=== PATIENT | female | born 1990 | race Caucasian/White ===

== ENCOUNTER 2023-11-03 08:41 | Inpatient (IN) | payer OTHER, SELFPAY ==
[2023-11-03] VITALS (17 sets, daily range): BP systolic 108–130; BP diastolic 65–90; PULSE 63–69; RESP 18; TEMP 36.5–36.8; O2SAT 90–100; BMI 23.9; BMI 25.0
--- NOTE | 2023-11-03 08:45 | ED.LOWEXI1 ---
HPI - Extremity Injury (Lower) General Chief Complaint: Extremity Injury, Lower Stated Complaint: LOWER EXTREMITY INJURY Time Seen by Provider: 11/03/23 08:45 History of Present Illness HPI Narrative: 33-year-old female presents to the emergency Department for left ankle pain. She was at work and she tripped and fell and twisted her ankle. No other injury was sustained, she didn't hit her head. The pain is severe and she was transported here by paramedics. This happened just before coming into the emergency department. Related Data Allergies Allergy/AdvReac Type Severity Reaction Status Date / Time No Known Drug Allergies Allergy Verified 11/03/23 08:44 Review of Systems ROS A ten point review of systems is negative except as noted above. Exam Narrative Exam Narrative: Nurses note and vital signs reviewed and patient is not hypoxic. General: The patient appears uncomfortable Skin: Warm, dry, no pallor noted. There is no rash noted. Head: Normocephalic, atraumatic Eye: Normal conjunctiva, no drainage Ears, Nose, Mouth, and Throat: oral mucosa is moist. Nares patent. Cardiovascular: Regular Rate and Rhythm Respiratory: Patient is in no distress, no accessory muscle use, lungs are clear to auscultation, no wheezing, rales or rhonchi Back: non-tender GI: soft and nontender Musculoskeletal: swelling and tenderness present at the left ankle. Dorsalis pedis pulse 2+. Neurological: A&O, normal speech Psychiatric: Cooperative ED Procedure Instructions Procedures Procedures: The following procedure was performed by me. The patient was given IV etomidate for conscious sedation. She was placed on oxygen and CO2 monitor. Monitor also applied. She was given 10 mg of etomidate which resulted in an excellent level of sedation. She did not have decrease in her pulse ox remained hemodynamically throughout. There were no complications. Total conscious sedation time fifteen minutes. The following procedure was performed by me. Reduction was carried out under conscious sedation of the left ankle fracture dislocation. Manual traction was utilized. Subsequently a short leg posterior splint was applied by me. She is neurovascularly intact subsequently. There were no complications. MDM - Extremity Injury (Lower) MDM Narrative Medical decision making narrative: left ankle fracture dislocation is identified, closed. It has been reduced by me. I've spoken to podiatry who has reviewed her x-rays. She'll be admitted today for pain control with plan for surgery tomorrow. Findings are discussed thoroughly with the patient's. Differential Diagnosis Differential diagnosis: Likely ankle sprain and strain and other (ankle fracture, dislocation) Imaging Data ankle: Radiologist's impression: ITS Impressions Ankle X-Ray 11/03/23 09:54 IMPRESSION: Left ankle study demonstrates fractures of the distal fibular shaft and distal tibia including medial malleolus, relationship of the fracture fragments improved compared to the prior exam as described above. Mild medial displacement of the articular surface of the distal tibia which is the proximal fracture fragment of the tibia, significantly improved compared to the prior exam with what appears be reduction of previously noted dislocation. Significantly improved tibiofibular relationship. Follow-up as needed. Electronically authenticated by: ARTHUR WEST Date: 11/03/2023 10:52 Discharge Plan Discharge Chief Complaint: Extremity Injury, Lower Clinical Impression: Closed fracture dislocation of left ankle Patient Disposition: Admitted As Inpatient Time of Disposition Decision: 10:59 Condition: Good ED Ortho Fracture Reduction Orthopedic Fracture Reduction Fracture #1: Time out performed: Yes Side: left Manipulation performed: Yes Fracture reduction location: tibia and fibula Analgesia: procedural sedation Technique: direct manipulation Anesthesia needed: No Post-reduction x-rays demonstrate: anatomical reduction Post-reduction neuro exam: intact Post-reduction vascular exam: intact Splint applied: Yes Patient tolerated procedure: well and no complications
[2023-11-03] MEDS: MORPHINE SULFATE 4 MG/ML VIAL IV ×2 (09:00→10:12)
--- NOTE | 2023-11-03 09:10 | XR_ITS ---
[address] [address] Patient Name: DIEUDONNE ISBELL MRN: [id number] date: 1990 Sex: F Assigned Patient Location: ER Current Patient Location: ER Accession/Order Number: [id number] Exam Date: 11/03/2023 09:05 Report Date: 11/03/2023 09:22 At the request of: MAZIN SCHAEFFER Procedure: XR ankle LT min 3V EXAM: XR ankle LT min 3V HISTORY: fell, twisted COMPARISON: None. TECHNIQUE: 3 views Findings/impression: Moderately displaced oblique fracture of the distal fibula and medial malleolus. Moderate dislocation of the ankle mortise and the distal tibiofibular joint. Soft tissue swelling. Electronically authenticated by: KARLO PRESSLEY Date: 11/03/2023 09:22
[2023-11-03] MEDS: ETOMIDATE 20 MG/10 ML VIAL IVP (09:48)
--- NOTE | 2023-11-03 09:54 | XR_ITS ---
The [address] [address] Patient Name: DIEUDONNE ISBELL MRN: [facility]:[id number] date: 1990 Sex: F Assigned Patient Location: ER Current Patient Location: ED.MAIN Accession/Order Number: [id number] Exam Date: 11/03/2023 10:25 Report Date: 11/03/2023 10:52 At the request of: MAZIN SCHAEFFER Procedure: XR ankle LT 2V EXAM: XR ankle LT 2V HISTORY: post reduction COMPARISON: Left ankle study performed earlier today on 11/03/2023 TECHNIQUE: AP and lateral views of the left ankle were obtained. FINDINGS: Overlying fiberglass stabilizing device noted. Comminuted fracture of the distal fibular shaft with mild separation of the fracture fragments including mild lateral displacement of the distal major fracture fragment, improved compared to the prior exam. There is slight lateral angulation at the major fracture site. Fracture of the distal tibia to include base of the medial malleolus again identified, the fracture appears comminuted though significantly improved in appearance with mild separation of fracture fragments. Mild medial displacement of the proximal major fracture fragment which includes the majority of the articular surface with the talus, significantly improved since prior exam, previously noted dislocation or longer identified. Significantly improved appearance of tibiotalar relationship. Moderate to marked soft tissue swelling medially with mild swelling otherwise noted. Small plantar calcaneal spur. XR/XR ankle LT 2V IMPRESSION: Left ankle study demonstrates fractures of the distal fibular shaft and distal tibia including medial malleolus, relationship of the fracture fragments improved compared to the prior exam as described above. Mild medial displacement of the articular surface of the distal tibia which is the proximal fracture fragment of the tibia, significantly improved compared to the prior exam with what appears be reduction of previously noted dislocation. Significantly improved tibiofibular relationship. Follow-up as needed. Electronically authenticated by: ARTHUR WEST Date: 11/03/2023 10:52
--- NOTE | 2023-11-03 10:17 | PC.NURSE ---
0950 10mg of etomidate given IV push. 0951 Dr. Carcamo at bedside for closed reduction of left ankle. Left ankle supported and splint applied. Post reduction xray ordered and radiology notified. 0957 pt awake and alert. pt reports pain to left ankle. IV pain medication ordered.
--- NOTE | 2023-11-03 11:21 | P.HP_ITS ---
H&P: HPI History of Present Illness Chief complaint: LOWER EXTREMITY INJURY Narrative: patient is a healthy 33-year-old female with no past medical history who presented to the emergency department today after she tripped and fell and twisted her ankle at work. X-ray was positive for acute fracture of the left d istal fibular shaft and distal tibia including the medial malleolus. Patient was approximated/reduced under sedation in the Emergency Room and podiatry was consult note for further evaluation. She will be admitted to the medicine service and planned for surgery in the morning. continue pain control. Review of Systems ROS Narrative ROS: a complete review of systems were reviewed with patient and are positive as below or listed in History of Chief Complaint. General: no fever, chills, night sweats Head: no headache, trauma, visual changes, nausea or vomiting Skin: no reported rashes, itching or sores Eyes: no blurriness of vision Ears: no reported hearing loss, vertigo, earache, or tinnitus Throat: no sore throat, hoarseness, swelling of neck, or tongue pain Heart: no chest pain Lungs: no shortness of breath or cough GI: no diarrhea or vomiting/nausea Urinary: no urinary urgency, frequency or pain Neuro: no numbness or tingling HEM: no bleeding issues or bruising ENDO: no thyroid problems Psych: no anxiety or depression PFSH PFSH Medical History Depression ?F32.A - Depression, unspecified (ICD-10) Anxiety ?F41.9 - Anxiety disorder, unspecified (ICD-10) Seasonal allergies ?J30.2 - Other seasonal allergic rhinitis (ICD-10) Surgical History History of appendectomy ?Z90.49 - Acquired absence of other specified parts of digestive tract (ICD- 10) History of partial hysterectomy ?Z90.711 - Acquired absence of uterus with remaining cervical stump (ICD-10) Family History Mother Family history of COPD (chronic obstructive pulmonary disease) Family history of cancer Grandmother Family history of cancer Father Family history of hypertension Social History Within the past year, how often did you have a drink containing alcohol: never Score interpretation: A score less than 3 is consistent with normal alcohol consumption. Smoking status: Never smoker Non-prescribed substance use: denies use Previous occupational history: [employer] Highest level of school completed/degree received: high school graduate Are you now , , , , never or living with a partner: living with partner Little interest or pleasure in doing things: not at all Feel stressed/tense/nervous/anxious/difficulty sleeping: only a little Do you think of yourself as: straight/heterosexual Meds Home Medications and Allergies Home Medications Medication Instructions Recorded Confirmed Type No Known Home Medications 11/03/23 11/03/23 History Allergies Allergy/AdvReac Type Severity Reaction Status Date / Time No Known Drug Allergies Allergy Verified 11/03/23 08:44 Exam Narrative Exam Narrative: General: Patient is alert, and oriented to person, place and time with normal affect, proper hygiene Skin: no visible rashes, or ulcers Head: atraumatic, acephalic Eyes: PERRLA, no nystagmus present, conjunctiva clear, no scleral icterus Ears: normal gross auditory acuity Nose: symmetric, no discharge, no maxillary or frontal sinus tenderness Mouth/Throat: no erythema, exudate, or tonsillar enlargement, normal dentition Neck: no masses palpated Heart: Normal rate and rhythm, no murmurs/rubs/gallops Lungs: no audible wheezes, crackles and normal breath sounds all lung syed Abdomen: Normal audible bowel sounds, no distension, No palpable masses, no organomegaly, no rebound/guarding/ or rigidity Musculoskeletal: no swelling bilateral lower extremities, splint on left leg c/d/i Neuro: CN II-X grossly intact Constitutional Vital Signs, click to edit/add: Last Vital Signs Temp 97.7 F 11/03/23 08:44 Pulse 63 11/03/23 08:44 Resp 18 11/03/23 08:44 BP 110/78 11/03/23 11:00 Pulse Ox 96 11/03/23 11:10 O2 Del Method Room Air 11/03/23 08:44 Assessment and Plan Assessment and Plan (1) Closed left trimalleolar fracture: Qualifiers: Encounter type: initial encounter Qualified Code(s): S82.852A - Displaced trimalleolar fracture of left lower leg, initial encounter for closed fracture (2) Closed fracture dislocation of left ankle: Qualifiers: Encounter type: initial encounter Qualified Code(s): S82.892A - Other fracture of left lower leg, initial encounter for closed fracture Plan Plan for pain control overnight, CBC, cmp, coags and tests all normal and negative. NPO after midnight. Podiatry to take to surgery tomorrow for fixation. Non weight bearing on the left. PT evaluation tomorrow as well for post-op needs.
[2023-11-03 11:35] LABS: Basophils Percent Auto 0.2 % (0.2-2.0); Eosinophils Absolute Auto 0.1 10^3/uL (0.0-0.7); Eosinophils Percent Auto 0.4 % (0.9-7.0); Hematocrit 42.5 % (36.0-48.0); Immature Granulocytes Abs Auto 0.05 10^3/uL (0.00-0.03); Immature Granulocytes Pct Auto 0.4 % (0.0-0.5); Lymphocytes Absolute Auto 0.9 10^3/uL (1.2-3.8); Lymphocytes Percent Auto 6.7 % (20.5-60.0); Mean Corpuscular HGB Conc 32.9 g/dL (29.9-35.2); Mean Corpuscular Hemoglobin 30.2 pg (26.7-34.0); Mean Corpuscular Volume 91.6 fL (81.0-99.0); Mean Platelet Volume 10.2 fL (9.5-13.5); Monocytes Absolute Auto 0.5 10^3/uL (0.3-0.8); Monocytes Percent Auto 3.5 % (1.7-12.0); Neutrophils Absolute Auto 11.5 10^3/uL (1.4-6.5); Neutrophils Percent Auto 88.8 % (43.0-75.0); Platelet Count 192 10^3/uL (150-450); Red Blood Count 4.64 10^6/uL (4.20-5.40); Red Cell Distribution Width 13.3 % (11.0-15.0); White Blood Count 12.9 10^3/uL (4.0-11.0)
[2023-11-03 11:51] LABS: Alanine Aminotransferase 9 U/L (14-59); Albumin Globulin Ratio 1.1; Albumin Level 3.9 g/dL (3.4-5.0); Alkaline Phosphatase 44 U/L (46-116); Anion Gap 12.6; Aspartate Amino Transferase 12 U/L (15-37); BUN Creatinine Ratio 18.4; Calcium 8.9 mg/dL (8.5-10.1); Carbon Dioxide 26.5 mmol/L (21.0-32.0); Chloride 102 mmol/L (98-107); Estimated GFR (African America >60 (>=60); Estimated GFR (Non-African Ame >60 (>=60); Globulin 3.6 g/dL; Glucose 120 mg/dL (74-106); Potassium 4.1 mmol/L (3.5-5.1); Sodium 137 mmol/L (136-145); Total Protein 7.5 g/dL (6.4-8.2)
--- NOTE | 2023-11-03 11:55 | PM.PODCN1 ---
[facility] - Podiatry Data of Consult Patient: new to practice Consult date: 11/03/23 Requesting physician: Nona Ruiz DO Primary care provider: Non-Staff Physician, MD Consult Narrative Reason for consult: Left ankle fracture Narrative: Patient is a pleasant 33-year-old female otherwise healthy presents to our emergency department after sustaining fall at work this morning with subsequent left ankle pain and deformity. She presented to the emergency department where x-rays revealed closed, dislocated trimalleolar fracture. Closed reduction was performed in the ED and she is neurovascularly intact. She was seen at bedside this morning resting comfortably, states pain improved following reduction and reports minimal pain at this time. Posterior splint intact. She denies any other injuries, denies any other acute pedal complaints and denies any constitutional symptoms at time of visit. cc:: CC: Nona Ruiz DO Review of Systems ROS Status of ROS 10 or more systems reviewed and unremarkable except as noted in history and below Exam Narrative Exam Narrative: LLE splint left CDI secondary to known fracture with prior dislocation s/p closed reduction performed in ED. Vascular: CFT intact to digits. Skin temperature warm to warm proximal distal to dressing. No erythema or ecchymosis proximally. Neuro: Light touch gross sensation intact to digits. No hypersensitivity. Derm: LLE splint left CDI. No open lesions proximal or distal to dressing. MSK: Muscle strength and range of motion deferred secondary to known fracture. Compartments are soft compressible, no pain with calf or thigh compression. Active and passive range of motion digits present. Constitutional Vital Signs, click to edit/add: Last Vital Signs Temp 97.7 F 11/03/23 08:44 Pulse 63 11/03/23 08:44 Resp 18 11/03/23 08:44 BP 110/78 11/03/23 11:00 Pulse Ox 96 11/03/23 11:10 O2 Del Method Room Air 11/03/23 08:44 Assessment and Plan Assessment and Plan (1) Closed left trimalleolar fracture: (2) Closed fracture dislocation of left ankle: Plan Patient examined and evaluated. All findings discussed with patient all questions answered to patient's satisfaction. Labs and imaging reviewed. Prereduction x-ray demonstrates displaced PER4 ankle fracture, postreduction the tibiotalar joint is well reduced however there is still displacement of the medial malleolus or fragment as well as shortening and comminution of the Kirkpatrick C fibular fracture. Posterior malleolus fracture fragment is noted. Postreduction CT was ordered to guide surgical planning. Leave LLE splint CDI. Plan for ORIF left ankle fracture tomorrow, 11/04 at 0730 Postoperative recovery as well as potential risk complications were discussed with the patient and she is agreeable to move forward with surgical intervention. NPO after midnight tonight. Pain control with oxycodone 02/12/2015, acetaminophen 1000, Toradol 15 IM for breakthrough. Rest per primary Please call with questions or concerns.
[2023-11-03 11:56] LABS: HCG Quantitative <1 mIU/mL
[2023-11-03 11:58] LABS: INR 1.03; Partial Thromboplastin Time 28.2 sec (22.3-36.2); Prothrombin Time 10.9 sec (9.0-11.6)
--- NOTE | 2023-11-03 12:00 | CT_ITS ---
The [address] [address] Patient Name: DIEUDONNE ISBELL MRN: [id number] date: 1990 Sex: F Assigned Patient Location: MS Current Patient Location: MS Accession/Order Number: [id number] Exam Date: 11/03/2023 11:55 Report Date: 11/03/2023 12:28 At the request of: CHERISE FLORES Procedure: CT ankle LT wo con Exam Type: CT LEFT ANKLE Exam Date and Time: 11/03/2023 11:55 AM EST Indication: 33 years old Female with fracture Comparison: Plain radiograph same day TECHNIQUE: Axial CT images of the left ankle were obtained without intravenous contrast. Coronal and sagittal reformatted images were obtained. Dose reduction techniques were achieved by using automated exposure control and/or adjustment of mA and/or kV according to patient size and/or use of iterative reconstruction technique. FINDINGS: Fiberglas splint material overlies the ankle. Redemonstration of a comminuted, moderately displaced medial malleolus fracture with extension into the anterior medial tibial plafond. There is a moderately displaced fracture fragment along the posterior medial aspect of the ankle. Small minimally displaced posterior malleolus fracture without significant cortical step off. Comminuted distal fibular diaphysis fracture above the syndesmosis, moderately displaced. There may be slight anterior subluxation of the distal fibula on the distal tibia likely reflecting syndesmotic disruption. The subtalar joints congruent. The midfoot is congruent. No other displaced fracture identified. Posttraumatic subcutaneous edema is present about the ankle. CT/CT ankle LT wo con IMPRESSION: Comminuted, moderately displaced trimalleolar fracture with syndesmotic disruption. Electronically authenticated by: ALEX PIERRE Date: 11/03/2023 12:28
[2023-11-03] MEDS: LACTATED RINGER'S SOLUTION 1,000 ML 125 ML IV (12:11)
[2023-11-03] MEDS: OXYCODONE HCL/ACETAMINOPHEN 5MG/325MG 1 TAB PO ×2 (15:15→21:34)
[2023-11-04] VITALS (13 sets, daily range): BP systolic 97–121; BP diastolic 66–83; PULSE 61–82; RESP 12–20; TEMP 36–36.7; O2SAT 96–100
--- NOTE | 2023-11-04 | FL_ITS ---
[address] [address] Patient Name: DIEUDONNE ISBELL MRN: [id number] date: 1990 Sex: F Assigned Patient Location: MS Current Patient Location: MS Accession/Order Number: [id number] Exam Date: 11/04/2023 08:10 Report Date: 11/04/2023 13:46 At the request of: VALENTIN BONOE Procedure: FL fluoroscopy <1hr NON-READ EXAM: FL fluoroscopy <1hr NON-READ HISTORY: TECHNIQUE: FINDINGS: Please see Operative Report. Electronically authenticated by: RADIOLOGIST NO Date: 11/04/2023 13:46
[2023-11-04] MEDS: MORPHINE SULFATE 4 MG/ML VIAL IV (03:07)
[2023-11-04 05:53] LABS: Basophils Percent Auto 0.2 % (0.2-2.0); Eosinophils Absolute Auto 0.2 10^3/uL (0.0-0.7); Eosinophils Percent Auto 2.6 % (0.9-7.0); Hematocrit 39.1 % (36.0-48.0); Hemoglobin 12.9 g/dL (12.0-16.0); Immature Granulocytes Abs Auto 0.01 10^3/uL (0.00-0.03); Immature Granulocytes Pct Auto 0.1 % (0.0-0.5); Lymphocytes Absolute Auto 1.9 10^3/uL (1.2-3.8); Lymphocytes Percent Auto 22.4 % (20.5-60.0); Mean Corpuscular Hemoglobin 29.9 pg (26.7-34.0); Mean Corpuscular Volume 90.5 fL (81.0-99.0); Mean Platelet Volume 10.9 fL (9.5-13.5); Monocytes Absolute Auto 0.8 10^3/uL (0.3-0.8); Monocytes Percent Auto 8.9 % (1.7-12.0); Neutrophils Absolute Auto 5.5 10^3/uL (1.4-6.5); Neutrophils Percent Auto 65.8 % (43.0-75.0); Platelet Count 183 10^3/uL (150-450); Red Blood Count 4.32 10^6/uL (4.20-5.40); Red Cell Distribution Width 13.3 % (11.0-15.0); White Blood Count 8.4 10^3/uL (4.0-11.0)
[2023-11-04 06:23] LABS: Alanine Aminotransferase 7 U/L (14-59); Albumin Globulin Ratio 0.9; Albumin Level 3.3 g/dL (3.4-5.0); Alkaline Phosphatase 42 U/L (46-116); Anion Gap 10.1; Aspartate Amino Transferase 10 U/L (15-37); BUN Creatinine Ratio 11.1; Bilirubin Total 1.1 mg/dL (0.2-1.0); Calcium 8.5 mg/dL (8.5-10.1); Carbon Dioxide 24.9 mmol/L (21.0-32.0); Chloride 105 mmol/L (98-107); Estimated GFR (African America >60 (>=60); Estimated GFR (Non-African Ame >60 (>=60); Globulin 3.5 g/dL; Glucose 99 mg/dL (74-106); Sodium 136 mmol/L (136-145); Total Protein 6.8 g/dL (6.4-8.2)
[2023-11-04] MEDS: CEFAZOLIN SODIUM/DEXTROSE,ISO 2 GM/50 ML PIGGYBACK IV ×3 (07:47→23:05)
--- NOTE | 2023-11-04 08:06 | PC.NURSE ---
Block started at 07 and completed at 07; tolerated well by pt; left toes pink and warm with brisk capillary refill
--- NOTE | 2023-11-04 08:11 | P.ORON_ITS ---
Brief Operative Note Date of procedure: 11/04/23 Pre-op diagnosis: Left displaced trimalleolar ankle fracture with syndesmotic disruption Post-op diagnosis: other (Left displaced, comminuted trimalleolar ankle fracture, syndesmotic disruption, localized swelling/edema) Procedure: PROCEDURES PERFORMED: open reduction and internal fixation of trimalleolar ankle fracture without fixation of posterior fragment, open reduction and stabilization of syndesmosis, application of multilayer compression with posterior splint and intraoperative stress examination under fluoroscopy, left ankle INDICATION FOR PROCEDURE: See consultation note INTRAOPERATIVE FINDINGS: considerable swelling and bruising over the medial malleolus with hematoma formation. Skin over the medial and lateral malleolus did have intact skin wrinkles. Comminuted fibular shaft fracture with posterior butterfly fragment. Prior to reduction fibula short and subluxed from the incisura. Once reduced, there was a cortical defect noted on the posterior aspect of the fibula less than 1 cm. Medial malleolus fracture also with comminution. Cortical cancellus fragment avulsed from the posterior fracture line and with in the flexor retinaculum causing tendon impingement was required to be excised. Once reduced and fixated this fragment left cortical defect of approximately 1 cm. Small nondisplaced posterior malleolus fragment was noted on lateral x-ray. Once the medial and lateral malleoli were reduced and fixated stress testing under fluoroscopy revealed amalia syndesmotic instability. Bone quality is within normal limits given patient's age and gender. PROCEDURES IN DETAIL: Patient was identified in pre op and consent was reviewed. Correct side and site were identified and marked. Pre-op antibiotics were started. Patient was brought to OR suite and place on table in a supine position. General anesthesia was administered. Tourniquet applied. Operative extremity was prepped and draped in usual sterile fashion. Formal time-out was performed and the foot/ankle were exsanguinated and tourniquet inflated. Fibula: A longitudinal incision placed over the fibular malleolus was undertaken. Combination of sharp and blunt dissection gained access to the fibular fracture in all bleeders were coagulated. Hematoma was evacuated. Any periosteum or fibrous tissue was removed from the fracture line and the fracture surfaces were lightly curetted. Then utilizing manual reduction techniques and reduction clamps the fibula and mortise were then reduced and pinned in place with K wires temporarily. Comminution and fracture morphology lax screw fixation was unable to be achieved therefore a bridge plating technique was utilized and a 3.5 mm straight plate was placed over the fibula which was held in place with our wires. Then locking and nonlocking screws were placed according to the dania rosales's standard directions. Stability across the fracture was noted and all temporary fixation was removed. The site was irrigated. Medial malleolus: Incision was placed over the medial malleolus and all bleeders were coagulated. Sharp and blunt dissection gained access to the fracture and fibrous and hematoma tissue was removed. A 1 cm fracture fragment was noted to be with in the posterior tibial tendon sheath and flexor retinaculum. This fragment was excised and passed the back table. The fracture was curetted lightly and then reduced with reduction clamps. Temporary K wire fixation was placed under fluoroscopic guidance. Two 4.0 mm cannulated screws were placed according to the loss prevention and safety manager's standard directions with compression noted across the fracture line. Temporary fixation was removed and surgical site was irrigated. Syndesmosis: Under live fluoroscopy the syndesmosis was stressed and noted to be unstable. Due to the instability syndesmosis was reduced with a large tenaculum and fixated with two endobutton anchors by drilling through the fibular plate, and across 4 cortices. The drill and suture passer were placed under fluoroscopic guidance parallel to the tibial talar joint but divergent within the frontal plane. The drill and suture passer were passed through the medial malleolus or incision. Each Endobutton construct was passed through the drill hole created and suture button was flat on the medial tibia. Then the lateral button was tightened accordingly. Fluoroscopy confirmed placement and the tenaculum was removed. The ankle joint was stressed again and the syndesmosis was noted to be stable. All surgical sites were irrigated with copious sterile saline and Sparc bone allograft was placed into the defects at the fibular and medial malleolus fractu re sites. Deep fascia was then closed with absorbable suture and the tourniquet was deflated with a prompt hyperemic response. Hemostasis was controlled with temporary pressure and elevation then the incisions were closed in layers. A dry sterile dressing consisting of Xeroform on the incisions followed by 4 x 4 gauze, ABDs, and Kerlix were applied. A multi layered compression wrap was applied using multiple layers of cast padding were then applied to ensure all bony prominences were well-padded followed by a layer of Vlad wraps both of which were applied from the forefoot to the popliteal fossa. Additional layers of cast padding were applied followed by a plaster posterior splint was then applied which was held in place by an additional layer of Vlad wraps. Capillary refill time to all digits was evaluated and had appropriate response. Patient tolerated the procedure and anesthesia well was transferred to the recovery room with vital signs stable and brisk capillary refill time to the t oes. POSTOPERATIVE PLAN: Transfer to med/surg under hospitalist's care NWB operative foot/ankle Ice and elevation Laurence-op antibiotics, multimodal pain medication and DVT prophylaxis ordered Consults: physical therapy & social work instructor - plan for patient to be discharged home Estimated LOS 1-2 nights - patient should remain in house until regional nerve block has completely worn off and patient can control pain with oral pain medicine Will follow *NWB x3-6 weeks Implants: Medline 3.5 mm fibular plate, 4.0 mm cannulated medial malleolar screws & syndesmotic endobutton fixation Anesthesia: regional and General-LMA Surgeon: Michael Valenzuela Veterinary Practitioner: Tolu Espinoza Estimated blood loss (mL): 50 Pathology: none sent Condition: stable Disposition: floor
[2023-11-04] MEDS: LACTATED RINGER'S SOLUTION 1,000 ML 125 ML IV (09:20)
[2023-11-04 11:55] LABS: Glucometer 114 mg/dL (74-106)
--- NOTE | 2023-11-04 12:08 | PC.NURSE ---
Left toes pink and warm. Has urge to void; placed on bedpan
--- NOTE | 2023-11-04 12:12 | PC.NURSE ---
Removed from bedpan; did not void. Left toes pink and warm; extremity elevated above heart level
--- NOTE | 2023-11-04 12:30 | CM.NOTE ---
Rounds made with Dr. Ruiz pt in OR at this time.
--- NOTE | 2023-11-04 12:43 | XR_ITS ---
The [address] [address] Patient Name: DIEUDONNE ISBELL MRN: [id number] date: 1990 Sex: F Assigned Patient Location: [place] Current Patient Location: [place] Accession/Order Number: [id number] Exam Date: 11/04/2023 13:45 Report Date: 11/04/2023 14:45 At the request of: CHERISE FLORES Procedure: XR ankle LT min 3V IMAGES REVIEWED: XR ankle LT min 3V COMPARISON: X-ray and CT from yesterday. CLINICAL INDICATION: postop xr FINDINGS/IMPRESSION: Status post interval ORIF of previously seen acute displaced trimalleolar left ankle fracture-dislocation. Distal fibular fixation plate/multiple screws and 2 partially threaded screws transfixing the medial malleolus appear intact and appropriately aligned. Status post interval syndesmotic fixation. No evidence of complication. Improved bony alignment. Electronically authenticated by: MARYAM LUU Date: 11/04/2023 14:45
--- NOTE | 2023-11-04 13:21 | P.PN_ITS ---
Progress Note: Subjective Subjective Interval history: Seeing patient post-op today, pain is controlled now from block. Will be non weight bearing on the left. No current issues or concerns at this time. Exam Narrative Exam Narrative: General: Patient is alert, and oriented to person, place and time with normal affect, proper hygiene Heart: Normal rate and rhythm, no murmurs/rubs/gallops Lungs: no audible wheezes, crackles and normal breath sounds all lung syed Neuro: CN II-X grossly intact EXT: dressing to left C/D/I Constitutional Vital Signs, click to edit/add: Last Vital Signs Temp 98.0 F 11/04/23 12:56 Pulse 61 11/04/23 11:54 Resp 16 11/04/23 12:56 BP 116/72 11/04/23 12:56 Pulse Ox 99 11/04/23 12:56 O2 Del Method Room Air 11/04/23 12:56 O2 Flow Rate 3 11/04/23 07:43 Progress Note: Objective Labs Labs: Short CBC 11/04/23 Range/Units 05:26 WBC 8.4 (4.0-11.0) 10^3/uL Hgb 12.9 (12.0-16.0) g/dL Hct 39.1 (36.0-48.0) % Plt Count 183 (150-450) 10^3/uL BMP 11/04/23 05:26 Sodium 136 Potassium 4.0 Chloride 105 Carbon Dioxide 24.9 BUN 8.0 Creatinine 0.72 Glucose 99 Calcium 8.5 Liver Function 11/04/23 Range/Units 05:26 Total Bilirubin 1.1 H (0.2-1.0) mg/dL AST 10 L (15-37) U/L ALT 7 L (14-59) U/L Alkaline Phosphatase 42 L (46-116) U/L Albumin 3.3 L (3.4-5.0) g/dL Progress Note: A&P Assessment and Plan (1) Closed left trimalleolar fracture: Qualifiers: Encounter type: initial encounter Qualified Code(s): S82.852A - Displac ed trimalleolar fracture of left lower leg, initial encounter for closed fracture (2) Closed fracture dislocation of left ankle: Qualifiers: Encounter type: initial encounter Qualified Code(s): S82.892A - Other fracture of left lower leg, initial encounter for closed fracture Plan Had Surgery today; awaiting pain block to wear off, try to control with PO pain. PT evaluation, podiatry following. Advance diet. Probable discharge home tomorrow.
--- NOTE | 2023-11-04 13:42 | SWNOTE1 ---
NICHO met with pt to discuss dc needs. Pt has a broken ankle and had surgery. SW asked if therapy had worked with pt yet, she stated podiatry said not to work with therapy. SW asked pt how she was going to get around at home? Pt stated she was told to get a knee scooter at the [employer] store. SW let her know she can rent a knee scooter at [employer] for 25-25 dollars. Pt voiced she will be NWB for 3 weeks. NICHO asked about crutches and she stated she has 4 kids at home and can't use crutches to get around. She stated her mom does have them just in case. At this time pt will be getting a knee scooter and voices no other needs.
[2023-11-04] MEDS: ENOXAPARIN SODIUM 40 MG/0.4 ML SYRINGE SUBQ (16:00)
[2023-11-04] MEDS: ONDANSETRON PF 4 MG/2 ML VIAL IV (23:48)
[2023-11-05] MEDS: DIPHENHYDRAMINE HCL 25 MG/10 ML ELIXIR PO (00:49)
[2023-11-05 05:22] LABS: Basophils Percent Auto 0.2 % (0.2-2.0); Eosinophils Percent Auto 0.3 % (0.9-7.0); Hematocrit 34.7 % (36.0-48.0); Hemoglobin 11.1 g/dL (12.0-16.0); Immature Granulocytes Abs Auto 0.03 10^3/uL (0.00-0.03); Immature Granulocytes Pct Auto 0.3 % (0.0-0.5); Lymphocytes Absolute Auto 2.3 10^3/uL (1.2-3.8); Lymphocytes Percent Auto 22.4 % (20.5-60.0); Mean Corpuscular Hemoglobin 29.7 pg (26.7-34.0); Mean Corpuscular Volume 92.8 fL (81.0-99.0); Mean Platelet Volume 11.8 fL (9.5-13.5); Monocytes Absolute Auto 0.9 10^3/uL (0.3-0.8); Monocytes Percent Auto 8.7 % (1.7-12.0); Neutrophils Absolute Auto 7.1 10^3/uL (1.4-6.5); Neutrophils Percent Auto 68.1 % (43.0-75.0); Platelet Count 154 10^3/uL (150-450); Red Blood Count 3.74 10^6/uL (4.20-5.40); Red Cell Distribution Width 13.2 % (11.0-15.0); White Blood Count 10.4 10^3/uL (4.0-11.0)
[2023-11-05 05:36] VITALS: BP 96/60; PULSE 82; RESP 18; TEMP 36.9; O2SAT 98
[2023-11-05 05:50] LABS: Alanine Aminotransferase <6 U/L (14-59); Albumin Globulin Ratio 0.9; Albumin Level 3.1 g/dL (3.4-5.0); Alkaline Phosphatase 33 U/L (46-116); Anion Gap 11.8; Aspartate Amino Transferase 14 U/L (15-37); BUN Creatinine Ratio 10.6; Bilirubin Total 1.1 mg/dL (0.2-1.0); Calcium 8.5 mg/dL (8.5-10.1); Carbon Dioxide 22.6 mmol/L (21.0-32.0); Chloride 104 mmol/L (98-107); Estimated GFR (African America >60 (>=60); Estimated GFR (Non-African Ame >60 (>=60); Globulin 3.4 g/dL; Glucose 91 mg/dL (74-106); Potassium 3.4 mmol/L (3.5-5.1); Sodium 135 mmol/L (136-145); Total Protein 6.5 g/dL (6.4-8.2)
[2023-11-05] MEDS: OXYCODONE HCL 5 MG TABLET 10 MG PO (06:31)
[2023-11-05 07:47] VITALS: BP 100/68; PULSE 82
[2023-11-05] MEDS: CEFAZOLIN SODIUM/DEXTROSE,ISO 2 GM/50 ML PIGGYBACK IV (08:52)
--- NOTE | 2023-11-05 09:25 | PM.DS1 ---
DS: Providers Provider Date of admission: 11/03/23 11:15 Primary care physician: Non-Staff PhysicianMD Admitting clinician: Nona Ruiz Consults: 11/03/23 11:16 Physical Therapy Eval and Treat Routine Reason for consultation: non-weight bearing left Has provider been notified: No 11/03/23 11:28 Consult to Podiatry Routine Consulting Provider: Michael Valenzuela Reason for consultation: left ankle fracture Has provider been notified: Yes 11/05/23 09:15 Physical Therapy Eval and Treat Routine Reason for consultation: non weight bearing left Has provider been notified: No Discharging clinician: Nona Ruiz DS: Diagnosis Discharge Diagnosis (1) Closed left trimalleolar fracture: Qualifiers: Encounter type: initial encounter Qualified Code(s): S82.852A - Displaced trimalleolar fracture of left lower leg, initial encounter for closed fracture (2) Closed fracture dislocation of left ankle: Qualifiers: Encounter type: initial encounter Qualified Code(s): S82.892A - Other fracture of left lower leg, initial encounter for closed fracture DS: Summary Hospital Course Hospital Course: patient is a healthy 33-year-old female with no past medical history who presented to the emergency department today after she tripped and fell and twisted her ankle at work. X-ray was positive for acute fracture of the left distal fibular shaft and distal tibia including the medial malleolus. Patient was approximated/reduced under sedation in the Emergency Room and podiatry was consult note for further evaluation. Patient was take to OR 11/04/22 for open reduction and internal fixation of trimalleolar ankle fracture without fixation of posterior fragment, open reduction and stabilization of syndesmosis, application of multilayer compression with posterior splint and intraoperative stress examination under fluoroscopy, left ankle ; she is post op Day #1. She has performed well with PT. She is to be non-weight baring on the left leg, Podiatry to provide pain medication for pain control at home. She will have close clinic follow up with them next week. She is to return to he hospital with any worsening signs or symptoms. She is to be off work until clinic evaluation next week. Time Spent with Patient Time attestation: Total time spent providing and/or coordinating discharge services: Time spent: greater than 30 minutes Exam Narrative Exam Narrative: General: Patient is alert, and oriented to person, place and time with normal affect, proper hygiene Heart: Normal rate and rhythm, no murmurs/rubs/gallops Lungs: no audible wheezes, crackles and normal breath sounds all lung syed Neuro: CN II-X grossly intact EXT: dressing to left C/D/I, patient can feel all 5 left toes Constitutional Vital Signs, click to edit/add: Last Vital Signs Temp 98.4 F 11/05/23 05:36 Pulse 82 11/05/23 07:47 Resp 18 11/05/23 05:36 BP 100/68 11/05/23 07:47 Pulse Ox 98 11/05/23 05:36 O2 Del Method Room Air 11/05/23 05:36 O2 Flow Rate 3 11/04/23 07:43 DS: Data Data Completed and Pending Labs on day of discharge: Labs from last 24 hours 11/05/23 11/04/23 04:35 11:54 WBC 10.4 RBC 3.74 L Hgb 11.1 L Hct 34.7 L MCV 92.8 MCH 29.7 MCHC 32.0 RDW 13.2 Plt Count 154 MPV 11.8 Neut % (Auto) 68.1 Lymph % (Auto) 22.4 Daniels % (Auto) 8.7 Eos % (Auto) 0.3 L Baso % (Auto) 0.2 Neut # (Auto) 7.1 H Lymph # (Auto) 2.3 Daniels # (Auto) 0.9 H Eos # (Auto) 0.0 Baso # (Auto) 0.0 Abs Immat Gran (auto) 0.03 Imm/Tot Granulo (auto) 0.3 Sodium 135 L Potassium 3.4 L Chloride 104 Carbon Dioxide 22.6 Anion Gap 11.8 BUN 7.0 Creatinine 0.66 Est GFR ( Amer) >60 Est GFR (Non-Af Amer) >60 BUN/Creatinine Ratio 10.6 Glucose 91 Calcium 8.5 Total Bilirubin 1.1 H AST 14 L ALT <6 L Alkaline Phosphatase 33 L Total Protein 6.5 Albumin 3.1 L Globulin 3.4 Albumin/Globulin Ratio 0.9 POC Glucose 114 H Discharge Plan Discharge Disposition: Home, Self-Care Condition: Good Discharge Medications: Continued No Known Home Medications Activity: other Activity Detail: non weight bearing on the left leg Diet: advance to your usual diet Patient Instructions: Ankle Fracture (DC) Forms: Portal Instructions Follow Up Appointments: Nov.11 @ 2:15pm with Dr. Valenzuela [facility], [address] [place] [address] , [place] [phone] Discharge location: pain medications to be provided by surgical team
[2023-11-05] MEDS: IBUPROFEN 400 MG TABLET PO (10:48)
--- NOTE | 2023-11-05 10:48 | REH.PTDLY ---
Physical Therapy Daily Note PT Daily Note/Assess Start: 11/05/23 10:38 Freq: Status: Active Protocol: Document 11/05/23 10:39 KAREN (Rec: 11/05/23 10:47 KAREN [id number]) Physical Therapy Daily Note/Assessment Time In 09:45 Time Out 10:02 Pain Level 6 Pain Level 6 Subjective Pt hopes to go home later this afternoon, but they want nerve block to be totally worn off and pt states she still can't feel L side of her foot. Gait Training/Stairs Minutes (minutes) 16 Gait Training/Stairs Units 1 Ambulation Assistive Device Rolling Walker Ambulation Distance (feet) 300 Stair Climbing Technique Right LE Bears Weight Number of Steps Climbed (steps) 4 Stair Climbing Ability Contact Guard Assist Gait Comments Pt Ind with all transfers. Educated pt on scooter prior to having pt trial this. Pt is able to maintain NWB on L LE while getting on scooter. Gait training with scooter for 150 feet x2 with no complaints or imbalance noted. Stair training up and down 4 steps with Xavi UE for support while maintaining NWB. Gait training with RW for 15 feet in room NWB on L with no complaints. Total Therapy Minutes 16 Total Physical Therapy Units 1 Daily Note Summary Pt comfortable with all AD and is able to perform stairs and gait without incident while maintaining NWB on L LE. Pt is comfortable with going home and has no questions at this time. has called [employer] to rent knee scooter. Pt is DC from therapy at this time as all goals are met.
[2023-11-05] MEDS: OXYCODONE HCL 5 MG TABLET PO (12:53)
--- NOTE | 2023-11-05 13:18 | PM.PN ---
Progress Note: Subjective Subjective Interval history: POD 1 ORIF ankle She is doing well and has been out of bed. She relates that she can wiggle her toes but does not have normal sensation indicating the block was not completely worn off as of this morning. Denies calf pain, shortness breath, chest pain, nausea and vomiting Exam Narrative Exam Narrative: Splint is clean dry and intact. She is able to wiggle her toes. No Pain on squeeze. Brisk capillary refill to all toes Constitutional Vital Signs, click to edit/add: Last Vital Signs Temp 98.4 F 11/05/23 05:36 Pulse 82 11/05/23 07:47 Resp 18 11/05/23 05:36 BP 100/68 11/05/23 07:47 Pulse Ox 98 11/05/23 05:36 O2 Del Method Room Air 11/05/23 05:36 O2 Flow Rate 3 11/04/23 07:43 Progress Note: Objective Labs Labs: Short CBC 11/05/23 Range/Units 04:35 WBC 10.4 (4.0-11.0) 10^3/uL Hgb 11.1 L (12.0-16.0) g/dL Hct 34.7 L (36.0-48.0) % Plt Count 154 (150-450) 10^3/uL BMP 11/05/23 04:35 Sodium 135 L Potassium 3.4 L Chloride 104 Carbon Dioxide 22.6 BUN 7.0 Creatinine 0.66 Glucose 91 Calcium 8.5 Liver Function 11/05/23 Range/Units 04:35 Total Bilirubin 1.1 H (0.2-1.0) mg/dL AST 14 L (15-37) U/L ALT <6 L (14-59) U/L Alkaline Phosphatase 33 L (46-116) U/L Albumin 3.1 L (3.4-5.0) g/dL Progress Note: A&P Assessment and Plan (1) Closed left trimalleolar fracture: Qualifiers: Encounter type: initial encounter Qualified Code(s): S82.852A - Displaced trimalleolar fracture of left lower leg, initial encounter for closed fracture (2) Closed fracture dislocation of left ankle: Assessment and Plan: POD1 Qualifiers: Encounter type: initial encounter Qualified Code(s): S82.892A - Other fracture of left lower leg, initial encounter for closed fracture Plan Patient seen and evaluated this morning and reviewed plan with Dr. Ruiz Nonweightbearing to operative extremity Physical therapy to evaluate today I recommended that she remain in house until her nerve block has worn off. Once she has normal sensation and is able to tolerate pain she may be discharged home She will follow up within one week from discharge
--- NOTE | 2023-11-05 13:31 | CM.NOTE ---
Rounds made with Dr. Ruiz, possible discharge to home this evening.
--- NOTE | 2023-11-07 15:29 | CM.NOTE ---
First attempt at Discharge phone call. No answer.
--- NOTE | 2023-11-17 15:08 | CM.DCFOLLOWU ---
Person spoke with: patient How are you feeling? fine How is your pain? none Did you understand your discharge instructions? yes Do you have any questions about your discharge instructions? no Were you given any prescriptions at discharge? no Were you able to get your prescriptions filled? N/A Do you understand how to take your medications as ordered? no medications on med list Do you have any questions about your follow up appointment and do you plan to keep your follow up appointment? no questions, had follow up with Dr. Valenzuela Is there anything else that you would like to discuss? no Questions/Comments/Concerns/Other: N/A
== END 2023-11-05 14:07 | disposition home or self-care (01) | DRG 494 ==
LOC: ER 10:59 → MS 11:15
PROVIDERS: Podiatrist Foot & Ankle Surgery; Admitting Provider Family Medicine; Emergency Provider Emergency Medicine; Visit Provider Family Medicine
PROC: 0QSH04Z Reposition Left Tibia with Internal Fixation Device, Open Approach (ICD-10-PCS; principal; 2023-11-04 07:30)
DX: S82.852A Displaced trimalleolar fracture of left lower leg, initial encounter for closed fracture (principal); S93.432A Sprain of tibiofibular ligament of left ankle, initial encounter; F32.A Depression, unspecified; F41.9 Anxiety disorder, unspecified; W01.0XXA Fall on same level from slipping, tripping and stumbling without subsequent striking against object, initial encounter; Y99.0 Civilian activity done for income or pay; Z90.49 Acquired absence of other specified parts of digestive tract; Z90.711 Acquired absence of uterus with remaining cervical stump; Z80.9 Family history of malignant neoplasm, unspecified; Z82.49 Family history of ischemic heart disease and other diseases of the circulatory system; Z82.5 Family history of asthma and other chronic lower respiratory diseases
CPT/HCPCS: 36415; 64445; 64447; 73600; 73610; 73700; 76000; 80053; 82948; 84702; 85025; 85610; 85730; 96365; 96366; 96375; 96376; 97116; 97161; 99285; C1713; J0690; J1100; J1650; J2250; J2270; J2405; J2704; J2795; J3010

== ENCOUNTER 2023-11-26 10:49 | Outpatient (OUT) | payer OTHER, SELFPAY ==
--- NOTE | 2023-11-26 | XR_ITS ---
[address] [address] Patient Name: DIEUDONNE ISBELL MRN: [id number] date: 1990 Sex: F Assigned Patient Location: Current Patient Location: Accession/Order Number: [id number] Exam Date: 11/26/2023 11:00 Report Date: 11/28/2023 07:02 At the request of: DUC WHITLOCK Procedure: XR ankle LT min 3V 3 views of the left ankle INDICATION: Pain COMPARISON: 11/04/2023 XR/XR ankle LT min 3V IMPRESSION: ORIF changes of the distal fibula and medial malleolus redemonstrated without overt complications. Oblique fracture lucency persists within the distal fibula, with mild posterior displacement. No dislocation. The ankle mortise is congruent. Mild soft tissue swelling about the ankle. Mild plantar calcaneal enthesopathy. Electronically authenticated by: EMMA HOWARD Date: 11/28/2023 07:02
--- OUTSIDE RECORDS SUMMARY | 2023-11-26 10:53 | XMS_ITS | CCD ---
Author Name Unknown Address [address] [place] [address] [id number] [place] [address] Organization [facility] Care Team Providers Care Rag Collector Name Role Phone PHAN RUBI Attending Unavailable NONE PER PATIENT, . Primary Care Unavailable PHAN RUBI Attending Unavailable NONE PER PATIENT, . Primary Care Unavailable Romeo Kandi Primary Care Provider Unavailable Primary Care Provider Unavailmolly Sylvester Chencho M [facility] [phone] [facility] Provider Higinio BUSINESS LAW PROFESSOR [facility] Primary Care Provider Higinio BUSINESS LAW PROFESSOR [facility] Primary Care Provider Higinio BUSINESS LAW PROFESSOR [facility] Primary Care Provider Betty Lamar Unavailable HIGINIO MS PAIZ Primary Care Unavailable MARK, DR ALEGRE Admitting Unavailable MARK, DR ALEGRE Consulting Unavailable MARK, DR ALEGRE Attending Unavailable ANGELLA AU Consulting Unavailable DE, DR KARLO Bennett Admitting Unavailable DE, DR KARLO Bennett Consulting Unavailable DE, DR KARLO Bennett Attending Unavailable HIGINIO, MS PAIZ Primary Care Unavailable MARYAM LUU Consulting Unavailable GILDARDO, DR BRITNEY Aguirre Admitting Unavailmolly EWING, DR BRITNEY Aguirre Consulting Unavailmolly EWING, DR BRITNEY Aguirre Attending Unavailmolly SYLVESTER, MS PAIZ Primary Care Unavailable CORWIN ABREU Admitting Unavailable CORWIN ABREU Consulting Unavailable CORWIN ABREU Attending Unavailable HIGINIO, MS PAIZ Primary Care Unavailable TANIKA HARRY Consulting Unavailable Higinio BUSINESS LAW PROFESSOR [facility], [facility] Primary Care Provider Higinio MILLAN - [employer] PROJECT LEAD, Chencho Red Primary Care Provider KAILA BUCKLEY Admitting Unavail able KAILA BUCKLEY Attending Unavail able HIGINIO, CHENCHO M Primary Care Unavailable JERRELL WESTBROOK Admitting Unavailabl e DE, JERRELL CASILLAS Attending Unavailabl e HIGNIIO, CHENCHO M Primary Care Unavailable JERRELL WESTBROOK Referring Unavailabl e HIGINIO, CHENCHO M Primary Care Unavailable KAILA BUCKLEY Referring Unavail able HIGINIO, CHENCHO M Primary Care Unavailable JERRELL WESTBROOK Referring Unavailabl e HIGINIO, CHENCHO M Primary Care Unavailable HIGINIO, CHENCHO M Primary Care Unavailable JERRELL WESTBROOK Referring Unavailabl e HIGINIO, CHENCHO M Primary Care Unavailable JERRELL WESTBROOK Referring Unavailabl e HIGINIO, CHENCHO M Primary Care Unavailable JERRELL WESTBROOK Referring Unavailabl e HIGINIO, CHENCHO M Primary Care Unavailable JERRELL WESTBROOK Referring Unavailabl JERRELL Macias Referring Unavailabl e HIGINIO, CHENCHO M Primary Care Unavailable Higinio BUSINESS LAW PROFESSOR - TECHNICAL PROJECT LEAD, Chencho Red Primary Care Provider Allergies Allergy Classification Reported Allergen(s) Allergy Type Date of Onset Reaction(s) Facility (3 sources) -No Environmental Allergies; Translations: [-No Environmental Allergies] Allergy to substance [facility] Work Phone: Medications Current Medications Medication Drug Class(es) Dates Sig (Normalized) Sig (Original) acetaminophen 325 mg / HYDROcodone bitartrate 5 mg oral tablet (2 sources) Opioid Agonist Start: 10-01-2022 HYDROcodone-acetam inophen (NORCO) 5-325 MG per tablet 1 tablet Start: 10-01-2022 End: 10-06-2022 HYDROcodone-acetaminophen (N ORCO) 5-325 MG per tablet Indications: Post-op pain Take 1 tablet by mouth every 6 hours as needed for Pain for up to 5 days. Intended supply: 5 days. Take lowest dose possible to manage pain Max Daily Amount: 4 tablets 10 tablet 0 10/01/2022 10/06/2022 Active benzocaine 200 mg/ml / menthol 5 mg/ml topical spray (2 sources) Standardized Chemical Allergen Start: 2022 apply 1 dose topically twice daily Topical, 2 TIMES DAILY, First dose on Pilar 03/07/22 at 2100 Apply to perineal area. Patient is capable and may self administer at bedside. Start: 07-20-2019 Topical, PRN, Pain, Starting Fri07/20/19 at 1647 Apply to perineal area. Patient is capable and may self administer at bedside. Post Delivery calcium chloride 0.001 meq/m l / glucose 50 mg/ml / potassium chloride 0.004 meq/ml / sodium chloride 0.103 meq/ml / sodium lactate 0.028 meq/ml injectable solution (1 source) Start: 12-05-2021 dextrose 5 % i n lactated ringers infusion calcium chloride 0.0014 meq/ ml / potassium chloride 0.004 meq/ml / sodium chloride 0.103 meq/ml / sodium lactate 0.028 meq/ml injectable solution (6 sources) Start: 10-01-2022 lactated ringe rs infusion Start: 2022 End: 2022 lactated ringers infusion Start: 12-19-2021 End: 12-19-2021 lactated ringers infusion Start: 07-20-2019 Intravenous, a t 125 mL/hr, CONTINUOUS, Starting Fri07/20/19 at 1715, Labor and Delivery Start: 07-20-2019 End: 07-20-2019 lactated ringers infusion cephalexin 500 mg oral capsule (3 sources) Cephalosporin Antibacterial Start: 12-05-2021 take 1 capsule by mouth twice daily cephALEXin (KEFLEX) 500 MG capsule take 1 capsule by mouth twice a day 0 12/05/2021 Active cetirizine hydrochloride 10 mg oral tablet (3 sources) Histamine-1 Receptor Antagonist take 1 tablet by mouth once daily cetirizine (ZYRTEC) 10 MG tablet Take 1 tablet by mouth daily 0 Active diphenhydrAMINE hydrochloride 25 mg oral tablet (6 sources) Histamine-1 Receptor Antagonist take 1 tablet by mouth every six hours as needed diphenhydrAMINE (BENADRYL) 25 MG tablet Take 25 mg by mouth every 6 hours as needed 0 Active 2 ml fentaNYL 0.05 mg/ml injection (1 source) Opioid Agonist Start: 10-01-2022 fentaNYL (SUBLIMAZE) injection 50 mcg 1 ml ketorolac tromethamine 15 mg/ml cartridge (3 sources) Nonsteroidal Anti-inflammatory Drug, Cyclooxygenase Inhibitor Start: 10-01-2022 ketorolac (TORADOL) injection 15 mg Start: 10-01-2022 End: 10-01-2023 take 1 tablet by mouth every six hours as needed for pain ketorolac (TORADOL) 10 MG tablet Take 1 tablet by mouth every 6 hours as needed for Pain 20 tablet 0 10/01/2022 10/01/2023 Active lanolin 1000 mg/ml topical cream (1 source) Start: 2022 Topical, PRN, Dry Skin, nipple discomfort, Starting on Pilar 03/07/22 at 1718, levonorgestrel 0.682392 mg/hr intrauterine system (9 sources) Progestin, Progestin-containing Intrauterine Device Start: 04-12-2021 levonorgestrel (MIRENA) IUD 52 mg 1 each Start: 10-31-2018 End: 10-31-2018 MIRENA 20 mcg/24 hr (5 YEARS ) [facility] [place] Provider: methylPREDNISolone 4 mg oral tablet (3 sources) Corticosteroid End: 12-15-2021 take 2 mg by mouth once daily methylPREDNISolone (MEDROL) 4 MG tablet Take 2 mg by mouth daily Medrol dose pack 0 12/15/2021 Discontinued (LIST CLEANUP) metoclopramide 5 mg oral tablet (14 sources) Dopamine-2 Receptor Antagonist Start: 12-11-2021 take 1 tablet by mouth four times daily metoclopramide (REGLAN) 5 MG tablet Indications: Nausea and vomiting in Take 1 tablet by mouth 4 times daily 120 tablet 1 12/11/2021 Active Start: 08-06-2021 metoclopramide (REGLAN) injection 10 mg Start: 08-06-2021 End: 12-15-2021 take 1 tablet by mouth four times daily metoclopramide (REGLAN) 10 MG tablet Take 1 tablet by mouth 4 times daily 120 tablet 2 09/09/2021 Active naratriptan 2.5 mg oral tablet (8 sources) Serotonin-1b and Serotonin-1d Receptor Agonist Start: 12-24-2017 naratriptan (AMERGE) 2.5 MG tablet take 1 tablet ONCE, MAY REPEAT AFTER 4 HOURS 0 12/24/2017 Active Start: 12-23-2017 End: 12-23-2017 NARATRIPTAN 2.5 MG [facility] [place] - 12/23/2017 Provider: Start: 12-23-2017 End: 12-23-2017 NARATRIPTAN 2.5MG MISC 12/23 - 12/23/2017 Provider: omeprazole 40 mg delayed release oral capsule (5 sources) Proton Pump Inhibitor Start: 02-11-2022 take 1 capsule by mouth once daily before breakfast omeprazole (PRILOSEC) 40 MG delayed release capsule Indications: Reflux gastritis Take 1 capsule by mouth every morning (before breakfast) 90 capsule 0 02/11/2022 Active oseltamivir 75 mg oral capsule (2 sources) Neuraminidase Inhibitor Start: 12-15-2021 End: 12-20-2021 take 1 capsule by mouth twice daily oseltamivir (TAMIFLU) 75 MG capsule Take 1 capsule by mouth 2 times daily for 5 days 10 capsule 0 12/15/2021 12/20/2021 Active oxyCODONE hydrochloride 5 mg oral tablet (1 source) Opioid Agonist Start: 10-01-2022 oxyCODONE (ROXICODONE) immediate release tablet 5 mg Pre- (1 source) Pre- Active MV-Min-Fe Fum-FA-DHA ( 1) 30-0.975-200 MG CAPS (14 sources) take 1 tablet by mouth once MV-Min-Fe Fum-FA-DHA ( 1) 30-0.975-200 MG CAPS Take 1 tablet by mouth 0 Active take 1 tablet by mouth once chun y MV-Min-Fe Fum-FA-DHA ( 1) 30-0.975-200 MG CAPS Take 1 tablet by mouth daily 0 Active Vitamin Plus Low Iron 27-1MG Oral Tablet (1 source) Start: 05-17-2019 Vitam in Plus Low Iron 27-1MG Oral Tablet 05/17/2019 Provider: 2 ml prochlorperazine 5 mg/ml injection (1 source) Phenothiazine Start: 10-01-2022 End: 10-02-2022 prochlorperazine (COMPAZINE) injection 5 mg promethazine hydrochloride 25 mg oral tablet (2 sources) Phenothiazine Start: 12-05-2021 promethazine ( PHENERGAN) tablet 25 mg Start: 08-06-2021 End: 08-13-2021 promethazine (PHENERGAN) [address] 1 suppository rectally every 6 hours as needed for Nausea WARNING: May cause drowsiness. May impair ability to operate vehicles or machinery. Do not use in combination with alcohol. 20 suppository 0 08/06/2021 08/13/2021 Active 5 ml sodium chloride 9 mg/ml injection (14 sources) Start: 10-01-2022 sodium chlorid e flush 0.9 % injection 5-40 mL Start: 10-01-2022 sodium chlorid e flush 0.9 % injection 5-40 mL Start: 10-01-2022 sodium chlorid e flush 0.9 % injection 5-40 mL Start: 10-01-2022 0.9 % sodium c hloride infusion Start: 10-01-2022 sodium chlorid e flush 0.9 % injection 5-40 mL Start: 2022 take 1 dose intraven ously twice daily 5-40 mL, IntraVENous, EVERY 12 HOURS SCHEDULED (2 times per day), First dose on Pilar 03/07/22 at 2100, Until Discontinued For Line Patency: Peripheral IV = 5 mL; Midline or Central Line = 10 mL/lumen. If following IV push medication, administer flush at same rate as the IV push. Flush volume is determined by type of infusion therapy being given. For non-viscous solutions use: Peripheral IV = 5 mL Midline or Central Line = 10 mL/lumen For viscous solutions (i.e. blood components, parenteral nutrition, contrast media, or after obtaining blood sample) use: Peripheral IV = 10 mL Midline or Central Line = 20 mL/lumen Start: 2022 IntraVENous, a t 5-250 mL/hr, PRN, if patient receiving piggyback infusions and maintenance fluids are not ordered OR KVO fluids to protect IV site / prevent frequent line interruptions/ long duration, Starting on Pilar 03/07/22 at 1718 For piggyback infusion, administer at same rate as piggyback for a total of 25 mL. Enter 25 mL into dose field and piggyback rate into rate field of order. If piggyback is infusing at a rate less than 100 mL/hr, enter 25 mL into dose field and 100 mL/hr into rate field of order. For KVO fluids, enter rate of 20 mL/hr or less into rate field of order. Start: 2022 take 5-40 mL intrave nously once as needed 5-40 mL, IntraVENous, PRN, Starting on Pilar 03/07/22 at 1718, Until Discontinued, Line Care, After every IV line use For Line Patency: Peripheral IV = 5 mL; Midline or Central Line = 10 mL/lumen. If following IV push medication, administer flush at same rate as the IV push. Flush volume is determined by type of infusion therapy being given. For non-viscous solutions use: Peripheral IV = 5 mL Midline or Central Line = 10 mL/lumen For viscous solutions (i.e. blood components, parenteral nutrition, contrast media, or after obtaining blood sample) use: Peripheral IV = 10 mL Midline or Central Line = 20 mL/lumen Start: 08-06-2021 End: 08-06-2021 0.9 % sodium chloride bolus Start: 07-20-2019 End: 07-20-2019 sodium chloride flush 0.9 % injection 10 mL traZODone hydrochloride 100 mg oral tablet (14 sources) Serotonin Reuptake Inhibitor Start: 12-05-2017 take 1 tablet by mouth once daily traZODone (DESYREL) 100 MG tablet Take 100 mg by mouth nightly 0 12/05/2017 Active Start: 12-05-2017 End: 12-05-2017 TRAZODONE 100 mg [facility] [place] - 12/05/2017 Provider: Start: 10-10-2016 End: 10-10-2016 TRAZODONE 100 mg [facility] [place] - 10/10/2016 Provider: Start: 06-24-2016 End: 06-24-2016 TRAZODONE 100 mg [facility] [place] - 06/24/2016 Provider: vitamin b6 50 mg oral tablet (9 sources) Start: 05-17-2019 End: 07-22-2019 take 1 tablet by mouth once daily Pyridoxine HCl (VITAMIN B6) 50 MG TABS Take 50 mg by mouth daily 0 05/17/2019 Active witch ramses 500 mg/ml medicated pad (2 sources) Start: 2022 apply 1 dose topically twice daily Topical, 2 TIMES DAILY, First dose on Pilar 03/07/22 at 2100 Apply to perineal area. Patient is capable and may self administer at bedside. Start: 07-20-2019 Topical, PRN, Hemorrhoids, For perineal pain or discomfort, Starting Fri07/20/19 at 1647 Apply to perineal area. Patient is capable and may self administer at bedside. Post Delivery Completed/Discontinued Medications Medication Drug Class(es) Dates Sig (Normalized) Sig (Original) acetaminophen 325 mg oral tablet (3 sources) Start: 10-01-2022 End: 10-01-2022 acetaminophen (TYLENOL) tablet 650 mg Start: 2022 1,000 mg, Oral , EVERY 8 HOURS PRN, Starting on Pilar 03/07/22 at 1718, Until Discontinued, Other, Pain (1-10) Give in addition to any other pain medication ordered at same time for any pain indication. Maximum dose of acetaminophen is 4000mg from all sources in 24 hours. Alternate ibuprofen and acetaminophen every 4 hours. Start: 07-20-2019 take 650 mg by mouth every four hours as needed for pain, then take 4000 mg by mouth every twenty-four hours as needed for pain 650 mg, Oral, EVERY 4 HOURS PRN, Pain Mild (1-3), Fever, Fever >100.5 F (38 C), Starting e 07/20/19 at 1647 Maximum dose of acetaminophen is 4000 mg from all sources in 24 hours. Labor and Delivery amoxicillin 500 mg / clavulanate 125 mg oral tablet (9 sources) Penicillin-class Antibacterial Start: 07-02-2017 End: 07-02-2017 Amoxicillin-Pot Clavulanate 500-125 MG OR TABS 07/02/2017 - 07/02/2017 Provider: Start: 10-10-2016 End: 10-10-2016 Amoxicillin-Pot Clavulanate 500-125 MG OR TABS 10/10/2016 - 10/10/2016 Provider: Start: 06-12-2016 End: 06-12-2016 Amoxicillin-Pot Clavulanate 875-125 MG OR TABS 06/12/2016 - 06/12/2016 Provider: azithromycin 250 mg oral tablet (3 sources) Macrolide Antimicrobial Start: 12-23-2017 End: 12-23-2017 Azithromycin 250 MG OR TABS 12/23/2017 - 12/23/2017 Provider: 1 ml carboprost 0.25 mg/ml injection (2 sources) Prostaglandin Analog Start: 2022 250 mcg, IntraMUSCular, PRN, Starting on Pilar 03/07/22 at 1718, Until Discontinued, heavy bleeding May repeat every 15 minutes up to a cumulative maximum dose of 1000 mcg, at physician's request. ceFAZolin (ANCEF) 2000 mg in dextrose 5 % 100 mL IVPB (2 sources) Start: 10-01-2022 End: 10-01-2022 ceFAZolin (ANCEF) 2000 mg in dextrose 5 % 100 mL IVPB Start: 12-05-2021 ceFAZolin (ANC EF) 2000 mg in dextrose 5 % 100 mL IVPB clonazePAM 1 mg oral tablet (3 sources) Benzodiazepine Start: 06-24-2016 End: 06-24-2016 clonazePAM 1 MG OR TABS 06/24/2016 - 06/24/2016 Provider: dexamethasone 4 mg oral tablet (15 sources) Corticosteroid Start: 12-23-2017 End: 12-23-2017 Dexamethasone 4 MG OR TABS 12/23/2017 - 12/23/2017 Provider: Start: 07-02-2017 End: 07-02-2017 Dexamethasone 4 MG OR TABS 0 07/02/2017 - 07/02/2017 Provider: Start: 10-10-2016 End: 10-10-2016 Dexamethasone 4 MG OR TABS 0 10/10/2016 - 10/10/2016 Provider: Start: 09-11-2016 End: 09-11-2016 Dexamethasone 4 MG OR TABS 1 11/12/2015 - 09/11/2016 Provider: Start: 06-12-2016 End: 06-12-2016 Dexamethasone 4 MG OR TABS 0 06/12/2016 - 06/12/2016 Provider: docusate sodium 100 mg oral capsule (8 sources) Start: 2022 take 100 mg by mouth twice daily as needed 100 mg, Oral, 2 TIMES DAILY PRN, Starting on Pilar 03/07/22 at 1718, Until Discontinued, Constipation Do not crush or break. Start: 07-20-2019 End: 03-08-2022 take 100 mg by mouth twice daily 100 mg, Oral, 2 TIMES DAILY, First dose on Fri07/20/19 at 2100 Do not crush or break. Post Delivery doxylamine succinate 25 mg oral tablet (8 sources) Start: 05-17-2019 End: 05-10-2020 Unisom SleepTabs 25MG Oral Tablet 05/17/2019 - 05/10/2020 Provider: 0.4 ml enoxaparin sodium 100 mg/ml prefilled syringe (1 source) Low Molecular Weight Heparin Start: 10-01-2022 End: 10-01-2022 enoxaparin (LOVENOX) injection 40 mg Ethinyl Estradiol / Etonogestrel (3 sources) Progestin, Estrogen Start: 10-31-2018 End: 10-31-2018 NUVARING 0.12-0.015 MG/24 HR [facility] [place] - 10/31/2018 Provider: Start: 10-31-2018 End: 10-31-2018 NUVARING 0.12-0.015MG/24 HR [facility] [place] - 10/31/2018 Provider: ethinyl estradiol 0.02 mg / norethindrone acetate 1 mg oral tablet (3 sources) Estrogen Start: 10-31-2018 End: 10-31-2018 Loestrin 1/20 (21) 1-20 MG-MCG OR TABS 10/31/2018 - 10/31/2018 Provider: Conversion Provider 2 ml famotidine 10 mg/ml injection (10 sources) Histamine-2 Receptor Antagonist Start: 10-01-2022 End: 10-01-2022 famotidine (PEPCID) injection 20 mg Start: 05-17-2019 take 2 tablets by mo uth once daily famotidine (PEPCID) 10 MG tablet Take 20 mg by mouth daily 0 05/17/2019 Active Start: 05-17-2019 take 1 tablet by bret th before mealtime Pepcid AC 10MG Oral Tablet 05/17/2019 Provider: End: 07-22-2019 take 1 tablet by mouth twice daily famotidine (PEPCID) 20 MG tablet Take 20 mg by mouth 2 times daily 0 07/22/2019 Discontinued (Stop Taking at Discharge) gabapentin 400 mg oral capsule (4 sources) Anti-epileptic Agent Start: 10-01-2022 End: 10-01-2022 gabapentin (NEURONTIN) capsule 400 mg Start: 05-08-2016 End: 05-08-2016 GABAPENTIN 300 mg [facility] [place]/08 - 05/08/2016 Provider: 1 ml glycopyrrolate 0.2 mg/m l injection (2 sources) Start: 10-01-2022 End: 10-01-2022 glycopyrrolate (ROBINUL) injection 0.1 mg Start: 10-01-2022 End: 10-01-2022 glycopyrrolate (ROBINUL) inj ection 0.1 mg hydrOXYzine (9 sources) Antihistamine Start: 01-30-2018 End: 01-30-2018 HYDROXYZINE PAMOATE 25 MG [facility] SC 01/30/2018 - 01/30/2018 Provider: Start: 01-30-2018 End: 01-30-2018 HYDROXYZINE PAMOATE 25MG MIS 01/30/2018 - 01/30/2018 Provider: Start: 12-05-2017 End: 12-05-2017 HYDROXYZINE PAMOATE 25 MG MS SC 12/05/2017 - 12/05/2017 Provider: Start: 12-05-2017 End: 12-05-2017 HYDROXYZINE PAMOATE 25MG [facility] [place] 12/05/2017 - 12/05/2017 Provider: Start: 05-08-2016 End: 05-08-2016 HYDROXYZINE PAMOATE 25 MG MS SC 05/08/2016 - 05/08/2016 Provider: Start: 05-08-2016 End: 05-08-2016 HYDROXYZINE PAMOATE 25MG MIS 05/08/2016 - 05/08/2016 Provider: ibuprofen 800 mg oral tablet (8 sources) Nonsteroidal Anti-inflammatory Drug Start: 2022 take 800 mg by mouth every eight hours as needed 800 mg, Oral, EVERY 8 HOURS PRN, Starting on Pilar 03/07/22 at 1718, Until Discontinued, Pain Moderate (4-6) Do not crush or chew. Start: 07-20-2019 take 1 dose by mouth three times daily 800 mg, Oral, EVERY 8 HOURS SCHEDULED (3 times per day), First dose on Fri07/20/19 at 2200 Do not crush or break. Labor and Delivery Start: 12-23-2017 End: 12-23-2017 Ibuprofen 800 MG OR TABS - 12/23/2017 Provider: Start: 06-24-2016 End: 06-24-2016 Ibuprofen 800 MG OR TABS - 06/24/2016 Provider: 1 ml methylergonovine maleate 0.2 mg/ml injection (2 sources) Ergot Derivative Start: 2022 200 mcg, Intr aMUSCular, PRN, Starting on Pilar 03/07/22 at 1718, Until Discontinued, Bleeding PRN for post- hemorrhage, if not hypertensive. Start: 07-20-2019 200 mcg, Intra muscular, PRN, Bleeding, Starting e 07/20/19 at 1824 PRN for post- hemorrhage, if not hypertensive. MIRENA 20 mcg/24 hr(5 YEARS) MISC (1 source) Start: 10-31-2018 End: 10-31-2018 MIRENA 20 mcg/24 hr(5 YEARS) MISC 10/31/2018 - 10/31/2018 Provider: miSOPROStol 0.1 mg oral tablet (2 sources) Prostaglandin E1 Analog Start: 2022 800 mc g, Rectal, PRN, 1 dose, Starting on Pilar 03/07/22 at 1718, Until Discontinued, Post- Hemorrhage Notify Physician prior to administration. Start: 2022 miSOPROStol (C YTOTEC) tablet 900 mcg 2 ml ondansetron 2 mg/ml injection (12 sources) Serotonin-3 Receptor Antagonist Start: 10-01-2022 End: 10-01-2022 ondansetron (ZOFRAN) injection 4 mg Start: 12-19-2021 ondansetron (Z OFRAN) injection 4 mg Start: 08-06-2021 End: 08-06-2021 ondansetron (ZOFRAN) injecti on 4 mg Start: 07-20-2019 4 mg, Intraven ous, EVERY 6 HOURS PRN, Nausea, Starting Fri07/20/19 at 1647, Labor and Delivery ondansetron (ZOF RAN-ODT) 8 MG TBDP disintegrating tablet Place 8 mg under the tongue every 8 hours as needed for Nausea or Vomiting 0 Active oxytocin (PITOCIN) 30 units in 500 mL infusion (4 sources) Start: 2022 End: 2022 oxytocin (PITOCIN) 30 units in 500 mL infusion Start: 2022 oxytocin (YANELY JOSE) 30 units in 500 mL infusion Start: 07-20-2019 1 barbara-units/ min (1 mL/hr), Intravenous, at 1 mL/hr, CONTINUOUS PRN, bleeding, Starting Fri07/20/19 at 1824 For Post Use Only Give 166ml (10 units) bolus, followed by 50ml/hr (3 units/hr). May stop if bleeding returns to normal. Give after delivery of placenta. Start: 07-20-2019 End: 07-20-2019 oxytocin (PITOCIN) 30 units in 500 mL infusion phenazopyridine hydrochloride 100 mg oral tablet (1 source) Start: 10-01-2022 End: 10-01-2022 phenazopyridine (PYRIDIUM) tablet 200 mg Propranolol (6 sources) beta-Adrenergic Rogelio Start: 12-05-2017 End: 12-05-2017 PROPRANOLOL 80 MG [facility] [place]/05/2017 - 12/05/2017 Provider: Start: 12-05-2017 End: 12-05-2017 PROPRANOLOL 80MG [facility] [place] 2017 - 12/05/2017 Provider: Start: 05-08-2016 End: 05-08-2016 PROPRANOLOL 80 MG [facility] [place]/08 - 05/08/2016 Provider: Start: 05-08-2016 End: 05-08-2016 PROPRANOLOL 80MG [facility] [place] - 05/08/2016 Provider: SUMAtriptan 50 mg oral tablet (15 sources) Serotonin-1b and Serotonin-1d Receptor Agonist Start: 12-05-2017 End: 12-05-2017 SUMAtriptan Succinate 50 MG OR TABS 12/05/2017 - 12/05/2017 Provider: Start: 07-02-2017 End: 07-02-2017 SUMAtriptan Succinate 50 MG OR TABS 07/02/2017 - 07/02/2017 Provider: Start: 09-09-2016 End: 09-09-2016 SUMAtriptan Succinate 50 MG OR TABS 09/09/2016 - 09/09/2016 Provider: Start: 06-12-2016 End: 06-12-2016 SUMAtriptan Succinate 50 MG OR TABS 06/12/2016 - 06/12/2016 Provider: Start: 05-08-2016 End: 05-08-2016 SUMAtriptan Succinate 50 MG OR TABS 05/08/2016 - 05/08/2016 Provider: topiramate 100 mg oral table t (6 sources) Start: 12-23-2017 End: 12-23-2017 Topiramate 50 MG OR TABS 12/23/2017 - 12/23/2017 Provider: Start: 12-23-2017 End: 12-23-2017 Topamax 100 MG OR TABS 12/23 - 12/23/2017 Provider: Vitamin B6 50MG Oral Tablet (3 sources) Start: 05-17-2019 End: 05-10-2020 Vitamin B6 50MG Oral Tablet 05/17/2019 - 05/10/2020 Provider: Start: 05-17-2019 Vitamin B6 50M G Oral Tablet 05/17/2019 Provider: Problems Active Problems Problem Classification Problem Date Documented Date Episodic/Chronic Anxiety disorders (15 sources) Anxiety disorder, unspecified; Translations: [Anxiety disorder] Onset: 11-03-2018 09-09-2021 Chronic Complication of device; implant or graft (1 source) Displacement of intrauterine contraceptive device, initial encounter; Translations: [Displacement of intrauterine contraceptive device, initial encounter] Onset: 10-13-2018 Episodic Endometriosis (1 source) Uterine adenomyosis; Translations: [Adenomyosis] Chronic Genitourinary symptoms and ill-defined conditions (1 source) Unspecified urinary incontinence; Translations: [Unspecified urinary incontinence] Onset: 09-10-2022 Chronic Genitourinary symptoms and ill-defined conditions (3 sources) Dysuria; Translations: [Dysuria] Onset: 02-03-2023 Episodic Headache; including migraine (20 sources) Migraine without aura, not refractory ; Translations: [Chronic migraine without aura, not intractable, without status migrainosus] Onset: 01-27-2018 Resolved: 07-22-2019 01-27-2018 Chronic Hemorrhage during ; abruptio placenta; placenta previa (1 source) Placenta previa marginalis; Translations: [Partial placenta previa NOS or without hemorrhage, unspecified trimester] Episodic Immunizations and screening for infectious disease (2 sources) Contact with and (suspected) exposure to other viral communicable diseases; Translations: [Patient encounter status] Onset: 07-20-2021 Resolved: 07-20-2021 Episodic Influenza (1 source) Influenza; Translations: [Influenza due to unidentified influenza virus with other respiratory manifestations] Episodic Mood disorders (20 sources) Unspecified mood [affective] disorder; Translations: [Mood disorder] Onset: 02-13-2015 Resolved: 07-22-2019 02-13-2015 Chronic Mood disorders (1 source) Major depressive disorder, single episode, unspecified; Translations: [Major depressive disorder, single episode, unspecified] Onset: 11-03-2018 Nonmalignant breast conditions (1 source) Cyst of right breast; Translations: [Cyst of right breast] Other complications of (1 source) Mild hyperemesis-not delivered; Translations: [Mild hyperemesis gravidarum] Episodic Other female genital disorders (4 sources) Abnormal uterine and vaginal bleeding, unspecified; Translations: [ABNORMAL UTERINE VAGINAL BLEED UNS] Onset: 05-24-2021 Chronic Other female genital disorders (1 source) Dysplasia of cervix uteri, unspecified; Translations: [Dysplasia of cervix uteri, unspecified] Onset: 08-07-2018 Episodic Other female genital disorders (1 source) Mild cervical dysplasia; Translations: [Mild cervical dysplasia] Onset: 08-07-2018 Episodic Other nervous system disorders (1 source) Postoperative pain ; Translations: [Other acute postprocedural pain] Episodic Other nutritional; endocrine; and metabolic disorders (2 sources) Overweight; Translations: [Overweight] Onset: 05-10-2020 Chronic Other and delivery including normal (20 sources) Vaginal delivery; Translations: [Encounter for full-term uncomplicated delivery] Onset: 07-20-2019 Resolved: 05-21-2022 07-22-2019 Episodic Prolapse of female genital organs (2 sources) Incomplete uterovaginal prolapse; Translations: [Cystocele, unspecified] Onset: 08-07-2018 Chronic Residual codes; unclassified (1 source) Gestation period, 36 weeks; Translations: [36 weeks gestation of ] Episodic Substance-related disorders (1 source) Nicotine dependence, cigarettes, uncomplicated; Translations: [NICOTINE DEPEND CIGARETTES UNCOMP] Onset: 05-23-2021 Chronic Unclassified (1 source) Adenomyosis of the uterus; Translations: [Adenomyosis of the uterus] Onset: 10-01-2022 Past or Other Problems Problem Classification Problem Date Documented Da te Episodic/Chronic Abdominal pain (1 source) Unspecified abdominal pain; Translations: [Unspecified abdominal pain] Onset: 02-13-2022 Episodic Contraceptive and procreative management (3 sources) Encounter for removal of intrauterine contraceptive device; Translations: [Presence of (intrauterine) contraceptive device] Onset: 10-13-2018 Episodic Headache; including migraine (20 sources) Headache; Translations: [Post-traumatic headache, unspecified, not intractable] Onset: 02-13-2015 Resolved: 07-22-2019 02-13-2015 Episodic Nausea and vomiting (20 sources) Nausea and vomiting; Translations: [Nausea with vomiting, unspecified] Onset: 11-28-2018 Resolved: 07-22-2019 11-28-2018 Episodic Other complications of (20 sources) Complication of , childbirth and/or the puerperium; Translations: [ related conditions, unspecified, first trimester] Onset: 11-28-2018 Resolved: 07-22-2019 11-28-2018 Episodic Other complications of (12 sources) Hyperemesis gravidarum; Translations: [Mild hyperemesis gravidarum] Onset: 09-07-2021 Resolved: 05-21-2022 09-07-2021 Episodic Other complications of (1 source) Other specified related conditions, second trimester; Translations: [OTH SPEC PREG RELATED COND 2ND TRI] Onset: 10-08-2021 Episodic Other complications of (1 source) Other specified related conditions, unspecified trimester; Translations: [Other specified related conditions, unspecified trimester] Onset: 02-13-2022 Episodic Other disorders of stomach and duodenum (12 sources) Persistent vomiting; Translations: [Cyclical vomiting syndrome unrelated to migraine] Onset: 12-05-2021 Episodic Other female genital disorders (3 sources) Other specified noninflammatory disorders of vulva and perineum; Translations: [Other specified noninflammatory disorders of vulva and perineum] Onset: 09-10-2022 Episodic Other gastrointestinal disorders (4 sources) Constipation, unspecified; Translations: [CONSTIPATION UNSPECIFIED] Onset: 10-07-2021 Episodic Other lower respiratory disease (3 sources) Cough; Translations: [COUGH] Onset: 04-23-2021 Episodic Other nervous system disorders (1 source) Other acute postprocedural pain; Translations: [Other acute postprocedural pain] Onset: 10-01-2022 Episodic Other screening for suspected conditions (not mental disorders or infectious disease) (3 sources) Cancer cervix screening status; Translations: [Encounter for screening for malignant neoplasm of cervix] Onset: 04-22-2022 Episodic Other upper respiratory disease (20 sources) Allergic rhinitis; Translations: [Allergic rhinitis, unspecified] Onset: 02-13-2015 Resolved: 07-22-2019 02-13-2015 Chronic Other upper respiratory infections (2 sources) Acute upper respiratory infection, unspecified; Translations: [Viral upper respiratory illness J06.9] Onset: 04-25-2021 Resolved: 07-20-2021 Episodic Polyhydramnios and other problems of amniotic cavity (20 sources) Premature rupture of membranes; Translations: [Premature rupture of membranes, unspecified as to length of time between rupture and onset of labor, unspecified weeks of gestation] Onset: 05-12-2019 Resolved: 07-22-2019 05-12-2019 Episodic Residual codes; unclassified (20 sources) Chronic back pain ; Translations: [Dorsalgia, unspecified] Onset: 02-13-2015 Resolved: 07-22-2019 02-13-2015 Episodic Residual codes; unclassified (10 sources) Gestation period, 27 weeks; Translations: [27 weeks gestation of ] Onset: 12-19-2021 Resolved: 05-21-2022 Episodic Residual codes; unclassified (1 source) 18 weeks gestation of ; Translations: [18 WEEKS GESTATION OF ] Onset: 10-08-2021 Episodic Residual codes; unclassified (1 source) 36 weeks gestation of ; Translations: [36 weeks gestation of ] Onset: 02-13-2022 Episodic Sexually transmitted infections (not HIV or hepatitis) (1 source) Cervical high risk human papillomavirus (HPV) DNA test positive; Translations: [Cervical high risk human papillomavirus (HPV) DNA test positive] Onset: 05-21-2022 Episodic Unclassified (5 sources) Finding of body mass index; Translations: [Body Mass Index] Onset: 05-17-2019 Unclassified (3 sources) Questionnaires Phq-9 Total Score; Translations: [Questionnaires Phq-9 Total Score] Onset: 05-17-2019 Urinary tract infections (20 sources) Acute cystitis; Translations: [Acute cystitis without hematuria] Onset: 11-28-2018 Resolved: 07-22-2019 11-28-2018 Episodic Results Test Name Value Interpretation Reference Range Facility Vaginitis DNA Probeon 2022 Munira Species, DNA Probe Positive Abnormal NEGATIVE [facility] Comment on above: for Munira sp. Method of testing is a DNA probe intended for detection and identification of Munira species, Gardnerella vaginalis, and Trichomonas vaginalis nucleic acid in vaginal fluid specimens from patients with symptoms of vaginitis/vaginosis. Gardnerella Vaginalis, DNA Probe Negative NEGATIVE [facility] Comment on above: for Gardnerella vagi nalis Interpretation and review of laboratory results Abnormal [facility] Source .VAGINAL SWAB [facility] Trichomonas Vaginalis DNA Negative NEGATIVE [facility] Comment on above: for Trichomonas Vagi nalis [facility] Cult,Urineon 02-04-2023 Cult,Urine Specimen Description .CLEAN CATCH URINE Culture NO SIGNIFICANT GROWTH Report Status FINAL 02/04/2023 Normal [facility] Comment on above: Performed By: #### U #### [facility] [employer] [address] [place] [address] [employer]ate Spl[employer] Supervisor: Jesse Joseph MD [facility] [address] [facility] [place] [address] [employer] Spl[employer] Supervisor: Jefe Guerra MD Microscopic Urinalysison Bacteria, UA 2+ Abnormal None [facility] Epithelial Cells UA 2 TO 5 [facility] Interpretation and review of laboratory results Abnormal [facility] Mucus, UA 4+ Abnormal None [facility] RBC clumps Auto (Urine sed) [#/Area] 2 TO 5 [facility] WBC, UA 2 TO 5 [facility] Urinalysison 02-03-2023 Bilirubin Urine Negative NEGATIVE [facility] Color, UA Yellow Yellow [facility] Glucose Auto test strip (U) [Mass/Vol] Negative NEGATIVE [facility] Interpretation and review of laboratory results Abnormal [facility] Ketones (U) [Mass/Vol] TRACE Abnormal NEGATIVE [facility] Leukocyte esterase Auto test strip Ql (U) TRACE Abnormal NEGATIVE [facility] Nitrite Auto test strip Ql (U) Negative NEGATIVE [facility] Protein (U) [Mass/Vol] 6.0 mg/dL 5.0 - 9.0 [facility] Protein (U) [Mass/Vol] 1+ Abnormal NEGATIVE [facility] Specific [place], UA High 1.010 - 1.020 [facility] Turbidity UA SLIGHTLY CLOUDY Abnormal Clear [facility] Urine Hgb Negative NEGATIVE [facility] Urobilinogen, Urine Normal Normal [facility] Urinalysis, Routineon 2022 Bilirubin, SemiQt,Ur Negative Normal NEG [facility] Comment on above: Performed By: #### U MICAO, UA #### [facility] [address] [place] [address] [employer] Supervisor: Jefe Guerra MD Blood, Urine Negative Normal NEG [facility] Comment on above: Performed By: #### U MICAO, UA #### [facility] [address] [place] [address] [employer] Supervisor: Jefe Guerra MD Clarity (U) SLIGHTLY CLOUDY Abnormal CLEAR [facility] Comment on above: Performed By: #### U MICAO, UA #### [facility] [address] [place] [address] [employer] Supervisor: Jefe Guerra MD Color (U) Yellow Normal [facility] Comment on above: Performed By: #### U MICAO, UA #### [facility] [address] [place] [address] [employer] Supervisor: Jefe Guerra MD Glucose Ql (U) Negative Normal NEG [facility] Comment on above: Performed By: #### U MICAO, UA #### [facility] [address] [place] [address] [place], [place] [id number] [employer] Supervisor: Jefe Guerra MD Ketones Ql (U) TRACE Abnormal [facility]G [facility] Comment on above: Performed By: #### U MICAO, UA #### [facility] [address] [place] [address] [place], [place] [id number] [employer] Supervisor: Jefe Guerra MD Leukocyte esterase Test strip Ql (U) TRACE Abnormal NEG [facility] Comment on above: Performed By: #### U MICAO, UA #### [address] [place], [place] [id number] [employer] Supervisor: Jefe Guerra MD Nitrite,Ur Negative Normal NEG [facility] Comment on above: Performed By: #### U MICAO, UA #### [facility] [address] [place] [address] [place], [place] [id number] [employer] Supervisor: Jefe Guerra MD PH,Ur 6.0 Normal 5.0-9.0 [facility] Comment on above: Performed By: #### U MICAO, UA #### [address] [place], [place] [id number] [employer] Supervisor: Jefe Guerra MD Protein Ql (U) 1+ Abnormal NEG [facility] in [facility] Comment on above: Performed By: #### U MICAO, UA #### [facility] [address] [place] [address] [place], [place] [phone] [employer] Supervisor: Jefe Guerra MD Spec. Hudson,Ur >1.030 High 1.010-1.020 [facility] Comment on above: Performed By: #### U MICAO, UA #### [facility] [address] [place] [address] [place] [place], [place] [phone] [employer] Supervisor: Jefe Guerra MD Urobilinogen,Ur Normal Normal NORM [facility] Comment on above: Performed By: #### U MICAO, UA #### [facility] [address] [place], [place] [id number] [employer] Supervisor: Jefe Guerra MD Urinalysis,Microon 3 Bacteria 2+ Abnormal NONE [facility] Comment on above: Performed By: #### U MICAO, UA #### [facility] [address] [place], [place] [phone] [employer] Supervisor: Jefe Guerra MD Epithelial cells LM Ql (Urine sed) 2 TO 5 Normal 0-25 [facility] Comment on above: Performed By: #### U MICAO, UA #### [facility] [address] [place], [place] [phone] [employer] Supervisor: Jefe Guerra MD Mucus Strands 4+ Abnormal NONE [facility] Comment on above: Performed By: #### U MICAO, UA #### [facility] [address] [place], [place] [phone] [employer] Supervisor: Jefe Guerra MD Urine RBC's 2 TO 5 Normal 0-2 [facility] Comment on above: Performed By: #### U MICAO, UA #### [facility] [address] [place], [place] [phone] [employer] Supervisor: Jefe Guerra MD Urine WBC's 2 TO 5 Normal 0-5 [facility] Comment on above: Performed By: #### U MICAO, UA #### [facility] [address] [place] [address] [employer] Supervisor: Jefe Guerra MD HCG, ,Urineon 10-01 Beta HCG ( test) Ql (U) Negative Normal NEG [facility] Comment on above: Result Comment: Spec imens with hCG levels near the threshold of the test (25 mIU/mL) may give a negative or indeterminate result. In such cases, another test should be performed with a new specimen in 48-72 hours. If early is suspected clinically in this setting, correlation with quantitative serum b-hCG level is suggested. [employer] has confirmed the use of plasma for this test. This has not been cleared or approved by the U.S. Food and Drug Administration. The FDA has determined that such clearance is not necessary. Performed By: #### U HCG #### [facility] [address] [place] [address] [employer] Supervisor: Jefe Guerra MD , Urineon 2 Beta HCG ( test) Ql (U) Negative NEGATIVE [facility] Comment on above: Specimens with hCG l evels near the threshold of the test (25 mIU/mL) may give a negative or indeterminate result. In such cases, another test should be performed with a new specimen in 48-72 hours. If early is suspected clinically in this setting, correlation with quantitative serum b-hCG level is suggested. [employer] has confirmed the use of plasma for this test. This has not been cleared or approved by the U.S. Food and Drug Administration. The FDA has determined that such clearance is not necessary. [facility] Surgical Pathologyon 022 Surgical Pathology (NOTE) -- Diagnosis -- UTERUS, CERVIX, BILATERAL FALLOPIAN TUBES, HYSTERECTOMY WITH BILATERAL SALPINGECTOMY: - CERVIX: - CHRONIC CERVICITIS, NEGATIVE FOR DYSPLASIA. - ENDOMYOMETRIUM: - PROLIFERATIVE PHASE ENDOMETRIUM, NEGATIVE FOR HYPERPLASIA OR ATYPIA. - ADENOMYOSIS. - BILATERAL FALLOPIAN TUBES: - SEGMENTS OF FALLOPIAN TUBES WITH NO SIGNIFICANT HISTOPATHOLOGIC CHANGE. Sacha Reyes M.D. Electronically Signed Out 10/03/2022 Clinical Information Pre-op Diagnosis: HX OF CERVICAL DYSPLASIA (JEAN CARLOS ON PAP SMEAR [id number]), ADENOMYOSIS Operative Findings: UTERUS AND CERVIX AND BILATERAL FALLOPIAN TUBES Operation Performed: HYSTERECTOMY VAGINAL LAPAROSCOPIC ROBOTIC ASSISTED POSSIBLE BSO, POSSIBLE LAPAROSCOPIC COLPOPEXY Source of Specimen A: UTERUS AND CERVIX AND BILATERAL FALLOPIAN TUBES Gross Description MARIAH HARIS, UTERUS AND CERVIX AND BILATERAL FALLOPIAN TUBES Uterus with attached cervix and bilateral fimbriated fallopian tube segments. Dimensions: Uterus and cervix 9.8 x 5.9 x 5.2 cm. Weight: Uterus and cervix 112 grams. Serosa: Purple-kennedy. Cervix: 4.6 x 3.8 x 3.4 cm. The os is patent. The anterior aspect is inked blue and posterior black. Endometrium: The cavity is 6.5 x 2.8 cm with a pink-red surface and ranges in thickness from 0.1 to 0.3 cm. The endomyometrial junction is focally ill-defined. Myometrium: The myometrium has a maximum thickness of 2.2 cm and is finely trabecular with no masses. Tubes/ovaries: The left fimbriated fallopian tube segment is 6.5 cm long x 0.5 cm in diameter with a purple-kennedy serosa and an unremarkable lumen. The right fimbriated fallopian tube segment is 8.8 cm long x 0.4 cm in diameter with a purple-kennedy serosa and an unremarkable lumen. Cassette summary: 1-2 anterior cervix contiguous lower uterine segment with ectocervical side inked red in 2, 3-6 remainder anterior cervix transformation zone, 7-8 posterior cervix contiguous lower uterine segment with ectocervical side inked red in 8, 9-13 remainder posterior cervix transformation zone, 14-15 anterior endomyometrium full thickness sections, 16-17 posterior endomyometrium full thickness sections, 18-19 left tube in entirety, 20-21 right tube in entirety. tm Microscopic Description Microscopic examination performed. Sections of cervix and lower uterine segment show some areas of glandular mucosa with slightly crowded nuclei and hyperchromasia with mitotic figures, difficult to distinguish as irregular endometrial/cervical transition zone versus atypical cervical glandular cells. A p16 immunostain appears negative in these areas, favoring irregular endometrial-cervical transition. Controls stain appropriately. Selected slides (A2, A5, A7-8, A10) were reviewed with additional pathologists (SLS, RDSenthil, KAMLESH), who agree with the diagnosis. SURGICAL PATHOLOGY CONSULTATION Patient Name: MARIAH CARBALLO [facility] Rec: [id number] Path Number: [id number] [facility] ANATOMIC PATHOLOGY [address] [place] [address]. [place], [place] [address] Normal [facility] Comment on above: Performed By: #### U LATOYA UA #### [facility] [address] [place] [address] [place] [address] [employer] Supervisor: Jefe Guerra MD Cult,Urineon 09-11-2022 Cult,Urine Specimen Description .CLEAN CATCH URINE Culture NO GROWTH Report Status FINAL 09/11/2022 Normal [facility] Comment on above: Performed By: #### U LATOYA, UA #### [facility] [address] [place] [address] [employer] Supervisor: Jefe Guerra MD Surgical Pathologyon Surgical Pathology (NOTE) -- Diagnosis -- A. VULVA, LEFT MONS, BIOPSY: - CONDYLOMA ACUMINATUM. B. VULVA, RIGHT LABIA 11:00, BIOPSY: - INFLAMED ACROCHORDON. C. VULVA, RIGHT LABIA 10:00, BIOPSY: - CONDYLOMA ACUMINATUM. Sacha Reyes M.D., B.C. AP/CP, Dermatopathology Electronically Signed Out 09/12/2022 Clinical Information Pre-op Diagnosis: VULVAR SKIN TAG Operative Findings: LEFT MONS; RIGHT LABIA 11:00; RIGHT LABIA 10:00 Source of Specimen A: VULVAR SKIN TAG- LEFT B: RIGHT LABIA 11 OCLOCK C: RIGHT LABIA 10 OCLOCK Gross Description A. MARIAH CARBALLO, LEFT 0.5 x 0.4 x 0.3 cm augustin papule. Inked and bisected 1cs. B. MARIAH CARBALLO, RIGHT 11:00 0.4 x 0.3 x 0.2 cm augustin fragment. Inked intact 1cs. C. MARIAH CARBALLO, RIGHT 10:00 0.3 x 0.3 x 0.2 cm augustin-white fragment. Inked intact 1cs. tm Microscopic Description A, C. The sections show smooth to gently mamillated epithelial hyperplasia with areas of hypergranulosis and hyperkeratosis. 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 There is no evidence of high grade dysplasia or malignancy in these sections. B. The sections show a polypoid portion of skin with a fibrovascular core. The dermis contains a lymphocytic inflammatory infiltrate. SURGICAL PATHOLOGY CONSULTATION Patient Name: MARIAH CARBALLO [facility] Rec: [id number] Path Number: [id number] [facility] [place] ANATOMIC PATHOLOGY [address] [place] [address]. [place], [place] [address] Normal [facility] Comment on above: Performed By: #### U LATOYA UA #### [facility] [address] [place], [place] [phone] [employer] Supervisor: Jefe Guerra MD Urinalysis, Routineon 2021 Bilirubin, SemiQt,Ur Negative Normal NEG [facility] Comment on above: Performed By: #### U A #### [facility] [address] [place], [place] [phone] [employer] Supervisor: Jefe Guerra MD Blood, Urine Negative Normal NEG [facility] Comment on above: Performed By: #### U A #### [facility] [address] [place], [place] [phone] [employer] Supervisor: Jefe Guerra MD Clarity (U) Clear Normal CLEAR [facility] Comment on above: Performed By: #### U A #### [facility] [address] [place], [place] [phone] [employer] Supervisor: Jefe Guerra MD Color (U) Yellow Normal YEL [facility] Comment on above: Performed By: #### U A #### [facility] [address] [place], [place] [phone] [employer] Supervisor: Jefe Guerra MD Glucose Ql (U) Negative Normal NEG [facility] in Hospital Comment on above: Performed By: #### U A #### [facility] [address] [place], [place] [phone] [employer] Supervisor: Jefe Guerra MD Ketones Ql (U) Negative Normal NEG [facility] Comment on above: Performed By: #### U A #### [facility] [address] [place], [place] [phone] [employer] Supervisor: Jefe Guerra MD Leukocyte esterase Test strip Ql (U) Negative Normal NEG [facility] Comment on above: Performed By: #### U A #### [facility] [address] [place] [address] Dr. [place], [place] [address] [employer] Supervisor: Jefe Guerra MD Nitrite,Ur Negative Normal NEG [facility] Comment on above: Performed By: #### U A #### [facility] [address] [place] [address] Dr. [place], [place] [address] [employer] Supervisor: Jefe Guerra MD PH,Ur 6.0 Normal 5.0-9.0 [facility] Comment on above: Performed By: #### U A #### [address] [place] [address] [employer] Supervisor: Jefe Guerra MD Protein Ql (U) Negative Normal NEG [facility] Comment on above: Performed By: #### U A #### [address] [place], [facility] [employer] Supervisor: Jefe Guerra MD Spec. [place],Ur >1.030 High 1.010-1.020 [facility] [place] Comment on above: Performed By: #### U A #### [address] [place], [facility] [employer] Splitting Supervisor: Jefe Guerra MD Urobilinogen,Ur Normal Normal NORM [facility] Comment on above: Performed By: #### U A #### [facility] [address] [place] [address] Dr. [place], [facility]83 [employer] Supervisor: Jefe Guerra MD Surgical Pathologyon 022 Surgical Pathology (NOTE) -- Diagnosis -- A. Endocervix, curettage: Rare benign endocervical and squamous epithelial cells, negative for dysplasia. B. Uterine cervix, 1:00, colposcopic biopsy: Acute and chronic endocervicitis with reactive epithelial changes, negative for dysplasia. C. Uterine cervix, 4:00, colposcopic biopsy: Acute and chronic endocervicitis with reactive epithelial changes, negative for dysplasia. D. Endometrium, biopsy: Polypoid disordered proliferative endometrium with hemorrhage. Sloughed degenerating glandular epithelium admixed with blood. Alejo Niño. Electronically Signed Out 05/23/2022 Clinical Information Pre-Op Diagnosis: ATYPICAL GLANDULAR CELLS OF UNDETERMINED SIGNIFICANCE ON CERVICAL PAP SMEAR; CERVICAL HIGH RISK HPV TEST POSITIVE Operative Findings: ECC; 1 O'CLOCK; 4 O'CLOCK; ENDO BX Source of Specimen A: CERVIX BIOPSY - ECC B: CERVIX BIOPSY - 1 O'CLOCK C: CERVIX BIOPSY - 4 O'CLOCK D: EMB Gross Description A. MARIAH HARIS, ECC Augustin-white tissue and mucoid material, 1.0 x 1.0 x 0.1 cm in aggregate. Entirely 1cs. B. MARIAH CARBALLO, 1:00 0.3 x 0.2 x 0.2 cm augustin-white fragment. Entirely 1cs. C. MARIAH CARBALLO, 4:00 0.4 x 0.2 x 0.2 cm augustin-white fragment. Entirely 1cs. D. MARIAH CARBALLO, ENDO BX Multiple red-brown tissue fragments, 1.0 x 0.6 x 0.1 cm in aggregate. Entirely 1cs. yr tm Microscopic Description A-D. 2 OSEI reviewed for each. Microscopic examination performed. SURGICAL PATHOLOGY CONSULTATION Patient Name: MARIAH CARBALLO [facility] Rec: [id number] Path Number: [id number] [facility] [place] ANATOMIC PATHOLOGY [address] [place] [phone] [facility] Comment on above: Performed By: #### P PPVS #### [address] [id number] Sl[employer] Spl[employer] Supervisor: Jesse Joseph MD HPV DNA High Riskon 04-24-20 22 HPV Interp [facility] Comment on above: Result Comment: This test amplifies and detects DNA of 14 high-risk HPV types associated with cervical cancer and its precursor lesions (HPV types 16,18, 31, 33, 35, 39, 45, 51, 52, 56, 58, 59, 66, and 68). Sensitivity may be affected by specimen collection methods, stage of infection, and the presence of interfering substances. Results should be interpreted in conjunction with other available laboratory and clinical data. A negative high-risk HPV result does not exclude the possibility of future cytologic HSIL or underlying CIN2-3 or cancer. This test is intended for medical purposes only and is not valid for the evaluation of suspected sexual abuse or for other forensic purposes. Performed By: #### H PVH #### [address] [address] [employer] [employer] Supervisor: Jesse Joseph MD HPV Type 16 Not detected Normal [facility] Comment on above: Performed By: #### H PVH #### [address] [address] [employer] [employer] Supervisor: Jesse Joseph MD HPV Type 18 Not detected [facility] Comment on above: Performed By: #### H PVH #### [address] [address] [employer] [employer] Supervisor: Jesse Joseph MD Other High Risk HPV Detected Abnormal [facility] Comment on above: Performed By: #### H PVH #### [address] [address] [employer] Supervisor: Jesse Joseph MD HPV DNA High Riskon 04-23-20 22 Source .GENITAL - NOT SPECIFIED [facility] Comment on above: Performed By: #### H PVH #### [address] [address] [employer] Spl[employer] Supervisor: Jesse Joseph MD HPV Sample .THIN PREP [facility] Comment on above: Performed By: #### H PVH #### [address] [address] Sl[employer] Spl[employer] Supervisor: Jesse Joseph MD Cytologyon 04-22-2022 Cytology (NOTE) INTERPRETATION Cervical material, (ThinPrep vial, Imaging-assisted review): Specimen Adequacy: Satisfactory for evaluation. - Endocervical/transfo rmation zone component present. Descriptive Diagnosis: Atypical glandular cells present (not otherwise specified). Pediatric Cardiologist: NELDA Guerra M.D. Electronically Signed Out 04/26/2022 Procedure/Addendum HPV Procedure Report Date Ordered: 04/23/2022 Status: Signed Out Date Complete: 04/24/2022 By: System Interface Date Reported: 04/24/2022 Sample: HPV Type 16 Result: Not Detected Ref Range: (Not Detected) Sample: HPV Type 18 Result: Not Detected Ref Range: (Not Detected) Sample: Other High Risk HPV Result: DETECTED Ref Range: (Not Detected) Sample: HPV Interp Result: Ref Range: (Not Detected) This test amplifies and detects DNA of 14 high-risk HPV types associated with cervical cancer and its precursor lesions (HPV types 16,18, 31, 33, 35, 39, 45, 51, 52, 56, 58, 59, 66, and 68). Sensitivity may be affected by specimen collection methods, stage of infection, and the presence of interfering substances. Results should be interpreted in conjunction with other available laboratory and clinical data. A negative high-risk HPV result does not exclude the possibility of future cytologic HSIL or underlying CIN2-3 or cancer. This test is intended for medical purposes only and is not valid for the evaluation of suspected sexual abuse or for other forensic purposes. Source: A: Cervical material, (ThinPrep vial, Imaging-assisted review) Clinical History LEEP: 2018 Z12.4 Encounter for screening for malignant neoplasm of cervix Co-Test: ThinPrep Pap with high risk HPV testing LMP: 04/23/2021 GYNECOLOGIC CYTOLOGY REPORT Patient Name: [id number] Path Number: [id number] [facility] [place] ANATOMIC PATHOLOGY [facility]. [place], [place] [address] Normal [facility] Comment on above: Performed By: #### U SAIRA KLEIN #### [facility] [address] [place] [address] [employer] Splitting Supervisor: Jefe Guerra MD Cult,Urineon 03-20-2022 Cult,Urine Specimen Description .CLEAN CATCH URINE Culture NO SIGNIFICANT GROWTH Report Status FINAL 03/20/2022 Normal [facility] Comment on above: Performed By: #### U RC #### [facility] [address] [place] [address] [employer] Splitting Supervisor: Jesse Joseph MD [facility] [address] [place] [address] [employer] Splitting Supervisor: Jefe Guerra MD CBC auto differentialon 06-0 Absolute Eos # 0.10 [place] [facility] Absolute Immature Granulocyte 0.05 [facility] Absolute Lymph # 1.78 [facility] Absolute [place] # 0.59 [facility] RS [facility] Basophils (Bld) [#/Vol] 10*3/uL [facility] Basophils/100 WBC (Bld) 0 % 0 - 2 % [facility] Eosinophils/100 WBC (Bld) 1 % 1 - 4 % [facility] Hematocrit (Bld) [Volume fraction] 31.9 % Low 36.3 - 47.1 % [facility] Hemoglobin (Bld) [Mass/Vol] 10.4 g/dL Low 11.9 - 15.1 g/dL [facility] Immature granulocytes/100 WBC (Bld) 1 % High 0 [facility] Interpretation and review of laboratory results Abnormal [facility] Lymphocytes/100 WBC (Bld) 22 % Low 24 - 43 % [facility] MCH (RBC) [Entitic mass] 28.6 pg 25.2 - 33.5 pg [facility] MCHC (RBC) [Mass/Vol] 32.6 g/dL 28.4 - 34.8 g/dL [facility] MCV (RBC) [Entitic vol] 87.6 fL 82.6 - 102.9 fL [facility] Monocytes/100 WBC (Bld) 7 % 3 - 12 % [facility] NRBC Automated 0.0 0.0 per 100 WBC [facility] Platelet distribution width (Bld) [Ratio] 13.2 % 11.8 - 14.4 % [facility] Platelet mean volume (Bld) [Entitic vol] 10.5 fL 8.1 - 13.5 fL [facility] Platelets (Bld) [#/Vol] 195 10*3/uL [facility] RBC (Bld) [#/Vol] 3.64 10*6/uL Low 3.95 - 5.1 1 m/uL [facility] Segmented neutrophils/100 WBC (Bld) 69 % High 36 - 65 % [facility] Segs Absolute 5.42 [facility] WBC (Bld) [#/Vol] 8.0 10*3/uL [facility] CBC with Diffon 2022 Abs. Basophil <0.03 Normal 0.00-0.20 [facility] Comment on above: Performed By: #### C DP #### [facility] [address] [place] [address] [place] [phone] Sl[place] Splitting Supervisor: Jefe Guerra MD Abs.Imm.Granulocyte 0.05 k/uL Normal 0.00-0.30 [facility] Comment on above: Performed By: #### C DP #### [facility] [address] [place] [address] [place] [address] [employer] Splitting Supervisor: Jefe Guerra MD Abs.Neutrophil (Seg) 5.42 k/uL Normal 1.50-8.10 [facility] Comment on above: Performed By: #### C DP #### [facility] [address] [place] [address] Dr. [place], [place] [address] Sl[employer] Splitting Supervisor: Jefe Guerra MD Basophils/100 WBC (Bld) 0 % Normal 0-2 [facility] Comment on above: Performed By: #### C DP #### [facility] [address] [place] [address] [employer] Splitting Supervisor: Jefe Guerra MD Eosinophils (Bld) [#/Vol] 0.10 10*3/uL Normal 0.00-0.44 [facility] Comment on above: Performed By: #### C DP #### [facility] [address] [place], [place] [phone] Sl[employer] Splitting Supervisor: Jefe Guerra MD Eosinophils/100 WBC (Bld) 1 % Normal 1-4 [facility] Comment on above: Performed By: #### C DP #### [facility] [address] [place] [address] Dr. [place], [place] [phone] Sl[employer] Splitting Supervisor: Jefe Guerra MD Erythrocyte distribution width (RBC) [Ratio] 13.2 % Normal 11.8-14.4 [facility] Comment on above: Performed By: #### C DP #### [address] [place], [facility]83 Slate Splitting Supervisor: Jefe Guerra MD Hematocrit (Bld) [Volume fraction] 31.9 % Low 36.3-47.1 [facility] Comment on above: Performed By: #### C DP #### [address] [place], [facility]83 Sl[employer] Splitting Supervisor: Jefe Guerra MD Hemoglobin (Bld) [Mass/Vol] 10.4 g/dL Low 11.9-15.1 [facility] Comment on above: Performed By: #### C DP #### [address] [place], [place] [phone] [employer] Splitting Supervisor: Jefe Guerra MD Immature granulocytes/100 WBC (Bld) 1 % High 0 [facility] Comment on above: Performed By: #### C DP #### [facility] [address] [place] [address] Dr. [place], [facility]83 Sl[employer] Splitting Supervisor: Jefe Guerra MD Lymphocytes (Bld) [#/Vol] 1.78 10*3/uL Normal 1.10-3.70 [facility] Comment on above: Performed By: #### C DP #### [facility] [address] [place] [address] [place] [address] [employer] Splitting Supervisor: Jefe Guerra MD Lymphocytes/100 WBC (Bld) 22 % Low 24-43 [facility] Comment on above: Performed By: #### C DP #### [facility] [address] [place], [place] [address] [employer] Splitting Supervisor: Jefe Guerra MD MCH (RBC) [Entitic mass] 28.6 pg Normal 25.2-33.5 [facility] Comment on above: Performed By: #### C DP #### [address] [place], [place] [address] Sl[employer] Splitting Supervisor: Jefe Guerra MD MCHC (RBC) [Mass/Vol] 32.6 g/dL Normal 28.4-34.8 [facility] Comment on above: Performed By: #### C DP #### [address] [place] [address] Sl[employer] Splitting Supervisor: Jefe Guerra MD MCV (RBC) [Entitic vol] 87.6 fL Normal 82.6-102.9 [facility] Comment on above: Performed By: #### C DP #### [address] [place], [place] [address] Sl[employer] Splitting Supervisor: Jefe Guerra MD Monocytes (Bld) [#/Vol] 0.59 10*3/uL Normal 0.10-1.20 [facility] Comment on above: Performed By: #### C DP #### [facility] [address] [place] [address] Dr[place], [place] [address] Sl[employer] Splitting Supervisor: Jefe Guerra MD Monocytes/100 WBC (Bld) 7 % Normal 3-12 M [facility] Comment on above: Performed By: #### C DP #### [address] [place], [facility]83 Slate Splitting Supervisor: Jefe Guerra MD Neutrophil (Seg) 69 % High 36-65 [facility] Comment on above: Performed By: #### C DP #### [facility] [address] [place], [place] [phone] Slate Splitting Supervisor: Jefe Guerra MD NRBC Automated 0.0 per 100 WBC Normal 0.0 [facility] Comment on above: Performed By: #### C DP #### [facility] [address] [place], [place] [phone] Sl[employer] Splitting Supervisor: Jefe Guerra MD Platelet mean volume (Bld) [Entitic vol] 10.5 fL Normal 8.1-13.5 [facility] Comment on above: Performed By: #### C DP #### [facility] [address] [place], [place] [phone] Slate Splitting Supervisor: Jefe Guerra MD Platelets (Bld) [#/Vol] 195 10*3/uL Normal 138-453 [facility] Comment on above: Performed By: #### C DP #### [address] [place], [facility]83 Sl[employer] Splitting Supervisor: Jefe Guerra MD RBC (Bld) [#/Vol] 3.64 10*6/uL Low 3.95-5.11 [facility] Comment on above: Performed By: #### C DP #### [address] [place], [place] [phone] Sl[employer] Splitting Supervisor: Jefe Guerra MD WBC (Bld) [#/Vol] 8.0 10*3/uL Normal 3.5-11.3 [facility] Comment on above: Performed By: #### C DP #### [facility] [address] [place], [place] [phone] Slate Splitting Supervisor: Jefe Guerra MD DRUG SCREEN MULTI URINEon Amphetamine Screen, Ur Negative NEGATIVE [facility] Barbiturate Screen, Ur Negative NEGATIVE [facility] Benzodiazepine Screen, Urine Negative NEGATIVE [facility] Buprenorphine Urine Negative NEGATIVE [facility] Cannabinoid Scrn, Ur Negative NEGATIVE [facility] Cocaine Metabolite, Urine Negative NEGATIVE [facility] Methadone Screen, Urine Negative NEGATIVE [facility] Methamphetamine, Urine Negative NEGATIVE [facility] Opiates, Urine Negative NEGATIVE [facility] Oxycodone Screen, Ur Negative NEGATIVE [facility] Phencyclidine, Urine Negative NEGATIVE [facility] Propoxyphene, Urine Negative NEGATIVE [facility] Tricyclic Antidepressants, Urine Negative NEGATIVE [facility] Comment on above: Drug screen results are to be used for medical purposes only. All positive results are unconfirmed. Testing for employment or legal uses should be sent to a reference laboratory for confirmation. [facility] Drug Scr, Abuse, Uron 2021 Amphetamine(s),Ur Negative Normal NEG [facility] Comment on above: Performed By: #### U MICAO, UA #### [facility] [address] [place] [address] [place] [address] Slate Splitting Supervisor: Jefe Guerra MD Barbiturate(s),Ur Negative Normal NEG [facility] Comment on above: Performed By: #### U MICAO, UA #### [facility] [address] [place] [address] Dr[place] [phone] Slate Splitting Supervisor: Jefe Guerra MD Benzodiazepine(s) Negative Normal NEG [facility] Comment on above: Performed By: #### U MICAO, UA #### [facility] [address] [place] [address] Dr. [place] [phone] Slate Splitting Supervisor: Jeef Guerra MD Buprenorphrine, Ur Negative Normal NEG [facility] Comment on above: Performed By: #### U MICAO, UA #### [facility] [address] [place] [address] [place] [address] Slate Splitting Supervisor: Jefe Guerra MD Cannabinoid(s),Ur Negative Normal NEG [facility] Comment on above: Performed By: #### U MICAO, UA #### [facility] [address] [place] [address] [place] [address] Slate Splitting Supervisor: Jefe Guerra MD Cocaine Metabolite Negative Normal [facility] Comment on above: Performed By: #### U MICAO, UA #### [facility] [address] [place], [place] [phone] Slate Splitting Supervisor: Jefe Guerra MD Methadone Ql (U) Negative Normal [facility] Comment on above: Performed By: #### U MICAO, UA #### [facility] [address] [place], [place] [phone] Slate Splitting Supervisor: Jefe Guerra MD Methamphetamine, Ur Negative Normal [facility] Comment on above: Performed By: #### U MICAO, UA #### [facility] [address] [place], [place] [phone] Slate Splitting Supervisor: Jefe Guerra MD Opiate(s), Ur Negative Normal [facility] Comment on above: Performed By: #### U MICAO, UA #### [facility] [address] [place], [place] [phone] Slate Splitting Supervisor: Jefe Guerra MD Oxycodone, Urine Negative Normal [facility] Comment on above: Performed By: #### U MICAO, UA #### [facility] [address] [place], [place] [phone] Slate Splitting Supervisor: Jefe Guerra MD Phencyclidine, Ur Negative Normal NEG [facility] Comment on above: Performed By: #### U MICAO, UA #### [facility] [address] [place], [place] [phone] Slate Splitting Supervisor: Jefe Guerra MD Propoxyphene,Urine Negative Normal [facility] Comment on above: Performed By: #### U MICAO, UA #### [facility] [address] [place], [place] [phone] Slate Splitting Supervisor: Jefe Guerra MD Tricyclic antidepressants Screen Ql (U) Negative Normal NEG [facility] Comment on above: Result Comment: Drug screen results are to be used for medical purposes only. All positive results are unconfirmed. Testing for employment or legal uses should be sent to a reference laboratory for confirmation. Performed By: #### U EBONYO, UA #### [facility] [address] [place] [address] Slate Splitting Supervisor: Jefe Guerra MD Rule Out Grp.B Strepon 02-16 Rule Out Grp.B Strep Specimen Descriptio n .VAGINA Culture NEGATIVE FOR GROUP B STREPTOCOCCI Report Status FINAL 02/16/2022 [facility] Comment on above: Performed By: #### U EBONYO, UA #### [facility] [address] [place] [address] [place] [address] Slate Splitting Supervisor: Jefe Guerra MD Cult,Urineon 02-14-2022 Cult,Urine Specimen Description .CLEAN CATCH URINE Culture NO SIGNIFICANT GROWTH Report Status FINAL 02/14/2022 [facility] Comment on above: Performed By: #### U RC #### [id number] [address] [place], [place] [phone] Slate Splitting Supervisor: Jesse Joseph MD [facility] [address] [place] [address] [place] [address] Sl[employer] Splitting Supervisor: Jefe Guerra MD Microscopic Urinalysison - [facility] Bacteria, UA 3+ Abnormal None [facility] Epithelial Cells UA 2 TO 5 [facility] Interpretation and review of laboratory results Abnormal [facility] Mucus, UA 4+ Abnormal None [facility] RBC, UA 0 TO 2 [facility] WBC, UA 2 TO 5 [facility] Urinalysison 12-19-2021 Bilirubin Urine MODERATE Abnormal NEGATIVE [facility] Color, UA [place] Abnormal Yellow [facility] Glucose, Ur Negative NEGATIVE [facility] Interpretation and review of laboratory results Abnormal [facility] Ketones Ql (U) TRACE Abnormal NEGATIVE [facility] Leukocyte esterase Test strip Ql (U) TRACE Abnormal NEGATIVE [facility] Nitrite, Urine Positive Abnormal NEGATIVE [facility] pH, UA 6.5 [facility] Protein, UA 1+ Abnormal NEGATIVE [facility] Specific [place], UA >1.030 High [facility] Turbidity UA Clear Clear [facility] Urine Hgb Negative NEGATIVE [facility] Urobilinogen, Urine Normal Normal [facility] COVID-19, Rapidon 12-15-2021 SARS-CoV-2 (COVID-19) RNA LYDIA+probe Ql (Unsp spec) Not detected Not Detected [facility] Comment on above: Rapid NAAT: The specimen is NEGATIVE for SARS-CoV-2, the novel coronavirus associated with COVID-19. The ID NOW COVID-19 assay is designed to detect the virus that causes COVID-19 in patients with signs and symptoms of infection who are suspected of COVID-19. An individual without symptoms of COVID-19 and who is not shedding SARS-CoV-2 virus would expect to have a negative (not detected) result in this assay. Negative results should be treated as presumptive and, if inconsistent with clinical signs and symptoms or necessary for patient management, should be tested with an alternative molecular assay. Negative results do not preclude SARS-CoV-2 infection and should not be used as the sole basis for patient management decisions. Fact sheet for Healthcare Providers: https://www.fda.gov/media/263184/download Fact sheet for Patients: https://www.fda.gov/media/289874/download Methodology: Isothermal Nucleic Acid Amplification Specimen Description .NASOPHARYNGEAL SWAB [facility] Rapid influenza A/B antigens on 12-15-2021 Direct Exam POSITIVE for Influenza A Antigen NEGATIVE for Influenza B Antigen Abnormal [facility] Interpretation and review of laboratory results Abnormal [facility] Specimen Description .NASOPHARYNGEAL SWAB [facility] Microscopic Urinalysison - [facility] Bacteria, UA 3+ Abnormal None [facility] Epithelial Cells UA 20 TO 50 [facility] Interpretation and review of laboratory results Abnormal [facility] Mucus, UA 2+ Abnormal None [facility] RBC, UA 0 TO 2 [facility] WBC, UA 20 TO 50 [facility] Urinalysison 12-05-2021 Bilirubin Urine SMALL [facility]IVE [facility] Yellow Yellow [facility] Glucose, Ur Negative NEGATIVE [facility] Interpretation and review of laboratory results Abnormal [facility] Ketones Ql (U) 2+ Abnormal NEGATIVE [facility] th Leukocyte esterase Test strip Ql (U) MODERATE Abnormal NEGATIVE [facility] Nitrite, Urine Negative NEGATIVE [facility] pH, UA 7.0 [facility] Protein, UA TRACE Abnormal NEGATIVE [facility] Specific [place], UA 1.025 [facility] Turbidity UA Clear Clear [facility] Urine Hgb TRACE Abnormal NEGATIVE [facility] Urobilinogen, Urine Normal Normal [facility] No Panel Informationon 11-06 Single live intrauterine in breech presentation at 21 weeks 1 day gestation by today's study. The biparietal diameter measurement and head circumference measurement are less than the 10th percentile for age. The remaining biometric parameters are within normal limits. The nose and lips were not well seen. The structural survey otherwise appears normal. [facility] EXAMINATION: SECOND/THIRD TRIMESTER OBSTETRIC ULTRASOUND 11/06/2021 TECHNIQUE: Transabdominal second/third trimester obstetric pelvic ultrasound was performed with color Doppler flow evaluation. HISTORY: ORDERING SYSTEM PROVIDED HISTORY: IUP (intrauterine ), incidental FINDINGS: A single live intrauterine is present. heart rate measures 154 beats per minute. There is normal body and limb movement. The fetus is in breech position. The placenta is anterior in location with the placental tip ending 2.5 cm from the internal os. The amniotic fluid volume is subjectively within normal limits. The cerebral ventricles, choroid plexus, cerebellum and posterior fossa are normal. A 4-chamber heart is seen and is normal. The stomach, kidneys and bladder are normal. A 3-vessel cord is seen and the cord insertion is normal. The spine and extremities are normal in appearance. The nose and lips were not well seen. BPD measures 4.90 cm (9.8%ile) Head circumference measures 16.62 cm (6.6%ile). Abdominal circumference measures 16.33 cm (23.6%ile). Femur length measures 3.54 cm (15.8%ile). Estimated weight is 408.64 grams (13.2%ile by AUA). Estimated gestational age by current ultrasound is 21 weeks 1 day. [facility] Kalen Mejias MD - 11/07/2021 EXAMINATION: SECOND/THIRD TRIMESTER OBSTETRIC ULTRASOUND 11/06/2021 TECHNIQUE: Transabdominal second/third trimester obstetric pelvic ultrasound was performed with color Doppler flow evaluation. HISTORY: ORDERING SYSTEM PROVIDED HISTORY: IUP (intrauterine ), incidental FINDINGS: A single live intrauterine is present. heart rate measures 154 beats per minute. There is normal body and limb movement. The fetus is in breech position. The placenta is anterior in location with the placental tip ending 2.5 cm from the internal os. The amniotic fluid volume is subjectively within normal limits. The cerebral ventricles, choroid plexus, cerebellum and posterior fossa are normal. A 4-chamber heart is seen and is normal. The stomach, kidneys and bladder are normal. A 3-vessel cord is seen and the cord insertion is normal. The spine and extremities are normal in appearance. The nose and lips were not well seen. BPD measures 4.90 cm (9.8%ile) Head circumference measures 16.62 cm (6.6%ile). Abdominal circumference measures 16.33 cm (23.6%ile). Femur length measures 3.54 cm (15.8%ile). Estimated weight is 408.64 grams (13.2%ile by AUA). Estimated gestational age by current ultrasound is 21 weeks 1 day. IMPRESSION: Single live intrauterine in breech presentation at 21 weeks 1 day gestation by today's study. The biparietal diameter measurement and head circumference measurement are less than the 10th percentile for age. The remaining biometric parameters are within normal limits. The nose and lips were not well seen. The structural survey otherwise appears normal. [employer] Phone: Radiology Study observation (narrative) [email or web address] Phone: No Panel InformationOrdered By: Kalen Mejias on 11-06-2021 [employer] Phone: Basic Metabolic Panel w/ Ref ct to MGOrdered By: Danny Mendiola on 08-06-2021 Anion gap [Moles/Vol] 12 mmol/L 9 - 17 mmol/L [employer] Phone: Calcium [Mass/Vol] 9.0 mg/dL 8.6 - 10. 4 mg/dL [employer] Phone: Chloride [Moles/Vol] 100 mmol/L 98 - 10 7 mmol/L [employer] Phone: CO2 [Moles/Vol] 24 mmol/L 20 - 31 mmol/L [employer] Phone: Creatinine [Mass/Vol] 0.57 mg/dL 0.50 - 0.90 mg/dL [employer] Phone: GFR >60 >60 mL/min [employer] Phone: GFR Non- >60 >60 mL/min [employer] Phone: Glucose [Mass/Vol] 100 mg/dL High 70 - 99 mg/dL [employer] Phone: Interpretation and review of laboratory results Abnormal [employer] Phone: Potassium [Moles/Vol] 3.7 mmol/L 3.7 - 5.3 mmol/L [employer] Phone: Sodium [Moles/Vol] 136 mmol/L 135 - 144 mmol/L [facility] Phone: Urea nitrogen (BldV) [Mass/Vol] 10 mg/dL 6 - 20 mg/dL [employer] Phone: Urea nitrogen/Creatinine (Bld) [Mass ratio] 18 [employer] Phone: [employer] Phone: CBC Auto DifferentialOrdered By: Danny Mendiola on 08-06-2021 [employer] # 0.07 [id number] [facility] Work Phone: Absolute Immature Granulocyte 0.05 [employer] Work Phone: Absolute Lymph # 1.56 [employer] [facility] Work Phone: Absolute [place] # 0.41 [facility] Work Phone: Basophils (Bld) [#/Vol] 10*3/uL [employer] Work Phone: Basophils/100 WBC (Bld) 0 % 0 - 2 % [employer] Work Phone: Differential Type NOT REPORTED [employer] Phone: Eosinophils/100 WBC (Bld) 1 % 1 - 4 % [employer] Phone: Hematocrit (Bld) [Volume fraction] 45.4 % 36.3 - 47.1 % [employer] Phone: Hemoglobin.gastrointest inal spec 1 Ql (Stl) 15.2 g/dL High 11.9 - 15.1 g/dL [employer] Phone: Immature granulocytes/100 WBC (Bld) 1 % High 0 [employer] Phone: Interpretation and review of laboratory results Abnormal [employer] Phone: Lymphocytes/100 WBC (Bld) 20 % Low 24 - 43 % [employer] Phone: MCH (RBC) [Entitic mass] 30.2 pg 25.2 - 33.5 pg [employer] Phone: MCHC (RBC) [Mass/Vol] 33.5 g/dL 28.4 - 34.8 g/dL [employer] Phone: MCV (RBC) [Entitic vol] 90.1 fL 82.6 - 102.9 fL [employer] Phone: Monocytes/100 WBC (Bld) 5 % 3 - 12 % M [employer] Phone: NRBC Automated 0.0 0.0 per 100 WBC [employer] Phone: Platelet distribution width (Bld) [Ratio] 12.8 % 11.8 - 14.4 % [employer] Phone: Platelet Estimate NOT REPORTED [employer] Phone: Platelet mean volume (Bld) [Entitic vol] 10.5 fL 8.1 - 13.5 fL [employer] Phone: Platelets (Bld) [#/Vol] 203 10*3/uL [employer] Phone: RBC (Bld) [#/Vol] 5.04 10*6/uL 3.95 - 5.1 1 m/uL [employer] Phone: RBC (Bld) [#/Vol] NOT REPORTED [employer] Work Phone: Segmented neutrophils/100 WBC (Bld) 73 % High 36 - 65 % [employer] Work Phone: Segs Absolute 5.56 [employer] Work Phone: WBC (Bld) [#/Vol] 7.7 10*3/uL [employer] Work Phone: WBC (Bld) [#/Vol] NOT REPORTED [employer] Phone: [employer] Phone: Laboratory - Chemistry and C hemistry - challengeOrdered By: Danny Mendiola on 08-06-2021 GFR/1.73 sq M.predicted MDRD (S/P/Bld) [Vol rate/Area] [employer] Phone: Comment on above: Average GFR for 20-2 9 years old: 116 mL/min/1.73sq m Chronic Kidney Disease: <60 mL/min/1.73sq m Kidney failure: <15 mL/min/1.73sq m eGFR calculated using average adult body mass. Additional eGFR calculator available at: http://www.[employer]bank.Seculert/multiple_crcl_2012.htm Stage 1: Some kidney damage normal GFR Stage 2: Mild kidney damage GFR 60-89 Stage 3: Moderate kidney damage GFR 30-59 Stage 4: Severe kidney damage GFR 15-29 Stage 5: Severe kidney damage GFR <15 ESRD - chronic treatment by dialysis or transplant Microscopic UrinalysisOrdere d By: Danny Mendiola on 08-06-2021 - [employer] Work Phone: Amorphous, UA NOT REPORTED None [facility] Work Phone: Bacteria, UA TRACE Abnormal None [facility] Work Phone: Casts UA NOT REPORTED /LPF [facility] Work Phone: Crystals, UA NOT REPORTED None /HPF [facility] Work Phone: Epithelial Cells UA 2 TO 5 [facility] Work Phone: Interpretation and review of laboratory results Abnormal [facility] Work Phone: Mucus, UA 1+ Abnormal None [facility] Work Phone: Other Observations UA NOT REPORTED NOT REQ. M [facility] [employer] Work Phone: RBC, UA None [facility] Work Phone: Renal Epithelial, UA NOT REPORTED 0 /HPF [facility] Work Phone: Trichomonas, UA NOT REPORTED None [facility] Work Phone: WBC, UA 0 TO 2 [facility] [employer] Work Phone: Yeast, UA NOT REPORTED None [facility] Work Phone: [facility] Work Phone: Urinalysis, reflex to micros copicOrdered By: Danny Mendiola on 08-06-2021 Bilirubin Urine SMALL Abnormal NEGATIVE [facility] Work Phone: Color, UA Yellow Yellow [facility] Work Phone: Glucose, Ur Negative NEGATIVE [facility] Work Phone: Interpretation and review of laboratory results Abnormal [facility] Work Phone: Ketones Ql (U) 1+ Abnormal NEGATIVE [facility] Work Phone: Leukocyte esterase Test strip Ql (U) TRACE Abnormal NEGATIVE [facility] Work Phone: Nitrite, Urine Negative NEGATIVE [facility] Work Phone: pH, UA 7.5 [employer] Phone: Protein, UA TRACE Abnormal NEGATIVE [employer] Phone: Specific [place], UA 1.020 [employer] Work Phone: Turbidity UA Clear Clear [employer] Phone: Urinalysis Comments NOT REPORTED [facility] [employer] Work Phone: Urine Hgb Negative NEGATIVE [employer] Phone: Urobilinogen, Urine Normal Normal [facility] Phone: [employer] Phone: COVID Quick Testingon 2020 Result Negative [employer] [facility] Other HCG, Quantitative, Ordered By: WibiData on 07-18-2021 hCG Quant [id number] High <5 IU/L [employer] Phone: Comment on above: Non-preg premeno <=5 Postmeno <=8 Male <=3 If HCG results do not concur with clinical observations, additional testing to confirm results is recommended. Elevated results not associated with may be found in patients with other diseases such as tumors of the germ cells (testis, ovaries, etc.), bladder, pancreas, stomach, lungs, and liver. Interpretation and review of laboratory results Abnormal [employer] Phone: [employer] Phone: HCG, Quantitative, Ordered By: [employer]Data on 07-16-2021 hCG Quant [id number] High <5 IU/L [employer] Phone: Comment on above: Non-preg premeno <=5 Postmeno <=8 Male <=3 If HCG results do not concur with clinical observations, additional testing to confirm results is recommended. Elevated results not associated with may be found in patients with other diseases such as tumors of the germ cells (testis, ovaries, etc.), bladder, pancreas, stomach, lungs, and liver. Interpretation and review of laboratory results Abnormal [employer] Phone: [employer] Work Phone: CBC AUTO DIFFon 05-24-2021 BASO # 0.0 103/ul Normal 0.0-0.1 [facility] [place] [facility] Comment on above: Performed By: #### C BC #### [facility] [address] [id number] Niko Karina Basophils/100 WBC (Bld) 0.1 % Critically low 0.2-2.0 [facility] Comment on above: Performed By: #### C BC #### [facility] [address] [address] Niko Karina EO # 0.3 103/ul Normal 0.0-0.7 [facility] [place] [facility] Comment on above: Performed By: #### C BC #### [facility] Laboratory [address] [place] [address] Niko Karina Eosinophils/100 WBC (Bld) 4.6 % Normal 0.9-7.0 [facility] Comment on above: Performed By: #### C BC #### [facility] Laboratory [address] [place] [address] Niko Karina Erythrocyte distribution width (RBC) [Ratio] 12.4 % Normal 11.0-15.0 [facility] [place] [facility] Comment on above: Performed By: #### C BC #### [facility] [address] [place] [address] Niko Karina Hematocrit (Bld) [Volume fraction] 42.5 % Normal 36.0-48.0 [facility] Comment on above: Performed By: #### C BC #### [facility] [address] [phone] Niko Karina Hemoglobin (Bld) [Mass/Vol] 14.2 g/dL Normal 12.0-16.0 [facility] Comment on above: Performed By: #### C BC #### [facility] [address] [address] Niko Karina IG # 0.01 10e3/ul Normal 0.00-0.03 [facility] [place] [facility] Comment on above: Performed By: #### C BC #### [facility] Laboratory [address] [place], [place] [phone] Niko Karina IG % 0.1 % Normal 0.0-0.5 [facility] [place] [facility] Comment on above: Performed By: #### C BC #### [facility] [address] [place], [place] [phone] Niko Karina LYMPH # 1.9 103/ul Normal 1.2-3.8 [facility] [place] [facility] Comment on above: Performed By: #### C BC #### [facility] [address] [place], [place] [phone] Niko Karina Lymphocytes/100 WBC (Bld) 28.0 % Normal 20.5-60.0 [facility] [place] [facility] Comment on above: Performed By: #### C BC #### [facility] [address] [place], [place] [phone] Niko Karina MANUAL DIFF REQ NO Normal [facility] Comment on above: Performed By: #### C BC #### [facility] [address] [place], [place] [phone] Niko Karina MCH (RBC) [Entitic mass] 29.8 pg Normal 26.7-34.0 [facility] [place] [facility] Comment on above: Performed By: #### C BC #### [facility] [address] [place], [place] [phone] Niko Karina MCHC (RBC) [Mass/Vol] 33.4 g/dL Normal 29.9-35.2 [facility] [place] [facility] Comment on above: Performed By: #### C BC #### [facility] [address] [place] [address] Niko Karina MCV (RBC) [Entitic vol] 89.1 fL Normal 81.0-99.0 [facility] Comment on above: Performed By: #### C BC #### [facility] [address] [place], [place] [phone] Niko Karina MONO # 0.5 103/ul Normal 0.3-0.8 [facility] [place] [facility] Comment on above: Performed By: #### C BC #### [facility] [address] [place], [place] [phone] Niko Karina Monocytes/100 WBC (Bld) 6.9 % Normal 1.7-12.0 T [facility] Comment on above: Performed By: #### C BC #### [facility] [address] [place], [place] [phone] Niko Collins NEUT # 4.0 103/ul Normal 1.4-6.5 [facility] [place] [facility] Comment on above: Performed By: #### C BC #### [facility] [address] [place], [place] [phone] Niko Collins Neutrophils/100 WBC (Bld) 60.3 % Normal 43.0-75.0 [facility] [place] [facility] Comment on above: Performed By: #### C BC #### [facility] [address] [place], [place] [phone] Niko Collins Platelet mean volume (Bld) [Entitic vol] 10.5 fL Normal 9.5-13.5 [facility] [place] [facility] Comment on above: Performed By: #### C BC #### [facility] [address] [place], [place] [phone] Niko Wooden PLT 192 103/ul Normal 150-450 [facility] Comment on above: Performed By: #### C BC #### [facility] [address] [place], [place] [phone] Niko Collins RBC 4.77 106/ul Normal 4.20-5.40 [facility] [place] [facility] Comment on above: Performed By: #### C BC #### [facility] [address] [place], [place] [phone] Niko Collins WBC 6.7 103/ul Normal 4.0-11.0 [facility] [place] [facility] Comment on above: Performed By: #### C BC #### [facility] [address] [place], [place] [phone] Niko Collins PREG HCG QUALon 05-24-2021 , QUAL Negative Normal NEGATIVE [facility] Comment on above: Performed By: #### P REG #### [facility] Laboratory [address] [place] [address] Niko Karina PROF 14(COMP METB)on 021 Albumin [Mass/Vol] 3.8 g/dL Normal 3.5-5.0 [facility] Comment on above: Performed By: #### C MP ####[facility] [address] [place], [place] [address]Lgxexw Karina Albumin/Globulin [Mass ratio] 1.2 {ratio} Normal [facility] [place] [facility] Comment on above: Performed By: #### C MP ####[facility] [address] [place], [place] [address]Ahfkmb Karina ALP [Catalytic activity/Vol] 47 U/L Normal 38-126 [facility] Comment on above: Performed By: #### C MP ####[facility] [address] [place] [address]Juljjo Karina ALT [Catalytic activity/Vol] 13 U/L Normal 9-52 [facility] [place] [facility] Comment on above: Performed By: #### C MP ####[facility] [address] [place] [address]Drdmwd Karina Anion gap [Moles/Vol] 15.4 mmol/L Normal [facility] Comment on above: Performed By: #### C MP ####[facility] [address] [place] [address]Ojihsn Karina AST [Catalytic activity/Vol] 15 U/L Normal 14-36 [facility] [place] [facility] Comment on above: Performed By: #### C MP ####[facility] [address] [place] [address]Vmpskk Karina Bilirubin [Mass/Vol] 0.6 mg/dL Normal 0.2-1.3 [facility] Comment on above: Performed By: #### C MP ####[facility] [address] [place], [place] [address]Vmtbpo Karina Calcium [Mass/Vol] 8.7 mg/dL Normal 8.4-10.2 [facility] Comment on above: Performed By: #### C MP ####[facility] [address] [place] [address]Sepzgd Karina Chloride [Moles/Vol] 105 mmol/L Normal 98-107 [facility] Comment on above: Performed By: #### C MP ####[facility] [address] [place], [place] [address]Gchbeo Karina CO2 [Moles/Vol] 25.3 mmol/L Normal 22.0-30.0 [facility] Comment on above: Performed By: #### C MP ####[facility] [address] [place], [place] [address]Kjwlgh Karina Creatinine [Mass/Vol] 0.76 mg/dL Normal 0.52-1.04 [facility] Comment on above: Performed By: #### C MP ####[facility] [address] [place], [place] [address]Vvtyxo Karina EGFR-AF KITTITIAN >60 Normal >=60 [facility] Comment on above: Performed By: #### C MP ####[facility] [address] [place] [address]Xzoyvu Karina EGFR-NON AF KITTITIAN >60 Normal >=60 [facility] Comment on above: Performed By: #### C MP ####[facility] [address] [place] [address]Mzhgng Karina Globulin (S) [Mass/Vol] 3.3 g/dL Normal T [facility] Comment on above: Performed By: #### C MP ####[facility] [address] [place] [address]Mmpovb Karina Glucose [Mass/Vol] 92 mg/dL Normal 74-106 [facility] Comment on above: Performed By: #### C MP ####[facility] [address] [place], [place] [phone] Karina Potassium [Moles/Vol] 3.7 mmol/L Normal 3.4-5.0 [facility] Comment on above: Performed By: #### C MP ####[facility] [address] [place], [place] [phone] Karina Protein [Mass/Vol] 7.1 g/dL Normal 6.1-8.2 [facility] Comment on above: Performed By: #### C MP ####[facility] [address] [place], [place] [phone] Karina Sodium [Moles/Vol] 142 mmol/L Normal 137-145 [facility] Comment on above: Performed By: #### C MP ####[facility] [address] [place], [place] [address]PijcqwNiko Collins Urea nitrogen [Mass/Vol] 7.0 mg/dL Normal 7.0-17.0 [facility] [place] [facility] Comment on above: Performed By: #### C MP ####[facility] [address] [phone] Collins Urea nitrogen/Creatinine [Mass ratio] 9.2 mg/mg Normal [facility] [place] [facility] Comment on above: Performed By: #### C MP ####[facility] [address] [place], [place] [address]AwdemvNiko Collins PROTIMEon 05-24-2021 INR Coag (PPP) [Relative time] 1.03 {INR} Normal [facility] [place] [facility] Comment on above: Performed By: #### P TT, PT #### [facility] Laboratory [address] [phone] Niko Wooden INR GUIDELINES SEE BELOW Normal [facility] Comment on above: Result Comment: JENNIFER RED INR: 2.0 - 3.0 CONDITIONS NOT LISTED BELOW 2.5 - 3.5 FOR PROSTHETIC HEART VALVE REPLACEMENT 2.5 - 3.5 RECURRENT THROMBOSIS Performed By: #### P TT, PT #### [facility] Laboratory [address] [place], [place] [address] Niko Karina PT Coag (PPP) [Time] 11.1 s Normal 9.0-11.6 [facility] [place] [facility] Comment on above: Performed By: #### P TT, PT #### [facility] Laboratory [address] [place], [place] [address] Niko Collins PTTon 05-24-2021 aPTT Coag (Bld) [Time] 27.7 s Normal 22.3-36.2 [facility] Comment on above: Performed By: #### P TT, PT #### [facility] Laboratory [address] [phone] Niko Collins US PELVIS TRANSVAGon 08-19-2 021 US PELVIS TRANSVAG EXAM: US PELVIS TRANSVAG HISTORY: Pain, abnormal uterine bleeding, IUD removed 2 days ago COMPARISON: 03/17/2017 ultrasound pelvis, 05/21/2021 CT abdomen pelvis. TECHNIQUE: Real time pelvic ultrasound examination was performed using Duplex Doppler by transabdominal and transvaginal approaches. Transvaginal approach was medically necessary for optimal imaging. FINDINGS: UTERUS: Uterus measures 9.7 x 5.3 x 6.4. No focal myometrial lesions are seen. Nabothian cyst in the cervix. ENDOMETRIUM: Endometrial stripe measures up to 7.2 mm in thickness, which is within normal limits. Trace fluid within the endometrium. No IUD seen. RIGHT OVARY: The right ovary is normal in size. Right ovary measures 2.4 x 1.6 x 2.2 cm. Arterial and venous blood flow is seen. Resistive index measures 0.57. No suspicious solid or cystic lesions. LEFT OVARY: The left ovary is normal in size. Left ovary measures 3.6 x 2.5 x 2.6 cm. Arterial and venous blood flow is seen. Resistive index measures 0.41. No suspicious solid or cystic lesions. Questionable 2.4 x 1.2 x 2.3 cm left ovarian complex cyst with peripheral vascularity, may represent a corpus luteum cyst. There is no significant pelvic free fluid. IMPRESSION: No acute findings or pelvic free fluid. No pathologic endometrial thickening. No IUD seen. Trace fluid within the endometrium. Questionable 2.4 cm left ovarian corpus luteum cyst. Right ovary unremarkable. Electronically authenticated by: MARYAM LUU Date: 2021-05-24 21:20 Normal [facility] [place] [facility] CT ABD/PELV W CONon 05-22-[address] ABD/PELV W CON EXAM: CT ABD/PELV W CON REASON FOR EXAM: Female, 31 years, UNSPECIFIED ABDOMINAL PAIN. TECHNIQUE: Computed tomography of the abdomen and pelvis is performed in the axial projection from the lung bases to the pubic symphysis. Sagittal and coronal reconstructed images are performed. Dose reduction techniques were achieved by using automated exposure control and/or adjustment of mA and/or KVP according to patient size and/or use of iterative reconstruction technique. Intravenous contrast was administered. COMPARISON: None. FINDINGS: Lung bases: The lung bases are clear. There is no pleural effusion. The visualized portions of the heart are unremarkable. Liver: There several small low-attenuation lesions within the liver, likely representing cysts. Gallbladder: The gallbladder is normal. Spleen: The spleen is normal. Pancreas: The pancreas is normal. Adrenal glands: The adrenal glands are normal bilaterally. Right kidney: The kidney is normal in size. There is no renal calculus or hydronephrosis. Left kidney: The kidney is normal in size. There is no renal calculus or hydronephrosis. Stomach: The stomach is normal. Small bowel: The small bowel is normal. Large bowel: Question mild colon wall thickening at the splenic flexure and descending colon versus underdistention. Appendix: There has been an appendectomy. Aorta: The aorta is normal IVC: The IVC is normal. Retroperitoneum: Normal retroperitoneum. Bladder: The bladder is normal. Pelvic organs: An IUD is in place. There is an involuting follicle within the left ovary. There is a small amount of free pelvic fluid present. Abdominal wall: There is a small fat-containing umbilical hernia. Osseous structures: Normal bony structures. IMPRESSION: Question bowel wall thickening within the splenic flexure and left colon versus underdistention. No bowel obstruction or acute renal pathology. There is a small amount of free pelvic fluid present. Electronically authenticated by: TANIKA HARRY Date: 2021-05-21 22:11 Normal [facility] CBC AUTO DIFFon 05-21-2021 BASO # 0.0 103/ul Normal 0.0-0.1 [facility] [place] [facility] Comment on above: Performed By: #### C BC #### [facility] Laboratory [address], [place] [address] Niko Karina Basophils/100 WBC (Bld) 0.4 % Normal 0.2-2.0 [facility] Comment on above: Performed By: #### C BC #### [facility] Laboratory [address], [place] [address] Niko Karina EO # 0.3 103/ul Normal 0.0-0.7 [facility] [place] [facility] Comment on above: Performed By: #### C BC #### [facility] Laboratory [address], [place] [address] Niko Karina Eosinophils/100 WBC (Bld) 3.1 % Normal 0.9-7.0 [facility] [place] [facility] Comment on above: Performed By: #### C BC #### [facility] Laboratory [address] [place] [address] Niko Karina Erythrocyte distribution width (RBC) [Ratio] 12.8 % Normal 11.0-15.0 [facility] [place] [facility] Comment on above: Performed By: #### C BC #### [facility] Laboratory [address] [place] [address] Niko Karina Hematocrit (Bld) [Volume fraction] 45.8 % Normal 36.0-48.0 [facility] [place] [facility] Comment on above: Performed By: #### C BC #### [facility] Laboratory [address] [place] [address] Niko Karina Hemoglobin (Bld) [Mass/Vol] 15.0 g/dL Normal 12.0-16.0 [facility] [place] [facility] Comment on above: Performed By: #### C BC #### [facility] Laboratory [address] [place] [address] Niko Karina IG # 0.02 10e3/ul Normal 0.00-0.03 [facility] [place] [facility] Comment on above: Performed By: #### C BC #### [facility] Laboratory [address] [place] [address] Niko Karina IG % 0.2 % Normal 0.0-0.5 [facility] [place] [facility] Comment on above: Performed By: #### C BC #### [facility] Laboratory [address] [place] [address] Niko Karina LYMPH # 1.5 103/ul Normal 1.2-3.8 [facility] Comment on above: Performed By: #### C BC #### [facility] Laboratory [address] [place] [address] Niko Karina Lymphocytes/100 WBC (Bld) 18.1 % Critically low 20.5-60.0 [facility] [place] [facility] Comment on above: Performed By: #### C BC #### [facility] Laboratory [address] [place] [address] Niko Karina MANUAL DIFF REQ NO Normal [facility] Comment on above: Performed By: #### C BC #### [facility] Laboratory [address] [place] [address] Niko Collins MCH (RBC) [Entitic mass] 29.8 pg Normal 26.7-34.0 [facility] [place] [facility] Comment on above: Performed By: #### C BC #### [facility] Laboratory [address] [place] [id number] Niko Collins MCHC (RBC) [Mass/Vol] 32.8 g/dL Normal 29.9-35.2 [facility] [place] [facility] Comment on above: Performed By: #### C BC #### [facility] Laboratory [address] [phone] Niko Collins MCV (RBC) [Entitic vol] 90.9 fL Normal 81.0-99.0 [facility] Comment on above: Performed By: #### C BC #### [facility] Laboratory [address] [place] [address] Niko Collins MONO # 0.6 103/ul Normal 0.3-0.8 [facility] [place] [facility] Comment on above: Performed By: #### C BC #### [facility] Laboratory [address] [place], [place] [phone] Niko Collins Monocytes/100 WBC (Bld) 7.1 % Normal 1.7-12.0 [facility] Comment on above: Performed By: #### C BC #### [facility] Laboratory [address] [place] [address] Niko Collins NEUT # 5.8 103/ul Normal 1.4-6.5 [facility] [place] [facility] Comment on above: Performed By: #### C BC #### [facility] Laboratory [address] [place], [place] [phone] Niko Collins Neutrophils/100 WBC (Bld) 71.1 % Normal 43.0-75.0 [facility] [place] [facility] Comment on above: Performed By: #### C BC #### [facility] Laboratory [address] [place], [place] [phone] Nikogenesis Collins Platelet mean volume (Bld) [Entitic vol] 10.7 fL Normal 9.5-13.5 [facility] [place] [facility] Comment on above: Performed By: #### C BC #### [facility] Laboratory [address] [place], [place] [address] Niko Karina PLT 193 103/ul Normal 150-450 [facility] Comment on above: Performed By: #### C BC #### [facility] Laboratory [address] [place], [place] [phone] Niko Karina RBC 5.04 106/ul Normal 4.20-5.40 [facility] [place] [facility] Comment on above: Performed By: #### C BC #### [facility] Laboratory [address] [place], [place] [phone] Niko Karina WBC 8.2 103/ul Normal 4.0-11.0 [facility] [place] [facility] Comment on above: Performed By: #### C BC #### [facility] Laboratory [address] [place], [place] [phone] Niko Karina URon 05-21-2021 , QUAL Negative Normal NEGATIVE [facility] Comment on above: Performed By: #### P REGU #### [facility] Laboratory [address] [place], [place] [phone] Niko Karina PROF CHEM 8 (BAS METB)on Anion gap [Moles/Vol] 12.3 mmol/L Normal [facility] Comment on above: Performed By: #### B MP #### [facility] Laboratory [address] [place], [place] [phone] Niko Karina Calcium [Mass/Vol] 8.5 mg/dL Normal 8.4-10.2 [facility] Comment on above: Performed By: #### B MP #### [facility] Laboratory [address] [place], [place] [phone] Niko Karina Chloride [Moles/Vol] 107 mmol/L Normal 98-107 [facility] [place] [facility] Comment on above: Performed By: #### B MP #### [facility] Laboratory [address] [place], [place] [phone] Niko Karina CO2 [Moles/Vol] 26.3 mmol/L Normal 22.0-30.0 [facility] Comment on above: Performed By: #### B MP #### [facility] Laboratory [address] [place], [place] [phone] Niko Karina Creatinine [Mass/Vol] 0.74 mg/dL Normal 0.52-1.04 [facility] [place] [facility] Comment on above: Performed By: #### B MP #### [facility] Laboratory [address] [place], [place] [address] Niko Karina EGFR-AF KITTITIAN >60 Normal >=60 [facility] Comment on above: Performed By: #### B MP #### [facility] Laboratory [address] [place], [place] [address] Niko Karina EGFR-NON AF KITTITIAN >60 Normal >=60 [facility] Comment on above: Performed By: #### B MP #### [facility] Laboratory [address] [place], [place] [address] Niko Karina Glucose [Mass/Vol] 88 mg/dL Normal 74-106 [facility] Comment on above: Performed By: #### B MP #### [facility] Laboratory [address] [place] [phone] Niko Karina Potassium [Moles/Vol] 3.6 mmol/L Normal 3.4-5.0 [facility] [place] [facility] Comment on above: Performed By: #### B MP #### [facility] Laboratory [address] [place] [phone] Niko Karina Sodium [Moles/Vol] 142 mmol/L Normal 137-145 [facility] Comment on above: Performed By: #### B MP #### [facility] Laboratory [address] [place] [address] Niko Karina Urea nitrogen [Mass/Vol] 7.0 mg/dL Normal 7.0-17.0 [facility] Comment on above: Performed By: #### B MP #### [facility] Laboratory [address] [place], [place] [phone] Niko Karina Urea nitrogen/Creatinine [Mass ratio] 9.5 mg/mg Normal [facility] Comment on above: Performed By: #### B MP #### [facility] Laboratory [address] [place] [address] Niko Karina XR CHEST 2 Von 04-23-2021 XR CHEST 2 V EXAM: CHEST 2 VIEWS HISTORY: COUGH TECHNIQUE: PA and lateral views chest. COMPARISON: None. FINDINGS: There is minimal biapical scarring, with otherwise well-expanded and clear lungs. There is no focal lung consolidation, pleural effusion or pneumothorax. There is no peribronchial cuffing. Pulmonary vasculature is within normal limits. The cardiomediastinal silhouette is normal. IMPRESSION: 1. Clear lungs without acute cardiopulmonary disease. Electronically authenticated by: ANGELLA AU Date: 2021-04-23 10:10 Normal [facility] US BREAST COMPLETE RIGHTon 1 Negative targeted ultrasound in the region of palpable concern. Clinical follow-up is recommended. BI-RADS 1 BIRADS: BIRADS - CATEGORY 1 Negative Mammogram. Normal interval follow-up is recommended in 12 months. OVERALL ASSESSMENT - NEGATIVE A letter of notification will be sent to the patient regarding the results. [employer] recommends annual mammograms for women 40 years and older. [facility] [place] EXAMINATION: TARGETED ULTRASOUND OF THE RIGHT BREAST 07/27/2020 COMPARISON: None. HISTORY: ORDERING SYSTEM PROVIDED HISTORY: Cyst of right breast TECHNOLOGIST PROVIDED HISTORY: FINDINGS: Targeted ultrasound was performed in the area of palpable concern. Imaging in the 10-12 o'clock of the right breast reveals no sonographic abnormality. [facility] [place] Dany, Mhpn Incoming Radiant Results From [facility] - 07/27/2020 2:57 PM EDT EXAMINATION: TARGETED ULTRASOUND OF THE RIGHT BREAST 07/27/2020 COMPARISON: None. HISTORY: ORDERING SYSTEM PROVIDED HISTORY: Cyst of right breast TECHNOLOGIST PROVIDED HISTORY: FINDINGS: Targeted ultrasound was performed in the area of palpable concern. Imaging in the 10-12 o'clock of the right breast reveals no sonographic abnormality. IMPRESSION: Negative targeted ultrasound in the region of palpable concern. Clinical follow-up is recommended. BI-RADS 1 BIRADS: BIRADS - CATEGORY 1 Negative Mammogram. Normal interval follow-up is recommended in 12 months. OVERALL ASSESSMENT - NEGATIVE A letter of notification will be sent to the patient regarding the results. [employer] recommends annual mammograms for women 40 years and older. [facility] [place] [facility] 12-21-2019 Erythrocyte distribution width (RBC) [Ratio] 12.9 % 11.8 - 14.4 % [place] Hematocrit (Bld) [Volume fraction] 43.9 % 36.3 - 47.1 % [place] Hemoglobin (Bld) [Mass/Vol] 14.3 g/dL 11.9 - 15.1 g/dL [place] MCH (RBC) [Entitic mass] 29.5 pg 25.2 - 33.5 pg [place] MCHC (RBC) [Mass/Vol] 32.6 g/dL 28.4 - 34.8 g/dL [place] MCV (RBC) [Entitic vol] 90.7 fL 82.6 - 102.9 fL [place] Platelet mean volume (Bld) [Entitic vol] 10.4 fL 8.1 - 13.5 fL [place] Platelets (Bld) [#/Vol] 222 10*3/uL [place] RBC (Bld) [#/Vol] 4.84 10*6/uL 3.95 - 5.1 1 m/uL [place] WBC (Bld) [#/Vol] 7.9 10*3/uL [place] WBC (Bld) [#/Vol] 0.0 10*3/uL 0.0 per 10 0 WBC [place] HCG Qualitative, Serumon hCG Qual Negative NEGATIVE [place] Comment on above: Specimens with hCG l evels near the threshold of the test (25 mIU/mL) may give a negative or indeterminate result. In such cases, another test should be performed with a new specimen in 48-72 hours. If early is suspected clinically in this setting, correlation with quantitative serum b-hCG level is suggested. [employer] has confirmed the use of plasma for this test. This has not been cleared or approved by the U.S. Food and Drug Administration. The FDA has determined that such clearance is not necessary. HCG, Quantitative, Ordered By: Phan Rubi on 11-02-2019 hCG Quant <1 <5 IU/L [facility] Work Phone: Comment on above: Non-preg premeno <=5 Postmeno <=8 Male <=3 If HCG results do not concur with clinical observations, additional testing to confirm results is recommended. Elevated results not associated with may be found in patients with other diseases such as tumors of the germ cells (testis, ovaries, etc.), bladder, pancreas, stomach, lungs, and liver. CBC auto differentialon 07-06 Basophils (Bld) [#/Vol] 0.00 10*3/uL [place] Basophils/100 WBC (Bld) 0 % 0 - 2 % M [place] Differential Type NOT REPORTED [place] Eosinophils (Bld) [#/Vol] 0.35 10*3/uL [place] Eosinophils/100 WBC (Bld) 5 % High 1 - 4 % [place] Erythrocyte distribution width (RBC) [Ratio] 13.8 % 11.8 - 14.4 % [place] Hematocrit (Bld) [Volume fraction] 39.1 % 36.3 - 47.1 % [place] Hemoglobin (Bld) [Mass/Vol] 13.1 g/dL 11.9 - 15.1 g/dL [place] Immature granulocytes (Bld) [#/Vol] 0.00 10*3/uL [place] Immature granulocytes (Bld) [#/Vol] 0 % 0 [place] Interpretation and review of laboratory results Abnormal [place] Lymphocytes (Bld) [#/Vol] 2.14 10*3/uL [place] Lymphocytes/100 WBC (Bld) 31 % 24 - 43 % [place] MCH (RBC) [Entitic mass] 31.8 pg 25.2 - 33.5 pg [place] MCHC (RBC) [Mass/Vol] 33.5 g/dL 28.4 - 34.8 g/dL [place] MCV (RBC) [Entitic vol] 94.9 fL 82.6 - 102.9 fL [place] Monocytes (Bld) [#/Vol] 0.48 10*3/uL [place] Monocytes/100 WBC (Bld) 7 % 3 - 12 % M [place] Morphology Mahamed (Bld) [Interp] Normal [place] Platelet mean volume (Bld) [Entitic vol] NOT REPORTED 8.1 - 13.5 fL [facility], [place] Platelets (Bld) [#/Vol] See Reflexed IPF Result [place] Platelets (Bld) [#/Vol] NOT REPORTED [place] RBC (Bld) [#/Vol] 4.12 10*6/uL 3.95 - 5.1 1 m/uL [place] RBC morphology finding Nom (Bld) NOT REPORTED [place] Segmented neutrophils/100 WBC (Bld) 57 % 36 - 65 % [facility] Segs Absolute 3.93 [place] WBC (Bld) [#/Vol] 6.9 10*3/uL [place] WBC (Bld) [#/Vol] 0.0 10*3/uL 0.0 per 10 0 WBC [place] WBC Morphology NOT REPORTED [place] DRUG SCREEN MULTI URINEon Amphetamine Screen, Ur Negative NEGATIVE Me [facility], [place] Barbiturate Screen, Ur Negative NEGATIVE [facility] Benzodiazepine Screen, Urine Negative NEGATIVE [facility] Buprenorphine Urine Negative NEGATIVE [facility] Cannabinoid Scrn, Ur Negative NEGATIVE [facility], [place] Cocaine Metabolite, Urine Negative NEGATIVE [facility] MDMA, Urine NOT REPORTED NEGATIVE [facility], [place] Methadone Screen, Urine Negative NEGATIVE M [place] Methamphetamine, Urine Negative NEGATIVE [facility], [place] Opiates, Urine Negative NEGATIVE [place], [place] Oxycodone Screen, Ur Negative NEGATIVE [place] Phencyclidine, Urine Negative NEGATIVE [facility], [place] Propoxyphene, Urine Negative NEGATIVE [facility], [place] Test Information NOT REPORTED [place] Tricyclic Antidepressants, Urine Negative NEGATIVE [place], [place] Comment on above: Drug screen results are to be used for medical purposes only. All positive results are unconfirmed. Testing for employment or legal uses should be sent to a reference laboratory for confirmation. Immature Platelet Fractionon 07-20-2019 Interpretation and review of laboratory results Abnormal [place] Platelet, Fluorescence 125 Low Me [place], [place] Platelet, Immature Fraction 3.9 % 1.1 - 10.3 % [place] GROUP B STREP DNA PROBE, REF CT TO CULTUREon 07-04-2019 Streptococcus Grp. B, CSF Negative [place] US OB 14 PLUS WEEKS SINGLE O R FIRST GESTATIONon 06-21-2019 A single live intrauterine with estimated gestational age of 36 weeks 3 days by ultrasound. The estimated weight is 2659 g. Cervical length is shortened measuring 2.4 cm [place] EXAMINATION: TRANSABDOMINAL SECOND/THIRD TRIMESTER OBSTETRIC PELVIC ULTRASOUND WITH COLOR DOPPLER FLOW 06/21/2019 4:57 pm TECHNIQUE: TRANSABDOMINAL PELVIC ULTRASOUND WITH COLOR DOPPLER FLOW COMPARISON: 05/12/2019 HISTORY: ORDERING SYSTEM PROVIDED HISTORY: abdominal and back pain, please do complete ultrasound with MICHAELA FINDINGS: GENERAL OBSERVATIONS: : Single CARDIAC ACTIVITY: Yes HEART RATE: 166 BODY & LIMB MOVEMENTS: Cyst POSITION: Cephalic PLACENTA LOCATION: Fundus on the right MICHAELA: 6.3 ANATOMY: A detailed anatomic evaluation was not performed. ESTIMATED AGE: BY INITIAL ULTRASOUND: 35 weeks 1 day CURRENT US: 36 weeks 3 days ESTIMATED WEIGHT: 2659 grams, 54%tile by AUA MEASUREMENTS: BPD: 9.3 cm, greater than 97%tile HEAD CIRCUMFERENCE: 33.4 cm, 86%tile ABD. CIRCUMFERENCE: 30.6 cm, 39%tile FEMUR LENGTH: 6.8 cm, 41%tile CERVICAL LENGTH: 2.4 cm [place] Dany, [facility] Incoming Radiant Results From [facility] - 06/21/2019 5:58 PM EDT EXAMINATION: TRANSABDOMINAL SECOND/THIRD TRIMESTER OBSTETRIC PELVIC ULTRASOUND WITH COLOR DOPPLER FLOW 06/21/2019 4:57 pm TECHNIQUE: TRANSABDOMINAL PELVIC ULTRASOUND WITH COLOR DOPPLER FLOW COMPARISON: 05/12/2019 HISTORY: ORDERING SYSTEM PROVIDED HISTORY: abdominal and back pain, please do complete ultrasound with MICHAELA FINDINGS: GENERAL OBSERVATIONS: : Single CARDIAC ACTIVITY: Yes HEART RATE: 166 BODY & LIMB MOVEMENTS: Cyst POSITION: Cephalic PLACENTA LOCATION: Fundus on the right MICHAELA: 6.3 ANATOMY: A detailed anatomic evaluation was not performed. ESTIMATED AGE: BY INITIAL ULTRASOUND: 35 weeks 1 day CURRENT US: 36 weeks 3 days ESTIMATED WEIGHT: 2659 grams, 54%tile by AUA MEASUREMENTS: BPD: 9.3 cm, greater than 97%tile HEAD CIRCUMFERENCE: 33.4 cm, 86%tile ABD. CIRCUMFERENCE: 30.6 cm, 39%tile FEMUR LENGTH: 6.8 cm, 41%tile CERVICAL LENGTH: 2.4 cm IMPRESSION: A single live intrauterine with estimated gestational age of 36 weeks 3 days by ultrasound. The estimated weight is 2659 g. Cervical length is shortened measuring 2.4 cm [place] Urinalysis with microscopico n 06-21-2019 Amorphous, UA TRACE Abnormal None [place] Bacteria, UA 1+ Abnormal None [place] Bilirubin Urine Negative NEGATIVE [place], [place] Casts UA NOT REPORTED /LPF [place] Color, UA YELLOW YELLOW [place] Crystals UA NOT REPORTED None /HPF [place] Epithelial Cells UA 5 TO 10 [place] Glucose, Ur Negative NEGATIVE [place] Interpretation and review of laboratory results Abnormal [place] Ketones Ql (U) Negative NEGATIVE [place], [place] Leukocyte esterase Test strip Ql (U) SMALL Abnormal NEGATIVE [place] Mucus, UA TRACE Abnormal None [place] Nitrite, Urine Negative NEGATIVE [place], [place] Other Observations UA NOT REPORTED NOT REQ. M [place] pH, UA 6.5 [place] Protein (U) [Mass/Vol] Negative NEGATIVE [place] RBC (U) [#/Vol] None [place], [place] Renal Epithelial, Urine NOT REPORTED 0 /HPF [place] Specific [place], UA 1.025 High [place], [place] Trichomonas, UA NOT REPORTED None [facility] [place] Turbidity UA CLEAR CLEAR [place] Urinalysis Comments NOT REPORTED [place] Urine Hgb Negative NEGATIVE [place] Urobilinogen, Urine Normal Normal [place] WBC, UA 2 TO 5 [place] Yeast, UA NOT REPORTED None [facility], [place] [facility] SURGICAL PATH REPORTon 10-15 SURGICAL PATH REPORT Normal [facility] Comment on above: Result Comment: WILLIE BAUTISTA IUD, REMOVAL: GROSS EXAMINATION ONLY CPT 16414 anthony/10/14/2018 Electronically Signed Out by Tian Gonzales M.D. NATURE OF SPECIMEN IUD ICD-CM CODE(S) Z30.432 Encounter For Removal Of Intrauterine Contraceptive Device GROSS DESCRIPTION The container is labeled Mariah Carballo . The case is received in formalin and designated IUD . The specimen consists of an intact intrauterine device that is white in color without discernible alpha-numeric characters. There are attached strings in the appropriate position. There is a scant amount of blood, mucus and embedded soft tissue. The specimen is for gross only. [facility] [address] [place] [address] CLIA No. [id number] CAP Accreditation No. [id number] Staff Nuclear Weapons Officer: Tony Solomon M.D. [facility] Accession Number: [id number] Performed By: #### P L BIOPSY #### [address] [place] [address] CBC W Auto Differentialon Age at specimen collection = Normal [facility] Comment on above: Performed By: #### C BC Auto Diff #### [address] [address] Performed By: #### H CG,QUAL SERUM #### [address] [place] [address] Performed By: #### P L BIOPSY #### [address] [address] Abs Neut # 3.1 10 X 3/mm Normal 1.8 - 7.7 [facility] Comment on above: Performed By: #### C BC Auto Diff #### [address] [address] Basophils/100 WBC (Bld) 1 % Normal 0 - 1 [facility] Comment on above: Performed By: #### C BC Auto Diff #### [facility] [address] [place] [address] Eosinophils #/vol (Bld) 0.2 10 X 3/mm Normal 0.0 - 0.5 [facility] Comment on above: Performed By: #### C BC Auto Diff #### [id number] [place] [address] Eosinophils/100 WBC (Bld) 3 % Normal 0 - 5 [facility] Comment on above: Performed By: #### C BC Auto Diff #### [address] [place] [address] Erythrocyte distribution width Ratio (RBC) 13.0 % Normal 11.5 - 14.5 [facility] Comment on above: Performed By: #### C BC Auto Diff #### [address] [place] [address] Hematocrit Volume Fraction (Bld) 42.3 % Normal 36.0 - 47.0 [facility] Comment on above: Performed By: #### C BC Auto Diff #### [id number] [place] [address] Hemoglobin mass conc (Bld) 14.6 g/dL Normal 12.0 - 16.0 [facility] Comment on above: Performed By: #### C BC Auto Diff #### [address] [place] [address] Lymphocytes #/vol (Bld) 1.7 10 X 3/mm Normal 1.0 - 4.0 [facility] Comment on above: Performed By: #### C BC Auto Diff #### [address] [place] [address] Lymphocytes/100 WBC (Bld) 32 % Normal 20 - 40 [facility] Comment on above: Performed By: #### C BC Auto Diff #### [facility] [address] [place], [place] [address] MCH Entitic mass (RBC) 31.1 pg Normal 27.0 - 35.0 [facility] Comment on above: Performed By: #### C BC Auto Diff #### [id number] [place] [address] MCHC mass conc (RBC) 34.4 g/dL Normal 32.0 - 36.0 [facility] Comment on above: Performed By: #### C BC Auto Diff #### [address] [address] MCV Entitic volume (RBC) 90.5 fL Normal 80.0 - 100.0 [facility] Comment on above: Performed By: #### C BC Auto Diff #### [address] [address] Monocytes/100 WBC (Bld) 7 % Normal 1 - 15 [facility] Comment on above: Performed By: #### C BC Auto Diff #### [address] [address] Neutrophils/100 WBC (Bld) 57 % Normal 50 - 70 [facility] Comment on above: Performed By: #### C BC Auto Diff #### [id number] [place] [address] Platelet mean volume Entitic volume (Bld) 8.9 fL Normal 7.5 - 11.5 [facility] Comment on above: Performed By: #### C BC Auto Diff #### [address] [address] Platelets #/vol (Bld) 164 uLx10 Normal 150 - 450 [facility] Comment on above: Performed By: #### C BC Auto Diff #### [facility] [address] [place] [address] RBC #/vol (Bld) 4.68 10 X 6/mm Normal 4.20 - 5.40 [facility] Comment on above: Performed By: #### C BC Auto Diff #### [facility] [address] [place] [address] WBC #/vol (Bld) 5.5 10 X 3/mm Normal 3.7 - 11.0 [facility] Comment on above: Performed By: #### C BC Auto Diff #### [facility] [address] [place] [address] hCG, Qualitative-Serumon Internal Control ACCEPTABLE Normal [facility] Comment on above: Performed By: #### H CG,QUAL SERUM #### [id number] [place] [address] hCG, Qualitative-Serum Negative Normal NEGATIVE [facility] Comment on above: Performed By: #### H CG,QUAL SERUM #### [id number] [place] [address] SURGICAL PATH REPORTon 08-11 SURGICAL PATH REPORT Normal [facility] Comment on above: Result Comment: DIAG NOSIS A CERVIX, 5:00, LEEP BIOPSY: LOW GRADE SQUAMOUS INTRAEPITHELIAL LESION (MILD DYSPLASIA, COMPLETELY EXCISED) B ENDOCERVIX, CURETTAGE: BENIGN SEGMENTS OF ENDOCERVICAL SURFACE MUCOSA CPT 82458 [id number] e/08/11/2018 Electronically Signed Out by Jarred Garner M.D. NATURE OF SPECIMEN A: Cervix 5:00 B: Endocervical curettings CLINICAL FINDINGS No clinical history provided. ICD-CM CODE(S) N87.9 Dysplasia Of Cervix Uteri, Unspecified GROSS DESCRIPTION A The container is labeled Mariah Haris :1, cervix, 5 o'clock position . Received in formalin is a single augustin-pink unoriented segment of rubbery soft tissue measuring 1.0 x 0.7 by up to 0.3 cm. The fragment appears to be cervical tissue. A portion of the mucosa is present. The cervical os cannot be identified. The surgical margin is cauterized. The surgical margin is inked blue and the fragment is serially sectioned and submitted in one cassette. ns mg B The container is labeled Mariah Carballo :2, endocervical curettings . Received in formalin is a single Telfa pad containing multiple augustin feathery bits of soft tissue embedded in augustin, cloudy mucoid debris aggregating to 1.6 x 1.0 x 0.4 cm. The Telfa pad is scraped and the rest of the specimen is filtered and submitted in one cassette. ns mg e/08/11/2018 MICROSCOPIC DESCRIPTION A Multiple sections of a LEEP biopsy of cervix are examined microscopically. These sections contain focal areas of residual mild squamous dysplasia. The areas of dysplasia do not appear to be any of the cauterized margins of resection. No higher grades of dysplasia are appreciated. B The specimen consists of cervical mucous and entrapped fragments of benign endocervical surface mucosa and accompanying mucous. There is no evidence of dysplasia or other abnormality. [facility] [address] [place] [address] Staff Nuclear Weapons Officer: Tony oSlomon M.D. CLIA No. [id number] CAP Accreditation No. [id number] [facility] Accession Number: [id number] Performed By: #### P L BIOPSY #### [address] [id number] CBC W Auto Differentialon Age at specimen collection = Normal [facility] Comment on above: Performed By: #### C BC Auto Diff #### [address] [id number] Performed By: #### H CG,QUAL SERUM #### [address] [address] Performed By: #### P L BIOPSY #### [facility] [address] [place] [address] Abs Neut # 3.9 10 X 3/mm Normal 1.8 - 7.7 [facility] Comment on above: Performed By: #### C BC Auto Diff #### [facility] [address] [place] [address] Basophils/100 WBC (Bld) 1 % High 0 - 1 [facility] Comment on above: Performed By: #### C BC Auto Diff #### [facility] [address] [place] [address] Eosinophils #/vol (Bld) 0.2 10 X 3/mm Normal 0.0 - 0.5 [facility] Comment on above: Performed By: #### C BC Auto Diff #### [address] [place] [address] Eosinophils/100 WBC (Bld) 4 % Normal 0 - 5 [facility] Comment on above: Performed By: #### C BC Auto Diff #### [facility] [address] [place] [address] Erythrocyte distribution width Ratio (RBC) 12.9 % Normal 11.5 - 14.5 [facility] Comment on above: Performed By: #### C BC Auto Diff #### [facility] [address] [place] [address] Hematocrit Volume Fraction (Bld) 47.4 % High 36.0 - 47.0 [facility] Comment on above: Performed By: #### C BC Auto Diff #### [facility] [address] [place] [address] Hemoglobin mass conc (Bld) 16.2 g/dL High 12.0 - 16.0 [facility] Comment on above: Performed By: #### C BC Auto Diff #### [facility] [address] [place] [address] Lymphocytes #/vol (Bld) 2.1 10 X 3/mm Normal 1.0 - 4.0 [facility] Comment on above: Performed By: #### C BC Auto Diff #### [address] [place] [address] Lymphocytes/100 WBC (Bld) 31 % Normal 20 - 40 [facility] Comment on above: Performed By: #### C BC Auto Diff #### [address] [place] [address] MCH Entitic mass (RBC) 30.9 pg Normal 27.0 - 35.0 [facility] Comment on above: Performed By: #### C BC Auto Diff #### [address] [place] [address] MCHC mass conc (RBC) 34.1 g/dL Normal 32.0 - 36.0 [facility] Comment on above: Performed By: #### C BC Auto Diff #### [address] [place] [address] MCV Entitic volume (RBC) 90.5 fL Normal 80.0 - 100.0 [facility] Comment on above: Performed By: #### C BC Auto Diff #### [address] [place] [address] Monocytes/100 WBC (Bld) 8 % Normal 1 - 15 [facility] Comment on above: Performed By: #### C BC Auto Diff #### [address] [place] [address] Neutrophils/100 WBC (Bld) 56 % Normal 50 - 70 [facility] Comment on above: Performed By: #### C BC Auto Diff #### [facility] [address] [place] [address] Platelet mean volume Entitic volume (Bld) 8.6 fL Normal 7.5 - 11.5 [facility] Comment on above: Performed By: #### C BC Auto Diff #### [address] [place] [address] Platelets #/vol (Bld) 213 uLx10 Normal 150 - 450 [facility] Comment on above: Performed By: #### C BC Auto Diff #### [address] [place] [address] RBC #/vol (Bld) 5.24 10 X 6/mm Normal 4.20 - 5.40 [facility] Comment on above: Performed By: #### C BC Auto Diff #### [address] [address] WBC #/vol (Bld) 6.9 10 X 3/mm Normal 3.7 - 11.0 [facility] Comment on above: Performed By: #### C BC Auto Diff #### [address] [place] [address] hCG, Qualitative-Serumon Internal Control ACCEPTABLE Normal [facility] Comment on above: Performed By: #### H CG,QUAL SERUM #### [address] [place] [address] hCG, Qualitative-Serum Negative Normal NEGATIVE [facility] Comment on above: Performed By: #### H CG,QUAL SERUM #### [address] [place] [address] Vital Signs Date Time Vital Sign Value Performing Clinician Facility 10-01-2022 18:15-0500 Diastolic blood pressure 84 mm[Hg] Kaila Chi DO Work Phone: [facility] 10-01-2022 18:15-0500 Heart rate 66 /min Kaila Chi DO Work Phone: [facility] [employer] 10-01-2022 18:15-0500 Respiratory rate 16 /min Kaila Chi DO Work Phone: [facility] 10-01-2022 18:15-0500 SaO2% (BldA) [Mass fraction] 99 % Kaila Chi DO Work Phone: [facility] [employer] [facility] 10-01-2022 18:15-0500 Systolic blood pressure 124 mm[Hg] Kaila Chi DO Work Phone: [facility] [employer] 10-01-2022 16:30-0500 Body temperature 97.3 [degF] Kaila Chi DO Work Phone: [facility] [employer] 10-01-2022 12:38-0500 Body mass index (BMI) [Ratio] 25.3 kg/m2 Kaila Chi DO Work Phone: [facility] [employer] 10-01-2022 12:38-0500 Body weight 64.77 kg Kaila Chi DO Work Phone: [employer] 09-23-2022 15:08-0500 Body height 160 cm Kaila Chi DO Work Phone: [facility] [employer] 03-08-2022 16:08-0400 Body temperature 98.2 [degF] Jerrell Westbrook APRN - JOSÉ MIGUEL Work Phone: [employer] 03-08-2022 16:08-0400 Diastolic blood pressure 67 mm[Hg] Jerrell Westbrook APRN - JOSÉ MIGUEL Work Phone: [employer] 03-08-2022 16:08-0400 Heart rate 79 /min Jerrell Westbrook APRN - JOSÉ MIGUEL Work Phone: [employer] 03-08-2022 16:08-0400 Respiratory rate 16 /min Jerrell Velez CNTeofilo Work Phone: [facility] [employer] 03-08-2022 16:08-0400 Systolic blood pressure 109 mm[Hg] Jerrell Westbrook APRN - CNM Work Phone: [facility] [employer] 12-19-2021 12:16-0400 Body height 160 cm Jerrell Velez CNM Work Phone: [employer] 12-19-2021 12:16-0400 Body mass index (BMI) [Ratio] 28.34 kg/m2 Jerrell Westbrook APRN - CNT[employer]ofilo [facility] 12-19-2021 12:16-0400 Body temperature 98.01 [degF] Jerrell Westbrook APRN - CNM Work Phone: [employer] 12-19-2021 12:16-0400 Body weight 72.58 kg Jerrell Velez CNT[employer]ofilo Work Phone: [employer] 12-19-2021 12:16-0400 Diastolic blood pressure 69 mm[Hg] Jerrell Velez CNTeofilo Work Phone: [employer] 12-19-2021 12:16-0400 Heart rate 85 /min Jerrell Westbrook APRN - CNM Work Phone: [employer] 12-19-2021 12:16-0400 Respiratory rate 18 /min Jerrell Westbrook APRN - CNM Work Phone: [employer] 12-19-2021 12:16-0400 Systolic blood pressure 112 mm[Hg] Jerrell Westbrook APRN - CNM Work Phone: [employer] 12-15-2021 10:01-0500 Body height 160 cm Fito Hutchinson MD Work Phone: [employer] 12-15-2021 10:01-0500 Body mass index (BMI) [Ratio] 28.34 kg/m2 Fito Hutchinson MD Work Phone: [employer] 12-15-2021 10:01-0500 Body temperature 99.1 [degF] Fito Hutchinson MD Work Phone: [employer] 12-15-2021 10:01-0500 Body weight 72.58 kg Fito Hutchinson MD Work Phone: [employer] 12-15-2021 10:01-0500 Diastolic blood pressure 65 mm[Hg] Fito Hutchinson MD Work Phone: [employer] 12-15-2021 10:01-0500 Heart rate 134 /min Fito Hutchinson MD Work Phone: [employer] 12-15-2021 10:01-0500 Respiratory rate 20 /min Fito Hutchinson MD Work Phone: [employer] 12-15-2021 10:01-0500 SaO2% (BldA) [Mass fraction] 97 % Fito Hutchinson MD Work Phone: [employer] 12-15-2021 10:01-0500 Systolic blood pressure 108 mm[Hg] Fito Hutchinson MD Work Phone: [employer] 12-05-2021 17:33-0500 Body height 160 cm Jerrell Velez CNM Work Phone: [employer] 12-05-2021 17:33-0500 Body mass index (BMI) [Ratio] 28.17 kg/m2 Jerrell Velez CNM Work Phone: [employer] 12-05-2021 17:33-0500 Body temperature 98.1 [degF] Jerrell Velez CNM Work Phone: [employer] 12-05-2021 17:33-0500 Body weight 72.12 kg Jerrell Velez CNM Work Phone: [employer] 12-05-2021 17:33-0500 Diastolic blood pressure 67 mm[Hg] Jerrell Velez CNM Work Phone: [employer] 12-05-2021 17:33-0500 Heart rate 82 /min Jerrell Westbrook BUSINESS LAW PROFESSOR - CNM Work Phone: [employer] 12-05-2021 17:33-0500 Respiratory rate 16 /min Jerrell Westbrook BUSINESS LAW PROFESSOR - CNM Work Phone: [employer] 12-05-2021 17:33-0500 Systolic blood pressure 102 mm[Hg] Jerrell Westbrook APRN - CNM Work Phone: [employer] 08-06-2021 11:28-0400 Body mass index (BMI) [Ratio] 26.85 kg/m2 Danny Mendiola Jr., MD Work Phone: [employer] Work Phone: 08-06-2021 11:28-0400 Body temperature 97 [degF] Danny Mendiola Jr., MD Work Phone: [employer] Work Phone: 08-06-2021 11:28-0400 Body weight 69.85 kg Danny Mendiola Jr., MD Work Phone: [employer] Work Phone: 08-06-2021 11:28-0400 Diastolic blood pressure 81 mm[Hg] Danny Mendiola Jr., MD Work Phone: [employer] Work Phone: 08-06-2021 11:28-0400 Heart rate 89 /min Danny Mendiola Jr., MD Work Phone: [employer] Work Phone: 08-06-2021 11:28-0400 Respiratory rate 20 /min Danny Mendiola Jr., MD Work Phone: [employer] Work Phone: 08-06-2021 11:28-0400 SaO2% (BldA) [Mass fraction] 97 % Danny Mendiola Jr., MD Work Phone: [employer] Work Phone: 08-06-2021 11:28-0400 Systolic blood pressure 108 mm[Hg] Danny Mendiola Jr., MD Work Phone: [facility] Work Phone: 07-20-2021 15:45-0400 Body height 161.29 cm Betty Lamar Other [employer] [facility] Other 07-20-2021 15:45-0400 Body temperature 99.4 [degF] Betty Lamar Other [employer] [facility] Other 07-20-2021 15:45-0400 SaO2% (BldA) [Mass fraction] 99 % Betty Lamar Other [employer] [facility] Other 05-10-2020 14:59-0400 BMI (Body Mass Index) 28 kg/m2 [facility] Work Phone: 05-10-2020 14:59-0400 Body Temperature 95.4 [degF] [facility] Work Phone: 05-10-2020 14:59-0400 Body weight 71.76 kg [facility] Work Phone: 05-10-2020 14:59-0400 BP Diastolic 76 mm[Hg] [facility] Work Phone: 05-10-2020 14:59-0400 BP Systolic 100 mm[Hg] [facility] Work Phone: 05-10-2020 14:59-0400 BSA (Body Surface Area) 1.75 m2 [facility] Work Phone: 05-10-2020 14:59-0400 Height 160.02 cm [facility] Work Phone: 05-10-2020 14:59-0400 Pulse (Heart Rate) 72 /min [facility] Work Phone: 05-10-2020 14:59-0400 Pulse Oximetry 97 % [facility] Work Phone: 05-10-2020 14:59-0400 Respiratory Rate 18 /min [facility] Work Phone: 07-22-2019 08:12-0400 Body Temperature 97.5 [degF] [facility] [place] 07-22-2019 08:12-0400 BP Diastolic 55 mm[Hg] [facility] [place] 07-22-2019 08:12-0400 BP Systolic 109 mm[Hg] [facility] [place] 07-22-2019 08:12-0400 Pulse (Heart Rate) 81 /min [facility] 07-22-2019 08:12-0400 Respiratory Rate 16 /min [facility] 07-20-2019 16:14-0400 Pulse Oximetry 97 % [facility] [place] 07-20-2019 06:20-0400 BMI (Body Mass Index) 32.95 kg/m2 [facility] 07-20-2019 06:20-0400 Body weight 84.37 kg [place], [place] 07-20-2019 06:20-0400 Height 160 cm [facility] [place] 06-21-2019 16:35-0400 BP Diastolic 71 mm[Hg] [facility] [place] 06-21-2019 16:35-0400 BP Systolic 109 mm[Hg] [facility] [place] 06-21-2019 16:35-0400 Pulse (Heart Rate) 92 /min [facility] [place] 06-21-2019 15:41-0400 Body Temperature 97.59 [degF] [facility] [place] 06-21-2019 15:41-0400 Respiratory Rate 18 /min [facility] [place] 06-01-2019 10:20-0400 BP Diastolic 60 mm[Hg] [facility] Work Phone: 06-01-2019 10:20-0400 BP Systolic 100 mm[Hg] [facility] Work Phone: 06-01-2019 10:20-0400 Height 160.02 cm [facility] Work Phone: 05-17-2019 15:17-0400 BMI (Body Mass Index) 31.2 kg/m2 [facility] Work Phone: 05-17-2019 15:17-0400 Body Temperature 98.1 [degF] [facility] Work Phone: 05-17-2019 15:17-0400 Body weight 79.[address] [facility] Work Phone: 05-17-2019 15:17-0400 BP Diastolic 82 mm[Hg] [facility] Work Phone: 05-17-2019 15:17-0400 BP Systolic 110 mm[Hg] [facility] Work Phone: 05-17-2019 15:17-0400 BSA (Body Surface Area) 1.[address] [facility] Work Phone: 05-17-2019 15:17-[address] [facility] Work Phone: 05-17-2019 15:17-0400 Pulse (Heart Rate) 86 /min [facility] Work Phone: 05-17-2019 15:17-0400 Pulse Oximetry 98 % [facility] Work Phone: 05-17-2019 15:17-0400 Respiratory Rate 14 /min Kandi Walters [facility] Work Phone: Encounters Encounter Date Encounter Type Care Provider Facility Start: 03-20-2023 End: 03-20-2023 Subsequent hospital visit by physician Chencho Velez CNP Work Phone: [facility] Comment on above: Screen for STD (sexu ally transmitted disease) Start: 02-03-2023 End: 02-04-2023 ambulatory [facility] Start: 02-03-2023 End: 02-03-2023 Subsequent hospital visit by physician Chencho Sylvester APRN - LANEY Work Phone: [facility] Comment on above: Dysuria Start: 10-01-2022 End: 10-01-2022 ambulatory [facility] Start: 10-01-2022 End: 10-01-2022 Subsequent hospital visit by physician Kaila Torresg Work Phone: [facility] Comment on above: Post-op pain (Primar y Dx); Adenomyosis Start: 09-10-2022 End: 09-11-2022 [facility] Start: 09-10-2022 End: 09-10-2022 ambulatory [facility]ERRELL [facility]BROOK [facility] Start: 05-21-2022 End: 05-22-2022 ambulatory [facility] Start: 04-22-2022 End: 04-23-2022 ambulatory JERRELL WESTBROOK [facility] Start: 04-22-2022 End: 04-22-2022 Subsequent hospital visit by physician Chencho Sylvester APRN - LANEY Work Phone: [facility] Comment on above: Screening for malign ant neoplasm of cervix Start: 03-19-2022 End: 03-20-2022 ambulatory [facility] Start: 03-19-2022 End: 03-19-2022 Subsequent hospital visit by physician Chencho Velez CNP Work Phone: [facility] Laboratory Comment on above: Dysuria Start: 2022 End: 03-08-2022 Evaluation and management of inpatient JERRELL WESTBROOK [facility] Start: 2022 End: 03-08-2022 Evaluation and management of inpatient Jerrell Westbrook BUSINESS LAW PROFESSOR - CNM Work Phone: [facility] Labor and Delivery Start: 02-13-2022 End: 02-14-2022 ambulatory [facility] Start: 02-13-2022 End: 02-13-2022 Subsequent hospital visit by physician Chencho Sylvester BUSINESS LAW PROFESSOR - TECHNICAL PROJECT LEAD Work Phone: [facility] Laboratory Comment on above: Abdominal cramping a ffecting Start: 02-13-2022 End: 02-13-2022 ambulatory [facility] Start: 02-13-2022 End: 02-13-2022 Subsequent hospital visit by physician Chencho Sylvester APRN - TECHNICAL PROJECT LEAD Work Phone: [facility] Laboratory Comment on above: 36 weeks gestation o f Start: 12-19-2021 End: 12-19-2021 Subsequent hospital visit by physician Jerrell Westbrook APRN - CNM Work Phone: [facility] Labor and Delivery Start: 12-15-2021 End: 12-15-2021 Emergency department patient visit Fito Hutchinson MD Work Phone: [facility] ED Comment on above: Influenza with respi ratory manifestation other than pneumonia (Primary Dx) Start: 12-05-2021 End: 12-05-2021 Subsequent hospital visit by physician Jerrell Westbrook BUSINESS LAW PROFESSOR - CNM Work Phone: [facility] Labor and Delivery Start: 11-06-2021 End: 11-08-2021 Subsequent hospital visit by physician [facility] Ultrasound Room [facility] Ultrasound Comment on above: IUP (intrauterine pr egnancy), incidental; Marginal placenta previa Start: 10-07-2021 End: 10-07-[address] BRITNEY EWING Facility:[facility] Start: 08-06-2021 End: 08-06-2021 Emergency department patient visit Danny Mendiola MD Work Phone: [facility] ED Comment on above: Mild hyperemesis gra vidarum, antepartum (Primary Dx) Start: 07-20-2021 Office outpatient vi sit 15 minutes Betty Lamar [facility] Start: 07-18-2021 End: 07-18-2021 Subsequent hospital visit by physician Chencho Sylvester BUSINESS LAW PROFESSOR - TECHNICAL PROJECT LEAD Work Phone: [facility] Laboratory Start: 07-16-2021 End: 07-16-2021 Subsequent hospital visit by physician Chencho Sylvester BUSINESS LAW PROFESSOR - TECHNICAL PROJECT LEAD Work Phone: [facility] Laboratory Start: 05-24-2021 End: 05-24-[address] KARLO WESTBROOK Facility:[facility] Start: 05-21-2021 End: 05-22-2021 ambulatory CORWIN ABREU Facility:[facility] Start: 04-23-2021 End: 04-23-2021 ambulatory MS CHENCHO SYLVESTER Facility:[facility] Start: 07-27-2020 End: 07-29-2020 Subsequent hospital visit by physician [facility] Ultrasound Room 2 [facility] Ultrasound Comment on above: Cyst of right breast Start: 05-10-2020 End: 05-10-2020 Established patient Nina Quintana Work Phone: [facility] Work Phone: Start: 12-21-2019 End: 12-21-2019 Subsequent hospital visit by physician Chencho Sylvester [facility] Laboratory Start: 11-04-2019 End: 11-04-2019 Patient encounter procedure Yoel Wright Work Phone: [facility] Work Phone: Start: 11-02-2019 End: 11-02-2019 Subsequent hospital visit by physician Chencho Sylvester BUSINESS LAW PROFESSOR - TECHNICAL PROJECT LEAD Work Phone: [facility] Laboratory Start: 07-20-2019 End: 07-22-2019 Evaluation and management of inpatient Phan Rubi Work Phone: [facility] Labor and Delivery Start: 07-13-2019 End: 07-13-2019 Patient encounter procedure Yoel Wright Work Phone: [facility] Work Phone: Start: 07-06-2019 End: 07-06-2019 Patient encounter procedure Yoel Wright Work Phone: [facility] Work Phone: Start: 06-21-2019 End: 06-21-2019 Subsequent hospital visit by physician Phan Rubi Work Phone: [facility] Labor [facility] Delivery Start: 06-03-2019 End: 06-03-2019 Patient encounter procedure Miya Mcmillan Work Phone: [facility] Work Phone: Start: 06-01-2019 Comprehensve oral evaluation Yoel Wright Work Phone: [facility] Work Phone: Start: 06-01-2019 End: 06-01-2019 Patient encounter procedure Yoel Wright Work Phone: [facility] Work Phone: Start: 05-17-2019 End: 05-17-2019 Established patient Kandi Walters Work Phone: [facility] Work Phone: Start: 10-13-2018 End: 10-13-2018 Patient encounter procedure [facility] Facility:[facility] Start: 08-07-2018 End: 08-07-2018 Patient encounter procedure [facility] Procedures Date Procedure Procedure Detail Performing Clinician Start: 03-20-2023 Iadna munira species direct probe tq Jerrell Westbrook BUSINESS LAW PROFESSOR - CNM Work Phone: Start: 02-03-2023 Urinalysis microscopic only Jerrell Westbrook BUSINESS LAW PROFESSOR - CNM Work Phone: Start: 02-03-2023 Urnls dip stick/tablet rgnt auto w/o microscopy Jerrell Westbrook BUSINESS LAW PROFESSOR - CNM Work Phone: Start: 10-01-2022 Urine test visual color cmprsn meths Love Westbrook BUSINESS LAW PROFESSOR - [employer] SUPERVISOR Work Phone: Start: 04-22-2022 Microscopic observation [Identifier] in Cervix by Cyto stain Kaila Chi DO Work Phone: Start: 2022 Blood count complete auto&auto difrntl wbc Jerrell Casillas Westbrook BUSINESS LAW PROFESSOR - CNM Work Phone: Start: 2022 Drug tst prsmv instrmnt chem analyzers pr date Jerrell Casillas De BUSINESS LAW PROFESSOR - CNM Work Phone: Start: 12-19-2021 Urinalysis microscopic only Jerrell Soliselling BUSINESS LAW PROFESSOR - CNM Work Phone: Start: 12-19-2021 Urnls dip stick/tablet rgnt auto w/o microscopy Jerrell Solisjayda BUSINESS LAW PROFESSOR - CNM Work Phone: Start: 12-15-2021 COVID-19, RAPID Fito Hutchinson MD Work Phone: Start: 12-15-2021 Iaadiadoo influenza Fito Hutchinson MD Work Phone: Start: 12-05-2021 Urinalysis microscopic only Jerrell Ramirezkarly Westbrook BUSINESS LAW PROFESSOR - CNM Work Phone: Start: 12-05-2021 Urnls dip stick/tablet rgnt auto w/o microscopy Jerrell Ramirezkarly Westbrook BUSINESS LAW PROFESSOR - CNM Work Phone: Start: 11-06-2021 Us preg uterus w/detail anabel 1st gestation Phan Rubi MD Work Phone: Start: 08-06-2021 Urinalysis microscopic only Danny Mendiola MD Work Phone: Start: 08-06-2021 Urnls dip stick/tablet rgnt auto w/o microscopy Danny Mendiola MD Work Phone: Start: 08-06-2021 BASIC METABOLIC PANEL W/ REFLEX TO MG FOR LOW K Danny Medniola MD Work Phone: Start: 08-06-2021 Blood count complete auto&auto difrntl wbc Danny Mendiola MD Work Phone: Start: 07-18-2021 Gonadotropin chorionic quantitative Phan Rubi MD Work Phone: Start: 07-16-2021 Gonadotropin chorionic quantitative Phan Rubi MD Work Phone: Start: 07-27-2020 Us breast uni real time with image complete Phan Rubi Work Phone: Start: 05-10-2020 Psychotherapy w/patient 30 minutes Nina Short Work Phone: Start: 12-21-2019 Blood count complete automated Phan Rubi Work Phone: Start: 12-21-2019 Gonadotropin chorionic qualitative Phan Rubi Work Phone: Start: 11-02-2019 Gonadotropin chorionic quantitative Phan Rubi MD Work Phone: Start: 07-20-2019 Blood count complete auto&auto difrntl wbc Phan Rubi Work Phone: Start: 07-20-2019 IMMATURE PLATELET FRACTION Phan Rubi Work Phone: Start: 07-20-2019 Drug screen class list a Phan Rubi Work Phone: Start: 07-13-2019 Post 2 srfc resinbased cmpst Yoel Wright Work Phone: Start: 07-06-2019 No Charge Visit Yoel Wright Work Phone: Start: 06-30-2019 GROUP B STREP DNA PROBE, REFLEX TO CULTURE Historical Provider Start: 06-21-2019 Us preg uterus after 1st trimest 10/06 gestation Phan Rubi Work Phone: Start: 06-21-2019 Urnls dip stick/tablet reagent auto microscopy Phan Rubi Work Phone: Start: 06-03-2019 Caries risk assess high risk Miya Mcmillan Work Phone: Start: 06-03-2019 Dental prophylaxis adult Miya Mcmillan Work Phone: Start: 06-01-2019 Bitewings four images Yoel Wright Work Phone: Start: 06-01-2019 Caries risk assess high risk Yoel Wright Work Phone: Start: 06-01-2019 Intraoral periapical first Yoel Wright Work Phone: Start: 05-17-2019 ANXIETY DISORDER NOS Kandi Walters Start: 05-17-2019 Appendectomy Kandi Walters Start: 05-17-2019 currently Kandi Walters Start: 05-17-2019 DEPRESSION Kandi Walters Start: 05-17-2019 Diast bp <80 mm hg Kandi Walters Work Phone: Start: 05-17-2019 History and physical examination, pre-employment Routine Pre-employment Screening Examination Kandi Walters Start: 05-17-2019 MIGRAINE HEADACHE Kandi Walters Start: 05-17-2019 weeks of gestation - 30 Kandi Walters Start: 05-17-2019 Syst bp lt 130 mm hg Kandi Walters Work Phone: Plan of Treatment Date Care Activity Detail Author Start: 2042 Shingles Vaccine (1 of 2) Shingles Vaccine (1 of 2) [place] Start: 01-08-2032 DTaP/Tdap/Td vaccine (3 - Td or Tdap) DTaP/Tdap/Td vaccine (3 - Td or Tdap) [facility] Start: 04-23-2029 DTaP/Tdap/Td vaccine (2 - Td or Tdap) DTaP/Tdap/Td vaccine (2 - Td or Tdap) [facility] Start: 04-22-2027 Screening for malign ant neoplasm of cervix [facility] Start: 04-22-2025 Screening for malign ant neoplasm of cervix Pap smear [facility] Start: 03-23-2024 End: 03-23-2024 Patient encounter procedure 03/23/2024 Office Visit Obstetrics and Gynecology Jerrell Westbrook, BUSINESS LAW PROFESSOR - CNM [address] [place] [address] [facility] Start: 05-06-2023 Influenza vaccination Flu vacc ine (Season Ended) [facility] Start: 03-20-2023 End: 03-20-2023 Patient encounter procedure 03/20/2023 Office Visit Obstetrics and Gynecology Jerrell Westbrook APRN - JOSÉ MIGUEL [address] [place] [address] [facility] Start: 11-05-2022 End: 11-05-2022 Patient encounter procedure 11/05/2022 Office Visit Obstetrics and Gynecology Kaila Buckley, DO [address] [place], [place] [id number] [facility] Start: 10-09-2022 End: 10-09-2022 Patient encounter procedure 10/09/2022 Office Visit Obstetrics and Gynecology Dennise Macias, MANJU [address] [place] [address] [facility] Start: 10-01-2022 End: 10-01-2022 Laps total hysterect 250 gm/< w/rmvl tube/ovary HYSTERECTOMY VAGINAL LAPAROSCOPIC ROBOTIC ASSISTED Adenomyosis 10/01/2022 1:56 PM EST [facility] Start: 06-06-2022 Influenza vaccination [facility] Start: 05-21-2022 End: 05-21-2022 Patient encounter procedure 05/21/2022 Office Visit Obstetrics and Gynecology Kaila Buckley, DO [address] [place], [place] [id number] 264- [facility] Start: 05-06-2022 Influenza vaccination Flu vaccine (# 1) [facility] Start: 04-22-2022 End: 04-22-2022 ambulatory 04/22/2022 Visit Obstetrics and Gynecology Jerrell Westbrook APRN - CNM [address] [place], [place] [id number] [facility] Start: 2022 Screening for malign ant neoplasm of cervix [facility] Start: 02-20-2022 End: 02-20-2022 Patient encounter procedure 02/20/2022 Routine Obstetrics and Gynecology Jerrell Westbrook APRN - CNM [address] [place] [address] [facility] Start: 02-20-2022 End: 02-20-2022 Professional / ancillary services management 02/20/2022 Ancillary Procedure Obstetrics and Gynecology [facility] Start: 01-07-2022 End: 01-07-2022 Patient encounter procedure 01/07/2022 Routine Obstetrics and Gynecology Jerrell Westbrook, MONTY Velez CNM [address] [place] [address] [facility] Start: 01-07-2022 End: 01-07-2022 Professional / ancillary services management 01/07/2022 Ancillary Procedure Obstetrics and Gynecology [facility] Start: 12-11-2021 End: 12-11-2021 Patient encounter procedure 12/11/2021 Routine Obstetrics and Gynecology Jerrell Westbrook APRN - CNM [address] [place] [address] [facility] Start: 06-06-2021 Influenza vaccination Flu vaccine (# 1) [facility] Start: 06-06-2020 Influenza vaccination Flu vaccine (# 1) [place] Start: 05-23-2020 [facility] [place] [facility] Work Phone: Start: 06-06-2019 Influenza vaccination Flu vaccine (# 1) [place] Start: 06-01-2019 Dental Comp Exam [facility] Work Phone: Start: 2013 Cervical cancer screen Cervical canc er screen [place] Start: 2013 Screening for malign ant neoplasm of cervix [facility] Start: 2011 DTaP/Tdap/Td vaccine (1 - Tdap) DTaP/Tdap/Td vaccine (1 - Tdap) [place] Start: 10-11-2009 Varicella vaccine (1 of 2 - 2-dose childhood series) Varicella vaccine (1 of 2 - 2-dose childhood series) [facility] Start: 2007 HIV screen HIV screen [place], [place] Start: 2007 HIV screening HIV screen [facility] Start: 2005 Varicella Vaccine (1 of 2 - 13+ 2-dose series) Varicella Vaccine (1 of 2 - 13+ 2-dose series) [place] Start: 2004 COVID-19 Vaccine (1) COVID-19 Vaccin e (1) [facility] Work Phone: Start: 2004 Depression Monitoring Depression Mon [facility] Start: 2003 DTaP/Tdap/Td vaccine (1 - Tdap) DTaP/Tdap/Td vaccine (1 - Tdap) [facility] Work Phone: Start: 1997 COVID-19 Vaccine (1) COVID-19 Vaccin e (1) [facility] Start: 1993 Varicella vaccine (1 of 2 - 2-dose childhood series) Varicella vaccine (1 of 2 - 2-dose childhood series) [facility] [employer] Phone: Start: 1992 COVID-19 Vaccine (#1) COVID-19 Vacci ne (#1) [facility] Start: 1992 Hepatitis C screening Hepatitis C sc reen [employer] End: 06-21-2019 Bacteria identified Cx Nom (U) Urine Culture Microbiology Routine One Time for 1 Occurrences starting 06/21/2019 until 06/21/2019 [employer] [place], [place] Comment on above: One Time for 1 Occur rences starting 06/21/2019 until 06/21/2019 End: 12-19-2021 Bacteria identified in Urine by Culture Urine culture Microbiology Routine One Time for 1 Occurrences starting 12/19/2021 until 12/19/2021 [employer] Phone: Comment on above: One Time for 1 Occur rences starting 12/19/2021 until 12/19/2021 End: 03-20-2023 C.trachomatis N.gonorrhoeae DNA [employer] Comment on above: 1 Occurrences starti ng 03/20/2023 until 03/20/2023 End: 02-13-2022 Culture, Strep B Screen, Vaginal/Rectal [employer] Phone: Comment on above: 1 Occurrences starti ng 02/13/2022 until 02/13/2022 End: 12-05-2021 Culture, Urine Culture, Urine Microbiology Routine One Time for 1 Occurrences starting 12/05/2021 until 12/05/2021 [employer] Phone: Comment on above: One Time for 1 Occur rences starting 12/05/2021 until 12/05/2021 End: 02-13-2022 Culture, Urine [employer] Phone: Comment on above: 1 Occurrences starti ng 02/13/2022 until 02/13/2022 End: 03-19-2022 Culture, Urine [employer] Work Phone: Comment on above: 1 Occurrences starti ng 03/19/2022 until 03/19/2022 End: 02-03-2023 Culture, Urine [employer] Phone: Comment on above: 1 Occurrences starti ng 02/03/2023 until 02/03/2023 End: 04-22-2022 Cytopathology procedure, preparation of smear, genital source PAP SMEAR Lab Routine Screening for malignant neoplasm of cervix 1 Occurrences starting 04/22/2022 until 04/22/2022 [employer] Phone: Comment on above: 1 Occurrences starti ng 04/22/2022 until 04/22/2022 End: 07-20-2019 DRUG SCREEN MULTI URINE DRUG SCREEN MULTI URINE Lab Routine One Time for 1 Occurrences starting 07/20/2019 until 07/20/2019 [employer] Comment on above: One Time for 1 Occur rences starting 07/20/2019 until 07/20/2019 End: 06-21-2019 nonstress test nonstress test OB Routine One Time for 1 Occurrences starting 06/21/2019 until 06/21/2019 [employer] [facility] Comment on above: One Time for 1 Occur rences starting 06/21/2019 until 06/21/2019 End: 10-01-2022 INITIATE PACU OXYGEN THERAPY PROTOCOL Initiate PACU Oxygen Therapy Protocol Respiratory Care Routine Continuous until discontinued starting 10/01/2022 [employer] Comment on above: Continuous until dis continued starting 10/01/2022 Nonrebreather mask oxygen Nonrebreather mask oxygen Respiratory Care Routine As directed - RT (PRN) until discontinued starting 07/20/2019 TDX [employer] Comment on above: As directed - RT (NY N) until discontinued starting 07/20/2019 Nonrebreather mask oxygen Nonrebreather mask oxygen Respiratory Care Routine As directed - RT (PRN) until discontinued starting 12/05/2021 [employer] Phone: Comment on above: As directed - RT (NY N) until discontinued starting 12/05/2021 Nonrebreather mask oxygen Nonrebreather mask oxygen Respiratory Care Routine As directed - RT (PRN) until discontinued starting 12/19/2021 [employer] Phone: Comment on above: As directed - RT (NY N) until discontinued starting 12/19/2021 Oxygen therapy [[facility] Data Set] Initiate Oxygen Therapy Protocol Respiratory Care Routine As Needed until discontinued starting 10/01/2022 [employer] Phone: Comment on above: As Needed until disc ontinued starting 10/01/2022 End: 10-01-2022 , urine POCT , urine POCT Point of Care Testing Routine One Time for 1 Occurrences starting 10/01/2022 until 10/01/2022 [employer] Phone: Comment on above: One Time for 1 Occur rences starting 10/01/2022 until 10/01/2022 End: 07-21-2019 Surgical Pathology Surgical Pathology Lab Routine Once for 1 Occurrences starting 07/21/2019 until 07/21/2019 [facility] [place] Comment on above: Once for 1 Occurrenc es starting 07/21/2019 until 07/21/2019 Surgical Pathology Surgical Path ology Lab Routine Adenomyosis Release Upon Ordering for 1 Occurrences starting 10/01/2022 [employer] Phone: Comment on above: Release Upon Orderin g for 1 Occurrences starting 10/01/2022 End: 10-01-2022 SURGICAL PATHOLOGY REPORT SURGICAL PATHOLOGY REPORT Lab Routine Once for 1 Occurrences starting 10/01/2022 until 10/01/2022 [employer] Phone: Comment on above: Once for 1 Occurrenc es starting 10/01/2022 until 10/01/2022 End: 12-05-2021 SVE SVE Point of Care Testing Routine One Time for 1 Occurrences starting 12/05/2021 until 12/05/2021 [employer] Phone: Comment on above: One Time for 1 Occur rences starting 12/05/2021 until 12/05/2021 End: 12-19-2021 SVE SVE Point of Care Testing Routine One Time for 1 Occurrences starting 12/19/2021 until 12/19/2021 [employer] Phone: Comment on above: One Time for 1 Occur rences starting 12/19/2021 until 12/19/2021 Immunizations Immunization Date Immunization Notes Care Provider Fa [facility] 2022 diphtheria, tetanus toxoids and acellular pertussis vaccine, unspecified formulation Jerrell Westbrook APRN - YOLA Work Phone: [employer] Phone: 2022 measles, mumps and rubella virus vaccine Jerrell Westbrook BUSINESS LAW PROFESSOR - CN Work Phone: [facility] Work Phone: 01-07-2022 tetanus toxoid, redu suresh diphtheria toxoid, and acellular pertussis vaccine, adsorbed Chencho Sylvester BUSINESS LAW PROFESSOR [facility] Work Phone: [facility] 10-09-2020 influenza virus vacc ine, unspecified formulation [facility] Work Phone: 04-23-2019 tetanus toxoid, redu suresh diphtheria toxoid, and acellular pertussis vaccine, adsorbed [facility] Work Phone: 09-13-2009 novel Influenza-H1N1 -09, live virus for nasal administration [facility] Work Phone: Payers Date Payer Category Payer Unknown [facility] [id number] 2021-Present [phone] [address] [address] [place] [address] [id number] 2016 Medicaid [id number] 2016 Unknown [employer] xxxxxxxxxxx 2016-Present [phone] [address] [place] [address] xxxxxxxxxxx [id number] 2013 Unknown [id number] 9.5.10.6.3 1992 Unknown [id number] [id number] 1992 Unknown [id number] [id number] 1992 Unknown [id number] [id number] 1992 Unknown [id number] [id number] 1992 Unknown [id number] [id number] 1992 Unknown [id number] [id number] 1992 Unknown [id number] [id number] 1992 Unknown [id number] [id number] 1992 Unknown [id number] [id number] 1992 Unknown [id number] [id number] 1992 Unknown [id number] [id number] 1992 Unknown [id number] [id number] 1992 Unknown [id number] [id number] 1992 Unknown [id number] [id number] 1992 Unknown [id number] [id number] 1992 Unknown [id number] [id number] 1959 Medicaid [id number] 1959 Unknown [id number] 1959 Unknown [id number] Social History Date Type Detail Facility Assertion [facility] Work Phone: Assertion Gender identity finding (finding) [facility] Work Phone: Assertion Finding of sexua l orientation (finding) [facility] Work Phone: Assertion Sexually active (finding) [facility] Work Phone: Tobacco smoking status Unknown if ever smoked [facility] Work Phone: Start: 05-12-2019 End: 09-24-2022 Tobacco smoking status NHIS [facility] [place] [place] Start: 05-12-2019 End: 07-20-2019 [facility] intake [facility] [place] Start: 11-04-2015 Alcohol [facility] occ [facility] [place] Start: 11-01-2018 [facility] [place] [place] Start: 1992 Sex Assigned At Not on file [facility] [place] Start: 07-20-2019 Alcohol intake Current drinke r of alcohol (finding) [employer] Phone: Assertion Problem situatio n relating to social and personal history (finding) [facility] Work Phone: Assertion Emotional stress (finding) [facility] Work Phone: Start: 07-20-2019 End: 09-24-2022 Tobacco use and exposure Never used [employer] [place] Start: 02-03-2022 End: 10-01-2022 Exposure to SARS-CoV-2 (event) Not sure [employer] [place] Start: 05-16-2021 End: 03-20-2023 Alcohol intake Ex-drinker (finding) [employer] Phone: Exposure to SARS-CoV-2 (event) Yes [employer] Phone: Start: 1992 Sex Assigned At Female [employer] NEGATED: Highlighted row Assertion [facility] Work Phone: NEGATED: Highlighted row Assertion Illicit drug use (finding) [facility] Work Phone: NEGATED: Highlighted row Assertion Misuse of prescription only drugs (finding) [facility] Work Phone: NEGATED: Highlighted row Assertion Exposure to pollution (event) [facility] Work Phone: NEGATED: Highlighted row Assertion Tobacco user (finding) [facility] Work Phone: NEGATED: Highlighted row Assertion Current drinker of alcohol (finding) [facility] Work Phone: NEGATED: Highlighted row Assertion Finding relating to drug misuse behavior (finding) [facility] Work Phone: Goals Date Patient Goal Desired Activity /State Mental Status Date Assessment Result Facility Cognitive function Oriented to t brandon, place, and person Oriented to person, time and place (finding) [facility] Work Phone: Clinical Notes 07-20-2021 to 10-01-2022 Lexis Thornton RN - 10/01/2022 6:45 PM Uzair Burden RN - 10/01/2022 6:17 PM Uzair Burden RN - 10/01/2022 5:55 PM Errol Ardon RN - 09/23/2022 3:17 PM ESTDischarge Instructions Note Date & Type Note Facility 10-01-2022 History of Presen t illness Narrative Discharge instructions given to patient and mother, answered all questions, and verbalized understanding of discharge instructions. Patient verbalizes readiness for discharge at this time. Discharge Criteria Inpatients must meet Criteria 1 through 7. All other patients are either YES or N/A. If a NO is chosen then Anesthesia or Surgeon must be notified. 1. Minimum 30 minutes after last dose of sedative medication, minimum 120 minutes after last dose of reversal agent. Yes 2. Systolic BP stable within 20 mmHg for 30 minutes & systolic BP between 90 & 180 or within 10 mmHg of baseline. Yes 3. Pulse between 60 and 100 or within 10 bpm of baseline. Yes 4. Spontaneous respiratory rate >/= 10 per minute. Yes 5. SaO2 >/= 95 or >/= baseline. Yes 6. Able to cough and swallow or return to baseline function. Yes 7. Alert and oriented or return to baseline mental status. Yes 8. Demonstrates controlled, coordinated movements, ambulates with steady gait, or return to baseline activity function. Yes 9. Minimal or no pain or nausea, or at a level tolerable and acceptable to patient. Yes 10. Takes and retains oral fluids as allowed. Yes 11. Procedural / perioperative site stable. Minimal or no bleeding. Yes 12. If GI endoscopy procedure, minimal or no abdominal distention or passing flatus. N/A 13. Written discharge instructions and emergency telephone number provided. Yes 14. Accompanied by a responsible adult. Yes Patient up to the bathroom at this time. No drainage noted on pad. Patient denies any issues with urination. Ambulated back to chair with steady gait. Patient instructed on the pre-operative, intra-operative, and post-operative process. Patient instructed on NPO status. Medication instructions and pre operative instruction sheet reviewed with the patient. CHG skin prep instructions reviewed with patient. Attempted PAT phone call; no answer; message left to return PAT phone call. documented in this encounter [facility] [employer] Phone: 10-01-2022 Hospital Discharg e instructions Dennise Macias PA-C - 10/01/2022 1:36 PM EST SAME DAY SURGERY DISCHARGE INSTRUCTIONS 1. Do not drive or operate hazardous machinery for 24 hours. 2. Do not make important personal or business decisions for 24 hours. 3. Do not drink alcoholic beverages for 24 hours. 4. Do not smoke tobacco products for 24 hours. 5. Eat light foods (Jell-O, soups, etc....) and drink plenty of fluids (water, Sprite, etc...) up to 8 glasses per day, as you can tolerate. 6. If your bandages become soaked with bright red blood, place another dressing pad over your bandages. (DO NOT remove original bandage.) Call your surgeon for further instructions. A small amount of bright red blood is to be expected. 7. You may remove your dressing the morning following surgery; leave the steri-strips in place, they will fall off on their own. If they have not fallen off in 7-10 days, please remove them. 8. If no drainage from incisions you may shower. 9. Limit your activities for 24 hours. Do not engage in heavy work until your surgeon gives you permission. DO NOT lift anything heavier than 10 pounds. You may go up & down stairs and do any activity that can be done comfortably. 10. Report the following signs or any questions regarding your physical condition to your surgeon immediately: Excessive swelling of, or around the wound area. Redness or pus-like drainage Temperature of 100 degrees (F) or above. Excessive pain. If unable to urinate 4 hours after surgery. If bleeding at surgery site continues after 5-10 minutes of pressure. 11. Pain Control: Take pain meds as prescribed. You may use over the counter meds like Acetaminophen or Ibuprofen if not part of the meds already prescribed. While on narcotic pain meds DO NOT drive, operate machinery or make business decisions. 12. Try to avoid constipation (no bowel movement) by using over the counter Colace once or twice daily and increasing your fluid intake. Please call if no bowel movement after increasing fluid intake, use of Milk of Magnesia, Pericolace (laxative) or Dulcolax suppositories. 13. No sexual activity, tampons, douches, sitting in hot tubs/saunas or swimming in pools/ponds for 6 weeks or until cleared by your surgeon. 14. Call your surgeon for any questions regarding your surgery. 15. Call for an appointment to see EDINSON Jackson in [address] Peraza -- [place] office [phone] [place] office [phone] documented in this encounter [facility] [employer] Work Phone: 03-08-2022 Hospital Discharg Katie Estrada RN - 03/08/2022 Follow-up with your OB doctor as specified. [facility] Department phone: Dr. Clarissa Shrestha [facility] Dr. Stu Westbrook [facility] [address] [address] [place] or [place] DIET Eat a well balanced diet focusing on foods high in fiber and protein. Drink plenty of fluids especially water. To avoid constipation you may take a mild stool softener as recommended by your doctor or layout mechanic. ACTIVITY Gradually increase your activity. Resume exercise regimen only after advice by your doctor or layout mechanic. Avoid lifting anything heavier than a gallon of milk for SIX weeks. Avoid driving until your doctor or layout mechanic has given their approval. Rise slowly from a lying to sitting and then a standing position. Climb stairs one at a time. Use caution when carrying your baby up and down the stairs. NO SEXUAL Activity for 4-6 weeks or until advised by your doctor; Nothing in vagina: intercourse, tampons, or douching. Be prepared to discuss family planning at your follow-up OB visit. You may feel tired or have a lack of energy. You may continue your vitamin to replenish nutrients post delivery. Nap when baby naps to catch up on sleep. EMOTIONS You may feel ruiz, sad, teary, & overwhelmed. Contact your OB provider if you feel you may be showing signs of depression, or have thoughts of harming yourself or your . If will not stop crying, contact another adult for help or place in their crib on their back and take a break. NEVER shake your . BLEEDING Vaginal bleeding will decrease in amount over the next few weeks. You will notice that as your activity increases, your flow may increase. This is your body's way of telling you, you need to take things easier and rest more often. Call your care provider if you are saturating more than one maxi pad in an hour & resting does not help. BREAST CARE Take medications as recommended by your doctor or layout mechanic for pain If you develop a warm, red, tender area on your breast or develop a fever contact your OB provider. For moms: If you become engorged, feeding may be more difficult or painful for 1-2 days. You may find it helpful to hand express some milk so that the can latch on more easily. While , continue to take your vitamins as directed by your doctor or layout mechanic. Refer to the booklet in the folder/binder for more information. If you feel you need more assistance or have questions, please call Sarah Stevens IBCRALA, csm consultant, at or the OB department to schedule an appointment or phone consultation. For more FREE help, visit the Support Group on Friday evenings at 7 pm in the OB department. For NON- moms: You may apply ice packs to your breasts over your bra for twenty minutes at a time for comfort. Avoid stimulation to your breasts, when showering allow the water to strike your back not your breasts. Wear a good fitting bra until your milk dries, such as a sports bra. JAYDON CARE Use the jaydon-bottle after toileting until bleeding stops. Cleanse your perineum from front to back If used, stitches will dissolve in 4-6 weeks. You may use a sitz bath or soak in a clean tub as needed for comfort. Kegel exercises will help restore bladder control. SWELLING Try to keep your legs elevated when you are sitting. When lying down keep your legs elevated. When wearing stocking or socks, make sure they are not too tight. WHEN TO CALL THE DOCTOR If you have a temp of 100.6 or more. If your bleeding has increased and you are saturating a pad in an hour. Your abdomen is tender to touch. You are passing blood clots bigger than the size of a lemon. If you are experiencing extreme weakness or dizziness. If you are having flu-like symptoms such as achy muscles or joints. There is a foul smell or a green color to your vaginal bleeding. If you have pain that cannot be relieved. You have persistent burning or frequency with urination. Call if you have concerns about your well-being. You are unable to sleep, eat, or are having thoughts of harming yourself or your baby. You have a red, warm, tender area in your calf. documented in this encounter [employer] Phone: 03-08-2022 Hospital course Narrative Obstetrical Discharge Form Gestational Age:39w0d Antepartum complications: none Date of Delivery: 03/07/22 Type of Delivery: Delivered By: Abhishek Westbrook APRN, CNM Assisted By:N/A} Baby: female Anesthesia: epidural Intrapartum complications: None Feeding method: breast & bottle Blood type: O POSITIVE Rubella: Rubella Antibody, IGG Date Value Ref Range Status 12/28/2021 138.5 IU/mL Final Comment: REFERENCE RANGE: <5.0 NON-REACTIVE (non-immune) 5.0 TO 9.9 EQUIVOCAL >=10.0 REACTIVE (immune) T. Pallidium, IGG: T. pallidum, IgG Date Value Ref Range Status 12/28/2021 NONREACTIVE NONREACTIVE Final Comment: T. pallidum antibodies are not detected. There is no serological evidence of infection with T. pallidum (early primary syphilis cannot be excluded). Retest in 2-4 weeks if syphilis is clinically suspect. Hepatitis B Surface Antigen: Hepatitis B Surface Ag Date Value Ref Range Status 12/28/2021 NONREACTIVE NONREACTIVE Final HIV: No results found for: [id number] Results for orders placed or performed during the hospital encounter of 03/07/22 DRUG SCREEN MULTI URINE Result Value Ref Range Amphetamine Screen, Ur NEGATIVE NEGATIVE Barbiturate Screen, Ur NEGATIVE NEGATIVE Benzodiazepine Screen, Urine NEGATIVE NEGATIVE Cocaine Metabolite, Urine NEGATIVE NEGATIVE Methadone Screen, Urine NEGATIVE NEGATIVE Opiates, Urine NEGATIVE NEGATIVE Phencyclidine, Urine NEGATIVE NEGATIVE Propoxyphene, Urine NEGATIVE NEGATIVE Cannabinoid Scrn, Ur NEGATIVE NEGATIVE Oxycodone Screen, Ur NEGATIVE NEGATIVE Methamphetamine, Urine NEGATIVE NEGATIVE Tricyclic Antidepressants, Urine NEGATIVE NEGATIVE Buprenorphine Urine NEGATIVE NEGATIVE CBC auto differential Result Value Ref Range WBC 8.0 3.5 - 11.3 k/uL RBC 3.64 (L) 3.95 - 5.11 m/uL Hemoglobin 10.4 (L) 11.9 - 15.1 g/dL Hematocrit 31.9 (L) 36.3 - 47.1 % MCV 87.6 82.6 - 102.9 fL MCH 28.6 25.2 - 33.5 pg MCHC 32.6 28.4 - 34.8 g/dL RDW 13.2 11.8 - 14.4 % Platelets 195 138 - 453 k/uL MPV 10.5 8.1 - 13.5 fL NRBC Automated 0.0 0.0 per 100 WBC Seg Neutrophils 69 (H) 36 - 65 % Lymphocytes 22 (L) 24 - 43 % Monocytes 7 3 - 12 % Eosinophils % 1 1 - 4 % Basophils 0 0 - 2 % Immature Granulocytes 1 (H) 0 % Segs Absolute 5.42 1.50 - 8.10 k/uL Absolute Lymph # 1.78 1.10 - 3.70 k/uL Absolute [place] # 0.59 0.10 - 1.20 k/uL Absolute Eos # 0.10 0.00 - 0.44 k/uL Basophils Absolute <0.03 0.00 - 0.20 k/uL Absolute Immature Granulocyte 0.05 0.00 - 0.30 k/uL complications: none Discharge Medication: Medication List CONTINUE taking these medications omeprazole 40 MG delayed release capsule Commonly known as: PRILOSEC Take 1 capsule by mouth every morning (before breakfast) 1 30-0.975-200 MG Caps STOP taking these medications docusate sodium 100 mg capsule Commonly known as: COLACE Admit date: 2022 10:52 AM Discharge Date: 03/08/2022 Discharged to: Home in stable condition Plan: Follow up with Abhishek Westbrook CNM in 2 weeks documented in this encounter [employer] Phone: 2022 History of Presen t illness Narrative Jerrell Westbrook CNM at bedside for delivery Call placed to jerrell westbrook CNM letting her know patient is complete. She is on her way to room for delivery SHELLFISH FARMING SUPERVISOR Errol at bedside at [address] epidural, timeout performed at 1521, patient sat up and placed into position to receive epidural, RN remained at bedside with continuous pulse ox monitoring applied. Patient tolerated procedure well, laid back into bed with call light in reach, denies any further needs at this time, will continue to monitor SHELLFISH FARMING SUPERVISOR notified patient requesting epidural Ok per Jerrell Westbrook CNM for patient to have epidural Patient requesting epidural, fluid bolus started Dr. Crespo present at nurses station and is updated that patient is here for elective induction, gbs negative. Routine nursery order set received. documented in this encounter [facility] [employer] Phone: 12-19-2021 Hospital Discharg Brianna Aiken RN - 12/19/2021 Images from the original note were not included. Weeks 26 to 30 of Your : Care Instructions Overview You are now entering your last trimester of . Your baby is growing quickly. You'll probably feel your baby moving around more often. Your doctor may ask you to count your baby's kicks. Your back may ache as your body gets used to your baby's size and length. If you haven't already had the Tdap shot during this , talk to your doctor about getting it. It will help protect your against pertussis infection. During this time, it's important to take care of yourself and pay attention to what your body needs. If you feel sexual, you can explore ways to be close with your partner that match your comfort and desire. Follow-up care is a enrique part of your treatment and safety. Be sure to make and go to all appointments, and call your doctor if you are having problems. It's also a good idea to know your test results and keep a list of the medicines you take. How can you care for yourself at home? Take it easy at work Take frequent breaks. If possible, stop working when you are tired, and rest during your lunch hour. Take bathroom breaks every 2 hours. Change positions often. If you sit for long periods, stand up and walk around. When you stand for a long time, keep one foot on a low stool with your knee bent. After standing a lot, sit with your feet up. Avoid fumes, chemicals, and tobacco smoke. Be sexual in your own way Having sex during is okay, unless your doctor tells you not to. You may be very interested in sex, or you may have no interest at all. Your growing belly can make it hard to find a good position during intercourse. [place] and explore. You may get cramps in your uterus when your partner touches your breasts. A back rub may relieve the backache or cramps that sometimes follow orgasm. Learn about labor Watch for signs of labor. You may be going into labor if: ? You have menstrual-like cramps, with or without nausea. ? You have about 6 or more contractions in 1 hour, even after you have had a glass of water and are resting. ? You have a low, dull backache that does not go away when you change your position. ? You have pain or pressure in your pelvis that comes and goes in a pattern. ? You have intestinal cramping or flu-like symptoms, with or without diarrhea. ? You notice an increase or change in your vaginal discharge. Discharge may be heavy, mucus-like, watery, or streaked with blood. ? Your water breaks. If you think you have labor: ? Drink 2 or 3 glasses of water or juice. Not drinking enough fluids can cause contractions. ? Stop what you are doing, and empty your bladder. Then lie down on your left side for at least 1 hour. ? While lying on your side, find your breast bone. Put your fingers in the soft spot just below it. Move your fingers down toward your belly button to find the top of your uterus. Check to see if it is tight. ? Contractions can be weak or strong. Record your contractions for an hour. Time a contraction from the start of one contraction to the start of the next one. ? Single or several strong contractions without a pattern are called Nik-Daniel contractions. They are practice contractions but not the start of labor. They often stop if you change what you are doing. ? Call your doctor if you have regular contractions. Where can you learn more? Go to [email or web address] and sign in to your Access Point account. Enter S999 in the Search Health Information box to learn more about Weeks 26 to 30 of Your : Care Instructions. If you do not have an account, please click on the Sign Up Now link. Current as of: March 21, 2021 Content Version: 13.1 [email or web address]. Care instructions adapted under license by [employer]. If you have questions about a medical condition or this instruction, always ask your healthcare professional. [email or web address] disclaims any warranty or liability for your use of this information. The following attachments cannot be sent through [employer]Say Everywhere.: Hyperemesis Gravidarum (Tajik)documented in this encounter [employer] Phone: 12-05-2021 History of Presen t illness Narrative Pt amb off unit in stable condition. DC instructions reviewed with pt. No questions noted. Phenergan script called into [facility] [place]. IV dc'd. Pt dressed. Pt updated that CNM would like pt to stay for continued IV fluids and that if vomiting is not controled with phenergan we have other medications we can try if she is here. Pt states she has been trying to find a sitter but doesn't have one. Pt states her boyfriend gets home after 2229 and if she feels bad after that she will return. CNM phoned again on cell. UPdated that pt states that she cannot stay as she does not have a sitter for her kids and she does not want to sit here all night just to do the same things she could do at home. CNM states to encourage pt to stay and update her that if vomitings continues we have different medications here we could try, but if pt insistent on going home it is ok to dc pt home. RN to room to update pt on plan to spend the night and continue with IV fluids, phenergan every 8 hours and ancef every 8 hours. Pt states that she cannot stay the night as she does not have anyone to watch her kids. Pt states she just thinks that she vomited because the phenergan had not had enough time to work. Pt highly encouraged to stay. Rhea Khan CNM phoned on cell and updated that as pt was sitting up for DC instructions pt vomited. Orders rec for patient to spend the night. See other orders. RN goes back into room to updated pt on DC orders and pt sits up in bed and vomits into bucket. Rhea Khan CNM phoned on cell. Updated that pts IV infusion is complete and pt states that she feels much better at this time. DC order rec and phenergan scrip to be called in to [facility] for Phenergan 25mg PO every 8 hours dispense 10 no refills. IV infusion complete. Pt states she is feeling much better than when she first came in. EFM hand held for strip and pt states she needs to get up and use the BR. EFM DC'd and pt up to BR. documented in this encounter [employer] Phone: 12-05-2021 Hospital Discharg e Sheila Low RN - 12/05/2021 Home Undelivered Discharge Instructions After Discharge Orders: Future Appointments Date Time Provider Department Center 12/11/2021 10:30 AM [facility]ONT[facility] Galicia CNM [facility] 01/07/2022 11:00 AM [facility] 01/07/2022 11:30 AM [facility] Galicia CNM [facility] Diet: clear liquids Rest: normal activity as tolerated Other instructions: Do kick counts once a day on your baby. Choose the time of day your baby is most active. Get in a comfortable lying or sitting position and time how long it takes to feel 10 kicks, twists, turns, swishes, or rolls. Call your physician or layout mechanic if there have not been 10 kicks in 2 hours Call physician or layout mechanic, return to Labor and Delivery, call 911, or go to the nearest Emergency Room if: increased leakage or fluid, contractions more than 4 per 1 hour, decreased movement, persistent low back pain or cramping, bleeding from vaginal area, difficulty urinating, pain with urination, difficulty breathing or new calf pain Continued vomiting, unable to keep fluids down. Take keflex and phenergan as directed. Both called in to [facility] here in [place]. documented in this encounter [employer] Phone: 08-06-2021 Hospital DischDanny Gandhi Jr., MD - 08/06/2021 Clear liquid diet until tomorrow morning. Please try the Reglan and/or Phenergan to help with your vomiting. The following attachments cannot be sent through Care Everywhere.: Hyperemesis Gravidarum (Tajik)documented in this encounter [employer] Phone: 07-20-2021 Evaluation note Encounter Date Diagnosis Assessment Notes Jul, Contact with and (suspected) exposure to other viral communicable diseases (ICD-10 - Z20.828) Jul, Viral upper respiratory illness (ICD-10 - J06.9) Drink plenty fluids, get plenty of rest. Take Tylenol for aches pains or fevers. Follow-up with your doctor if no improvement in 2 to 3 days. Jul, Other Additional time spent conducting pre-visit phone call, screening for symptoms, instructions on social distancing, application and removal of PPE, and cleaning of examination room, equipment and supplies was preformed. Patient education given for testing methodology and results. Patient care instructions given in writting by [facility] Care At Home document. [employer] [facility] Other Evaluation note* Diagnosis Mild hyperemesis gravidarum, antepartum- Primary documented in this encounter [employer] Phone: evaluation note* Diagnosis IUP (intrauterine ), incidental state, incidental Marginal placenta previa Hemorrhage from placenta previa, unspecified as to episode of care documented in this encounter [employer] Phone: evaluation note* Diagnosis Emesis, persistent- Primary Persistent vomiting documented in this encounter [employer] Phone: evaluation note* Diagnosis Influenza with respiratory manifestation other than pneumonia- Primary Influenza with other respiratory manifestations documented in this encounter [employer] Phone: evaluation note* Diagnosis 27 weeks gestation of - Primary state, incidental documented in this encounter [employer] Phone: [email or web address] note* Diagnosis 36 weeks gestation of state, incidental documented in this encounter [employer] Phone: evaluation note* Diagnosis Abdominal cramping affecting documented in this encounter [employer] Phone: evaluation note* Diagnosis Encounter for supervision of normal in third trimester- Primary Supervision of other normal Normal delivery documented in this encounter [employer] Phone: [email or web address] note* Diagnosis Dysuria documented in this encounter [employer] Phone: [email or web address] note* Diagnosis Screening for malignant neoplasm of cervix Screening for malignant neoplasm of the cervix documented in this encounter [employer] Phone: [email or web address] note* Diagnosis Post-op pain- Primary Other acute postoperative pain Adenomyosis Endometriosis of uterus documented in this encounter [employer] Phone: [email or web address] note* Diagnosis Dysuria documented in this encounter [employer] Phone: [email or web address] note* Diagnosis Screen for STD (sexually transmitted disease) Screening examination for venereal disease documented in this encounter [employer] general Narrative - Reported* Type Description Date Surgical History appendectomy Surgical History LEAP Hospitalization History see above [employer] [facility] Other Hospital Discharge instructions* Attachments The following attachments cannot be sent through Care Everywhere. * Influenza (Tajik) documented in [employer] Phone: reason for visit Narrative* Auth/Cert Specialty Diagnoses / Procedures Referred By Les crisostomo Referred To Contact Diagnoses Encounter for supervision of normal in third trimester Jerrell Westbrook, MONT[facility] - JOSÉ MIGUEL [address] [place] [address] [employer] [id number] [place] [address] Referral ID Status Reason Start Date Expiration Date Visits Re quested Visits Authorized [id number] 1 1 DULCE MARIA KILPATRICK [employer] Work Phone: Summary Purpose Family History Description Last Updated Maternal history of oncologic disorder 0 05/17/2019 Maternal history of respiratory disorder 05/17/2019 Advance Directives Documents on File Type Date Recorded 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 Receivable Clerk Expl anation Advance Directives and Living Will Power of Postal Mail Carrier Latest Code Status on File Code Status Date Activated Date Inactivated Comments Full Code 04/19/2019 5:15 PM 04/19/2019 8:18 PM Latest Code Status on File Code Status Date Activated Date Inactivated Comments Full Code 07/20/2019 4:48 PM Full Code 07/20/2019 5:55 AM 07/20/2019 4:48 PM Full Code 04/19/2019 5:15 PM 04/19/2019 8:18 PM Latest Code Status on File Code Status Date Activated Date Inactivated Comments Full Code 07/20/2019 4:48 PM 07/22/2019 12:24 PM Documents on File Type Date Recorded Patient Receivable Clerk Expl anation ACP-Advance Directive ACP-Power of Postal Mail Carrier Latest Code Status on File Code Status Date Activated Date Inactivated Comments Full Code 07/20/2019 4:48 PM 07/22/2019 12:24 PM Full Code 07/20/2019 5:55 AM 07/20/2019 4:48 PM Full Code 04/19/2019 5:15 PM 04/19/2019 8:18 PM Documents on File Type Date Recorded Patient Receivable Clerk Expl anation ACP-Advance Directive ACP-Power of Postal Mail Carrier Latest Code Status on File Code Status Date Activated Date Inactivated Comments Full Code 09/07/2021 4:48 PM 09/07/2021 7:24 PM Full Code 07/20/2019 4:48 PM 07/22/2019 12:24 PM Latest Code Status on File Code Status Date Activated Date Inactivated Comments Full Code 12/05/2021 5:31 PM Full Code 09/07/2021 4:48 PM 09/07/2021 7:24 PM Full Code 07/20/2019 4:48 PM 07/22/2019 12:24 PM Latest Code Status on File Code Status Date Activated Date Inactivated Comments Full Code 12/05/2021 5:31 PM 12/05/2021 11:34 PM Latest Code Status on File Code Status Date Activated Date Inactivated Comments Full Code 12/19/2021 12:24 PM Full Code 12/05/2021 5:31 PM 12/05/2021 11:34 PM Latest Code Status on File Code Status Date Activated Date Inactivated Comments Full Code 12/19/2021 12:24 PM 12/19/2021 10:47 PM Latest Code Status on File Code Status Date Activated Date Inactivated Comments Full Code 2022 11:14 AM 2022 5:18 PM Full Code 12/19/2021 12:24 PM 12/19/2021 10:47 PM Full Code 12/05/2021 5:31 PM 12/05/2021 11:34 PM Full Code 09/07/2021 4:48 PM 09/07/2021 7:24 PM Latest Code Status on File Code Status Date Activated Date Inactivated Comments Full Code 2022 11:14 AM 2022 5:18 PM Full Code 12/19/2021 12:24 PM 12/19/2021 10:47 PM Latest Code Status on File Code Status Date Activated Date Inactivated Comments Full Code 10/01/2022 12:13 PM Full Code 2022 11:14 AM 2022 5:18 PM Latest Code Status on File Code Status Date Activated Date Inactivated Comments Full Code 10/01/2022 12:13 PM 10/01/2022 8:51 PM Code Status History Code Status Date Activated Date Inactivated Comments Full Code 2022 11:14 AM 2022 5:18 PM Full Code 12/19/2021 12:24 PM 12/19/2021 10:47 PM Full Code 12/05/2021 5:31 PM 12/05/2021 11:34 PM Full Code 09/07/2021 4:48 PM 09/07/2021 7:24 PM Assessments Findings Encounter Date PHQ-9: total score was 0 Medical Establi shed Patient with Knadi Walters TECHNICAL PROJECT LEAD 05/17/2019 Routine pre-employment scree bryant examination Medical Established Patient with Kandi Walters TECHNICAL PROJECT LEAD 05/17/2019 Z68.31 - Body mass index (BM I) 31.0-31.9, adult Medical Established Patient with Kandi Walters TECHNICAL PROJECT LEAD 05/17/2019 Diagnosis Vaginal delivery Normal delivery Findings Encounter Date Anxiety disorder NOS BH Established [place] ent with Nina Quintana LISWS 05/10/2020 Mild recurrent major depression Estab lished Patient with Nina Short LISWS 05/10/2020 Body mass index Medical Established Patient with Chencho Sylvester TECHNICAL PROJECT LEAD 05/10/2020 Overweight Medical Established Patient with Chencho Sylevster TECHNICAL PROJECT LEAD 05/10/2020 PHQ-9: total score was 0 Medical Establi shed Patient with Kandi Walters TECHNICAL PROJECT LEAD 05/17/2019 Routine pre-employment scree bryant examination Medical Established Patient with Kandi Walters TECHNICAL PROJECT LEAD 05/17/2019 Z68.31 - Body mass index (BM I) 31.0-31.9, adult Medical Established Patient with Kandi Walters TECHNICAL PROJECT LEAD 05/17/2019 Diagnosis Cyst of right breast Instructions Instructions not supported for this document type No Instructions Recorded Instructions not supported for this document type No Instructions Recorded Instructions not supported for this document type No Instructions Recorded History of Present Illness History of Present Illness not supported for this document type No History of Present Illness Recorded* Soco Lou RN - 06/21/2019 4:39 PM EDT photo equipment technician at bedside. * Soco Lou RN - 06/21/2019 4:22 PM EDT RN calls Dr. Rubi and reports urinalysis results, amnioswab negative and NST reactive. Pt had few mild contractions when first arrived and they have spread apart. SVE reported. Pt 's c/o pain reported. RN reports pt had sex as well this morning. Order received for complete ultrasound. * Soco Lou RN - 06/21/2019 3:57 PM EDT Pt came in for c/o sharp pain in upper and lower abdomen and back - pt states pain comes and goes and she did have sex this morning. Pt states she has had pains that have come and gone for a few weeks now. Pt states when she got home from work today, her underwear were soaked . Pt states she hashad a little bit here and there come out since then. Pt did not wear pad in. Pt denies problems with other than coming in a few times for pain. Pt denies headache, blurred vision, epigastric pain. Pt states she had a little bit of bloody discharge before sex this morning. Pt reports she has only felt a little movement from baby today. Pt denies pain or burning when urinating. * Soco Lou RN - 06/21/2019 3:55 PM EDT Amnio swab inserted into vaginal canal and RN has patient cough forcefully a few times, no fluid noted, nitrazine does not turn blue. Mucous discharge noted on swab. * Soco Lou RN - 06/21/2019 3:29 PM EDT RN calls Dr. Rubi and reports ultrasound findings and MICHAELA per tech. Dr. Rubi instructs RN to have pt come to his office tomorrow morning at 09:45 for ultrasound. No sex or nipple stimulation. Tells RN to have pt do kick counts. documented in this encounter* Fady Zulema Hardeep, BUSINESS LAW PROFESSOR - CNM - 07/22/2019 8:23 AM EDT Department of Obstetrics and Gynecology Labor and Delivery Post Progress Note SUBJECTIVE: Pt doing well today states she would like to go home today OBJECTIVE: Vitals: BP 116/76 Pulse 75 Temp 98.2 F (36.8 C) (Oral) Resp 14 Ht 5' 3 (1.6 m) Wt 186 lb (84.4 kg) SpO2 97% ? Unknown BMI 32.95 kg/m Patient Vitals for the past 24 hrs: BP Temp Temp src Pulse Resp 07/21/19 2353 116/76 98.2 F (36.8 C) Oral 75 14 07/21/19 1944 115/73 97.8 F (36.6 C) Oral 78 16 07/21/19 1615 108/71 98.1 F (36.7 C) Oral 84 16 07/21/19 1214 110/68 98 F (36.7 C) Oral 71 16 ABDOMEN: normal shape, position and consistency GENITAL/URINARY: External Genitalia: General appearance; normal, Hair distribution; normal, Lesionsabsent Uterus: Size normal, Contour normal Breast:normal appearance, no masses or tenderness Cor: RRR no Murmurs Pulmonary: clear to auscultation anterior and posterior Extremities: no Clubbing cyanosis or ecchymosis DATA: ASSESSMENT : Active Problems: Vaginal delivery Plan: Continue care * Phan Rubi MD - 07/21/2019 10:[address] Phan Rubi / Post Note Post- Day #1 Subjective: Pain is : Mild Lochia: thin lochia Nausea: None Bowel Movement/Flatus: yes : plans to breastfeed Objective: Patient Vitals for the past 24 hrs: BP Temp Temp src Pulse Resp 07/21/19 1944 115/73 97.8 F (36.6 C) Oral 78 16 07/21/19 1615 108/71 98.1 F (36.7 C) Oral 84 16 07/21/19 1214 110/68 98 F (36.7 C) Oral 71 16 07/21/19 0726 112/61 98.2 F (36.8 C) Oral 81 16 07/21/19 0234 (!) 108/59 97.4 F (36.3 C) Oral 71 16 07/20/19 2300 (!) 100/55 97.9 F (36.6 C) Oral 96 16 Abdominal exam: soft, nontender, nondistended, no masses or organomegaly. Wound: None Perineum: clean, dry, intact and nontender Lab Results Component Value Date WBC 6.9 07/20/2019 HGB 13.1 07/20/2019 HCT 39.1 07/20/2019 MCV 94.9 07/20/2019 PLT See Reflexed IPF Result 07/20/2019 Current Facility-Administered Medications: lactated ringers infusion, , Intravenous, Continuous, Phan Rubi MD acetaminophen (TYLENOL) tablet 650 mg, 650 mg, Oral, Q4H PRN, Phan Rubi MD, 650 mg at ibuprofen (ADVIL;MOTRIN) tablet 800 mg, 800 mg, Oral, 3 times per day, Phan Rubi MD, 800 mg at1 1708 docusate sodium (COLACE) capsule 100 mg, 100 mg, Oral, BID, Phan Rubi MD ondansetron (ZOFRAN) injection 4 mg, 4 mg, Intravenous, Q6H PRN, Phan Rubi MD oxytocin (PITOCIN) 30 units in 500 mL infusion, 1 barbara-units/min, Intravenous, Continuous PRN, Phan Rubi MD methylergonovine (METHERGINE) injection 200 mcg, 200 mcg, Intramuscular, PRN, Phan Rubi MD witch ramses-glycerin (TUCKS) pad, , Topical, PRN, Phan Rubi MD, 40 each at 07/21/19 1545 benzocaine-menthol (DERMOPLAST) 20-0.5 % spray, , Topical, PRN, Phan Rubi MD Assessment: Status post . Stable. Plan: Continue same management. * Becki Briscoe RN - 07/20/2019 12:[address] Rubi updated via phone regarding patient being comfortable with epidural and SVE 2. * Becki Briscoe RN - 07/20/2019 10:53 AM EDT SVE per request of Dr. Rubi. Dr. Rubi updated via phone and transferred to patient phone. Will get epidural placed now, SVE once placed, and update Dr. Rubi per request. * Becki Briscoe RN - 07/20/2019 9:[address] Rubi updated via phone regarding FHR reassuring as well as patient comfortable and sleeping.Will call when patient becomes uncomfortable with contractions per Dr. Rubi request. Plan to AROM at that time. Will update patient. * Becki Briscoe RN - 07/20/2019 7:15 AM EDT Report received, care assumed. To bedside for introduction and initial assessment. Plan of care discussed including SVE, initiation of Pitocin, pain management plans, and feeding plans. Patient is unsure but open about an epidural and plans to breast feed; denies questions at this time. VSS. EFM/toco adjusted after patient up to restroom and SVE. SVE reveals 50/-3. Will continue to monitor closely. documented in this encounter History of Present Illness not supported for this document type No History of Present Illness Recorded History of Present Illness not supported for this document type No History of Present Illness Recorded Review of System Review of Systems not supported for this document type No Review of Systems Recorded Review of Systems not supported for this document type No Review of Systems Recorded Review of Systems not supported for this document type No Review of Systems Recorded Physical Exam Physical Exam not supported for this document type No Physical Exam Recorded Physical Exam not supported for this document type No Physical Exam Recorded Physical Exam not supported for this document type No Physical Exam Recorded Discharge Instructions * Instructions* Soco Lou RN - 06/21/2019 OUTPATIENT DISCHARGE Bettina Dominguez [facility] or Ge Dr. Rubi Jerrell Oseguera [facility] Julisa Nacoh [facility] ACTIVITY LIMITATIONS: ( x )Up and about as desired and tolerated ( )Up to bathroom only ( x )Lay on either side ( x )Avoid heavy lifting or exercise ( x )No sex ( x )No nipple stimulation ( )Complet bedrest ( )Avoid using stairs ( x )Increase fluids DRINK AT LEAST eight-8oz. Glasses of water daily. (x) Kick Counts in the morning and evening Call your Doctor if: ( )Contractions are every 5 minutes apart (from start of one to the start of the next contraction) lasting 60 seconds for at least 1 hour, strong enough you can not walk or talk through the contraction and regular. (x )Bag of water breaks ( x )Vaginal bleeding ( x )Unusual pain occurs (x )Decreased movement ( x ) labor: If you have 4 contractions in an hour Keep your scheduled follow up appointment. Or call for a follow up on . IN CASE OF EMERGENCY CONTACT LABOR AND DELIVERY . documented in this encounter* Instructions* Kaila Denny RN - 07/22/2019 Follow-up with your OB doctor as specified. [facility] OB Department phone: Dr. Rubi [address] [place] [id number] DIET Eat a well balanced diet focusing on foods high in fiber and protein. Drink plenty of fluids especially water. To avoid constipation you may take a mild stool softener as recommended by your doctor or layout mechanic. ACTIVITY Gradually increase your activity. Resume exercise regimen only after advice by your doctor or layout mechanic. Avoid lifting anything heavier than a gallon of milk for SIX weeks. Avoid driving until your doctor or layout mechanic has given their approval. Rise slowly from a lying to sitting and then a standing position. Climb stairs one at a time. Use caution when carrying your baby up and down the stairs. NO SEXUAL Activity for 4-6 weeks or until advised by your doctor; Nothing in vagina: intercourse, tampons, or douching. Be prepared to discuss family planning at your follow-up OB visit. You may feel tired or have a lack of energy. You may continue your vitamin to replenish nutrients post delivery. Nap when baby naps to catch up on sleep. EMOTIONS You may feel ruiz, sad, teary, & overwhelmed. Contact your OB provider if you feel you may be showing signs of depression, or have thoughts of harming yourself or your infant. If infant will not stop crying, contact another adult for help or place infant in their crib on their back and take a break. NEVER shake your . BLEEDING Vaginal bleeding will decrease in amount over the next few weeks. You will notice that as your activity increases, your flow may increase. This is your body's way oftelling you, you need to take things easier and rest more often. Call your care provider if you are saturating more than one maxi pad in an hour & resting does not help. BREAST CARE Take medications as recommended by your doctor or layout mechanic for pain If you develop a warm, red, tender area on your breast or develop a fever contact your OB provider. For moms: If you become engorged, feeding may be more difficult or painful for 1-2 days. You may find it helpful to hand express some milk so that the can latch on more easily. While , continue to take your vitamins as directed by your doctor or layout mechanic. Refer to the booklet in the folder/binder for more information. If you feel you need more assistance or have questions, please call Sarah Stevens IBCLC, csm consultant, at or the OB department to schedule an appointment or phone consultation. For more FREE help, visit the Support Group on Friday evenings at 7 pm in the OB department. For NON- moms: You may apply ice packs to your breasts over your bra for twenty minutes at a time for comfort. Avoid stimulation to your breasts, when showering allow the water to strike your back not your breasts. Wear a good fitting bra until your milk dries, such as a sports bra. JAYDON CARE Use the jaydon-bottle after toileting until bleeding stops. Cleanse your perineum from front to back If used, stitches will dissolve in 4-6 weeks. You may use a sitz bath or soak in a clean tub as needed for comfort. Kegel exercises will help restore bladder control. SWELLING Try to keep your legs elevated when you are sitting. When lying down keep your legs elevated. When wearing stocking or socks, make sure they are not too tight. WHEN TO CALL THE DOCTOR If you have a temp of 100.6 or more. If your bleeding has increased and you are saturating a pad in an hour. Your abdomen is tender to touch. You are passing blood clots bigger than the size of a lemon. If you are experiencing extreme weakness or dizziness. If you are having flu-like symptoms such as achy muscles or joints. There is a foul smell or a green color to your vaginal bleeding. If you have pain that cannot be relieved. You have persistent burning or frequency with urination. Call if you have concerns about your well-being. You are unable to sleep, eat, or are having thoughts of harming yourself or your baby. You have swelling, bleeding, drainage, foul odor, redness, or warmth in/around your incision or stitches. You have a red, warm, tender area in your calf. documented in this encounter Hospital Course * Zulema Shrestha APRN - CNM - 07/22/2019 8:26 AM EDT Obstetrical Discharge Form Gestational Age:39w2d Antepartum complications: headaches Date of Delivery: 07/20/19 Type of Delivery: Delivered By: Dr. Rubi Assisted By:N/A Baby: male Anesthesia: epidural Intrapartum complications: None Feeding method: Blood type: O positive Rubella: Rubella Antibody, IGG Date Value Ref Range Status 03/31/2013 immune Final T. Pallidium, IGG: T. pallidum, IgG Date Value Ref Range Status 03/31/2013 negative Final Hepatitis B Surface Antigen: Hepatitis B Surface Ag Date Value Ref Range Status 03/31/2013 negative Final HIV: No results found for: [id number] @MOM(LABLAST,GBSEXTERN,GONEXTERN,CTRACHEXT,RUBEXTERN,HEPBEXTERN,RPREXTERN,HIVEXT ELIZABETH,RHEXTERN,ABOEXTERN)@ complications: none Discharge Medication: Mariah Carballo Home Medication Instructions VANIA:[id number] Printed on:07/22/19 0826 Medication Information doxyLAMINE succinate (UNISOM) 25 MG tablet Take 25 mg by mouth nightly naratriptan (AMERGE) 2.5 MG tablet take 1 tablet ONCE, MAY REPEAT AFTER 4 HOURS MV-Min-Fe Fum-FA-DHA ( 1) 30-0.975-200 MG CAPS Take 1 tablet by mouth daily traZODone (DESYREL) 100 MG tablet Take 100 mg by mouth nightly Admit date: 07/20/2019 5:42 AM Discharge Date: 07/22/2019 Discharged to: Home Iin stable condition Plan: Follow up in 6 week(s) for post visit documented in this encounter Reason for Referral Status Reason Specialty Diagnoses / Procedures Referre d By Contact Referred To Contact Open Radiology Diagnoses Cyst of right breast Procedures US BREAST COMPLETE RIGHT Phan Rubi MD [address] [place] [address] Specialty Diagnoses / Procedures Referred By Contac t Referred To Contact Radiology Diagnoses Marginal placenta previa Procedures US OB TRANSVAGINAL Phan Rubi MD [address] [place] [address] Referral ID Status Reason Start Date Expiration Date Visits Re quested Visits Authorized [id number] Open 11/06/2021 11/06/2022 1 1 Specialty Diagnoses / Procedures Referred By Contac t Referred To Contact Radiology Diagnoses IUP (intrauterine ), incidental Procedures US OB DETAIL ANATOMY SINGLE OR FIRST GESTATION Phan Rubi MD [address] [place] [address] Referral ID Status Reason Start Date Expiration Date V isits Requested Visits Authorized [id number] Pending Review 11/05/2021 10/31/2022 1 1 Additional Source Comments INFORMATION SOURCE (unrecogn ized section and content) DATE CREATED AUTHOR 10/23/2018 [facility] DATE CREATED AUTHOR AUTHOR'S ORGANIZ ATION 04/11/2022 [facility] DATE CREATED AUTHOR AUTHOR'S ORGANIZ ATION 02/05/2023 [facility] Evaluations & Outcomes (unre cognized section and content) Includes: Evaluations & Outcomes for active GoalsNo Outcomes Recorded Includes: Evaluations & Outcomes for active GoalsNo Outcomes Recorded Includes: Evaluations & Outcomes for active GoalsNo Outcomes Recorded Reason for Visit (unrecogniz ed section and content) Reason Comments Abdominal Pain Reason Comments Scheduled Induction Status Reason Specialty Diagnoses / Procedures Referre d By Contact Referred To Contact Diagnoses Vaginal delivery Labor and Delivery Phan Rubi MD [address] [place] [address] [facility] Status Reason Specialty Diagnoses / Procedures Referred By Contact Referred To Contact Pending Review Radiology Diagnoses Breast cyst Procedures HC US BREAST COMP Phan Rubi MD [address] [place] [address] [facility] Ultrasound [address] [place] [address] Reason Comments Emesis vomiting ongoing for 3 days, ob wanted her to come here to be checked for dehydration Specialty Diagnoses / Procedures Referred By Les crisostomo Referred To Contact Radiology Diagnoses IUP (intrauterine ), incidental Procedures US OB DETAIL ANATOMY SINGLE OR FIRST GESTATION Phan Rubi MD [address] [place] [address] Referral ID Status Reason Start Date Expiration Date V isits Requested Visits Authorized [id number] Pending Review 11/05/2021 10/31/2022 1 1 Reason Comments Nausea & Vomiting Reason Comments Fever started yesterday Nasal Congestion Cough Reason Comments Emesis During pt states she wahl snt been able to keep anything down since 12/18/21 @ 0800, tested positive for flu 12/17, negative for COVID 12/17/21 Specialty Diagnoses / Procedures Referred By Les crisostomo Referred To Contact Diagnoses Adenomyosis HX OF CERVICAL DYSPLASIA, ADENOMYOSIS Procedures [place] LAPAROSCOPY W TOT HYSTERECTUTERUS <=250 GRAM W TUBE/OVARY HYSTERECTOMY VAGINAL LAPAROSCOPIC ROBOTIC ASSISTED - POSSIBLE BSO, POSSIBLE LAPAROSCOPIC COLPOPEXY Kaila Buckley, DO [address] [place] [address] [facility] [address] [place] [address] Referral ID Status Reason Start Date Expiration Date Visits Re quested Visits Authorized [id number] 1 1 Ordered Prescriptions (unrec ognized section and content) Prescription Sig Dispensed Refills Start Date End Da te promethazine (PHENERGAN) [address] 1 suppository rectally every 6 hours as needed for Nausea WARNING: May cause drowsiness. May impair ability to operate vehicles or machinery. Do not use in combination with alcohol. 20 suppository 0 08/06/2021 08/13/2021 metoclopramide (REGLAN) 10 MG tablet Take 1 tablet by mouth 4 times daily WARNING: May cause drowsiness. May impair ability to operate vehicles or machinery. Do not use in combination with alcohol. 20 tablet 0 08/06/2021 Prescription Sig Dispensed Refills Start Date End Da te oseltamivir (TAMIFLU) 75 MG capsule Take 1 capsule by mouth 2 times daily for 5 days 10 capsule 0 12/15/2021 12/20/2021 Prescription Sig Dispensed Refills Start Date End Da te HYDROcodone-acetaminophe n (NORCO) 5-325 MG per tabletIndications:Post-o p pain Take 1 tablet by mouth every 6 hours as needed for Pain for up to 5 days. Intended supply: 5 days. Take lowest dose possible to manage pain Max Daily Amount: 4 tablets 10 tablet 0 10/01/2022 10/06/2022 ketorolac (TORADOL) 10 MG tablet Take 1 tablet by mouth every 6 hours as needed for Pain 20 tablet 0 10/01/2022 10/01/2023 Scheduled Active and Recently Administ ered Medications (unrecognized section and content) Medication Order 08/04/2021 08/05/2021 08/06/2021 0.9 % sodium chloride bolus (COMPLETED) 1,000 mL (14.3 mL/kg), IntraVENous, at 1,000 mL/hr, Administer over 1 Hours, ONCE, On Fri08/06/21 at 1145, For 1 dose 1214 (New Bag - Prov ider: Sosa Hussein RN)1333 (Stopped - Provider: Aarti Harris RN) metoclopramide (REGLAN) injection 10 mg (COMPLETED) 10 mg, IntraVENous, ONCE, On Fri08/06/21 at 1430, For 1 dose 1455 (Given - Provid er: Aarti Harris RN) ondansetron (ZOFRAN) injection 4 mg (COMPLETED) 4 mg, IntraVENous, ONCE, On Fri08/06/21 at 1230, For 1 dose 1226 (Given - Provid er: Sosa Hussein RN) ondansetron (ZOFRAN) injection 4 mg (COMPLETED) 4 mg, IntraVENous, ONCE, On Fri08/06/21 at 1315, For 1 dose 1333 (Given - Provid er: Aarti Harris RN) Scheduled Medication Order 12/03/2021 12/04/2021 12/05/2021 ceFAZolin (ANCEF) 2000 mg in dextrose 5 % 100 mL IVPB 2,000 mg, IntraVENous, EVERY 8 HOURS, First dose on Fri12/05/21 at 1830, Until Discontinued 184 (New Bag - Prov ider: Constance Mckeon RN)2015 (Stopped - Provider: Sheila Beltrán, RN) Continuous Medication Order 12/03/2021 12/04/2021 12/05/2021 dextrose 5 % in lactated ringers infusion IntraVENous, at 999 mL/hr, CONTINUOUS, Starting on Fri12/05/21 at 1830, Bolus 1000ml 1825 (New Bag - Prov ider: Dhara Alvarez, LAURA)2014 (Stopped - Provider: Sheila Beltrán, RN) PRN Medication Order 12/03/2021 12/04/2021 12/05/2021 promethazine (PHENERGAN) tablet 25 mg 25 mg, Oral, EVERY 6 HOURS PRN, Nausea, Starting on Fri12/05/21 at 1809 1844 (Given - Provid er: Constance Mckeon RN) Scheduled Medication Order 12/13/2021 12/14/2021 12/15/2021 oseltamivir (TAMIFLU) capsule 75 mg (COMPLETED) 75 mg, Oral, ONCE, On Fri12/15/21 at 1130, For 1 dose 1125 (Given - Provid er: Soco Westbrook RN) Scheduled Medication Order 12/17/2021 12/18/2021 12/19/2021 lactated ringers infusion 500 mL (COMPLETED) 500 mL, IntraVENous, at 967.7 mL/hr, ONCE, On Fri12/19/21 at 1345, For 1 dose 1337 (New Bag - Prov ider: Brianna Rodarte RN)1752 (Stopped - Provider: Brianna Rodarte RN) lactated ringers infusion (COMPLETED) IntraVENous, at 500 mL/hr, ONCE, On Fri12/19/21 at 1815, For 1 dose 1755 (New Bag - Prov ider: Brianna Rodarte, LAURA)2019 (Stopped - Provider: Shy Massey RN) promethazine (PHENERGAN) injection 25 mg 25 mg, IntraMUSCular, ONCE, On Fri12/19/21 at 1730, For 1 dose, Only to be given as IM injection. 175 (Not Given - Pr ovider: Brianna Rodarte RN - Reason: Patient/family refused) PRN Medication Order 12/17/2021 12/18/2021 12/19/2021 ondansetron (ZOFRAN) injection 4 mg 4 mg, IntraVENous, EVERY 6 HOURS PRN, Nausea, Vomiting, Starting on Fri12/19/21 at 1318 1338 (Given - Provid er: Brianna Rodarte, RN)2017 (Given - Provider: Dhara Ferguson RN) Scheduled Medication Order 03/06/2022 2022 03/08/2022 benzocaine-menthol (DERMOPLAST) 20-0.5 % spray Topical, 2 TIMES DAILY, First dose on Fri03/07/22 at 2100, Apply to perineal area. Patient is capable and may self administer at bedside., 2046 (Given - Provider: Maddie Catalan RN) 1148 (Not Given - Provider: Katie Mccrary RN - Reason: Other - Comment: at bedside)2099 (Due) measles, mumps & rubella vaccine (MMR) injection 0.5 mL 0.5 mL, SubCUTAneous, PRIOR TO DISCHARGE, 1 dose, Starting on Fri03/07/22 at 1718, Until Discontinued, sodium chloride flush 0.9 % injection 5-40 mL 5-40 mL, IntraVENous, EVERY 12 HOURS SCHEDULED (2 times per day), First dose on Fri03/07/22 at 2100, Until Discontinued, For Line Patency: Peripheral IV = 5 mL; Midline or Central Line = 10 mL/lumen. If following IV push medication, administer flush at same rate as the IV push. Flush volume is determined by type of infusion therapy being given. For non-viscous solutions use: Peripheral IV = 5 mL Midline or Central Line = 10 mL/lumen For viscous solutions (i.e. blood components, parenteral nutrition, contrast media, or after obtaining blood sample) use: Peripheral IV = 10 mL Midline or Central Line = 20 mL/lumen, 2100 (Due) 1148 (Not Given - Provider: Katie Mccrary RN - Reason: Loss of IV access)2099 (Due) edohxzx-bpvrqf-ccdxt pertussis (BOOSTRIX) injection 0.5 mL 0.5 mL, IntraMUSCular, PRIOR TO DISCHARGE, 1 dose, Starting on Fri03/07/22 at 1718, Until Discontinued, If not previously administered during at 27-36 weeks as recommended by CDC., witch ramses-glycerin (TUCKS) pad Topical, 2 TIMES DAILY, First dose on Fri03/07/22 at 2100, Apply to perineal area. Patient is capable and may self administer at bedside., 2046 (Given - Provider: Maddie Catalan RN) 1149 (Not Given - Provider: Katie Mccrary RN - Reason: Other - Comment: at bedside)2100 (Due) Continuous Medication Order 03/06/2022 2022 03/08/2022 lactated ringers infusion (CANCELED) IntraVENous, at 125 mL/hr, CONTINUOUS, Starting on Pilar 03/07/22 at 1130, Labor and Delivery 1212 (New Bag - Provider: Donovan Nunes RN) oxytocin (PITOCIN) 30 units in 500 mL infusion (CANCELED) 1 barbara-units/min (1 mL/hr), IntraVENous, CONTINUOUS, Starting on Pilar 03/07/22 at 1130, Until Pilar 03/07/22 at 1718, Begin infusion at 1 barbara-unit/min (1 barbara-unit per min = 1 mL per hour) and increase by 2 barbara-units/min as needed, every 30 minutes, until labor is achieved. Labor is defined as contractions every 2-3 minutes with cervical changes or [place] units (MVU) greater than 200 in a 10-minute window. Maximum infusion rate: 24 barbara-unit/min. Contact provider if maximum rate does not achieve desired response. Provider may order alternative titration goal or other clinically appropriate goal of titration rate (s). If staff does not increase pitocin at ordered rate, or if pitocin is turned down or off notify provider., Labor and Delivery 1211 (New Bag - Provider: Donovan Nunes RN)1301 (Rate/Dose Change - Provider: Yahaira Nunes RN)1332 (Rate/Dose Change - Provider: Yahaira Nunes RN)1429 (Rate/Dose Change - Provider: Yahaira Nunes RN)1547 (Rate/Dose Change - Provider: Yahaira Nunes RN) ropivacaine (NAROPIN) 0.2% injection 0.2% (CANCELED) 11 mL/hr, Epidural, CONTINUOUS, Starting on Pilar 03/07/22 at 1615, Until Pilar 03/07/22 at 1718, Until delivery., Labor and Delivery 1536 (Given - Provider: MONTY Cordoba CRNA)1538 (New Bag - Provider: MONTY Cordoba CRNA) PRN Medication Order 03/06/2022 2022 03/08/2022 0.9 % sodium chloride infusion IntraVENous, at 5-250 mL/hr, PRN, if patient receiving piggyback infusions and maintenance fluids are not ordered OR KVO fluids to protect IV site / prevent frequent line interruptions/ long duration, Starting on Pilar 03/07/22 at 1718, For piggyback infusion, administer at same rate as piggyback for a total of 25 mL. Enter 25 mL into dose field and piggyback rate into rate field of order. If piggyback is infusing at a rate less than 100 mL/hr, enter 25 mL into dose field and 100 mL/hr into rate field of order. For KVO fluids, enter rate of 20 mL/hr or less into rate field of order., acetaminophen (TYLENOL) tablet 1,000 mg 1,000 mg, Oral, EVERY 8 HOURS PRN, Starting on Pilar 03/07/22 at 1718, Until Discontinued, Other, Pain (1-10), Give in addition to any other pain medication ordered at same time for any pain indication. Maximum dose of acetaminophen is 4000mg from all sources in 24 hours. Alternate ibuprofen and acetaminophen every 4 hours., carboprost (HEMABATE) injection 250 mcg 250 mcg, IntraMUSCular, PRN, Starting on Pilar 03/07/22 at 1112, Until Discontinued, PP Bleeding, May repeat every 15 minutes up to a cumulative maximum dose of 1000 mcg, at physician's request. Not for use in patients with asthma or emphysema. carboprost (HEMABATE) injection 250 mcg 250 mcg, IntraMUSCular, PRN, Starting on Pilar 03/07/22 at 1718, Until Discontinued, heavy bleeding, May repeat every 15 minutes up to a cumulative maximum dose of 1000 mcg, at physician's request., docusate sodium (COLACE) capsule 100 mg 100 mg, Oral, 2 TIMES DAILY PRN, Starting on Pilar 03/07/22 at 1718, Until Discontinued, Constipation, Do not crush or break., ibuprofen (ADVIL;MOTRIN) tablet 800 mg 800 mg, Oral, EVERY 8 HOURS PRN, Starting on Pilar 03/07/22 at 1718, Until Discontinued, Pain Moderate (4-6), Do not crush or chew., 1837 (Given - Provider: Yahaira Nunes RN) 1500 (Given - Provider: Katie Mccrary RN) lactated ringers bolus (CANCELED) 1,000 mL, IntraVENous, at 1,935.5 mL/hr, Administer over 31 Minutes, PRN, Give prior to epidural placement. May be repeated if a second epidural/spinal procedure is performed., Starting on Pilar 03/07/22 at 1112, Labor and Delivery 1431 (New Bag - Provider: Yahaira Nunes RN)1502 (Due: Stopped - Provider: Yahaira Nunes RN) lansinoh lanolin ointment Topical, PRN, Dry Skin, nipple discomfort, Starting on Pilar 03/07/22 at 1718, methylergonovine (METHERGINE) injection 200 mcg 200 mcg, IntraMUSCular, PRN, Starting on Pilar 03/07/22 at 1718, Until Discontinued, Bleeding, PRN for post- hemorrhage, if not hypertensive., miSOPROStol (CYTOTEC) tablet 800 mcg 800 mcg, Rectal, PRN, 1 dose, Starting on Pilar 03/07/22 at 1718, Until Discontinued, Post- Hemorrhage, Notify Physician prior to administration., miSOPROStol (CYTOTEC) tablet 900 mcg 900 mcg, Rectal, PRN, Starting on Pilar 03/07/22 at 1112, Until Discontinued, Post Hemmorrhage oxytocin (PITOCIN) 10 unit bolus from the bag(Linked Group 1) 999 mL/hr, IntraVENous, PRN, 1 dose, Starting on Pilar 6 at 1112, Until Discontinued, Bleeding, For Post Use Only. Give after delivery of placenta. Bolus for bag to infuse at 999ml/20 minutes. oxytocin (PITOCIN) 30 units in 500 mL infusion(Linked Group 1) 166 barbara-units/min (166 mL/hr), IntraVENous, PRN, 1 dose, Starting on Pilar 6 at 1112, Until Discontinued, Bleeding, For Post Use Only. Give after delivery of placenta. Following Bolus from bag administration, reduce the rate to 166 mL/hr and administer remaining bag sodium chloride flush 0.9 % injection 5-40 mL 5-40 mL, IntraVENous, PRN, Starting on Pilar 03/07/22 at 1718, Until Discontinued, Line Care, After every IV line use, For Line Patency: Peripheral IV = 5 mL; Midline or Central Line = 10 mL/lumen. If following IV push medication, administer flush at same rate as the IV push. Flush volume is determined by type of infusion therapy being given. For non-viscous solutions use: Peripheral IV = 5 mL Midline or Central Line = 10 mL/lumen For viscous solutions (i.e. blood components, parenteral nutrition, contrast media, or after obtaining blood sample) use: Peripheral IV = 10 mL Midline or Central Line = 20 mL/lumen, Linked Groups Order Group 1: oxytocin (PITOCIN) 30 units in 500 mL infusionJump to med 166 barbara-units/min (166 mL/hr), IntraVENous, PRN, 1 dose, Starting on Pilar 03/07/22 at 1112, Until Discontinued, Bleeding
For Post Use Only. Give after delivery of placenta. Following Bolus from bag administration, reduce the rate to 166 mL/hr and administer remaining bag
And oxytocin (PITOCIN) 10 unit bolus from the bagJump to med 999 mL/hr, IntraVENous, PRN, 1 dose, Starting on Pilar 03/07/22 at 1112, Until Discontinued, Bleeding
For Post Use Only. Give after delivery of placenta. Bolus for bag to infuse at 999ml/20 minutes.
Scheduled Medication Order 09/29/2022 09/30/2022 10/01/2022 acetaminophen (TYLENOL) tablet 650 mg (COMPLETED) 650 mg, Oral, ONCE, 1 dose, On Fri10/01/22 at 1230, Maximum dose of acetaminophen is 4000 mg from all sources in 24 hours., Pre-op (day of surgery) 1250 (Given - Provid er: Dhara Alvarez RN) ceFAZolin (ANCEF) 2000 mg in dextrose 5 % 100 mL IVPB (COMPLETED) 2,000 mg, IntraVENous, WALLPAPER HANGER TO O.R., 1 dose, On Fri10/01/22 at 1230, Antimicrobial Indications: Surgical Prophylaxis, Administer within 1 hour prior to incision., Pre-op (day of surgery) 1353 (New Bag - Prov ider: Patsy Manzanares RN)1423 (Due: Stopped - Provider: Patsy Manzanares RN) enoxaparin (LOVENOX) injection 40 mg (COMPLETED) 40 mg, SubCUTAneous, ONCE, 1 dose, On Fri10/01/22 at 1230, Indication of Use: Prophylaxis-DVT/PE, Pre-op (day of surgery) 1249 (Given - Provid er: Dhara Alvarez RN) famotidine (PEPCID) injection 20 mg (COMPLETED) 20 mg, IntraVENous, ONCE, 1 dose, On Fri10/01/22 at 1230, Administer over 2 minutes., Pre-op (day of surgery) 1258 (Given - Provid er: Dhara Alvarez RN) gabapentin (NEURONTIN) capsule 400 mg (COMPLETED) 400 mg, Oral, ONCE, 1 dose, On Fri10/01/22 at 1230, Pre-op (day of surgery) 1250 (Given - Provid er: Dhara Alvarez RN) glycopyrrolate (ROBINUL) injection 0.1 mg (COMPLETED) 0.1 mg, IntraVENous, ONCE, 1 dose, On Fri10/01/22 at 1745, Post-op 1718 (Given - Provid er: Arlene Burden RN) glycopyrrolate (ROBINUL) injection 0.1 mg (COMPLETED) 0.1 mg, IntraVENous, ONCE, 1 dose, On Fri10/01/22 at 1745, Post-op 1729 (Given - Provid er: Arlene Burden RN) ketorolac (TORADOL) injection 15 mg (COMPLETED) Ketorolac is contraindicated in patients with advanced renal impairment and in patients at risk of renal failure due to volume depletion. For 65 years of age and older OR weight less than 50 kg, use 15 mg IV every 6 hours; MAX dose: 60 mg/day. Dose greater than 30 mg must be administered via intramuscular route. Do not administer for more than 5 days., 15 mg, IntraVENous, ONCE, 1 dose, On Fri10/01/22 at 1815, Do not administer for more than 5 days. 1752 (Given - Provid er: Arlene Burden RN) phenazopyridine (PYRIDIUM) tablet 200 mg (COMPLETED) 200 mg, Oral, ONCE, 1 dose, On Fri10/01/22 at 1430, May cause discoloration of urine. 1703 (Given - Provid er: Arlene Burden RN) sodium chloride flush 0.9 % injection 5-40 mL 5-40 mL, IntraVENous, EVERY 12 HOURS SCHEDULED (2 times per day), First dose on Fri10/01/22 at 2100, Until Discontinued, For Line Patency: Peripheral IV = 5 mL; Midline or Central Line = 10 mL/lumen. If following IV push medication, administer flush at same rate as the IV push. Flush volume is determined by type of infusion therapy being given. For non-viscous solutions use: Peripheral IV = 5 mL Midline or Central Line = 10 mL/lumen For viscous solutions (i.e. blood components, parenteral nutrition, contrast media, or after obtaining blood sample) use: Peripheral IV = 10 mL Midline or Central Line = 20 mL/lumen, Pre-op (day of surgery) 2100 (Due) sodium chloride flush 0.9 % injection 5-40 mL 5-40 mL, IntraVENous, EVERY 12 HOURS SCHEDULED (2 times per day), First dose on Fri10/01/22 at 2100, Until Discontinued, For Line Patency: Peripheral IV = 5 mL; Midline or Central Line = 10 mL/lumen. If following IV push medication, administer flush at same rate as the IV push. Flush volume is determined by type of infusion therapy being given. For non-viscous solutions use: Peripheral IV = 5 mL Midline or Central Line = 10 mL/lumen For viscous solutions (i.e. blood components, parenteral nutrition, contrast media, or after obtaining blood sample) use: Peripheral IV = 10 mL Midline or Central Line = 20 mL/lumen, PACU only 2100 (Due) Continuous Medication Order 09/29/2022 09/30/2022 10/01/2022 lactated ringers infusion IntraVENous, at 100 mL/hr, CONTINUOUS, Starting on Fri10/01/22 at 1230, Pre-op (day of surgery) 1258 (New Bag - Prov ider: Dhara Alvarez RN)1356 (NoRateChange - Provider: Sheila Brown APRN - [employer])1519 (New Bag - Provider: Sheila Brown APRN - [employer] SUPER[employer]OR)1815 (Stopped - Provider: Arlene Burden RN) PRN Medication Order 09/29/2022 09/30/2022 10/01/2022 0.9 % sodium chloride infusion IntraVENous, at 5-250 mL/hr, PRN, if patient receiving piggyback infusions and maintenance fluids are not ordered OR KVO fluids to protect IV site / prevent frequent line interruptions/ long duration, Starting on Fri10/01/22 at 1213, For piggyback infusion, administer at same rate as piggyback for a total of 25 mL. Enter 25 mL into dose field and piggyback rate into rate field of order. If piggyback is infusing at a rate less than 100 mL/hr, enter 25 mL into dose field and 100 mL/hr into rate field of order. For KVO fluids, enter rate of 20 mL/hr or less into rate field of order., Pre-op (day of surgery) 0.9 % sodium chloride infusion IntraVENous, at 5-250 mL/hr, PRN, if patient receiving piggyback infusions and maintenance fluids are not ordered OR KVO fluids to protect IV site / prevent frequent line interruptions/ long duration, Starting on Fri10/01/22 at 1535, For piggyback infusion, administer at same rate as piggyback for a total of 25 mL. Enter 25 mL into dose field and piggyback rate into rate field of order. If piggyback is infusing at a rate less than 100 mL/hr, enter 25 mL into dose field and 100 mL/hr into rate field of order. For KVO fluids, enter rate of 20 mL/hr or less into rate field of order., PACU only 0.9 % sodium chloride infusion IntraVENous, at 5-250 mL/hr, PRN, if patient receiving piggyback infusions and maintenance fluids are not ordered OR KVO fluids to protect IV site / prevent frequent line interruptions/ long duration, Starting on Fri10/01/22 at 1650, For piggyback infusion, administer at same rate as piggyback for a total of 25 mL. Enter 25 mL into dose field and piggyback rate into rate field of order. If piggyback is infusing at a rate less than 100 mL/hr, enter 25 mL into dose field and 100 mL/hr into rate field of order. For KVO fluids, enter rate of 20 mL/hr or less into rate field of order., PACU only fentaNYL (SUBLIMAZE) injection 50 mcg 50 mcg, IntraVENous, EVERY 5 MIN PRN, 2 doses, Starting on Fri10/01/22 at 1535, Until Discontinued, Pain Severe (7-10), Pain Moderate (4-6), For Phase I. If Phase II oral narcotics have been administered in the last 60 minutes, do not administer IV narcotics unless specifically approved by provider., PACU only 1608 (Given - Provid er: Arlene Burden RN) HYDROcodone-acetaminophen (NORCO) 5-325 MG per tablet 1 tablet 1 tablet, Oral, EVERY 6 HOURS PRN, Starting on Fri10/01/22 at 1535, Until Discontinued, Pain Moderate (4-6), Pain Severe (7-10), Maximum dose of acetaminophen is 4000 mg from all sources in 24 hours., PACU & Post-op ondansetron (ZOFRAN) injection 4 mg (COMPLETED) 4 mg, IntraVENous, ONCE PRN, 1 dose, Starting on Fri10/01/22 at 1650, Until Fri10/02/22 at 1650, Nausea, Initial antiemetic therapy., PACU only 1658 (Given - Provid er: Arlene Burden RN) oxyCODONE (ROXICODONE) immediate release tablet 5 mg 5 mg, Oral, EVERY 4 HOURS PRN, Starting on Fri10/01/22 at 1656, Until Discontinued, Pain Moderate (4-6), Pain Severe (7-10) 1733 (Given - Provid er: Arlene Burden RN) prochlorperazine (COMPAZINE) injection 5 mg 5 mg, IntraVENous, ONCE PRN, 1 dose, Starting on Fri10/01/22 at 1650, Until Fri10/02/22 at 1650, Nausea, Secondary antiemetic therapy., PACU only sodium chloride flush 0.9 % injection 5-40 mL 5-40 mL, IntraVENous, PRN, Starting on Fri10/01/22 at 1213, Until Discontinued, Line Care, After every IV line use, For Line Patency: Peripheral IV = 5 mL; Midline or Central Line = 10 mL/lumen. If following IV push medication, administer flush at same rate as the IV push. Flush volume is determined by type of infusion therapy being given. For non-viscous solutions use: Peripheral IV = 5 mL Midline or Central Line = 10 mL/lumen For viscous solutions (i.e. blood components, parenteral nutrition, contrast media, or after obtaining blood sample) use: Peripheral IV = 10 mL Midline or Central Line = 20 mL/lumen, Pre-op (day of surgery) sodium chloride flush 0.9 % injection 5-40 mL 5-40 mL, IntraVENous, PRN, Starting on Fri10/01/22 at 1535, Until Discontinued, Line Care, After every IV line use, For Line Patency: Peripheral IV = 5 mL; Midline or Central Line = 10 mL/lumen. If following IV push medication, administer flush at same rate as the IV push. Flush volume is determined by type of infusion therapy being given. For non-viscous solutions use: Peripheral IV = 5 mL Midline or Central Line = 10 mL/lumen For viscous solutions (i.e. blood components, parenteral nutrition, contrast media, or after obtaining blood sample) use: Peripheral IV = 10 mL Midline or Central Line = 20 mL/lumen, PACU only sodium chloride flush 0.9 % injection 5-40 mL 5-40 mL, IntraVENous, PRN, Starting on Fri10/01/22 at 1650, Until Discontinued, Line Care, After every IV line use, For Line Patency: Peripheral IV = 5 mL; Midline or Central Line = 10 mL/lumen. If following IV push medication, administer flush at same rate as the IV push. Flush volume is determined by type of infusion therapy being given. For non-viscous solutions use: Peripheral IV = 5 mL Midline or Central Line = 10 mL/lumen For viscous solutions (i.e. blood components, parenteral nutrition, contrast media, or after obtaining blood sample) use: Peripheral IV = 10 mL Midline or Central Line = 20 mL/lumen, PACU only Care Teams (unrecognized sec tion and content) Rag Collector Relationship Specialty Start Date End Date Chencho Sylvester, MONTY - TECHNICAL PROJECT LEAD PCP - General Family Medicine 11/02/19 Rag Collector Relationship Specialty Start Date End Date Chencho Sylvester, BUSINESS LAW PROFESSOR - TECHNICAL PROJECT LEAD PCP - General Family Medicine 11/02/19 Rag Collector Relationship Specialty Start Date End Date Chencho Sylvester BUSINESS LAW PROFESSOR - TECHNICAL PROJECT LEAD PCP - General Family Medicine 11/02/19 Rag Collector Relationship Specialty Start Date End Date Chencho Sylvester, BUSINESS LAW PROFESSOR - TECHNICAL PROJECT LEAD PCP - General Family Medicine 11/02/19 Rag Collector Relationship Specialty Start Date End Date Chencho Sylvester, BUSINESS LAW PROFESSOR - TECHNICAL PROJECT LEAD PCP - General Family Medicine 11/02/19 Rag Collector Relationship Specialty Start Date End Date Chencho Sylvester BUSINESS LAW PROFESSOR - TECHNICAL PROJECT LEAD PCP - General Family Medicine 11/02/19 Rag Collector Relationship Specialty Start Date End Date Chencho Sylvester, BUSINESS LAW PROFESSOR - TECHNICAL PROJECT LEAD PCP - General Family Medicine 11/02/19 Rag Collector Relationship Specialty Start Date End Date Chencho Sylvester, BUSINESS LAW PROFESSOR - TECHNICAL PROJECT LEAD PCP - General Family Medicine 11/02/19 Rag Collector Relationship Specialty Start Date End Date Chencho Sylvester, BUSINESS LAW PROFESSOR - TECHNICAL PROJECT LEAD PCP - General Family Medicine 11/02/19 Rag Collector Relationship Specialty Start Date End Date Chencho Sylvester, BUSINESS LAW PROFESSOR - TECHNICAL PROJECT LEAD PCP - General Family Medicine 11/02/19 FOR RECORDS PERTAINING TO PATIENTS WHO ARE OR HAVE BEEN ENROLLED IN A CHEMICAL DEPENDENCY/SUBSTANCEABUSE PROGRAM, SOME INFORMATION MAY BE OMITTED. This clinical summary was aggregated from multiple sources. Caution should be exercised in using it in the provision of clinical care. This summary normalizes information from multiple sources, and as a consequence, information in this document may materially change the coding, format and clinical context of patient data. In addition, data may be omitted in some cases. CLINICAL DECISIONS SHOULD BE BASED ON THE PRIMARY CLINICAL RECORDS. [facility]. provides no warranty or guarantee of the accuracy or completeness of information in this document.
== END 2023-11-26 10:50 | disposition home or self-care (01) ==
LOC: EC 10:50
PROVIDERS: Visit Provider Podiatrist Foot & Ankle Surgery
DX: M25.572 Pain in left ankle and joints of left foot (principal); S82.62XD Displaced fracture of lateral malleolus of left fibula, subsequent encounter for closed fracture with routine healing; Z98.890 Other specified postprocedural states
CPT/HCPCS: 73610

== ENCOUNTER 2023-12-16 14:04 | Outpatient (OUT) | payer OTHER, MEDICAID, SELFPAY ==
--- NOTE | 2023-12-16 | XR_ITS ---
The [address] [address] Patient Name: DIEUDONNE ISBELL MRN: [id number] date: 1990 Sex: F Assigned Patient Location: Current Patient Location: Accession/Order Number: [id number] Exam Date: 12/16/2023 14:05 Report Date: 12/16/2023 15:48 At the request of: VERN ORTIZ Procedure: XR ankle LT min 3V PROCEDURE: XR ankle LT min 3V COMPARISON: 11/26/2023 HISTORY: LEFT ANKLE PAIN FINDINGS: BONES:Stable bimalleolar fracture with internal fixation. 2 screws across the medial malleolus. Tibial fibular syndesmosis fixation. Lateral fibular plate and screws. Stable displaced fracture anterior distal tibia. Enthesopathic spurring plantar calcaneus SOFT TISSUES:Moderate diffuse soft tissue swelling most significant medially EFFUSION:None visible. OTHER: Negative. XR/XR ankle LT min 3V IMPRESSION: Stable fractures and internal fixation Electronically authenticated by: LYNSEY CORONADO Date: 12/16/2023 15:48
== END 2023-12-16 14:05 | disposition home or self-care (01) ==
LOC: EC 14:04
PROVIDERS: Visit Provider Physician Assistant
DX: S82.852D Displaced trimalleolar fracture of left lower leg, subsequent encounter for closed fracture with routine healing (principal); Z98.890 Other specified postprocedural states
CPT/HCPCS: 73610

== ENCOUNTER 2024-01-13 13:49 | Outpatient (OUT) | payer OTHER, MEDICAID, SELFPAY ==
--- NOTE | 2024-01-13 | XR_ITS ---
The [address] [address] Patient Name: DIEUDONNE ISBELL MRN: [id number] date: 1990 Sex: F Assigned Patient Location: Current Patient Location: Accession/Order Number: [id number] Exam Date: 01/13/2024 13:50 Report Date: 01/13/2024 15:40 At the request of: DUC WHITLOCK Procedure: XR ankle LT min 3V PROCEDURE: XR ankle LT min 3V COMPARISON: 12/16/2023 HISTORY: LEFT ANKLE PAIN FINDINGS: BONES:Stable fibular fracture with lateral fixation utilizing a plate and screws. Remote fixation of the medial malleolus with 2 screws. Tibiofibular syndesmosis device. No new fracture or dislocation. SOFT TISSUES:Moderate diffuse soft tissue swelling EFFUSION:None visible. OTHER: Negative. XR/XR ankle LT min 3V IMPRESSION: Stable fractures with internal fixation Electronically authenticated by: LYNSEY CORONADO Date: 01/13/2024 15:40
== END 2024-01-13 13:50 | disposition home or self-care (01) ==
LOC: EC 13:49
PROVIDERS: Visit Provider Podiatrist Foot & Ankle Surgery
DX: S82.852D Displaced trimalleolar fracture of left lower leg, subsequent encounter for closed fracture with routine healing (principal); Z98.890 Other specified postprocedural states
CPT/HCPCS: 73610

== ENCOUNTER 2024-02-17 09:36 | Outpatient (OUT) | payer OTHER, SELFPAY ==
--- NOTE | 2024-02-17 | XR_ITS ---
The [address] [address] Patient Name: DIEUDONNE ISBELL MRN: [id number] date: 1990 Sex: F Assigned Patient Location: Current Patient Location: Accession/Order Number: [id number] Exam Date: 02/17/2024 09:37 Report Date: 02/17/2024 13:58 At the request of: DUC WHITLOCK Procedure: XR ankle LT min 3V PROCEDURE: XR ankle LT min 3V HISTORY: LEFT ANKLE PAIN COMPARISON: XR ankle left 01/13/2024 FINDINGS: BONES:Prior surgical repair of medial malleolus and distal fibula and fusion of the tibiofibular syndesmosis. No appreciable hardware fracture or loosening. Uniform ankle joint spacing. SOFT TISSUES:Mild soft tissue swelling; less than previously seen. EFFUSION:None visible. OTHER: Negative. XR/XR ankle LT min 3V IMPRESSION: 1. Prior surgical repair of left ankle without evidence of hardware failure or change in alignment. 2. Persistence distal fibula fracture line without significant callus formation. Electronically authenticated by: JAMIL ALMAZAN Date: 02/17/2024 13:58
--- OUTSIDE RECORDS SUMMARY | 2024-02-17 10:00 | XMS_ITS | CCD ---
Author Organization [facility] Care Team Providers Care Job Press Feeder Name Role Phone PHAN RUBI Attending Unavailable NONE PER PATIENT, . Primary Care Unavailable PHAN RUBI Attending Unavailable NONE PER PATIENT, . Primary Care Unavailable RomeoJustin ortiza Primary Care Provider Unavailable Primary Care Provider Unavailmolly SylvesterChencho Primary Care Provider [phone] [facility] Care [facility] Higinio JUKEBOX 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 [facility] Primary Care Provider Higinio JUKEBOX 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 [facility], [facility] Primary Care Provider Higinio JUKEBOX 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 [facility], [facility] Primary Care Provider Betty Lamar Unavailable HIGINIOMS APIZ Primary Care Unavailable MARK, DR ALEGRE Admitting Unavailable MARK, DR ALEGRE Consulting Unavailable MARK, DR ALEGRE Attending Unavailable ANGELLA AU Consulting Unavailable DE, DR KARLO Bennett Admitting Unavailable DE, DR KARLO Bennett Consulting Unavailable DE, DR KARLO Bennett Attending Unavailable HIGINIO, MS PAIZ Primary Care Unavailable MARYAM LUU Consulting Unavailable GILDARDO, DR BRITNEY Aguirre Admitting Unavailmolly EWING, DR BRITNYE Aguirre Consulting Unavailmolly EWING, DR BRITNEY Aguirre Attending Unavailmolly SYLVESTER, MS PAIZ Primary Care Unavailable CORWIN ABREU Admitting Unavailable CORWIN ABREU Consulting Unavailable CORWIN ABREU Attending Unavailable HIGINIO, MS PAIZ Primary Care Unavailable TANIKA HARRY Consulting Unavailable Higinio JUKEBOX 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 LANE[facility], [facility] Primary Care Provider Higinio JUKEBOX 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 [facility] Provider Higinio JUKEBOX 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 - LANEYChencho Primary Care Provider JERRELL WESTBROOK Referring CHENCHO Saenz Primary Care Unavailable KAILA BUCKLEY Referring Unavail CHENCHO Rush Primary Care Unavailable KAILA BUCKLEY Admitting Unavail yesenia KAILA BUCKLEY Attending Unavail CHENCHO Rush Primary Care Unavailable JERRELL WESTBROOK Referring CHENCHO Saenz Primary Care Unavailable Allergies Allergy Classification Reported Allergen(s) Allergy Type [...] bedside. Start: 07-20-2019 Topical, PRN, Pain, Starting Tu07/20/19 at 1647 Apply to perineal area. Patient [...] / sodium lactate 0.028 meq/ml injectable solution (7 sources) Start: 01-09-2024 lactated ringe rs IV soln infusion Start: 10-01-2022 lactated ringe rs infusion Start: [...] mouth twice a day 0 12/05/2021 Active diphenhydrAMINE hydrochloride 25 mg oral tablet (6 sources) Histamine-1 Receptor Antagonist take 1 tablet by mouth every six hours as needed diphenhydrAMINE (BENADRYL) 25 MG tablet Take 25 mg by mouth every 6 hours as needed 0 Active 2 ml fentaNYL 0.05 mg/ml injection (1 source) Opioid Agonist Start: 10-01-2022 fentaNYL (SUBLIMAZE) injection 50 mcg ketorolac tromethamine 10 mg oral tablet (4 sources) Nonsteroidal Anti-inflammatory Drug, Cyclooxygenase Inhibitor Start: 01-09-2024 End: 01-08-2025 take 1 tablet by mouth every six hours as needed for pain ketorolac (TORADOL) 10 MG tablet Take 1 tablet by mouth every 6 hours as needed for Pain 10 tablet 0 01/09/2024 01/08/2025 Active Start: 10-01-2022 ketorolac (TOR ADOL) injection 15 mg Start: 10-01-2022 End: 10-01-2023 [...] Starting on Pilar 03/07/22 at 1718, levonorgestrel 0.390203 mg/hr intrauterine system (9 sources) Progestin, Progestin-containing Intrauterine Device Start: 04-12-2021 levonorgestrel (MIRENA) IUD 52 mg 1 each Start: 10-31-2018 End: 10-31-2018 MIRENA 20 mcg/24 hr (5 YEARS ) [facility] 10/31/2018 - 10/31/2018 Provider: methylPREDNISolone 4 mg [...] Start: 12-23-2017 End: 12-23-2017 NARATRIPTAN 2.5 MG [facility] 12/05 - 12/23/2017 Provider: Start: 12-23-2017 End: 12-23-2017 NARATRIPTAN 2.5MG [facility] 12/23 - 12/23/2017 Provider: omeprazole 40 mg [...] oxyCODONE (ROXICODONE) immediate release tablet 5 mg Pre-Nasreen (1 source) Pre- Active MV-Min-Fe Fum-FA-DHA ( [...] 5 ml sodium chloride 9 mg/ml injection (17 sources) Start: 01-09-2024 0.9 % sodium c hloride infusion Start: 01-09-2024 sodium chlorid e flush 0.9 % injection [...] Start: 12-05-2017 End: 12-05-2017 TRAZODONE 100 mg [facility] 2017 - 12/05/2017 Provider: Start: 10-10-2016 End: 10-10-2016 TRAZODONE 100 mg [facility] 2016 - 10/10/2016 Provider: Start: 06-24-2016 End: 06-24-2016 TRAZODONE 100 mg [facility] 2015 - 06/24/2016 Provider: vitamin b6 50 [...] Sig (Original) acetaminophen 325 mg oral tablet (4 sources) Start: 01-09-2024 End: 01-09-2024 acetaminophen (TYLENOL) tablet 650 mg Start: 10-01-2022 End: 10-01-2022 acetaminophen (TYLENOL) tabl et 650 mg Start: 2022 1,000 mg, Oral [...] Fever, Fever >100.5 F (38 C), Starting Fri07/20/19 at 1647 Maximum dose of acetaminophen is 4000 mg from all sources in 24 hours. Labor and Delivery acetaminophen 325 mg / oxyCODONE hydrochloride 5 mg oral tablet (1 source) Opioid Agonist Start: 12-12-2023 take 1 tablet by mouth every six hours for pain oxyCODONE-acetaminophen (PERCOCET) 5-325 MG per tablet take 1 tablet by mouth every 6 hours if needed for pain for 7 days 0 12/12/2023 Suspended amoxicillin 500 mg / clavulanate 125 mg [...] of 1000 mcg, at physician's request. ceFAZolin 2000 mg injection (1 source) Cephalosporin Antibacterial Start: 01-09-2024 End: 01-09-2024 ceFAZolin (ANCEF) 2000 mg in 0.9% sodium chloride 100 mL IVPB ceFAZolin (ANCEF) 2000 mg in dextrose 5 % 100 mL IVPB (2 sources) Start: 10-01-2022 End: 10-01-2022 ceFAZolin (ANCEF) 2000 mg in dextrose 5 % 100 mL IVPB Start: 12-05-2021 ceFAZolin (ANC EF) 2000 mg in dextrose 5 % 100 mL IVPB cetirizine hydrochloride 10 mg oral tablet (4 sources) Histamine-1 Receptor Antagonist take 1 tablet by mouth once daily cetirizine (ZYRTEC) 10 MG tablet Take 1 tablet by mouth daily 0 Suspended clonazePAM 1 mg oral tablet (3 sources) Benzodiazepine Start: 016 End: 016 clonazePAM 1 MG OR TABS 06/24/2016 - 06/24/2016 Provider: cyclobenzaprine hydrochloride 5 mg oral tablet (1 source) Muscle Relaxant Start: 024 take 1 tablet by mouth twice daily cyclobenzaprine (FLEXERIL) 5 MG tablet Take 1 tablet by mouth 2 times daily 0 12/12/2023 Suspended dexamethasone 4 mg oral tablet (15 sources) Corticosteroid Start: End: Dexamethasone 4 MG OR TABS 12/23/2017 - [...] OR TABS 0 06/12/2016 - 06/12/2016 Provider: dimenhyDRINATE 50 mg oral tablet (1 source) Start: 01-09-2024 End: 01-09-2024 dimenhyDRINATE (DRAMAMINE) tablet 50 mg docusate sodium 100 mg oral capsule (8 [...] 10-31-2018 End: 10-31-2018 NUVARING 0.12-0.015 MG/24 HR MISC 10/31/2018 - 10/31/2018 Provider: Start: 10-31-2018 End: 10-31-2018 NUVARING 0.12-0.015MG/24 HR [facility] 10/31/2018 - 10/31/2018 Provider: ethinyl estradiol 0.02 mg / norethindrone acetate 1 mg oral tablet (3 sources) Estrogen Start: 10-31-2018 End: 10-31-2018 Loestrin 1/20 (21) 1-20 MG-MCG OR TABS 10/31/2018 - 10/31/2018 Provider: Conversion Provider 2 ml famotidine 10 mg/ml injection (10 sources) Histamine-2 Receptor Antagonist Start: 10-01-2022 End: 10-01-2022 famotidine (PEPCID) injection 20 mg Start: 05-17-2019 take 2 tablets by mo nmh once daily famotidine (PEPCID) 10 MG tablet Take 20 mg by mouth daily 0 05/17/2019 Active Start: 05-17-2019 take 1 tablet by bret before mealtime Pepcid AC 10MG Oral Tablet 05/17/2019 Provider: End: 07-22-2019 take 1 tablet by mouth twice daily famotidine (PEPCID) 20 MG tablet Take 20 mg by mouth 2 times daily 0 07/22/2019 Discontinued (Stop Taking at Discharge) gabapentin 400 mg oral capsule (4 sources) Anti-epileptic Agent Start: 10-01-2022 End: 10-01-2022 gabapentin (NEURONTIN) capsule 400 mg Start: 05-08-2016 End: 05-08-2016 GABAPENTIN 300 mg [facility] 05/08 - 05/08/2016 Provider: 1 ml glycopyrrolate 0.2 mg/m l injection (2 sources) Start: 10-01-2022 End: 10-01-2022 glycopyrrolate (ROBINUL) injection 0.1 mg Start: 10-01-2022 End: 10-01-2022 glycopyrrolate (ROBINUL) inj ection 0.1 mg hydrOXYzine (9 sources) Antihistamine Start: 01-30-2018 End: 01-30-2018 HYDROXYZINE PAMOATE 25 MG MS SC 01/30/2018 - 01/30/2018 Provider: Start: 01-30-2018 End: 01-30-2018 HYDROXYZINE PAMOATE 25MG MIS C 01/30/2018 - 01/30/2018 Provider: Start: 12-05-2017 End: 12-05-2017 HYDROXYZINE PAMOATE 25 MG MS SC 12/05/2017 - 12/05/2017 Provider: Start: 12-05-2017 End: 12-05-2017 HYDROXYZINE PAMOATE 25MG MIS C 12/05/2017 - 12/05/2017 Provider: Start: 05-08-2016 End: 05-08-2016 HYDROXYZINE PAMOATE 25 MG MS SC 05/08/2016 - 05/08/2016 Provider: Start: 05-08-2016 End: 05-08-2016 HYDROXYZINE PAMOATE 25MG MIS C 05/08/2016 - 05/08/2016 Provider: ibuprofen 800 mg [...] (3 times per day), First dose on 07/20/19 at 2200 Do not crush or break. [...] 200 mcg, Intra muscular, PRN, Bleeding, Starting 07/20/19 at 1824 PRN for post- hemorrhage, [...] End: 10-01-2022 phenazopyridine (PYRIDIUM) tablet 200 mg Probiotic Product (PROBIOTIC ADVANCED PO) (1 source) Probiotic Produc t (PROBIOTIC ADVANCED PO) Take by mouth 0 Suspended Propranolol (6 sources) beta-Adrenergic Rogelio Start: 12-05-2017 End: 12-05-2017 PROPRANOLOL 80 MG [facility] 12/05/2017 - 12/05/2017 Provider: Start: 12-05-2017 End: 12-05-2017 PROPRANOLOL 80MG [facility] 2017 - 12/05/2017 Provider: Start: 05-08-2016 End: 05-08-2016 PROPRANOLOL 80 MG [facility] 05/08 - 05/08/2016 Provider: Start: 05-08-2016 End: 05-08-2016 PROPRANOLOL 80MG [facility] 2015 - 05/08/2016 Provider: SUMAtriptan 50 mg [...] Problem Date Documented Date Episodic/Chronic Anxiety disorders (16 sources) Anxiety disorder, unspecified; Translations: [Anxiety disorder] Onset: 11-03-2018 09-09-2021 Chronic Complication of device; implant or graft (1 source) Displacement of intrauterine contraceptive device, initial encounter; Translations: [Displacement of intrauterine contraceptive device, initial encounter] Onset: 10-13-2018 Episodic Endometriosis (1 source) Uterine adenomyosis; Translations: [Adenomyosis] Chronic Headache; including migraine (20 sources) Migraine without aura, not refractory ; Translations: [Chronic migraine without aura, not intractable, without status migrainosus] Onset: 01-27-2018 Resolved: 07-22-2019 01-27-2018 Chronic Hemorrhage during ; abruptio placenta; placenta previa (1 source) Placenta previa marginalis; Translations: [Partial placenta previa NOS or without hemorrhage, unspecified trimester] Episodic Influenza (1 source) Influenza; Translations: [Influenza [...] delivery] Onset: 07-20-2019 Resolved: 05-21-2022 07-22-2019 Episodic Other screening for suspected conditions (not mental disorders or infectious disease) (1 source) Cancer cervix screening status; Translations: [Encounter for screening for malignant neoplasm of cervix] Episodic Prolapse of female genital organs (2 sources) Incomplete uterovaginal prolapse; Translations: [Cystocele, unspecified] Onset: 08-07-2018 Chronic Residual codes; unclassified (1 source) Gestation period, 36 weeks; Translations: [36 weeks gestation of ] Episodic Substance-related disorders (1 source) Nicotine dependence, cigarettes, uncomplicated; Translations: [NICOTINE DEPEND CIGARETTES UNCOMP] Onset: 05-23-2021 Chronic Viral infection (2 sources) Condyloma acuminata of vulva; Translations: [Anogenital (venereal) warts] Onset: 01-09-2024 01-09-2024 Episodic Past or Other Problems Problem Classification Problem Date Documented Da te Episodic/Chronic Contraceptive and procreative management (3 sources) Encounter for removal of intrauterine contraceptive device; Translations: [Presence of (intrauterine) contraceptive device] Onset: 10-13-2018 Episodic Genitourinary symptoms and ill-defined conditions (3 sources) Dysuria; Translations: [Dysuria] Onset: 02-03-2023 Episodic Headache; including migraine (20 sources) Headache; Translations: [Post-traumatic headache, unspecified, not intractable] Onset: 02-13-2015 Resolved: 07-22-2019 02-13-2015 Episodic Immunizations and screening for infectious disease (3 sources) Contact with and (suspected) exposure to other viral communicable diseases; Translations: [Patient encounter status] Onset: 07-20-2021 Resolved: 07-20-2021 Episodic Mood disorders (1 source) Emotional lability; Translations: [Emotional lability] Onset: 03-26-2023 Episodic Nausea and vomiting (20 sources) Nausea and vomiting; Translations: [Nausea with vomiting, unspecified] Onset: 11-28-2018 Resolved: 07-22-2019 11-28-2018 Episodic Other complications of (20 sources) Complication of , childbirth and/or the puerperium; Translations: [ related conditions, unspecified, first trimester] Onset: 11-28-2018 Resolved: 07-22-2019 11-28-2018 Episodic Other complications of (13 sources) Hyperemesis gravidarum; Translations: [Mild hyperemesis gravidarum] Onset: 09-07-2021 Resolved: 05-21-2022 09-07-2021 Episodic Other complications of (1 source) Other specified related conditions, second trimester; Translations: [OTH SPEC PREG RELATED COND 2ND TRI] Onset: 10-08-2021 Episodic Other disorders of stomach and duodenum (13 sources) Persistent vomiting; Translations: [Cyclical vomiting syndrome unrelated to migraine] Onset: 12-05-2021 Episodic Other gastrointestinal disorders (4 sources) Constipation, unspecified; Translations: [CONSTIPATION UNSPECIFIED] Onset: 10-07-2021 Episodic Other lower respiratory disease (3 sources) Cough; Translations: [COUGH] Onset: 04-23-2021 Episodic Other upper respiratory disease (20 sources) [...] Resolved: 07-22-2019 02-13-2015 Episodic Residual codes; unclassified (11 sources) Gestation period, 27 weeks; Translations: [27 weeks gestation of ] Onset: 12-19-2021 Resolved: 05-21-2022 Episodic Residual codes; unclassified (1 source) 18 weeks gestation of ; Translations: [18 WEEKS GESTATION OF ] Onset: 10-08-2021 Episodic Unclassified (5 sources) Finding of body mass index; Translations: [Body Mass Index] Onset: 05-17-2019 Unclassified (3 sources) Questionnaires Phq-9 Total Score; Translations: [Questionnaires Phq-9 Total Score] Onset: 05-17-2019 Urinary tract infections (20 sources) Acute cystitis; Translations: [Acute cystitis without hematuria] Onset: 11-28-2018 Resolved: 07-22-2019 11-28-2018 Episodic Results Test Name Value Interpretation Reference Range Facility Surgical Pathology Reporton 01-09-2024 Surgical Pathology Report (NOTE) Path Number: [id number] -- Diagnosis -- Vulva, excisional biopsy: Cauterized fragments of keratotic epidermis with focal features consistent with condyloma acuminatum. Alejo Niño Electronically Signed Out 01/13/2024 Clinical Information Pre-Op Diagnosis: CONDYLOMA ACUMINATUM OF VULVA Operative Findings: VULVAR LESION Operation Performed: VULVA LESION BIOPSY EXCISION EXCISION OF CONDYLOMA, EXCISION OF SKIN TAGS mj Source of Specimen A: LESION-VULVAR Gross Description MARIAH CARBALLO VULVAR LESION Received in formalin are multiple soft kennedy skin fragments from < 0.1 to 0.3 cm aggregating 1.7 x 0.6 x 0.1 cm. They are filtered, submitted entirely 1cs. jj kb Alejo Niño./mj:01/09/2024 Microscopic Description 2 OSEI reviewed. Microscopic examination performed. Processing Lab: [address] [id number] Interpretation Performed at [address] [id number] SURGICAL PATHOLOGY CONSULTATION Patient Name: MARIAH CARBALLO Bhupendra. [facility] Rec: [id number] [facility] [employer] [facility] ANATOMIC PATHOLOGY [facility] [facility]. [place], [place] [address] Normal [facility] Estradiolon 03-27-2023 Estradiol 60.0 pg/mL Normal 27-314 [facility] Comment on above: Result Comment: FEMALES: Normally menstruating Luteal phase 33-298 Follicular phase 27-156 Midcycle phase 48-314 Postmenopausal (untreated) 5-50 Fulvestrant treatment will show an increased estradiol concentration with this methodology. Alternate methodologies are available upon request. Performed By: #### F SH, E2 #### [id number] [place] [address] [employer] Residential Service Technician: Jesse Joseph MD Follicle Stim. Hormon 2022 Follicle Stim. Horm 3.1 mIU/mL Normal 1.7-21.5 [facility] Comment on above: Result Comment: Refe rence Range: Male: 1.5-12.4 Ovulating Female: Follicular Phase 3.5-12.5 Ovulation Phase 4.7-21.5 Luteal Phase 1.7-7.7 Postmenopausal Female: 25.8-134.8 Performed By: #### F SH, E2 #### [address] [id number] [employer] Residential Service Technician: Jesse Joseph MD Thyroid Stim. Horm.on 2022 Thyroid Stim. Horm. 1.12 uIU/mL Normal 0.30-5.00 [facility] Comment on above: Performed By: #### T #### [facility] [address] [place] [address] H[employer] Residential Service Technician: Jefe Guerra MD Chlamydia/GC,DNA Ampon 03-21 Chlamydia Probe Negative Normal NEG [facility] Comment on above: Result Comment: CHLA MYDIA TRACHOMATIS DNA not detected by nucleic acid amplification. This test is intended for medical purposes only and is not valid for the evaluation of suspected sexual abuse or for other forensic purposes. In certain contexts, culture may be required to meet applicable laws and regulations for diagnosis of C. trachomatis and N. gonorrhoeae infections. Per 2014 CDC recommendations, this test does not include confirmation of positive results by an alternative nucleic acid target. Performed By: #### S [facility] #### [address] [id number] [employer] Residential Service Technician: Jesse Joseph MD Gonorrhea Probe Negative Normal NEG [facility] Comment on above: Result Comment: NEIS SERIA GONORRHOEAE DNA not detected by nucleic acid amplification. This test is intended for medical purposes only and is not valid for the evaluation of suspected sexual abuse or for other forensic purposes. In certain contexts, culture may be required to meet applicable laws and regulations for diagnosis of C. trachomatis and N. gonorrhoeae infections. Per 2014 CDC recommendations, this test does not include confirmation of positive results by an alternative nucleic acid target. Performed By: #### S [facility] #### [address] [address] [employer] Residential Service Technician: Jesse Joseph MD Vaginitis DNA Probeon 2022 Munira Positive Abnormal [facility] Comment on above: Result Comment: for Munira sp. Method of testing is a DNA probe intended for detection and identification of Munira species, Gardnerella vaginalis, and Trichomonas vaginalis nucleic acid in vaginal fluid specimens from patients with symptoms of vaginitis/vaginosis. Performed By: #### V AGP #### [address] [address] [employer] Residential Service Technician: Jesse Joseph MD [facility] [address] [place] [address] [place] [address] H[employer] Residential Service Technician: Jefe Guerra MD Gardnerella Negative [facility] Comment on above: Result Comment: for Gardnerella vaginalis Performed By: #### V AGP #### [address] [address] [employer] Residential Service Technician: Jesse Joseph MD [address] [place], [place] [id number] H[employer] Residential Service Technician: Jefe Guerra MD Trichomonas Negative [facility] Comment on above: Result Comment: for Trichomonas Vaginalis Performed By: #### V AGP #### [address] [address] [employer] Residential Service Technician: Jesse Joseph MD [facility] [address] [place] [address] [address], [place] [id number] H[employer] Residential Service Technician: Jefe Guerra MD Vaginitis DNA Probeon 2022 Munira Species, DNA Probe Positive Abnormal NEGATIVE [facility] Comment on above: for Munira sp. Method of testing is a DNA probe intended for detection and identification of Munira species, Gardnerella vaginalis, and Trichomonas vaginalis nucleic acid in vaginal fluid specimens from patients with symptoms of vaginitis/vaginosis. Gardnerella Vaginalis, DNA Probe Negative NEGATIVE [facility] Comment on above: for Gardnerella vagi nalis Interpretation and review of laboratory results Abnormal [facility] Source .VAGINAL SWAB [facility] Trichomonas Vaginalis DNA Negative NEGATIVE [facility] Comment on above: for Trichomonas Vagi nalis [facility] Source .VAGINAL SWAB Normal [facility] Comment on above: Performed By: #### V AGP #### [address] [address] [employer] Residential Service Technician: Jesse Joseph MD [address] [place] [address] Hvac Residential Service Technician: Jefe Guerra MD Cult,Urineon 02-04-2023 Cult,Urine Specimen Description .CLEAN CATCH URINE Culture NO SIGNIFICANT GROWTH Report Status FINAL 02/04/2023 [facility] Comment on above: Performed By: #### U RC #### [address] [id number] [employer] Residential Service Technician: Jesse Joseph MD [address] [place] [address] Hvac Residential Service Technician: Jefe Guerra MD Microscopic Urinalysison Bacteria, UA 2+ Abnormal None [facility] Epithelial Cells UA 2 TO 5 [facility] Interpretation and review of laboratory results Abnormal [facility] Mucus, UA 4+ Abnormal None [facility] RBC clumps Auto (Urine sed) [#/Area] 2 TO 5 [facility] WBC, UA 2 TO 5 [facility] Urinalysison 02-03-2023 Bilirubin Urine Negative NEGATIVE [facility] Color, UA Yellow Yellow [facility] Glucose Auto test strip (U) [Mass/Vol] Negative NEGATIVE [facility] Interpretation and review of laboratory results Abnormal [facility] Ketones (U) [Mass/Vol] TRACE Abnormal NEGATIVE [facility] Leukocyte esterase Auto test strip Ql (U) TRACE Abnormal NEGATIVE [facility] Nitrite Auto test strip Ql (U) Negative NEGATIVE [facility] Protein (U) [Mass/Vol] 6.0 mg/dL 5.0 - 9.0 [facility] Protein (U) [Mass/Vol] 1+ Abnormal NEGATIVE [facility] Specific Moore, UA High 1.010 - 1.020 [facility] Turbidity UA SLIGHTLY CLOUDY Abnormal Clear [facility] Urine Hgb Negative NEGATIVE [facility] Urobilinogen, Urine Normal Normal [facility] Urinalysis, Routineon 2022 Bilirubin, SemiQt,Ur Negative Normal NEG [facility] Comment on above: Performed By: #### U A, UMICAO #### [facility] [address] [place] [address] Hvac Residential Service Technician: Jefe Guerra MD Blood, Urine Negative Normal NEG [facility] Comment on above: Performed By: #### U A, UMICAO #### [facility] [address] [place] [id number] H[employer] Residential Service Technician: Jefe Guerra MD Clarity (U) SLIGHTLY CLOUDY Abnormal CLEAR [facility] Comment on above: Performed By: #### U A, UMICAO #### [facility] [address] [place] [address] Hvac Residential Service Technician: Jefe Guerra MD Color (U) Yellow Normal YEL [facility] Comment on above: Performed By: #### U A, UMICAO #### [facility] [address] [place] [address] Hvac Residential Service Technician: Jefe Guerra MD Glucose Ql (U) Negative Normal NEG [facility] Comment on above: Performed By: #### U A, UMICAO #### [facility] [address] [place] [address] [place]. [place], [place] [id number] [employer] Residential Service Technician: Jefe Guerra MD Ketones Ql (U) TRACE Abnormal NEG [facility] in Hospital Comment on above: Performed By: #### U A, UMICAO #### [facility] [address] [place] [address] [place] [address] [employer] Residential Service Technician: Jefe Guerra MD Leukocyte esterase Test strip Ql (U) TRACE Abnormal NEG [facility] Comment on above: Performed By: #### U A, UMICAO #### [address] [place] [address] [employer] Residential Service Technician: Jefe Guerra MD Nitrite,Ur Negative Normal NEG [facility] Comment on above: Performed By: #### U A, UMICAO #### [facility] [address] [place] [address] [place] [address] [employer] Residential Service Technician: Jefe Guerra MD PH,Ur 6.0 Normal 5.0-9.0 [facility] Comment on above: Performed By: #### U A, UMICAO #### [address] [place] [address] [employer] Residential Service Technician: Jefe Guerra MD Protein Ql (U) 1+ Abnormal NEG [facility] in Hospital Comment on above: Performed By: #### U A, UMICAO #### [facility] [address] [place] [address] [place] [address] [employer] Residential Service Technician: Jefe Guerra MD Spec. Moore,Ur >1.030 High 1.010-1.020 [facility] Comment on above: Performed By: #### U A, UMICAO #### [facility] [address] [place] [address] [place] [address] [employer] Residential Service Technician: Jefe Guerra MD Urobilinogen,Ur Normal Normal NORM [facility] Comment on above: Performed By: #### U A, UMICAO #### [facility] [address] [place] [address] [place] [address] [employer] Residential Service Technician: Jefe Guerra MD Urinalysis,Microon 3 Bacteria 2+ Abnormal NONE [facility] Comment on above: Performed By: #### U A, UMICAO #### [facility] [address] [place] [address] [place] [address] [employer] Residential Service Technician: Jefe Guerra MD Epithelial cells LM Ql (Urine sed) 2 TO 5 Normal 0-25 [facility] Comment on above: Performed By: #### U A, UMICAO #### [facility] [address] [place] [address] [place] [address] [employer] Residential Service Technician: Jefe Guerra MD Mucus Strands 4+ Abnormal NONE [facility] Comment on above: Performed By: #### U A, UMICAO #### [facility] [address] [place] [address] [place] [address] [employer] Residential Service Technician: Jefe Guerra MD Urine RBC's 2 TO 5 Normal 0-2 [facility] Comment on above: Performed By: #### U A, UMICAO #### [facility] [address] [place] [address] [place] [address] [employer] Residential Service Technician: Jefe Guerra MD Urine WBC's 2 TO 5 Normal 0-5 [facility] Comment on above: Performed By: #### U A, UMICAO #### [facility] [address] [place] [address] [place] [address] [employer] Residential Service Technician: Jefe Guerra MD , Urineon 2 Beta HCG ( test) Ql (U) Negative NEGATIVE [facility] Comment on above: Specimens with hCG l evels near the threshold of the test (25 mIU/mL) may give a negative or indeterminate result. In such cases, another test should be performed with a new specimen in 48-72 hours. If early is suspected clinically in this setting, correlation with quantitative serum b-hCG level is suggested. [employer] has confirmed the use of plasma for this test. This has not been cleared or approved by the U.S. Food and Drug Administration. The FDA has determined that such clearance is not necessary. [facility] CBC auto differentialon Absolute Eos # 0.10 [place] [facility] Absolute Immature Granulocyte 0.05 [facility] Absolute Lymph # 1.78 [facility] Absolute [place] # 0.59 [facility] RS [facility] Basophils (Bld) [#/Vol] 10*3/uL [facility] Basophils/100 WBC (Bld) 0 % 0 - 2 % [facility] Eosinophils/100 WBC (Bld) 1 % 1 - 4 % [facility] Hematocrit (Bld) [Volume fraction] 31.9 % Low 36.3 - 47.1 % [facility] Hemoglobin (Bld) [Mass/Vol] 10.4 g/dL Low 11.9 - 15.1 g/dL [facility] Immature granulocytes/100 WBC (Bld) 1 % High 0 [facility] Interpretation and review of laboratory results Abnormal [facility] Lymphocytes/100 WBC (Bld) 22 % Low 24 - 43 % [facility] MCH (RBC) [Entitic mass] 28.6 pg 25.2 - 33.5 pg [facility] MCHC (RBC) [Mass/Vol] 32.6 g/dL 28.4 - 34.8 g/dL [facility] MCV (RBC) [Entitic vol] 87.6 fL 82.6 - 102.9 fL [facility] Monocytes/100 WBC (Bld) 7 % 3 - 12 % [facility] NRBC Automated 0.0 0.0 per 100 WBC [facility] Platelet distribution width (Bld) [Ratio] 13.2 % 11.8 - 14.4 % [facility] Platelet mean volume (Bld) [Entitic vol] 10.5 fL 8.1 - 13.5 fL [facility] Platelets (Bld) [#/Vol] 195 10*3/uL [facility] RBC (Bld) [#/Vol] 3.64 10*6/uL Low 3.95 - 5.1 1 m/uL [facility] Segmented neutrophils/100 WBC (Bld) 69 % High 36 - 65 % [facility] Segs Absolute 5.42 [facility] WBC (Bld) [#/Vol] 8.0 10*3/uL [facility] DRUG SCREEN MULTI URINEon Amphetamine Screen, Ur Negative NEGATIVE [facility] Barbiturate Screen, Ur Negative NEGATIVE [facility] Benzodiazepine Screen, Urine Negative NEGATIVE [facility] Buprenorphine Urine Negative NEGATIVE [facility] Cannabinoid Scrn, Ur Negative NEGATIVE [facility] Cocaine Metabolite, Urine Negative NEGATIVE [facility] Methadone Screen, Urine Negative NEGATIVE B [facility] Methamphetamine, Urine Negative NEGATIVE [facility] Opiates, Urine Negative NEGATIVE [place] [facility] Oxycodone Screen, Ur Negative NEGATIVE [facility] Phencyclidine, Urine Negative NEGATIVE [facility] Propoxyphene, Urine Negative NEGATIVE [facility] Tricyclic Antidepressants, Urine Negative NEGATIVE [facility] Comment on above: Drug screen results are to be used for medical purposes only. All positive results are unconfirmed. Testing for employment or legal uses should be sent to a reference laboratory for confirmation. [facility] Microscopic Urinalysison - [facility] Bacteria, UA 3+ Abnormal None [facility] Epithelial Cells UA 2 TO 5 [facility] Interpretation and review of laboratory results Abnormal [facility] Mucus, UA 4+ Abnormal None [facility] RBC, UA 0 TO 2 [facility] WBC, UA 2 TO 5 [facility] Urinalysison 12-19-2021 Bilirubin Urine MODERATE Abnormal NEGATIVE [facility] Color, UA [place] Abnormal Yellow [facility] Glucose, Ur Negative NEGATIVE [facility] Interpretation and review of laboratory results Abnormal [facility] Ketones Ql (U) TRACE Abnormal NEGATIVE [facility] Leukocyte esterase Test strip Ql (U) TRACE Abnormal NEGATIVE [facility] Nitrite, Urine Positive Abnormal NEGATIVE [facility] pH, UA 6.5 [facility] Protein, UA 1+ Abnormal NEGATIVE [facility] Specific Moore, UA >1.030 High [facility] Turbidity UA Clear Clear [facility] Urine Hgb Negative NEGATIVE [facility] Urobilinogen, Urine Normal Normal [facility] COVID-19, Rapidon 12-15-2021 SARS-CoV-2 (COVID-19) RNA LYDIA+probe Ql (Unsp spec) Not detected Not Detected [facility] Comment on above: Rapid NAAT: The [...] management decisions. Fact sheet for Healthcare Providers: https://www.fda.gov/media/176784/download Fact sheet for Patients: https://www.fda.gov/media/260066/download Methodology: Isothermal Nucleic Acid Amplification Specimen Description .NASOPHARYNGEAL SWAB [facility] Rapid influenza A/B antigens on 12-15-2021 Direct Exam POSITIVE for Influenza A Antigen NEGATIVE for Influenza B Antigen Abnormal [facility] Interpretation and review of laboratory results Abnormal [facility] Specimen Description .NASOPHARYNGEAL SWAB [facility] Microscopic Urinalysison - [facility] Bacteria, UA 3+ Abnormal None [facility] Epithelial Cells UA 20 TO 50 [facility] Interpretation and review of laboratory results Abnormal [facility] Mucus, UA 2+ Abnormal None [facility] RBC, UA 0 TO 2 [facility] WBC, UA 20 TO 50 [facility] Urinalysison 12-05-2021 Bilirubin Urine SMALL Ab[facility] Yellow Yellow [facility] Glucose, Ur Negative NEGATIVE [facility] Interpretation and review of laboratory results Abnormal [facility] Ketones Ql (U) 2+ Abnormal NEGATIVE [facility] Leukocyte esterase Test strip Ql (U) MODERATE Abnormal NEGATIVE [facility] Nitrite, Urine Negative NEGATIVE [facility] pH, UA 7.0 [facility] Protein, UA TRACE Abnormal NEGATIVE [facility] Specific Moore, UA 1.025 [facility] Turbidity [...] seen. The structural survey otherwise appears normal. [facility] EXAMINATION: SECOND/THIRD TRIMESTER OBSTETRIC ULTRASOUND 11/06/2021 [...] current ultrasound is 21 weeks 1 day. [facility] Kalen Mejias MD - 11/07/2021 EXAMINATION: [...] seen. The structural survey otherwise appears normal. [facility] Phone: Radiology Study observation (narrative) [employer] Phone: No Panel InformationOrdered By: Kalen Mejias on 11-06-2021 [facility] Phone: Basic Metabolic Panel w/ Ref ct to MGOrdered By: Danny Mendiola on 08-06-2021 Anion gap [Moles/Vol] 12 mmol/L 9 - 17 mmol/L [facility] Phone: Calcium [Mass/Vol] 9.0 mg/dL 8.6 - 10. 4 mg/dL [facility] Phone: Chloride [Moles/Vol] 100 mmol/L 98 - 10 7 mmol/L [facility] Phone: CO2 [Moles/Vol] 24 mmol/L 20 - 31 mmol/L [facility] Phone: Creatinine [Mass/Vol] 0.57 mg/dL 0.50 - 0.90 mg/dL [facility] Phone: GFR >60 >60 mL/min [facility] Work Phone: GFR Non- >60 >60 mL/min [facility] Phone: Glucose [Mass/Vol] 100 mg/dL High 70 - 99 mg/dL [facility] Phone: Interpretation and review of laboratory results Abnormal [facility] Phone: Potassium [Moles/Vol] 3.7 mmol/L 3.7 - 5.3 mmol/L [facility] Phone: Sodium [Moles/Vol] 136 mmol/L 135 - 144 mmol/L [facility] Phone: Urea nitrogen (BldV) [Mass/Vol] 10 mg/dL 6 - 20 mg/dL [facility] Phone: Urea nitrogen/Creatinine (Bld) [Mass ratio] 18 [employer] Work Phone: [employer] Work Phone: CBC Auto DifferentialOrdered By: Danny Mendiola on 08-06-2021 Absolute Eos # 0.[address] [employer] Work Phone: Absolute Immature Granulocyte 0.05 [facility] Work Phone: Absolute Lymph # 1.56 [employer] [facility] Work Phone: Absolute [place] # 0.41 [facility] Work Phone: Basophils (Bld) [#/Vol] 10*3/uL [facility] Work Phone: Basophils/100 WBC (Bld) 0 % 0 - 2 % [employer] Phone: Differential Type NOT REPORTED [facility] Phone: Eosinophils/100 WBC (Bld) 1 % 1 - 4 % [facility] Phone: Hematocrit (Bld) [Volume fraction] 45.4 % 36.3 - 47.1 % [facility] Phone: Hemoglobin.gastrointest inal spec 1 Ql (Stl) 15.2 g/dL High 11.9 - 15.1 g/dL [facility] Phone: Immature granulocytes/100 WBC (Bld) 1 % High 0 [facility] Phone: Interpretation and review of laboratory results Abnormal [facility] Phone: Lymphocytes/100 WBC (Bld) 20 % Low 24 - 43 % [facility] Phone: MCH (RBC) [Entitic mass] 30.2 pg 25.2 - 33.5 pg [facility] Phone: MCHC (RBC) [Mass/Vol] 33.5 g/dL 28.4 - 34.8 g/dL [facility] Phone: MCV (RBC) [Entitic vol] 90.1 fL 82.6 - 102.9 fL [facility] Phone: Monocytes/100 WBC (Bld) 5 % 3 - 12 % [employer] Phone: NRBC Automated 0.0 0.0 per 100 WBC [facility] Phone: Platelet distribution width (Bld) [Ratio] 12.8 % 11.8 - 14.4 % [facility] Phone: Platelet Estimate NOT REPORTED [facility] Phone: Platelet mean volume (Bld) [Entitic vol] 10.5 fL 8.1 - 13.5 fL [facility] Phone: Platelets (Bld) [#/Vol] 203 10*3/uL [facility] Phone: RBC (Bld) [#/Vol] 5.04 10*6/uL 3.95 - 5.1 1 m/uL [facility] Phone: RBC (Bld) [#/Vol] NOT REPORTED [facility] Phone: Segmented neutrophils/100 WBC (Bld) 73 % High 36 - 65 % [facility] Phone: Segs Absolute 5.56 [employer] Work Phone: WBC (Bld) [#/Vol] 7.7 10*3/uL [facility] Phone: WBC (Bld) [#/Vol] NOT REPORTED [facility] Phone: [facility] Phone: Laboratory - Chemistry and C hemistry - challengeOrdered By: Danny Mendiola on 08-06-2021 GFR/1.73 sq M.predicted MDRD (S/P/Bld) [Vol rate/Area] [facility] Phone: Comment on above: Average GFR for 20-2 9 years old: 116 mL/min/1.73sq m Chronic Kidney Disease: <60 mL/min/1.73sq m Kidney failure: <15 mL/min/1.73sq m eGFR calculated using average adult body mass. Additional eGFR calculator available at: http://www.[employer]/multiple_crcl_2012.htm Stage 1: Some kidney damage normal GFR Stage 2: Mild kidney damage GFR 60-89 Stage 3: Moderate kidney damage GFR 30-59 Stage 4: Severe kidney damage GFR 15-29 Stage 5: Severe kidney damage GFR <15 ESRD - chronic treatment by dialysis or transplant Microscopic UrinalysisOrdere d By: Danny Mendiola on 08-06-2021 - [facility] Work Phone: Amorphous, UA NOT REPORTED None [facility] Work Phone: Bacteria, UA TRACE Abnormal None [facility] Work Phone: Casts UA NOT REPORTED /LPF [facility] Work Phone: Crystals, UA NOT REPORTED None /HPF [facility] Work Phone: Epithelial Cells UA 2 TO 5 [facility] Work Phone: Interpretation and review of laboratory results Abnormal [facility] [employer] Work Phone: Mucus, UA 1+ Abnormal None [facility] Work Phone: Other Observations UA NOT REPORTED NOT REQ. [facility] Work Phone: RBC, UA None [facility] Work Phone: Renal Epithelial, UA NOT REPORTED 0 /HPF [facility] Work Phone: Trichomonas, UA NOT REPORTED None [facility] Work Phone: WBC, UA 0 TO 2 [facility] [employer] Work Phone: Yeast, UA NOT REPORTED None [facility] Work Phone: [facility] [employer] Work Phone: Urinalysis, reflex to micros copicOrdered By: Danny Mendiola on 08-06-2021 Bilirubin Urine SMALL Abnormal NEGATIVE [facility] Work Phone: Color, UA Yellow Yellow [facility] [employer] Work Phone: Glucose, Ur Negative NEGATIVE [facility] Work Phone: Interpretation and review of laboratory results Abnormal [facility] Work Phone: Ketones Ql (U) 1+ Abnormal NEGATIVE [facility] Work Phone: Leukocyte esterase Test strip Ql (U) TRACE Abnormal NEGATIVE [facility] Work Phone: Nitrite, Urine Negative NEGATIVE [facility] Work Phone: pH, UA 7.5 [facility] [employer] Work Phone: Protein, UA TRACE Abnormal NEGATIVE [facility] [employer] Work Phone: Specific Moore, UA 1.020 [facility] [employer] Work Phone: Turbidity UA Clear Clear [facility] [employer] Work Phone: Urinalysis Comments NOT REPORTED [facility] [employer] Work Phone: Urine Hgb Negative NEGATIVE [facility] [employer] Work Phone: Urobilinogen, Urine Normal Normal [facility] [employer] Work Phone: [facility] [employer] Work Phone: COVID Quick Testingon 2020 Result Negative [employer] Other HCG, Quantitative, Ordered By: [employer] on 07-18-2021 hCG Quant 18570 High <5 IU/L [facility] Phone: Comment on above: Non-preg premeno <=5 [...] review of laboratory results Abnormal [facility] Work Phone: [facility] Work Phone: HCG, Quantitative, Ordered By: [employer] on 07-16-2021 hCG Quant [id number] High <5 IU/L [facility] Phone: Comment on above: Non-preg premeno <=5 Postmeno <=8 Male <=3 If HCG results do not concur with clinical observations, additional testing to confirm results is recommended. Elevated results not associated with may be found in patients with other diseases such as tumors of the germ cells (testis, ovaries, etc.), bladder, pancreas, stomach, lungs, and liver. Interpretation and review of laboratory results Abnormal [facility] Phone: [facility] Phone: CBC AUTO DIFFon 05-24-2021 BASO # 0.0 103/ul Normal 0.0-0.1 [facility] Comment on above: Performed By: #### C BC #### [facility] [address] [place] [address] Niko Karina Basophils/100 WBC (Bld) 0.1 % Critically low 0.2-2.0 [facility] Comment on above: Performed By: #### C BC #### [facility] [address] [place] [address] Nkio Karina EO # 0.3 103/ul Normal 0.0-0.7 [facility] Comment on above: Performed By: #### C BC #### [facility] [address] [place] [address] Niko Karina Eosinophils/100 WBC (Bld) 4.6 % Normal 0.9-7.0 [facility] Comment on above: Performed By: #### C BC #### [facility] [address] [place], [place] [id number] Niko Karina Erythrocyte distribution width (RBC) [Ratio] 12.4 % Normal 11.0-15.0 [facility] Comment on above: Performed By: #### C BC #### [facility] [address] [place] [address] Niko Karina Hematocrit (Bld) [Volume fraction] 42.5 % Normal 36.0-48.0 [facility] Comment on above: Performed By: #### C BC #### [facility] [address] [place], [place] [id number] Niko Karina Hemoglobin (Bld) [Mass/Vol] 14.2 g/dL Normal 12.0-16.0 [facility] Comment on above: Performed By: #### C BC #### [facility] [address] [place], [place] [id number] Niko Karina IG # 0.01 10e3/ul Normal 0.00-0.03 [facility] Comment on above: Performed By: #### C BC #### [facility] [address] [place] [address] Nikogenesis Collins IG % 0.1 % Normal 0.0-0.5 [facility] Comment on above: Performed By: #### C BC #### [facility] [address] [place] [address] Nikogenesis Collins LYMPH # 1.9 103/ul Normal 1.2-3.8 [facility] Comment on above: Performed By: #### C BC #### [facility] [address] [place] [address] Niko Collins Lymphocytes/100 WBC (Bld) 28.0 % Normal 20.5-60.0 [facility] Comment on above: Performed By: #### C BC #### [facility] [address] [place] [address] Niko Collins MANUAL DIFF REQ NO Normal [facility] Comment on above: Performed By: #### C BC #### [facility] [address] [place] [address] Niko Collins MCH (RBC) [Entitic mass] 29.8 pg Normal 26.7-34.0 [facility] Comment on above: Performed By: #### C BC #### [facility] [address] [place] [address] Niko Collins MCHC (RBC) [Mass/Vol] 33.4 g/dL Normal 29.9-35.2 [facility] Comment on above: Performed By: #### C BC #### [facility] [address] [place] [address] Niko Collins MCV (RBC) [Entitic vol] 89.1 fL Normal 81.0-99.0 [facility] Comment on above: Performed By: #### C BC #### [facility] [address] [place] [address] Niko Karina MONO # 0.5 103/ul Normal 0.3-0.8 [facility] Comment on above: Performed By: #### C BC #### [facility] [address] [place], [place] [address] Niko Karina Monocytes/100 WBC (Bld) 6.9 % Normal 1.7-12.[address] [facility] Comment on above: Performed By: #### C BC #### [facility] [address] [place], [place] [address] Niko Karina NEUT # 4.0 103/ul Normal 1.4-6.5 [facility] Comment on above: Performed By: #### C BC #### [facility] [address] [place], [place] [id number] Niko Karina Neutrophils/100 WBC (Bld) 60.3 % Normal 43.0-75.0 [facility] Comment on above: Performed By: #### C BC #### [facility] [address] [place], [place] [id number] Nikogenesis Wooden Platelet mean volume (Bld) [Entitic vol] 10.5 fL Normal 9.5-13.5 [facility] Comment on above: Performed By: #### C BC #### [facility] [address] [place] [address] Niko Karina PLT 192 103/ul Normal 150-450 [facility] Comment on above: Performed By: #### C BC #### [facility] [address] [place] [address] Niko Karina RBC 4.77 106/ul Normal 4.20-5.40 [facility] Comment on above: Performed By: #### C BC #### [facility] [address] [place] [address] Niko Karina WBC 6.7 103/ul Normal 4.0-11.0 [facility] Comment on above: Performed By: #### C BC #### [facility] [address] [place], [place] [id number] Niko Karina PREG HCG QUALon 05-24-2021 , QUAL Negative Normal NEGATIVE [facility] Comment on above: Performed By: #### P REG #### [facility] [address] [place], [place] [address] Niko Wooden PROF 14(COMP METB)on 021 Albumin [Mass/Vol] 3.8 g/dL Normal 3.5-5.0 [facility] Comment on above: Performed By: #### C MP ####[facility] Lsiymeqdbd1681 [place], [place] [address]Kacnyy Karina Albumin/Globulin [Mass ratio] 1.2 {ratio} Normal [facility] Comment on above: Performed By: #### C MP ####[facility] Vpnqmgxmas0195 [place], [place] [address]Npmvnc Karina ALP [Catalytic activity/Vol] 47 U/L Normal 38-126 [facility] Comment on above: Performed By: #### C MP ####[facility] [address] [place] [address]Iykdjc Karina ALT [Catalytic activity/Vol] 13 U/L Normal 9-52 [facility] Comment on above: Performed By: #### C MP ####[facility] [address] [place] [address]Vkptju Karina Anion gap [Moles/Vol] 15.4 mmol/L Normal [facility] Comment on above: Performed By: #### C MP ####[facility] [address] [place], [place] [phone] Karina AST [Catalytic activity/Vol] 15 U/L Normal 14-36 [facility] Comment on above: Performed By: #### C MP ####[facility] [address] [place] [address]Gctspm Karina Bilirubin [Mass/Vol] 0.6 mg/dL Normal 0.2-1.3 [facility] Comment on above: Performed By: #### C MP ####[facility] [address] [place] [address]Xbzhdf Karina Calcium [Mass/Vol] 8.7 mg/dL Normal 8.4-10.2 The [facility] Comment on above: Performed By: #### C MP ####[facility] [address] [place], [place] [phone] Karina Chloride [Moles/Vol] 105 mmol/L Normal 98-107 [facility] Comment on above: Performed By: #### C MP ####[facility] V[address]ais[address]sgvr0509 [place], [place] [address]Scptlc Karina CO2 [Moles/Vol] 25.3 mmol/L Normal 22.0-30.0 [facility] Comment on above: Performed By: #### C MP ####[facility] Zpmhyonspb1539 [place], [place] [address]Emvcfl Karina Creatinine [Mass/Vol] 0.76 mg/dL Normal 0.52-1.04 [facility] Comment on above: Performed By: #### C MP ####[facility] Booaxntkip4399 [place], [place] [address]Jzwlyt Karina EGFR-AF SALVADOREAN >60 Normal >=60 [facility] Comment on above: Performed By: #### C MP ####[facility] [address] [place] [phone] Karina EGFR-NON AF SALVADOREAN >60 Normal >=60 [facility] Comment on above: Performed By: #### C MP ####[facility] [address] [place] [phone] Karina Globulin (S) [Mass/Vol] 3.3 g/dL Normal [facility] Comment on above: Performed By: #### C MP ####[facility] [address] [place] [phone] Karina Glucose [Mass/Vol] 92 mg/dL Normal 74-106 The [facility] Comment on above: Performed By: #### C MP ####[facility] [address] [place] [phone] Karina Potassium [Moles/Vol] 3.7 mmol/L Normal 3.4-5.0 [facility] Comment on above: Performed By: #### C MP ####[facility] [address]eb[address] [place] [phone] Karina Protein [Mass/Vol] 7.1 g/dL Normal 6.1-8.2 [facility] Comment on above: Performed By: #### C MP ####[facility] [address] [place] [address]Niko Collins Sodium [Moles/Vol] 142 mmol/L Normal 137-145 The [facility] Comment on above: Performed By: #### C MP ####[facility] [address] [place] [phone] Collins Urea nitrogen [Mass/Vol] 7.0 mg/dL Normal 7.0-17.0 [facility] Comment on above: Performed By: #### C MP ####[facility] [address] [place] [phone] Collins Urea nitrogen/Creatinine [Mass ratio] 9.2 mg/mg Normal [facility] Comment on above: Performed By: #### C MP ####[facility] [address] [place] [address]Niko Collins PROTIMEon 05-24-2021 INR Coag (PPP) [Relative time] 1.03 {INR} Normal [facility] Comment on above: Performed By: #### P TT, PT #### [facility] [address] [place], [place] [phone] Niko Collins INR GUIDELINES SEE BELOW Normal The [facility] Comment on above: Result Comment: JENNIFER RED INR: 2.0 - 3.0 CONDITIONS NOT LISTED BELOW 2.5 - 3.5 FOR PROSTHETIC HEART VALVE REPLACEMENT 2.5 - 3.5 RECURRENT THROMBOSIS Performed By: #### P TT, PT #### [facility] [address] [place] [address] Niko Collins PT Coag (PPP) [Time] 11.1 s Normal 9.0-11.6 [facility] Comment on above: Performed By: #### P TT, PT #### [facility] [address] [place] [address] Niko Collins PTTon 05-24-2021 aPTT Coag (Bld) [Time] 27.7 s Normal 22.3-36.[address] [facility] Comment on above: Performed By: #### P TT, PT #### [facility] [address] [place] [phone] Niko Collins US PELVIS TRANSVAGon 021 US PELVIS TRANSVAG EXAM: US PELVIS [...] by: MARYAM LUU Date: 2021-05-24 21:20 Normal [facility] CT ABD/PELV W CONon 05-22-20 [...] TANIKA HARRY Date: 2021-05-21 22:11 Normal [facility] CBC AUTO DIFFon 05-21-2021 BASO # 0.0 103/ul Normal 0.0-0.1 [facility] Comment on above: Performed By: #### C BC #### [facility] [address] [place], [place] [address] Niko Karina Basophils/100 WBC (Bld) 0.4 % Normal 0.2-2.0 [facility] Comment on above: Performed By: #### C BC #### [facility] [address] [place], [place] [address] Niko Karina EO # 0.3 103/ul Normal 0.0-0.7 [facility] Comment on above: Performed By: #### C BC #### [facility] [address] [place] [address] Niko Karina Eosinophils/100 WBC (Bld) 3.1 % Normal 0.9-7.0 [facility] Comment on above: Performed By: #### C BC #### [facility] [address] [place] [address] Niko Karina Erythrocyte distribution width (RBC) [Ratio] 12.8 % Normal 11.0-15.0 [facility] Comment on above: Performed By: #### C BC #### [facility] [address] [place] [address] Niko Karina Hematocrit (Bld) [Volume fraction] 45.8 % Normal 36.0-48.0 [facility] Comment on above: Performed By: #### C BC #### [facility] [address] [place] [address] Niko Karina Hemoglobin (Bld) [Mass/Vol] 15.0 g/dL Normal 12.0-16.0 [facility] Comment on above: Performed By: #### C BC #### [facility] [address] [place] [address] Niko Karina IG # 0.02 10e3/ul Normal 0.00-0.03 [facility] Comment on above: Performed By: #### C BC #### [facility] [address] [place] [address] Niko Karina IG % 0.2 % Normal 0.0-0.5 [facility] Comment on above: Performed By: #### C BC #### [facility] [address] [place] [address] Niko Karina LYMPH # 1.5 103/ul Normal 1.2-3.8 [facility] Comment on above: Performed By: #### C BC #### [facility] [address] [place], [place] [phone] Niko Karina Lymphocytes/100 WBC (Bld) 18.1 % Critically low 20.5-60.0 [facility] Comment on above: Performed By: #### C BC #### [facility] [address] [place], [place] [phone] Niko Karina MANUAL DIFF REQ NO Normal [facility] Comment on above: Performed By: #### C BC #### [facility] [address] [place], [place] [phone] Niko Collins MCH (RBC) [Entitic mass] 29.8 pg Normal 26.7-34.0 [facility] Comment on above: Performed By: #### C BC #### [facility] [address] [place] [address] Niko Collins MCHC (RBC) [Mass/Vol] 32.8 g/dL Normal 29.9-35.2 [facility] Comment on above: Performed By: #### C BC #### [facility] [address] [place] [address] Niko Collins MCV (RBC) [Entitic vol] 90.9 fL Normal 81.0-99.0 [facility] Comment on above: Performed By: #### C BC #### [facility] [address] [place] [address] Niko Collins MONO # 0.6 103/ul Normal 0.3-0.8 [facility] Comment on above: Performed By: #### C BC #### [facility] [address] [place], [place] [phone] Niko Collins Monocytes/100 WBC (Bld) 7.1 % Normal 1.7-12.0 [facility] Comment on above: Performed By: #### C BC #### [facility] [address] [place] [address] Niko Collins NEUT # 5.8 103/ul Normal 1.4-6.5 [facility] Comment on above: Performed By: #### C BC #### [facility] [address] [place], [place] [phone] Niko Collins Neutrophils/100 WBC (Bld) 71.1 % Normal 43.0-75.0 [facility] Comment on above: Performed By: #### C BC #### [facility] [address] [place], [place] [phone] Nikogenesis Collins Platelet mean volume (Bld) [Entitic vol] 10.7 fL Normal 9.5-13.5 [facility] Comment on above: Performed By: #### C BC #### [facility] [address] [place], [place] [address] Niko Karina PLT 193 103/ul Normal 150-450 [facility] Comment on above: Performed By: #### C BC #### [facility] [address] [place], [place] [address] Niko Karina RBC 5.04 106/ul Normal 4.20-5.40 [facility] Comment on above: Performed By: #### C BC #### [facility] [address] [place], [place] [address] Niko Karina WBC 8.2 103/ul Normal 4.0-11.0 [facility] Comment on above: Performed By: #### C BC #### [facility] [address] [place] [address] Niko Karina URon 05-21-2021 , QUAL Negative Normal NEGATIVE [facility] Comment on above: Performed By: #### P REGU #### [facility] [address] [place] [address] Niko Karina PROF CHEM 8 (BAS METB)on Anion gap [Moles/Vol] 12.3 mmol/L Normal [facility] Comment on above: Performed By: #### B MP #### [facility] [address] [place] [address] Niko Karina Calcium [Mass/Vol] 8.5 mg/dL Normal 8.4-10.2 [facility] Comment on above: Performed By: #### B MP #### [facility] [address] [place], [place] [address] Niko Karina Chloride [Moles/Vol] 107 mmol/L Normal 98-107 [facility] Comment on above: Performed By: #### B MP #### [facility] [address] [place] [address] Niko Karina CO2 [Moles/Vol] 26.3 mmol/L Normal 22.0-30.0 [facility] Comment on above: Performed By: #### B MP #### [facility] [address] [place], [place] [address] Niko Karina Creatinine [Mass/Vol] 0.74 mg/dL Normal 0.52-1.04 [facility] Comment on above: Performed By: #### B MP #### [facility] [address] [place], [place] [address] Niko Karina EGFR-AF SALVADOREAN >60 Normal >=60 [facility] Comment on above: Performed By: #### B MP #### [facility] [address] [place], [place] [address] Niko Karina EGFR-NON AF SALVADOREAN >60 Normal >=60 [facility] Comment on above: Performed By: #### B MP #### [facility] [address] [place] [address] Niko Karina Glucose [Mass/Vol] 88 mg/dL Normal 74-106 [facility] Comment on above: Performed By: #### B MP #### [facility] [address] [place], [place] [phone] Niko Karina Potassium [Moles/Vol] 3.6 mmol/L Normal 3.4-5.0 [facility] Comment on above: Performed By: #### B MP #### [facility] [address] [place], [place] [address] Niko Karina Sodium [Moles/Vol] 142 mmol/L Normal 137-145 [facility] Comment on above: Performed By: #### B MP #### [facility] [address] [place] [phone] Niko Karina Urea nitrogen [Mass/Vol] 7.0 mg/dL Normal 7.0-17.0 [facility] Comment on above: Performed By: #### B MP #### [facility] [address] [place], [place] [address] Niko Karina Urea nitrogen/Creatinine [Mass ratio] 9.5 mg/mg Normal [facility] Comment on above: Performed By: #### B MP #### [facility] [address] [place], [place] [phone] Niko Karina XR CHEST 2 Von 04-23-2021 [...] acute cardiopulmonary disease. Electronically authenticated by: ANGELLA UA Date: 2021-04-23 10:10 Normal [facility] US BREAST COMPLETE RIGHTon 1 Negative targeted ultrasound in the region of palpable concern. Clinical follow-up is recommended. BI-RADS 1 BIRADS: BIRADS - CATEGORY 1 Negative Mammogram. Normal interval follow-up is recommended in 12 months. OVERALL ASSESSMENT - NEGATIVE A letter of notification will be sent to the patient regarding the results. The [employer] recommends annual mammograms for women 40 years and older. [facility] EX[facility]INATION: TARGETED ULTRASOUND OF THE RIGHT BREAST 07/27/2020 COMPARISON: None. HISTORY: ORDERING SYSTEM PROVIDED HISTORY: Cyst of right breast TECHNOLOGIST PROVIDED HISTORY: FINDINGS: Targeted ultrasound was performed in the area of palpable concern. Imaging in the 10-12 o'clock of the right breast reveals no sonographic abnormality. [facility] [place] Dany, pn Incoming Radiant Results From [facility] - 07/27/2020 2:57 PM EDT EXAMINATION: TARGETED [...] to the patient regarding the results. The [employer] recommends annual mammograms for women 40 years and older. [employer] NEANALY CBCon 12-21-2019 Erythrocyte distribution width (RBC) [Ratio] 12.9 % 11.8 - 14.4 % [place] Hematocrit (Bld) [Volume fraction] 43.9 % 36.3 - 47.1 % [place] Hemoglobin (Bld) [Mass/Vol] 14.3 g/dL 11.9 - 15.1 g/dL [place] MCH (RBC) [Entitic mass] 29.5 pg 25.2 - 33.5 pg [place] MCHC (RBC) [Mass/Vol] 32.6 g/dL 28.4 - 34.8 g/dL [place] MCV (RBC) [Entitic vol] 90.7 fL 82.6 - 102.9 fL [place] Platelet mean volume (Bld) [Entitic vol] 10.4 fL 8.1 - 13.5 fL [place] Platelets (Bld) [#/Vol] 222 10*3/uL [place] RBC (Bld) [#/Vol] 4.84 10*6/uL 3.95 - 5.1 1 m/uL [place] WBC (Bld) [#/Vol] 7.9 10*3/uL [place] WBC (Bld) [#/Vol] 0.0 10*3/uL 0.0 per 10 0 WBC [place] HCG Qualitative, Serumon hCG Qual Negative NEGATIVE [place] Comment on above: Specimens with hCG l evels near the threshold of the test (25 mIU/mL) may give a negative or indeterminate result. In such cases, another test should be performed with a new specimen in 48-72 hours. If early is suspected clinically in this setting, correlation with quantitative serum b-hCG level is suggested. [employer] has confirmed the use of plasma for this test. This has not been cleared or approved by the U.S. Food and Drug Administration. The FDA has determined that such clearance is not necessary. HCG, Quantitative, Ordered By: Phan Rubi on 11-02-2019 hCG Quant <1 <5 IU/L [facility] [employer] Work Phone: Comment on above: Non-preg premeno [...] differentialon 07-06 Basophils (Bld) [#/Vol] 0.00 10*3/uL [place] Basophils/100 WBC (Bld) 0 % 0 - 2 % [place] Differential Type NOT REPORTED [place] Eosinophils (Bld) [#/Vol] 0.35 10*3/uL [place] Eosinophils/100 WBC (Bld) 5 % High 1 - 4 % [place] Erythrocyte distribution width (RBC) [Ratio] 13.8 % 11.8 - 14.4 % [place] Hematocrit (Bld) [Volume fraction] 39.1 % 36.3 - 47.1 % [place] Hemoglobin (Bld) [Mass/Vol] 13.1 g/dL 11.9 - 15.1 g/dL [place] Immature granulocytes (Bld) [#/Vol] 0.00 10*3/uL [place] Immature granulocytes (Bld) [#/Vol] 0 % 0 [place] Interpretation and review of laboratory results Abnormal [place] Lymphocytes (Bld) [#/Vol] 2.14 10*3/uL [place] Lymphocytes/100 WBC (Bld) 31 % 24 - 43 % [place] MCH (RBC) [Entitic mass] 31.8 pg 25.2 - 33.5 pg [place] MCHC (RBC) [Mass/Vol] 33.5 g/dL 28.4 - 34.8 g/dL [place] MCV (RBC) [Entitic vol] 94.9 fL 82.6 - 102.9 fL [place] Monocytes (Bld) [#/Vol] 0.48 10*3/uL [place] Monocytes/100 WBC (Bld) 7 % 3 - 12 % [place] Morphology Mahamed (Bld) [Interp] Normal [place] Platelet mean volume (Bld) [Entitic vol] NOT REPORTED 8.1 - 13.5 fL [place] Platelets (Bld) [#/Vol] See Reflexed IPF Result [place] Platelets (Bld) [#/Vol] NOT REPORTED [place] RBC (Bld) [#/Vol] 4.12 10*6/uL 3.95 - 5.1 1 m/uL [place] RBC morphology finding Nom (Bld) NOT REPORTED [place] Segmented neutrophils/100 WBC (Bld) 57 % 36 - 65 % [place] Segs Absolute 3.93 [place] WBC (Bld) [#/Vol] 6.9 10*3/uL [place] WBC (Bld) [#/Vol] 0.0 10*3/uL 0.0 per 10 0 WBC [place] WBC Morphology NOT REPORTED [place] DRUG SCREEN MULTI URINEon Amphetamine Screen, Ur Negative NEGATIVE [place] Barbiturate Screen, Ur Negative NEGATIVE [place] Benzodiazepine Screen, Urine Negative NEGATIVE [place] Buprenorphine Urine Negative NEGATIVE [place] Cannabinoid Scrn, Ur Negative NEGATIVE [place] Cocaine Metabolite, Urine Negative NEGATIVE [place] MDMA, Urine NOT REPORTED NEGATIVE [place] Methadone Screen, Urine Negative NEGATIVE [place] Methamphetamine, Urine Negative NEGATIVE [place] Opiates, Urine Negative NEGATIVE [place] Oxycodone Screen, Ur Negative NEGATIVE [place] Phencyclidine, Urine Negative NEGATIVE [place] Propoxyphene, Urine Negative NEGATIVE [place] Test Information NOT REPORTED [place] Tricyclic Antidepressants, Urine Negative NEGATIVE [place] Comment on above: Drug screen results are to be used for medical purposes only. All positive results are unconfirmed. Testing for employment or legal uses should be sent to a reference laboratory for confirmation. Immature Platelet Fractionon 07-20-2019 Interpretation and review of laboratory results Abnormal [place] Platelet, Fluorescence 125 Low [place] Platelet, Immature Fraction 3.9 % 1.1 - 10.3 % [place] GROUP B STREP DNA PROBE, REF CT TO CULTUREon 07-04-2019 Streptococcus Grp. B, CSF Negative [place] US OB 14 PLUS WEEKS SINGLE O R FIRST GESTATIONon 06-21-2019 A single live intrauterine with estimated gestational age of 36 weeks 3 days by ultrasound. The estimated weight is 2659 g. Cervical length is shortened measuring 2.4 cm [place] EXAMINATION: TRANSABDOMINAL SECOND/THIRD TRIMESTER OBSTETRIC PELVIC [...] 6.8 cm, 41%tile CERVICAL LENGTH: 2.4 cm [place] Dany, Mhpn Incoming Radiant Results From [facility] - 06/21/2019 5:58 PM EDT EXAMINATION: TRANSABDOMINAL [...] Cervical length is shortened measuring 2.4 cm [place] Urinalysis with microscopico n 06-21-2019 Amorphous, UA TRACE Abnormal None [place] Bacteria, UA 1+ Abnormal None [place] Bilirubin Urine Negative NEGATIVE [place] Casts UA NOT REPORTED /LPF [place] Color, UA YELLOW YELLOW [place] Crystals UA NOT REPORTED None /HPF [place] Epithelial Cells UA 5 TO 10 [place] Glucose, Ur Negative NEGATIVE [place] Interpretation and review of laboratory results Abnormal [place] Ketones Ql (U) Negative NEGATIVE [place] Leukocyte esterase Test strip Ql (U) SMALL Abnormal NEGATIVE [place] Mucus, UA TRACE Abnormal None [place] Nitrite, Urine Negative NEGATIVE [place] Other Observations UA NOT REPORTED NOT REQ. [place] pH, UA 6.5 [place] Protein (U) [Mass/Vol] Negative NEGATIVE [place] RBC (U) [#/Vol] None [place] Renal Epithelial, Urine NOT REPORTED 0 /HPF [place] Specific [place], UA 1.025 High [place] Trichomonas, UA NOT REPORTED None [facility] [place] Turbidity UA CLEAR CLEAR [place] Urinalysis Comments NOT REPORTED [place] Urine Hgb Negative NEGATIVE [facility], [place] Urobilinogen, Urine Normal Normal [facility], [place] WBC, UA 2 TO 5 [place] Yeast, UA NOT REPORTED None [facility], [place] - [facility], [place] SURGICAL PATH REPORTon 10-15 SURGICAL PATH REPORT Normal [facility] Comment on above: Result Comment: DIAG NOSIS IUD, REMOVAL: GROSS EXAMINATION ONLY CPT 61905 anthony/10/14/2018 Electronically Signed Out by Tian Gonzales [...] is for gross only. [facility] [address] [place] [address] CLIA No. [id number] CAP Accreditation No. [id number] [place] Driver: Tony Solomon M.D. [facility] Accession Number: [id number] Performed By: #### P L BIOPSY #### [address] [address] CBC W Auto Differentialon Age at specimen collection = Normal [facility] Comment on above: Performed By: #### C BC Auto Diff #### [address] [address] Performed By: #### H CG,QUAL SERUM #### [address] [address] Performed By: #### P L BIOPSY #### [address] [address] Abs Neut # 3.1 10 X 3/mm Normal 1.8 - 7.7 [facility] Comment on above: Performed By: #### C BC Auto Diff #### [facility] [address] [place] [address] Basophils/100 WBC (Bld) 1 % Normal 0 - 1 [facility] Comment on above: Performed By: #### C BC Auto Diff #### [place] [address] [place] [address] Eosinophils #/vol (Bld) 0.2 10 X 3/mm Normal 0.0 - 0.5 [facility] Comment on above: Performed By: #### C BC Auto Diff #### [place] [address] [place] [address] Eosinophils/100 WBC (Bld) 3 % Normal 0 - 5 [facility] Comment on above: Performed By: #### C BC Auto Diff #### [place] [address] [place] [address] Erythrocyte distribution width Ratio (RBC) 13.0 % Normal 11.5 - 14.5 [facility] Comment on above: Performed By: #### C BC Auto Diff #### [place] [address] [place] [address] Hematocrit Volume Fraction (Bld) 42.3 % Normal 36.0 - 47.0 [facility] Comment on above: Performed By: #### C BC Auto Diff #### [place] [address] [place] [address] Hemoglobin mass conc (Bld) 14.6 g/dL Normal 12.0 - 16.0 [facility] Comment on above: Performed By: #### C BC Auto Diff #### [place] [id number] [place] [place] [address] Lymphocytes #/vol (Bld) 1.7 10 X 3/mm Normal 1.0 - 4.0 [facility] Comment on above: Performed By: #### C BC Auto Diff #### [facility] [address] [place] [address] Lymphocytes/100 WBC (Bld) 32 % Normal 20 - 40 [facility] Comment on above: Performed By: #### C BC Auto Diff #### [address] [place] [address] MCH Entitic mass (RBC) 31.1 pg Normal 27.0 - 35.0 [facility] Comment on above: Performed By: #### C BC Auto Diff #### [address] [place] [address] MCHC mass conc (RBC) 34.4 g/dL Normal 32.0 - 36.0 [facility] Comment on above: Performed By: #### C BC Auto Diff #### [address] [place] [address] MCV Entitic volume (RBC) 90.5 fL Normal 80.0 - 100.0 [facility] Comment on above: Performed By: #### C BC Auto Diff #### [address] [place] [address] Monocytes/100 WBC (Bld) 7 % Normal 1 - 15 [facility] Comment on above: Performed By: #### C BC Auto Diff #### [address] [place] [address] Neutrophils/100 WBC (Bld) 57 % Normal 50 - 70 [facility] Comment on above: Performed By: #### C BC Auto Diff #### [id number] [place] [address] Platelet mean volume Entitic volume (Bld) 8.9 fL Normal 7.5 - 11.5 [facility] Comment on above: Performed By: #### C BC Auto Diff #### [facility] [address] [place] [address] Platelets #/vol (Bld) 164 uLx10 Normal 150 - 450 [facility] Comment on above: Performed By: #### C BC Auto Diff #### [facility] [address] [place] [address] RBC #/vol (Bld) 4.68 10 X 6/mm Normal 4.20 - 5.40 [facility] Comment on above: Performed By: #### C BC Auto Diff #### [facility] [address] [facility] [place] [address] WBC #/vol (Bld) 5.5 10 X 3/mm Normal 3.7 - 11.0 [facility] Comment on above: Performed By: #### C BC Auto Diff #### [id number] [place] [address] hCG, Qualitative-Serumon Internal Control ACCEPTABLE Normal [facility] Comment on above: Performed By: #### H CG,QUAL SERUM #### [id number] [facility] [place] [address] hCG, Qualitative-Serum Negative Normal NEGATIVE [facility] Comment on above: Performed By: #### H CG,QUAL SERUM #### [id number] [place] [address] SURGICAL PATH REPORTon 08-11 SURGICAL PATH REPORT Normal [facility] Comment on above: Result Comment: DIAG NOSIS A CERVIX, 5:00, LEEP BIOPSY: 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 NATURE OF SPECIMEN A: Cervix 5:00 B: Endocervical curettings CLINICAL FINDINGS No clinical history provided. ICD-CM CODE(S) N87.9 Dysplasia Of Cervix Uteri, Unspecified GROSS DESCRIPTION A The container is labeled Mariah Carballo :1, cervix, 5 o'clock position . Received in formalin is a single pacheco-pink unoriented segment of rubbery soft tissue measuring [...] is a single Telfa pad containing multiple pacheco feathery bits of soft tissue embedded in pacheco, cloudy mucoid debris aggregating to 1.6 x [...] dysplasia or other abnormality. [facility] [address] [place] [address] [place] Driver: Tony Solomon M.D. CLIA No. [id number] [facility] Accreditation No. [id number] [facility] Accession Number: [id number] Performed By: #### P L BIOPSY #### [address] [address] CBC W Auto Differentialon Age at specimen collection = Normal [facility] Comment on above: Performed By: #### C BC Auto Diff #### [address] [address] Performed By: #### H CG,QUAL SERUM #### [facility] [address] [place] [address] Performed By: #### P L BIOPSY #### [id number] [place] [address] Abs Neut # 3.9 10 X 3/mm Normal 1.8 - 7.7 [facility] Comment on above: Performed By: #### C BC Auto Diff #### [address] [place] [address] Basophils/100 WBC (Bld) 1 % High 0 - 1 [facility] Comment on above: Performed By: #### C BC Auto Diff #### [address] [place] [address] Eosinophils #/vol (Bld) 0.2 10 X 3/mm Normal 0.0 - 0.5 [facility] Comment on above: Performed By: #### C BC Auto Diff #### [address] [place] [address] Eosinophils/100 WBC (Bld) 4 % Normal 0 - 5 [facility] Comment on above: Performed By: #### C BC Auto Diff #### [address] [place] [address] Erythrocyte distribution width Ratio (RBC) 12.9 % Normal 11.5 - 14.5 [facility] Comment on above: Performed By: #### C BC Auto Diff #### [address] [place] [address] Hematocrit Volume Fraction (Bld) 47.4 % High 36.0 - 47.0 [facility] Comment on above: Performed By: #### C BC Auto Diff #### [address] [place] [address] Hemoglobin mass conc (Bld) 16.2 g/dL High 12.0 - 16.0 [facility] Comment on above: Performed By: #### C BC Auto Diff #### [facility] [address] [place] [address] Lymphocytes #/vol (Bld) 2.1 10 X 3/mm Normal 1.0 - 4.0 [facility] Comment on above: Performed By: #### C BC Auto Diff #### [address] [place] [address] Lymphocytes/100 WBC (Bld) 31 % Normal 20 - 40 [facility] Comment on above: Performed By: #### C BC Auto Diff #### [address] [place] [address] MCH Entitic mass (RBC) 30.9 pg Normal 27.0 - 35.0 [facility] Comment on above: Performed By: #### C BC Auto Diff #### [address] [address] MCHC mass conc (RBC) 34.1 g/dL Normal 32.0 - 36.0 [facility] Comment on above: Performed By: #### C BC Auto Diff #### [address] [place] [address] MCV Entitic volume (RBC) 90.5 fL Normal 80.0 - 100.0 [facility] Comment on above: Performed By: #### C BC Auto Diff #### [address] [place] [address] Monocytes/100 WBC (Bld) 8 % Normal 1 - 15 [facility] Comment on above: Performed By: #### C BC Auto Diff #### [address] [address] Neutrophils/100 WBC (Bld) 56 % Normal 50 - 70 [facility] Comment on above: Performed By: #### C BC Auto Diff #### [id number] [place] [address] Platelet mean volume Entitic volume (Bld) 8.6 fL Normal 7.5 - 11.5 [facility] Comment on above: Performed By: #### C BC Auto Diff #### [address] [place] [address] Platelets #/vol (Bld) 213 uLx10 Normal 150 - 450 [facility] Comment on above: Performed By: #### C BC Auto Diff #### [address] [address] RBC #/vol (Bld) 5.24 10 X 6/mm Normal 4.20 - 5.40 [facility] Comment on above: Performed By: #### C BC Auto Diff #### [address] [address] WBC #/vol (Bld) 6.9 10 X 3/mm Normal 3.7 - 11.0 [facility] Comment on above: Performed By: #### C BC Auto Diff #### [address] [place] [address] hCG, Qualitative-Serumon Internal Control ACCEPTABLE Normal [facility] Comment on above: Performed By: #### H CG,QUAL SERUM #### [address] [address] hCG, Qualitative-Serum Negative Normal NEGATIVE [facility] Comment on above: Performed By: #### H CG,QUAL SERUM #### [address] [place] [address] Vital Signs Date Time Vital Sign Value Performing Clinician Facility 01-09-2024 09:15-0400 Diastolic blood pressure 76 mm[Hg] Kaila Chi DO Work Phone[facility] 01-09-2024 09:15-0400 Heart rate 68 /min Kaila Torresg DO Work Phone: [facility] [employer] 01-09-2024 09:15-0400 Respiratory rate 16 /min Kaila Torresg DO Work Phone: [facility] [employer] 01-09-2024 09:15-0400 SaO2% (BldA) [Mass fraction] 100 % Kaila Chi DO Work Phone: [facility] [employer] 01-09-2024 09:15-0400 Systolic blood pressure 106 mm[Hg] Kaila Torresg DO Work Phone: [email or web address] 01-09-2024 08:53-0400 Body temperature 97.7 [degF] Kaila Torresg DO Work Phone: [facility] [employer] 01-09-2024 06:40-0400 Body height 160 cm Kaila Torresg DO Work Phone: [facility] [employer] 01-09-2024 06:40-0400 Body mass index (BMI) [Ratio] 24.3 kg/m2 Kaila Torresg DO Work Phone: [facility] [employer] 01-09-2024 06:40-0400 Body weight 62.23 kg Kaila Torresg DO Work Phone: [facility] [employer] 10-01-2022 18:15-0500 Diastolic blood pressure 84 mm[Hg] Kaila Torresg DO Work Phone: [facility] [employer] 10-01-2022 18:15-0500 Heart rate 66 /min Kaila Torresg DO Work Phone: [employer] [facility] [place] 10-01-2022 18:15-0500 Respiratory rate 16 /min Kaila Chi DO Work Phone: [employer] [facility] [place] 10-01-2022 18:15-0500 SaO2% (BldA) [Mass fraction] 99 % Kaila Chi DO Work Phone: [facility] [place] 10-01-2022 18:15-0500 Systolic blood pressure 124 mm[Hg] Kaila Chi DO Work Phone: [employer] [facility] [place] 10-01-2022 16:30-0500 Body temperature 97.3 [degF] Kaila Chi DO Work Phone: [employer] [place] 10-01-2022 12:38-0500 Body mass index (BMI) [Ratio] 25.3 kg/m2 Kaila Chi DO Work Phone: [employer] [facility] [place] 10-01-2022 12:38-0500 Body weight 64.77 kg Kaila Chi DO Work Phone: [employer] [facility] [place] 09-23-2022 15:08-0500 Body height 160 cm Kaila Chi DO Work Phone: [facility] [place] 03-08-2022 16:08-0400 Body temperature 98.2 [degF] Jerrell Westbrook APRN - JOSÉ MIGUEL Work Phone: [employer] [place] 03-08-2022 16:08-0400 Diastolic blood pressure 67 mm[Hg] Jerrell Westbrook APRN - JOSÉ MIGUEL Work Phone: [facility] [place] 03-08-2022 16:08-0400 Heart rate 79 /min Jerrell Westbrook APRN - JOSÉ MIGUEL Work Phone: [employer] [facility] [place] 03-08-2022 16:08-0400 Respiratory rate 16 /min Jerrell Westbrook APRN - JOSÉ MIGUEL Work Phone: [employer] [facility] [place] 03-08-2022 16:08-0400 Systolic blood pressure 109 mm[Hg] Jerrell Westbrook APRN - CNM Work Phone: [facility] [employer] 12-19-2021 12:16-0400 Body height 160 cm Jerrell Westbrook 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 - CNM Work Phone: [facility] [employer] 12-19-2021 12:16-0400 Body mass index (BMI) [Ratio] 28.34 kg/m2 Jerrell Westbrook APRN - CNM Work Phone: [facility] [employer] 12-19-2021 12:16-0400 Body temperature 98.01 [degF] Jerrell Westbrook APRN - CNM Work Phone: [facility] [employer] 12-19-2021 12:16-0400 Body weight 72.58 kg Jerrell Westbrook APRN - CNM Work Phone: [facility] [employer] 12-19-2021 12:16-0400 Diastolic blood pressure 69 mm[Hg] Jerrell Westbrook APRN - CNM [facility] 12-19-2021 12:16-0400 Heart rate 85 /min Jerrell Westbrook APRN - CNM Work Phone: [facility] 12-19-2021 12:16-0400 Respiratory rate 18 /min Jerrell Westbrook APRN - CNM Work Phone: [facility] [employer] 12-19-2021 12:16-0400 Systolic blood pressure 112 mm[Hg] Jerrell Westbrook APRN - CNM Work Phone: [facility] 12-15-2021 10:01-0500 Body height 160 cm Fito Hutchinson MD Work Phone: [employer] 12-15-2021 10:01-0500 Body mass index (BMI) [Ratio] 28.34 kg/m2 Fito Hutchinson MD Work Phone: [employer] 12-15-2021 10:01-0500 Body temperature 99.1 [degF] Fito Hutchinson MD Work Phone: [employer] 12-15-2021 10:01-0500 Body weight 72.58 kg Fito Hutchinson MD Work Phone: [employer] 12-15-2021 10:01-0500 Diastolic blood pressure 65 mm[Hg] Fito Hutchinson MD Work Phone: [employer] 12-15-2021 10:01-0500 Heart rate 134 /min Fito Hutchinson MD Work Phone: [employer] 12-15-2021 10:01-0500 Respiratory rate 20 /min Fito Hutchinson MD Work Phone: [employer] 12-15-2021 10:01-0500 SaO2% (BldA) [Mass fraction] 97 % Fito Hutchinson MD Work Phone: [employer] 12-15-2021 10:01-0500 Systolic blood pressure 108 mm[Hg] Fito Hutchinson MD Work Phone: [employer] 12-05-2021 17:33-0500 Body height 160 cm Jerrell Westbrook APRN - CNM Work Phone: [employer] 12-05-2021 17:33-0500 Body mass index (BMI) [Ratio] 28.17 kg/m2 Jerrell Westbrook APRN - CNM Work Phone: [employer] 12-05-2021 17:33-0500 Body temperature 98.1 [degF] Jerrell Westbrook APRN - CNM Work Phone: [employer] 12-05-2021 17:33-0500 Body weight 72.12 kg Jerrell Westbrook APRN - CNM Work Phone: [employer] 12-05-2021 17:33-0500 Diastolic blood pressure 67 mm[Hg] Jerrell Westbrook APRN - CNM Work Phone: [employer] 12-05-2021 17:33-0500 Heart rate 82 /min Jerrell Westbrook APRN - CNM Work Phone: [employer] 12-05-2021 17:33-0500 Respiratory rate 16 /min Jerrell Westbrook APRN - CNM Work Phone: [employer] 12-05-2021 17:33-0500 Systolic blood pressure 102 mm[Hg] Jerrell Westbrook APRN - CNM Work Phone: [employer] 08-06-2021 11:28-0400 Body mass index (BMI) [Ratio] 26.85 kg/m2 Danny Mendiola Jr., MD Work Phone: [employer] Work Phone: 08-06-2021 11:28-0400 Body temperature 97 [degF] Danny Mendiola Jr., MD Work Phone: [employer] Work Phone: 08-06-2021 11:28-0400 Body weight 69.85 kg Danny Mendiola Jr., MD Work Phone: [employer] Work Phone: 08-06-2021 11:28-0400 Diastolic blood pressure 81 mm[Hg] Danny Mendiola Jr., MD Work Phone: [employer] Work Phone: 08-06-2021 11:28-0400 Heart rate 89 /min Danny Mendiola Jr., MD Work Phone: [employer] Work Phone: 08-06-2021 11:28-0400 Respiratory rate 20 /min Danny Mendiola Jr., MD Work Phone: [employer] Work Phone: 08-06-2021 11:28-0400 SaO2% (BldA) [Mass fraction] 97 % Danny Mendiola Jr., MD Work Phone: [employer] Work Phone: 08-06-2021 11:28-0400 Systolic blood pressure 108 mm[Hg] Danny Mendiola Jr., MD Work Phone: [employer] Work Phone: 07-20-2021 15:45-0400 Body height 161.29 cm Betty Lamar Other [employer] Other 07-20-2021 15:45-0400 Body temperature 99.4 [degF] Betty Lamar Other [employer] Other 07-20-2021 15:45-0400 SaO2% (BldA) [Mass fraction] 99 % Betty Lamra Other [employer] Other 05-10-2020 14:59-0400 BMI (Body Mass Index) 28 kg/m2 [facility] Work Phone: 05-10-2020 14:59-0400 Body Temperature 95.4 [degF] [facility] Work Phone: 05-10-2020 14:59-0400 Body weight 71.76 kg [facility] Work Phone: 05-10-2020 14:59-0400 BP Diastolic 76 mm[Hg] [facility] Work Phone: 05-10-2020 14:59-0400 BP Systolic 100 mm[Hg] [facility] Work Phone: 05-10-2020 14:59-0400 BSA (Body Surface Area) 1.75 m2 [facility] Work Phone: 05-10-2020 14:59-0400 Height 160.02 cm [facility] Work Phone: 05-10-2020 14:59-0400 Pulse (Heart Rate) 72 /min [facility] Work Phone: 05-10-2020 14:59-0400 Pulse Oximetry 97 % [facility] Work Phone: 05-10-2020 14:59-0400 Respiratory Rate 18 /min [facility] Work Phone: 07-22-2019 08:12-0400 Body Temperature 97.5 [degF] [facility] [place] 07-22-2019 08:12-0400 BP Diastolic 55 mm[Hg] [facility] , [place] 07-22-2019 08:12-0400 BP Systolic 109 mm[Hg] [facility] , [place] 07-22-2019 08:12-0400 Pulse (Heart Rate) 81 /min [facility] 07-22-2019 08:12-0400 Respiratory Rate 16 /min [facility] 07-20-2019 16:14-0400 Pulse Oximetry 97 % [facility] , [place] 07-20-2019 06:20-0400 BMI (Body Mass Index) 32.95 kg/m2 [facility] 07-20-2019 06:20-0400 Body weight 84.37 kg [facility] [place] 07-20-2019 06:20-0400 Height 160 cm [facility] [place] 06-21-2019 16:35-0400 BP Diastolic 71 mm[Hg] [facility] , [place] 06-21-2019 16:35-0400 BP Systolic 109 mm[Hg] [facility] , [place] 06-21-2019 16:35-0400 Pulse (Heart Rate) 92 /min [facility] 06-21-2019 15:41-0400 Body Temperature 97.59 [degF] [facility] 06-21-2019 15:41-0400 Respiratory Rate 18 /min [facility] 06-01-2019 10:20-0400 BP Diastolic 60 mm[Hg] [facility] Work Phone: 06-01-2019 10:20-0400 BP Systolic 100 mm[Hg] Chencho Sylvester [facility] Work Phone: 06-01-2019 10:20-0400 Height 160.02 cm [facility] Work Phone: 05-17-2019 15:17-0400 BMI (Body Mass Index) 31.2 kg/m2 [facility] Work Phone: 05-17-2019 15:17-0400 Body Temperature 98.1 [degF] [facility] Work Phone: 05-17-2019 15:17-0400 Body weight 79.92 kg [facility] Work Phone: 05-17-2019 15:17-0400 BP Diastolic 82 mm[Hg] [facility] Work Phone: 05-17-2019 15:17-0400 BP Systolic 110 mm[Hg] [facility] Work Phone: 05-17-2019 15:17-0400 BSA (Body Surface Area) 1.83 m2 [facility] Work Phone: 05-17-2019 15:17-0400 Height 160.02 cm [facility] Work Phone: 05-17-2019 15:17-0400 Pulse (Heart Rate) 86 /min [facility] Work Phone: 05-17-2019 15:17-0400 Pulse Oximetry 98 % [facility] Work Phone: 05-17-2019 15:17-0400 Respiratory Rate 14 /min [facility] Work Phone: Encounters Encounter Date Encounter Type Care Provider Facility Start: 01-09-2024 End: 01-09-2024 ambulatory [facility] Start: 01-09-2024 End: 01-09-2024 Subsequent hospital visit by physician Kaila Chi DO Work Phone: [facility] Comment on above: Condyloma acuminatum of vulva Start: 03-26-2023 End: 03-27-2023 ambulatory [facility] Start: 03-20-2023 End: 03-21-2023 ambulatory JERRELL WESTBROOK [facility] Start: 03-20-2023 End: 03-20-2023 Subsequent hospital visit by physician Chencho Sylvester APRN - LANEY Work Phone: [facility] Comment on above: Screen for STD (sexu ally transmitted disease) Start: 02-03-2023 End: 02-04-2023 ambulatory JERRELL WESTBROOK [facility] Start: 02-03-2023 End: 02-03-2023 Subsequent hospital visit by physician Chenhco Sylvester APRN - LANEY Work Phone: [facility] Comment on above: Dysuria Start: 10-01-2022 End: 10-01-2022 Subsequent hospital visit by physician Kaila Chi DO Work Phone: [facility] Comment on above: Post-op pain (Primar y Dx); Adenomyosis Start: 04-22-2022 End: 04-22-2022 Subsequent hospital visit by physician Chencho Sylvester APRN - LANEY Work Phone: [facility] Comment on above: Screening for malign ant neoplasm of cervix Start: 03-19-2022 End: 03-19-2022 Subsequent hospital visit by physician Chencho Sylvester APRN - [employer] APPRENTICE Work Phone: [facility] Comment on above: Dysuria Start: 2022 End: 03-08-2022 Evaluation and management of inpatient Jerrell Westbrook 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 - YOLAM Work Phone: [facility] Labor and Delivery Start: 02-13-2022 End: 02-13-2022 Subsequent hospital visit by physician Chencho Sylvester APRN - [employer] APPRENTICE Work Phone: [facility] Laboratory Comment on above: Abdominal cramping a ffecting Start: 02-13-2022 End: 02-13-2022 Subsequent hospital visit by physician Chencho Sylvester 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 - [employer] APPRENTICE Work Phone: [facility] Laboratory Comment on above: 36 weeks gestation o f Start: 12-19-2021 End: 12-19-2021 Subsequent hospital visit by physician Jerrell Westbrook 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 - CN Work Phone: [facility] Labor and Delivery Start: 12-15-2021 End: 12-15-2021 Emergency department patient visit Fito Hutchinson MD Work Phone: [facility] ED Comment on above: Influenza with respi ratory manifestation other than pneumonia (Primary Dx) Start: 12-05-2021 End: 12-05-2021 Subsequent hospital visit by physician Jerrell Westbrook 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 - CN Work Phone: [facility] Labor and Delivery Start: 11-06-2021 End: 11-08-2021 Subsequent hospital visit by physician [facility] Ultrasound Room [facility] Ultrasound Comment on above: IUP (intrauterine pr egnancy), incidental; Marginal placenta previa Start: 10-07-2021 End: 10-07-[address] BRITNEY EWING Facility: Start: 08-06-2021 End: 08-06-2021 Emergency department patient visit Danny Mendiola MD Work Phone: [facility] ED Comment on above: Mild hyperemesis gra vidarum, antepartum (Primary Dx) Start: 07-20-2021 Office outpatient vi sit 15 minutes Betty Lamar [facility] Start: 07-18-2021 End: 07-18-2021 Subsequent hospital visit by physician Chencho Sylvester APRN - [employer] APPRENTICE Work Phone: [facility] Start: 07-16-2021 End: 07-16-2021 Subsequent hospital visit by physician Chencho Sylvester 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 - [employer]EL[employer] APPRENTICE Work Phone: [facility] Laboratory Start: 05-24-2021 End: 05-24-[address] KARLO WESTBROOK Facility:[facility]1 Start: 05-21-2021 End: 05-22-2021 ambulatory CORWIN ABREU Facility:[facility]1 Start: 04-23-2021 End: 04-23-2021 ambulatory CHENCHO HIGINIO Facility:[facility]1 Start: 07-27-2020 End: 07-29-2020 Subsequent hospital visit by physician [facility] Ultrasound Room 2 At [facility] Ultrasound Comment on above: Cyst of right breast Start: 05-10-2020 End: 05-10-2020 Established patient Nina Quintana Work Phone: [facility] Work Phone: Start: 12-21-2019 End: 12-21-2019 Subsequent hospital visit by physician Chencho Sylvester [facility] Laboratory Start: 11-04-2019 End: 11-04-2019 Patient encounter procedure Yoel Wright Work Phone: [facility] Work Phone: Start: 11-02-2019 End: 11-02-2019 Subsequent hospital visit by physician Chencho Sylvester 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 - [employer] APPRENTICE Work Phone: [facility] Laboratory Start: 07-20-2019 End: 07-22-2019 Evaluation and management of inpatient Phankathy Rubi Work Phone: [facility] Labor and Delivery Start: 07-13-2019 End: 07-13-2019 Patient encounter procedure Yoel Wright Work Phone: [facility] Work Phone: Start: 07-06-2019 End: 07-06-2019 Patient encounter procedure Yoel Wright Work Phone: [facility] Work Phone: Start: 06-21-2019 End: 06-21-2019 Subsequent hospital visit by physician Phan Rubi Work Phone: [facility] Labor and Delivery Start: 06-03-2019 End: 06-03-2019 Patient encounter procedure Miya Mcmillan Work Phone: [facility] Work Phone: Start: 06-01-2019 Comprehensve oral evaluation Yoel Wright Work Phone: [facility] Work Phone: Start: 06-01-2019 End: 06-01-2019 Patient encounter procedure Yoel Wright Work Phone: [facility] Work Phone: Start: 05-17-2019 End: 05-17-2019 Established patient Kandi Walters Work Phone: [facility] Work Phone: Start: 10-13-2018 End: 10-13-2018 Patient encounter procedure [facility] Facility:[facility] Start: 08-07-2018 End: 08-07-2018 Patient encounter procedure [facility] Facility:[facility] Procedures Date Procedure Procedure Detail Performing Clinician Start: 03-20-2023 Iadna munira species direct probe tq Jerrell Westbrook 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 - CNM Work Phone: Start: 02-03-2023 Urinalysis microscopic only Jerrell Westbrook 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 - CNM Work Phone: Start: 02-03-2023 Urnls dip stick/tablet rgnt auto w/o microscopy Jerrell Westbrook 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 - CNM Work Phone: Start: 10-01-2022 Urine test visual color cmprsn meths Love Westbrook 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 - [facility] Work Phone: Start: 04-22-2022 Microscopic observation [Identifier] in Cervix by Cyto stain Kaila Chi DO Work Phone: Start: 2022 Blood count complete auto&auto difrntl wbc Jerrell Westbrook 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 - CNM Work Phone: Start: 2022 Drug tst prsmv instrmnt chem analyzers pr date Jerrell Westbrook 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 - CNM Work Phone: Start: 12-19-2021 Urinalysis microscopic only Jerrell Khan 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 - CNM Work Phone: Start: 12-19-2021 Urnls dip stick/tablet rgnt auto w/o microscopy Jerrell Solisjayda 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 - CNM Work Phone: Start: 12-15-2021 COVID-19, RAPID Fito Hutchinson MD Work Phone: Start: 12-15-2021 Iaadiadoo influenza Fito Hutchinson MD Work Phone: Start: 12-05-2021 Urinalysis microscopic only Jerrell Begum De 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 - CNM Work Phone: Start: 12-05-2021 Urnls dip stick/tablet rgnt auto w/o microscopy Jerrell Begum De 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 - CNM Work Phone: Start: 11-06-2021 Us preg uterus w/detail anabel 1st gestation Phan Rubi MD Work Phone: Start: 08-06-2021 Urinalysis microscopic only Danny Mendiola MD Work Phone: Start: 08-06-2021 Urnls dip stick/tablet rgnt auto w/o microscopy Danny Mendiola MD Work Phone: Start: 08-06-2021 BASIC METABOLIC PANEL W/ REFLEX TO MG FOR LOW K Danny Mendiola MD Work Phone: Start: 08-06-2021 Blood count [...] Start: 11-02-2019 Gonadotropin chorionic quantitative Phan Rubi Work Phone: Start: 07-20-2019 Blood count complete [...] Work Phone: Start: 06-03-2019 Dental prophylaxis adult Miyabyron Luzg Work Phone: Start: 06-01-2019 Bitewings four images Yoel Wright Work Phone: Start: 06-01-2019 Caries risk assess high risk Yoel Wright Work Phone: Start: 06-01-2019 Intraoral periapical first Yoel Wright Work Phone: Start: 05-17-2019 ANXIETY DISORDER NOS Kandi Romeo Start: 05-17-2019 Appendectomy Kandi Bleckley Start: 05-17-2019 currently Kandi Walters Start: 05-17-2019 [...] of 2) Shingles Vaccine (1 of 2) [place] Start: 01-08-2032 DTaP/Tdap/Td vaccine (3 - Td or Tdap) DTaP/Tdap/Td vaccine (3 - Td or Tdap) [facility] Start: 04-23-2029 DTaP/Tdap/Td vaccine (2 - Td or Tdap) DTaP/Tdap/Td vaccine (2 - Td or Tdap) [facility] Start: 04-22-2027 Screening for malign ant neoplasm of cervix [facility] Start: 04-22-2025 Screening for malign ant neoplasm of cervix Pap smear [facility] Start: 12-14-2024 Depression Monitoring Depression Mon itoring [facility] Start: 05-06-2024 Influenza vaccination Flu vacc ine (Season Ended) [facility] Start: 03-23-2024 End: 03-23-2024 Patient encounter procedure [facility] Comment on above: yearly Start: 01-21-2024 HPV vaccine (3 - 3-d ose SCDM series) HPV vaccine (3 - 3-dose SCDM series) [facility] Start: 01-21-2024 End: 01-21-2024 Patient encounter procedure 01/21/2024 9:45 AM EDT Office Visit [facility] [address] [facility] [address] [place] [address] Dennise Macias PA-C [address] [place] [address] f/u from condyloma removal BA 12/16 [facility] Comment on above: f/u from condyloma r emoval BA 12/16 Start: 01-09-2024 End: 01-09-2024 Destruction lesions vulva extensive VULVA LESION BIOPSY EXCISION Condyloma acuminatum of vulva 01/09/2024 8:15 AM EDT [facility] Start: 05-06-2023 Influenza vaccination Flu vacc ine (Season Ended) DULCE MARIA KILPATRICK [facility] Start: 03-20-2023 End: 03-20-2023 Patient encounter procedure 03/20/2023 Office Visit Obstetrics and Gynecology Jerrell Westbrook, MONTY - JOSÉ MIGUEL [address] [place] [address] [id number] [facility] Start: 11-05-2022 End: 11-05-2022 Patient encounter procedure 11/05/2022 Office Visit Obstetrics and Gynecology Kaila Buckley DO [address] [place] [address] [facility] Start: 10-09-2022 End: 10-09-2022 Patient encounter procedure 10/09/2022 Office Visit Obstetrics and Gynecology Dennise Macias PA-C [address] [place] [address] [facility] Start: 10-01-2022 End: 10-01-2022 Laps total hysterect 250 gm/< w/rmvl tube/ovary HYSTERECTOMY VAGINAL LAPAROSCOPIC ROBOTIC ASSISTED Adenomyosis 10/01/2022 1:56 PM EST [facility] Start: 06-06-2022 Influenza vaccination [facility] Start: 05-21-2022 End: 05-21-2022 Patient encounter procedure 05/21/2022 Office Visit Obstetrics and Gynecology Kaila Buckley, DO [address] [place] [address] [facility] Start: 05-06-2022 Influenza vaccination Flu vaccine (# 1) [facility] Start: 04-22-2022 End: 04-22-2022 ambulatory 04/22/2022 Visit Obstetrics and Gynecology Jerrell Westbrook APRN - CNM [address] [place], [place] [id number] [facility] Start: 2022 Screening for malign ant neoplasm of cervix [facility] Start: 02-20-2022 End: 02-20-2022 Patient encounter procedure 02/20/2022 Routine Obstetrics and Gynecology Jerrell Westbrook APRN - CNM [address] [facility], [place] [id number] [facility] Start: 02-20-2022 End: 02-20-2022 Professional / ancillary services management 02/20/2022 Ancillary Procedure Obstetrics and Gynecology [facility] Start: 01-07-2022 End: 01-07-2022 Patient encounter procedure 01/07/2022 Routine Obstetrics and Gynecology Jerrell Westbrook APRN - CNM [address] [place] [address] [facility] Start: 01-07-2022 End: 01-07-2022 Professional / ancillary services management 01/07/2022 Ancillary Procedure Obstetrics and Gynecology [facility] Start: 12-11-2021 End: 12-11-2021 Patient encounter procedure 12/11/2021 Routine Obstetrics and Gynecology Jerrell Westbrook APRN - CNM [address] [place] [address] [facility] Start: 06-06-2021 Influenza vaccination Flu vaccine (# 1) [facility] Start: 06-06-2020 Influenza vaccination Flu vaccine (# 1) [place] Start: 05-23-2020 [facility] Work Phone: Start: 06-06-2019 Influenza vaccination Flu vaccine (# 1) [place] Start: 06-01-2019 Dental Comp Exam [facility] Work Phone: Start: 2013 Cervical cancer screen Cervical canc er screen [place] Start: 2013 Screening for malign ant neoplasm of cervix [facility] Start: 2011 DTaP/Tdap/Td vaccine (1 - Tdap) DTaP/Tdap/Td vaccine (1 - Tdap) [place] Start: 10-11-2009 Varicella vaccine (1 of 2 - 2-dose childhood series) Varicella vaccine (1 of 2 - 2-dose childhood series) [facility] Start: 2007 HIV screen HIV screen [place], [place] Start: 2007 HIV screening HIV screen [facility] Start: 2005 Varicella Vaccine (1 of 2 - 13+ 2-dose series) Varicella Vaccine (1 of 2 - 13+ 2-dose series) [place] Start: 2004 COVID-19 Vaccine (1) COVID-19 Vaccin e (1) [facility] Work Phone: Start: 2004 Depression Monitoring Depression [facility] Start: 2003 DTaP/Tdap/Td vaccine (1 - Tdap) DTaP/Tdap/Td vaccine (1 - Tdap) [facility] Work Phone: Start: 1997 COVID-19 Vaccine (1) COVID-19 Vaccin e (1) [facility] Start: 1993 Varicella vaccine (1 of 2 - 2-dose childhood series) Varicella vaccine (1 of 2 - 2-dose childhood series) [facility] Phone: Start: 1992 COVID-19 Vaccine (#1) COVID-19 Vacci ne (#1) [facility] Start: 1992 Hepatitis B vaccine (1 of 3 - 3-dose series) Hepatitis B vaccine (1 of 3 - 3-dose series) [facility] Start: 1992 Hepatitis C screening [facility] End: 06-21-2019 Bacteria identified Cx Nom (U) Urine Culture Microbiology Routine One Time for 1 Occurrences starting 06/21/2019 until 06/21/2019 [employer] [place], [place] Comment on above: One Time for 1 Occur rences starting 06/21/2019 until 06/21/2019 End: 12-19-2021 Bacteria identified in Urine by Culture Urine culture Microbiology Routine One Time for 1 Occurrences starting 12/19/2021 until 12/19/2021 [facility] Phone: Comment on above: One Time for 1 Occur rences starting 12/19/2021 until 12/19/2021 End: 03-20-2023 C.trachomatis N.gonorrhoeae DNA [facility] Comment on above: 1 Occurrences starti ng 03/20/2023 until 03/20/2023 End: 02-13-2022 Culture, Strep B Screen, Vaginal/Rectal [facility] Phone: Comment on above: 1 Occurrences starti ng 02/13/2022 until 02/13/2022 End: 12-05-2021 Culture, Urine Culture, Urine Microbiology Routine One Time for 1 Occurrences starting 12/05/2021 until 12/05/2021 [facility] Phone: Comment on above: One Time for 1 Occur rences starting 12/05/2021 until 12/05/2021 End: 02-13-2022 Culture, Urine [facility] Phone: Comment on above: 1 Occurrences starti ng 02/13/2022 until 02/13/2022 End: 03-19-2022 Culture, Urine [facility] Work Phone: Comment on above: 1 Occurrences starti ng 03/19/2022 until 03/19/2022 End: 02-03-2023 Culture, Urine [facility] Phone: Comment on above: 1 Occurrences starti ng 02/03/2023 until 02/03/2023 End: 04-22-2022 Cytopathology procedure, preparation of smear, genital source [facility] Lab Routine Screening for malignant neoplasm of cervix 1 Occurrences starting 04/22/2022 until 04/22/2022 [facility] Phone: Comment on above: 1 Occurrences starti ng 04/22/2022 until 04/22/2022 End: 07-20-2019 DRUG SCREEN MULTI URINE DRUG SCREEN MULTI URINE Lab Routine One Time for 1 Occurrences starting 07/20/2019 until 07/20/2019 [facility] [employer] Comment on above: One Time for 1 Occur rences starting 07/20/2019 until 07/20/2019 End: 06-21-2019 nonstress test nonstress test OB Routine One Time for 1 Occurrences starting 06/21/2019 until 06/21/2019 [facility] [employer] Comment on above: One Time for 1 Occur rences starting 06/21/2019 until 06/21/2019 End: 10-01-2022 INITIATE PACU OXYGEN THERAPY PROTOCOL Initiate PACU Oxygen Therapy Protocol Respiratory Care Routine Continuous until discontinued starting 10/01/2022 [employer] [facility] [place] Comment on above: Continuous until dis continued starting 10/01/2022 Nonrebreather mask oxygen Nonrebreather mask oxygen Respiratory Care Routine As directed - RT (PRN) until discontinued starting 07/20/2019 [facility] [employer] Comment on above: As directed - RT (WI N) until discontinued starting 07/20/2019 Nonrebreather mask oxygen Nonrebreather mask oxygen Respiratory Care Routine As directed - RT (PRN) until discontinued starting 12/05/2021 [facility] Phone: Comment on above: As directed - RT (WI N) until discontinued starting 12/05/2021 Nonrebreather mask oxygen Nonrebreather mask oxygen Respiratory Care Routine As directed - RT (PRN) until discontinued starting 12/19/2021 [facility] Phone: Comment on above: As directed - RT (WI N) until discontinued starting 12/19/2021 Oxygen therapy [Mini mum Data Set] Initiate Oxygen Therapy Protocol Respiratory Care Routine As Needed until discontinued starting 10/01/2022 [facility] Phone: Comment on above: As Needed until disc ontinued starting 10/01/2022 Oxygen therapy [Mini mum Data Set] Initiate Oxygen Therapy Protocol Respiratory Care Routine As Needed until discontinued starting 01/09/2024 [facility] [place] Comment on above: As Needed until disc ontinued starting 01/09/2024 End: 10-01-2022 , urine POCT , urine POCT Point of Care Testing Routine One Time for 1 Occurrences starting 10/01/2022 until 10/01/2022 [facility] Phone: Comment on above: One Time for 1 Occur rences starting 10/01/2022 until 10/01/2022 End: 01-09-2024 , urine POCT , urine POCT Point of Care Testing Routine One Time for 1 Occurrences starting 01/09/2024 until 01/09/2024 [facility] [place] Comment on above: One Time for 1 Occur rences starting 01/09/2024 until 01/09/2024 End: 07-21-2019 Surgical Pathology Surgical Pathology Lab Routine Once for 1 Occurrences starting 07/21/2019 until 07/21/2019 [facility] [place] Comment on above: Once for 1 Occurrenc es starting 07/21/2019 until 07/21/2019 Surgical Pathology Surgical Path ology Lab Routine Adenomyosis Release Upon Ordering for 1 Occurrences starting 10/01/2022 [facility] Phone: Comment on above: Release Upon Orderin g for 1 Occurrences starting 10/01/2022 Surgical Pathology Surgical Path ology Lab Routine Condyloma acuminatum of vulva Release Upon Ordering for 1 Occurrences starting 01/09/2024 [facility] [facility] [place] Comment on above: Release Upon Orderin g for 1 Occurrences starting 01/09/2024 End: 10-01-2022 SURGICAL PATHOLOGY REPORT SURGICAL PATHOLOGY REPORT Lab Routine Once for 1 Occurrences starting 10/01/2022 until 10/01/2022 [facility] [employer] Phone: Comment on above: Once for 1 Occurrenc es starting 10/01/2022 until 10/01/2022 End: 12-05-2021 SVE SVE Point of Care Testing Routine One Time for 1 Occurrences starting 12/05/2021 until 12/05/2021 [facility] Phone: Comment on above: One Time for 1 Occur rences starting 12/05/2021 until 12/05/2021 End: 12-19-2021 SVE SVE Point of Care Testing Routine One Time for 1 Occurrences starting 12/19/2021 until 12/19/2021 [facility] Phone: Comment on above: One Time for 1 Occur rences starting 12/19/2021 until 12/19/2021 Immunizations Immunization Date Immunization Notes Care Provider [facility] 2022 diphtheria, tetanus toxoids and acellular pertussis vaccine, unspecified formulation Jerrell Westbrook 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 - [facility] Work Phone: [facility] Work Phone: 2022 measles, mumps and rubella virus vaccine Jerrell Westbrook 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 - CN Work Phone: [facility] Work Phone: 01-07-2022 tetanus toxoid, redu suresh diphtheria toxoid, and acellular pertussis vaccine, adsorbed Chencho Sylvester 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 - [facility] Work Phone: [facility] [employer] 10-09-2020 influenza virus vacc ine, unspecified formulation [facility] Work Phone: 04-23-2019 tetanus toxoid, redu suresh diphtheria toxoid, and acellular pertussis vaccine, adsorbed [facility] Work Phone: 09-13-2009 novel Influenza-H1N1 -09, live virus for nasal administration [facility] Work Phone: Payers Date Payer Category Payer Unknown [id number] 2021 Unknown UMR UMR [id number] 2021-Present [phone] [address] [address] [place] [address] [id number] 2016 Medicaid [id number] 2016 Unknown [employer] xxxxxxxxxxx 2016-Present [phone] [address] [place] [address] xxxxxxxxxxx [id number] 2013 Unknown [id number] 1992 Unknown [id number] 1992 Unknown [id number] 1992 Unknown [id number] 1992 Unknown [id number] 1992 Unknown [id number] 1992 Unknown [id number] 1992 Unknown [id number] 1992 Unknown [id number] 1992 Unknown [id number] 1992 Unknown [id number] 1959 Medicaid [id number] 1959 Unknown [id number] 1959 Unknown [id number] Social History Date Type Detail Facility Assertion Health [facility] Work Phone: Assertion Gender identity finding (finding) [facility] Work Phone: Assertion Finding of sexua l orientation (finding) [facility] Work Phone: Assertion Sexually active (finding) [facility] Work Phone: Tobacco smoking status Unknown if ever sm oked [facility] Work Phone: Start: 05-12-2019 End: 09-24-2022 Tobacco smoking status NHIS Never smoker [place], [place] Start: 05-12-2019 End: 12-15-2023 Alcohol intake Yes [place] Start: 11-04-2015 Alcohol Comment occ [place], [place] Start: 11-01-2018 [place], [place] Start: 1992 Sex Assigned At Not on file [place] Start: 07-20-2019 Alcohol intake Current drinke r of alcohol (finding) [facility] [employer] Phone: Assertion Problem situatio n relating to social and personal history (finding) [facility] Work Phone: Assertion Emotional stress (finding) [facility] Work Phone: Start: 07-20-2019 End: 09-24-2022 Tobacco use and exposure Never used [place] Start: 02-03-2022 End: 10-01-2022 Exposure to SARS-CoV-2 (event) Not sure [employer] Start: 05-16-2021 End: 01-09-2024 Alcohol intake Ex-drinker (finding) [facility] Phone: Exposure to SARS-CoV -2 (event) Yes [employer] Work Phone: Start: 1990 Sex Assigned At Female [employer] Start: 12-15-2023 End: 01-09-2024 History of Social function [facility] [place] Start: 02-07-2022 Gender identity Identifies as female gender (finding) [facility] [place] Start: 02-07-2022 Sexual orientation Heterosexual (fin ding) [facility] NEGATED: Highlighted row Assertion Health [facility] Work Phone: NEGATED: Highlighted row Assertion Illicit drug use (finding) [facility] Work Phone: NEGATED: Highlighted row Assertion Misuse of prescription only drugs (finding) [facility] Work Phone: NEGATED: Highlighted row Assertion Exposure to pollution (event) [facility] Work Phone: NEGATED: Highlighted row Assertion Tobacco user (finding) [facility] Work Phone: NEGATED: Highlighted row Assertion Current drinker of alcohol (finding) [facility] Work Phone: NEGATED: Highlighted row Assertion Finding relating to drug misuse behavior (finding) [facility] Work Phone: Goals Date Patient Goal Desired Activity /State Personal health goal Mental Status Date Assessment Result Facility Cognitive function Oriented to t brandon, place, and person Oriented to person, time and place (finding) [facility] Work Phone: Clinical Notes 07-20-2021 to 01-09-2024 Brianna Ramirez RN - 01/09/2024 9:30 AM Maggie Arora RN - 12/29/2023 2:55 PM EDTDischarge Maulik Thornton RN - 10/01/2022 6:45 PM ESTDischarge InstructionsInstructions Note Date & Type Note Facility 01-09-2024 History of Presen t illness Narrative Discharge Criteria Inpatients must meet Criteria 1 through 7. All other patients are either YES or N/A. If a NO is chosen then Anesthesia or Surgeon must be notified. 1. Minimum 30 minutes after last dose of sedative medication. Yes 2. Systolic BP between 90 - 160. Diastolic BP between 60 - 90. Yes 3. Pulse between 60 - 120 Yes 4. Respirations between 8 - 25. Yes 5. SpO2 92% - 100%. Yes 6. Able to cough and swallow [...] Accompanied by a responsible adult. Yes Patient instructed on the pre-operative, intra-operative, and post-operative process. Patient instructed on NPO status. Medication instructions and pre operative instruction sheet reviewed with the patient. Instructed pt to stop taking all OTC vitamins 7 days prior to surgery. documented in this encounter [facility] 01-09-2024 [facility] Discharg e Dennise Schaefer PA-C - 01/09/2024 6:56 AM EDT SAME DAY SURGERY DISCHARGE INSTRUCTIONS 1. Do [...] per day, as you can tolerate. 6. Limit your activities for 24 hours. Do not engage in heavy work until your surgeon gives you permission. 7. Patient should not be left alone for 12-24 hours following surgical procedure. 8. Wash hands before and after incision care. It is important to practice good personal hygiene during the post op period. 9. Notify your doctor immediately of any of the following: Excessive swelling of, or around the wound area. Redness. Temperature of 100 degrees (F) or above. Excessive pain. Unable to urinate or empty bladder 4-6 hours after surgery. Excessive bleeding at incision site. 10. Call your surgeon for any questions regarding your surgery. POST-OPERATIVE INSTRUCTIONS Activity as tolerated; may shower and change dressings as needed. Pain medication to be taken as directed for discomfort. No sexual relations, douches, tampons, tub baths, swimming in ponds/pools, or hot tubs for 2 weeks or until seen by the doctor for your follow-up appointment. May have some vaginal drainage for 1-2 weeks, call if excessive. Call the office at [phone] ([place]) [phone] ([place]) for an appointment in 2 weeks. documented in this encounter [facility] 10-01-2022 History of Presen t illness Narrative [...] PAT phone call. documented in this encounter [facility] [employer] Phone: 10-01-2022 Hospital Discharg e instructions Dennise [...] [place] in [address] Peraza -- [place] office [phone] [place] office [phone] documented in this encounter [facility] [employer] [facility] Work Phone: 03-08-2022 Hospital Discharg Katie Estrada RN - 03/08/2022 Follow-up with your OB doctor as specified. [facility] OB Department phone: Dr. Clarissa Shrestha [facility] Dr. Stu Westbrook [address] [facility] [address] [place] or [place] DIET Eat a well balanced diet focusing on foods high in fiber and protein. Drink plenty of fluids especially water. To avoid constipation you may take a mild stool softener as recommended by your doctor or chair and couch maker. ACTIVITY Gradually increase your activity. Resume exercise regimen only after advice by your doctor or chair and couch maker. Avoid lifting anything heavier than a gallon of milk for SIX weeks. Avoid driving until your doctor or chair and couch maker has given their approval. Rise slowly from [...] of harming yourself or your infant. If will not stop crying, contact another adult for help or place in their crib on their back and take a break. NEVER shake your infant. BLEEDING Vaginal bleeding will decrease in amount [...] medications as recommended by your doctor or chair and couch maker for pain If you develop a warm, red, tender area on your breast or develop a fever contact your OB provider. For moms: If you become engorged, feeding may be more difficult or painful for 1-2 days. You may find it helpful to hand express some milk so that the infant can latch on more easily. While , continue to take your vitamins as directed by your doctor or chair and couch maker. Refer to the booklet in the folder/binder for more information. If you feel you need more assistance or have questions, please call Sarah Stevens IBCLC, testing consultant, at or the OB department to [...] your calf. documented in this encounter [employer] Work Phone: 03-08-2022 Hospital course Narrative Obstetrical [...] NONREACTIVE Final HIV: No results found for: [id number] Results for orders placed or performed during [...] # 1.78 1.10 - 3.70 k/uL Absolute [place] # 0.59 0.10 - 1.20 k/uL Absolute [...] 2 weeks documented in this encounter [facility] [employer] Phone: 2022 History of Presen t illness Narrative Jerrell Westbrook CNM at bedside for delivery Call placed to jerrell westbrook CNM letting her know patient is complete. She is on her way to room for delivery COOPERATIVE MANAGER Errol at bedside at [address] epidural, timeout performed at 1521, patient sat up and placed into position to receive epidural, RN remained at bedside with continuous pulse ox monitoring applied. Patient tolerated procedure well, laid back into bed with call light in reach, denies any further needs at this time, will continue to monitor COOPERATIVE MANAGER notified patient requesting epidural Ok per Jerrell Westbrook CNM for patient to have epidural Patient requesting epidural, fluid bolus started Dr. Crespo present at nurses station and is updated that patient is here for elective induction, gbs negative. Routine nursery order set received. documented in this encounter [facility] [employer] Phone: 12-19-2021 Hospital Discharg Brianna Aiken RN [...] to find a good position during intercourse. [place] and explore. You may get cramps in [...] strong contractions without a pattern are called Hatton-Daniel contractions. They are practice contractions but not the start of labor. They often stop if you change what you are doing. ? Call your doctor if you have regular contractions. Where can you learn more? Go to [email or web address] and sign in to your [email or web address] account. Enter S999 in the Search Health Information box to learn more about Weeks 26 to 30 of Your : Care Instructions. If you do not have an account, please click on the Sign Up Now link. Current as of: March 21, 2021 Content Version: 13. [employer] Care instructions adapted under license by [employer]. If you have questions about a medical condition or this instruction, always ask your healthcare professional. [employer] disclaims any warranty or liability for your use of this information. The following attachments cannot be sent through [employer] Everywhere.: Hyperemesis Gravidarum (Tunisian)documented in this encounter [employer] Work Phone: 12-05-2021 History of Presen t illness Narrative Pt amb off unit in stable condition. DC instructions reviewed with pt. No questions noted. Phenergan script called into [facility] [place] MILDRED kinsey'd. Pt dressed. Pt updated that CNM would like pt to stay for continued IV fluids and that if vomiting is not controled with phenergan we have other medications we can try if she is here. Pt states she has been trying to find a sitter but doesn't have one. Pt states her boyfriend gets home after 2230 and if she feels bad after that [...] to work. Pt highly encouraged to stay. S Erin CNM phoned on cell and updated that [...] up to BR. documented in this encounter [facility] Phone: 12-05-2021 Hospital Discharg e instructions Sheila Beltrán RN - 12/05/2021 Home Undelivered Discharge Instructions After Discharge Orders: Future Appointments Date Time Provider Department Center 12/11/2021 10:30 AM MONTY Galicia CNM [facility]INTENAN[facility] MECHANIC TP 01/07/2022 11:00 AM [facility] TIFF MACHINE MAINTENANCE MECHANIC ULTRASOUND [facility] 01/07/2022 11:30 AM MONTY Galicia CNM [facility] MAINTE[facility]NCE MECHANIC TPP Diet: clear liquids Rest: normal activity as tolerated Other instructions: Do kick counts once a day on your baby. Choose the time of day your baby is most active. Get in a comfortable lying or sitting position and time how long it takes to feel 10 kicks, twists, turns, swishes, or rolls. Call your physician or chair and couch maker if there have not been 10 kicks in 2 hours Call physician or chair and couch maker, return to Labor and Delivery, call 911, [...] called in to [facility] here in [place]. documented in this encounter [facility] Phone: 08-06-2021 Hospital DischDanny Gandhi Jr., MD - 08/06/2021 Clear liquid diet until tomorrow morning. Please try the Reglan and/or Phenergan to help with your vomiting. The following attachments cannot be sent through Care Everywhere.: Hyperemesis Gravidarum (Tunisian)documented in this encounter [facility] Phone: 07-20-2021 Evaluation note Encounter Date Diagnosis [...] Patient care instructions given in writting by [facility] Care At Home document. [employer] Other Evaluation note* Diagnosis Mild hyperemesis gravidarum, antepartum- Primary documented in this encounter [facility] Phone: evaluation note* Diagnosis IUP (intrauterine ), incidental state, incidental Marginal placenta previa Hemorrhage from placenta previa, unspecified as to episode of care documented in this encounter [facility] Phone: evaluation note* Diagnosis Emesis, persistent- Primary Persistent vomiting documented in this encounter [facility] Phone: evaluation note* Diagnosis Influenza with respiratory manifestation other than pneumonia- Primary Influenza with other respiratory manifestations documented in this encounter [facility] Phone: evaluation note* Diagnosis 27 weeks gestation of - Primary state, incidental documented in this encounter [facility] Phone: evaluation note* Diagnosis 36 weeks gestation of state, incidental documented in this encounter [facility] Phone: evaluation note* Diagnosis Abdominal cramping affecting documented in this encounter [facility] Phone: evaluation note* Diagnosis Encounter for supervision of normal in third trimester- Primary Supervision of other normal Normal delivery documented in this encounter [facility] Phone: evaluation note* Diagnosis Dysuria documented in this encounter [facility] Phone: evaldhewch note* Diagnosis Screening for malignant neoplasm of cervix Screening for malignant neoplasm of the cervix documented in this encounter [facility] Phone: evaluation note* Diagnosis Post-op pain- Primary Other acute postoperative pain Adenomyosis Endometriosis of uterus documented in this encounter [facility] Phone: evaluation note* Diagnosis Dysuria documented in this encounter [facility] Phone: evaluation note* Diagnosis Screen for STD (sexually transmitted disease) Screening examination for venereal disease [facility] [place] [facility] [place] [place] Diagnosis Condyloma acuminatum of vulva Condyloma acuminatum [facility] Narrative - Reported* Type Description Date Surgical History appendectomy Surgical History LEAP Hospitalization History see above [facility] Other Hospital Discharge instructions* Attachments The following attachments cannot be sent through Care Everywhere. * Influenza (Tunisian) [facility] reason for visit Narrative* Auth/Cert Specialty Diagnoses / Procedures Referred By Conttaylor t Referred To Contact Diagnoses Encounter for supervision of normal in third trimester Jerrell Westbrook, MONTY - JOSÉ MIGUEL [address] [place] [address] [address] [place] [address] DULCE MARIA Sun [address] [place] [address] Referral ID Status Reason Start Date Expiration Date Visits Re quested Visits Authorized [id number] 1 1 [facility] [place] Work Phone: Summary Purpose Family History No Family History Records Found Description Last Updated Maternal history of oncologic disorder 0 05/17/2019 Maternal history of respiratory disorder 05/17/2019 Advance Directives No Advanced Directives Records FoundDocuments on File Type Date Recorded Patient Coffin Maker Expl anation Advance Directives and Living Will Power of Lugger Latest Code Status on File Code Status [...] Documents on File Type Date Recorded Patient Coffin Maker Expl anation ACP-Advance Directive ACP-Power of Lugger Latest Code Status on File Code Status Date Activated Date Inactivated Comments Full Code 07/20/2019 4:48 PM 07/22/2019 12:24 PM Full Code 07/20/2019 5:55 AM 07/20/2019 4:48 PM Full Code 04/19/2019 5:15 PM 04/19/2019 8:18 PM Documents on File Type Date Recorded Patient Coffin Maker Expl anation ACP-Advance Directive ACP-Power of Lugger Latest Code Status on File Code Status [...] Date Activated Date Inactivated Comments Full Code 01/09/2024 6:19 AM Code Status History Code Status Date Activated Date Inactivated Comments Full Code 10/01/2022 12:13 PM 10/01/2022 8:51 PM Full Code 2022 11:14 AM 2022 5:18 PM Full Code 12/19/2021 12:24 PM 12/19/2021 10:47 PM Full Code 12/05/2021 5:31 PM 12/05/2021 11:34 PM Assessments Findings Encounter Date PHQ-9: total score was 0 Medical Establi shed Patient with Kandi Walters ARC WELDER APPRENTICE 05/17/2019 Routine pre-employment scree bryant examination Medical Established Patient with Kandibambi Walters ARC WELDER APPRENTICE 05/17/2019 Z68.31 - Body mass index (BM I) 31.0-31.9, adult Medical Established Patient with Kandi Walters ARC WELDER APPRENTICE 05/17/2019 Diagnosis Vaginal delivery Normal delivery Findings Encounter Date Anxiety disorder NOS Established Daksha ent with Nina Short LISWS 05/10/2020 Mild recurrent major depression BH Estab lished Patient with Nina Short LISWS 05/10/2020 Body mass index Medical Established Patient with Chenchosandee Caien ARC WELDER APPRENTICE 05/10/2020 Overweight Medical Established Patient with Chencho Higinio ARC WELDER APPRENTICE 05/10/2020 PHQ-9: total score was 0 Medical Establi shed Patient with Kandi Walters ARC WELDER APPRENTICE 05/17/2019 Routine pre-employment scree bryant examination Medical Established Patient with Kandi Walters ARC WELDER APPRENTICE 05/17/2019 Z68.31 - Body mass index (BM I) 31.0-31.9, adult Medical Established Patient with Kandi Walters ARC WELDER APPRENTICE 05/17/2019 Diagnosis Cyst of right breast Instructions [...] Lou RN - 06/21/2019 4:39 PM EDT oil well fishing tool technician at bedside. * Soco Lou RN [...] do kick counts. documented in this encounter* Zulema Shrestha APRN - CNM - 07/22/2019 8:23 AM EDT [...] PRN, Phan Rubi MD, 650 mg at 232 ibuprofen (ADVIL;MOTRIN) tablet 800 mg, 800 mg, [...] patient being comfortable with epidural and SVE /-2. * Becki Briscoe RN - 07/20/2019 10:53 [...] RN - 06/21/2019 OUTPATIENT DISCHARGE Bettina Dominguez [facility] Lisa or Ge Dr. Rubi Jerrell Oseguera [facility] Julisa Griffith [facility] ACTIVITY LIMITATIONS: ( x )Up and [...] Follow-up with your OB doctor as specified. [facility] OB Department phone: Dr. Rubi [address] [place] [address] DIET Eat a well balanced diet focusing on foods high in fiber and protein. Drink plenty of fluids especially water. To avoid constipation you may take a mild stool softener as recommended by your doctor or chair and couch maker. ACTIVITY Gradually increase your activity. Resume exercise regimen only after advice by your doctor or chair and couch maker. Avoid lifting anything heavier than a gallon of milk for SIX weeks. Avoid driving until your doctor or chair and couch maker has given their approval. Rise slowly from [...] of harming yourself or your infant. If will not stop crying, contact another [...] medications as recommended by your doctor or chair and couch maker for pain If you develop a warm, [...] vitamins as directed by your doctor or chair and couch maker. Refer to the booklet in the folder/binder for more information. If you feel you need more assistance or have questions, please call Sarah Stevens IBCLC, testing consultant, at or the OB department to [...] in this encounter Hospital Course * Zulema Shrestha, JUKEBOX 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 - CNM - 07/22/2019 8:26 AM EDT [...] negative Final HIV: No results found for: [id number] @MOM(LABLAST,GBSEXTERN,GONEXTERN,CTRACHEXT,RUBEXTERN,HEPBEXTERN,RPREXTERN,HIVEXT ELIZABETH,RHEXTERN,ABOEXTERN)@ complications: none Discharge Medication: Haris, Mariah N Home Medication Instructions VANIA:[id number] Printed on:07/22/19 0826 Medication Information doxyLAMINE succinate [...] BREAST COMPLETE RIGHT Phan Rubi MD [address] [place] [address] Specialty Diagnoses / Procedures Referred By Contac t Referred To Contact Radiology Diagnoses Marginal placenta previa Procedures US OB TRANSVAGINAL Phan Rubi MD [address] [place] [phone] Referral ID Status Reason Start Date Expiration Date Visits Re quested Visits Authorized [id number] Open 11/06/2021 11/06/2022 1 1 Specialty Diagnoses / Procedures Referred By Contac t Referred To Contact Radiology Diagnoses IUP (intrauterine ), incidental Procedures US OB DETAIL ANATOMY SINGLE OR FIRST GESTATION Phan Rubi MD [address] [phone] Referral ID Status Reason Start Date Expiration Date V isits Requested Visits Authorized [id number] Pending Review 11/05/2021 10/31/2022 1 1 Additional Source Comments INFORMATION SOURCE (unrecogn ized section and content) DATE CREATED AUTHOR 10/23/2018 [facility] DATE CREATED AUTHOR AUTHOR'S ORGANIZ ATION 04/11/2022 [facility] DATE CREATED AUTHOR AUTHOR'S ORGANIZ ATION 01/14/2024 [facility] Lisa [facility] Evaluations & Outcomes (unre cognized section [...] Labor and Delivery Phan Rubi MD [address] [place] [address] [facility] Status Reason Specialty Diagnoses / Procedures Referred By Contact Referred To Contact Pending Review Radiology Diagnoses Breast cyst Procedures HC US BREAST COMP Phan Rubi MD [address] [place] [address] [facility] Ultrasound [address] [place] [address] Reason Comments Emesis vomiting ongoing for 3 days, ob wanted her to come here to be checked for dehydration Specialty Diagnoses / Procedures Referred By Les crisostomo Referred To Contact Radiology Diagnoses IUP (intrauterine ), incidental Procedures US OB DETAIL ANATOMY SINGLE OR FIRST GESTATION Phan Rubi MD [address] [place] [address] Referral ID Status Reason Start Date Expiration Date V isits Requested Visits Authorized [id number] Pending Review 11/05/2021 10/31/2022 1 1 Reason [...] Adenomyosis HX OF CERVICAL DYSPLASIA, ADENOMYOSIS Procedures WI LAPAROSCOPY W TOT HYSTERECTUTERUS <=250 GRAM W TUBE/OVARY HYSTERECTOMY VAGINAL LAPAROSCOPIC ROBOTIC ASSISTED - POSSIBLE BSO, POSSIBLE LAPAROSCOPIC COLPOPEXY Kaila Buckley, DO [address] [place] [address] DUL[facility] MARIA [facility] [address] [place] [address] Referral ID Status Reason Start Date Expiration Date Visits Re quested Visits Authorized [id number] 1 1 Specialty Diagnoses / Procedures Referred By Les t Referred To Contact Diagnoses 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 [A63.0] Procedures WI DESTRUCTION LESIONS VULVA EXTENSIVE VULVA LESION BIOPSY EXCISION - EXCISION OF CONDYLOMA, EXCISION OF SKIN TAGS Kaila Buckley, DO [address] [place] [address] [facility] [address] [place] [address] Referral ID Status Reason Start Date Expiration Date Visits Re quested Visits Authorized [id number] 1 1 Ordered Prescriptions (unrec ognized section [...] for Pain 20 tablet 0 10/01/2022 10/01/2023 Prescription Sig Dispensed Refills Start Date End Da te ketorolac (TORADOL) 10 MG tablet Take 1 tablet by mouth every 6 hours as needed for Pain 10 tablet 0 01/09/2024 01/08/2025 Scheduled Active and Recently Administ ered Medications (unrecognized section and content) Medication Order 08/04/2021 08/05/2021 08/06/2021 0.9 % sodium chloride bolus (COMPLETED) 1,000 mL (14.3 mL/kg), IntraVENous, at 1,000 mL/hr, Administer over 1 Hours, ONCE, On Fri08/06/21 at 1145, For 1 dose 1214 (New Bag - Prov ider: Sosa Hussein, RN)1333 (Stopped - Provider: Arati Harris, LAURA) metoclopramide (REGLAN) injection 10 mg (COMPLETED) 10 mg, IntraVENous, ONCE, On Fri08/06/21 at 1430, For 1 dose 1455 (Given - Provid er: Aarti Harris, LAURA) ondansetron (ZOFRAN) injection 4 mg (COMPLETED) 4 mg, IntraVENous, ONCE, On Fri08/06/21 at 1230, For 1 dose 1226 (Given - Provid er: Sosa Hussein, LAURA) ondansetron (ZOFRAN) injection 4 mg (COMPLETED) 4 mg, IntraVENous, ONCE, On Fri08/06/21 at 1315, For 1 dose 1333 (Given - Provid er: Aarti Harris, LAURA) Scheduled Medication Order 12/03/2021 12/04/2021 12/05/2021 ceFAZolin (ANCEF) 2000 mg in dextrose 5 % 100 mL IVPB 2,000 mg, IntraVENous, EVERY 8 HOURS, First dose on Fri12/05/21 at 1830, Until Discontinued 1844 (New Bag - Prov ider: Constance Mckeon, LAURA)2015 (Stopped - Provider: Sheila Beltrán, LAURA) Continuous Medication Order 12/03/2021 12/04/2021 12/05/2021 dextrose 5 % in lactated ringers infusion IntraVENous, at 999 mL/hr, CONTINUOUS, Starting on Fri12/05/21 at 1830, Bolus 1000ml 1825 (New Bag - Prov ider: Dhara Alvarez, LAURA)2014 (Stopped - Provider: Sheila Beltrán, LAURA) PRN Medication Order 12/03/2021 12/04/202112/05/2021 promethazine (PHENERGAN) tablet 25 mg 25 mg, Oral, EVERY 6 HOURS PRN, Nausea, Starting on Fri12/05/21 at 1809 1844 (Given - Provid er: Constance Mckeon, RN) Scheduled Medication Order 12/13/2021 12/14/2021 12/15/2021 [...] Only to be given as IM injection. 1752 (Not Given - Pr ovider: Brianna Rodarte RN - Reason: Patient/family refused) PRN Medication Order 12/17/2021 12/18/2021 12/19/2021 ondansetron (ZOFRAN) injection 4 mg 4 mg, IntraVENous, EVERY 6 HOURS PRN, Nausea, Vomiting, Starting on Fri12/19/21 at 1318 1338 (Given - Provid er: Brianna Rodarte RN)2017 (Given - Provider: Dhara Ferguson RN) Scheduled Medication Order 03/06/2022 2022 03/08/2022 benzocaine-menthol (DERMOPLAST) 20-0.5 % spray Topical, 2 TIMES DAILY, First dose on Pilar 03/07/22 at 2100, Apply to perineal area. Patient is capable and may self administer at bedside., 2046 (Given - Provider: Maddie Catalan RN) 1148 (Not Given - Provider: Katie Mccrary RN - Reason: Other - Comment: at bedside)2100 (Due) measles, mumps & rubella vaccine (MMR) injection 0.5 mL 0.5 mL, SubCUTAneous, PRIOR TO DISCHARGE, 1 dose, Starting on Pilar 03/07/22 at 1718, Until Discontinued, sodium chloride flush 0.9 % injection 5-40 mL 5-40 mL, IntraVENous, EVERY 12 HOURS SCHEDULED (2 times per day), First dose on Pilar 03/07/22 at 2100, Until Discontinued, For Line Patency: [...] Mccrary RN - Reason: Loss of IV access)2100 (Due) hisfulk-yenwwl-hzrbs pertussis (BOOSTRIX) injection 0.5 mL 0.5 mL, IntraMUSCular, PRIOR TO DISCHARGE, 1 dose, Starting on Pilar 03/07/22 at 1718, Until Discontinued, If not previously administered during at 27-36 weeks as recommended by CDC., witch ramses-glycerin (TUCKS) pad Topical, 2 TIMES DAILY, First dose on Pilar 03/07/22 at 2100, Apply to perineal area. Patient [...] every 2-3 minutes with cervical changes or [place] units (MVU) greater than 200 in a [...] or chew., 1837 (Given - Provider: Yahaira Nunes, LAURA) 1500 (Given - Provider: Katie Mccrary RN) [...] on Pilar 03/07/22 at 1112, Until Discontinued, Bleeding, For Post Use Only. Give after delivery of placenta. Bolus for bag to infuse at 999ml/20 minutes. oxytocin (PITOCIN) 30 units in 500 mL infusion(Linked Group 1) 166 barbara-units/min (166 mL/hr), IntraVENous, PRN, 1 dose, Starting on Pilar 03/07/22 at 1112, Until Discontinued, Bleeding, For Post [...] 100 mL IVPB (COMPLETED) 2,000 mg, IntraVENous, MICROSOFT INFRASTRUCTURE CONSULTANT TO O.R., 1 dose, On Fri10/01/22 at [...] (NoRateChange - Provider: Sheila Brown APRN - COOPERATIVE MANAGER)1519 (New Bag - Provider: Sheila Brown APRN - KEERTHI)1815 (Stopped - Provider: Arlene Burden RN) PRN [...] Central Line = 20 mL/lumen, PACU only Scheduled Medication Order 01/07/2024 01/08/2024 01/09/2024 acetaminophen (TYLENOL) tablet 650 mg (COMPLETED) 650 mg, Oral, ONCE, 1 dose, On Fri01/09/24 at 0645, Maximum dose of acetaminophen is 4000 mg from all sources in 24 hours., Pre-op (day of surgery) 0652 (Given - Provid er: Brianna Ramirez RN) ceFAZolin (ANCEF) 2000 mg in 0.9% sodium chloride 100 mL IVPB (COMPLETED) 2,000 mg, IntraVENous, MICROSOFT INFRASTRUCTURE CONSULTANT TO O.R., 1 dose, On Fri01/09/24 at 0645, Antimicrobial Indications: Surgical Prophylaxis, Administer within 1 hour prior to incision., Pre-op (day of surgery) 0813 (New Bag - Prov ider: Tanika Enamorado RN - Comment: in OR)0833 (Stopped - Provider: Tanika Enamorado RN) dimenhyDRINATE (DRAMAMINE) tablet 50 mg (COMPLETED) 50 mg, Oral, ONCE, 1 dose, On Fri01/09/24 at 0645, Pre-op (day of surgery) 0652 (Given - Provid er: Brianna Ramirez RN) sodium chloride flush 0.9 % injection 5-40 mL 5-40 mL, IntraVENous, EVERY 12 HOURS SCHEDULED (2 times per day), First dose on Fri01/09/24 at 0900, Until Discontinued, For Line Patency: Peripheral IV [...] = 20 mL/lumen, Pre-op (day of surgery) 0900 (Due)2100 (Due) Continuous Medication Order 01/07/2024 01/08/2024 01/09/2024 lactated ringers IV soln infusion IntraVENous, at 100 mL/hr, CONTINUOUS, Starting on Fri01/09/24 at 0645, Pre-op (day of surgery) 0656 (New Bag - Prov ider: Brianna Ramirez RN)0813 (Paused - Provider: MONTY Salvador CRNA - Comment: Switch to gravity)0814 (Restarted - Provider: MONTY Salvador CRNA)0843 (Stopped - Provider: MONTY Salvador CRNA)0931 (Stopped - Provider: Brianna Ramirez RN) PRN Medication Order 01/07/2024 01/08/2024 01/09/2024 0.9 % sodium chloride infusion IntraVENous, at 5-250 mL/hr, PRN, if patient receiving piggyback infusions and maintenance fluids are not ordered OR KVO fluids to protect IV site / prevent frequent line interruptions/ long duration, Starting on Fri01/09/24 at 0618, For piggyback infusion, administer at same rate [...] field of order., Pre-op (day of surgery) lidocaine-EPINEPHrine 1 %-1:[id number] injection (CANCELED) PRN, Starting on Fri01/09/24 at 0847, Until Fri01/09/24 at 0852, Intra-op 0847 (Given - Provid er: Kaila Chi DO) rlflpuok-okywojhdui-kpbumehli (NEOSPORIN) ointment (CANCELED) PRN, Starting on Fri01/09/24 at 0847, Intra-op 0847 (Given - Provid er: Kaila Chi DO - Comment: excision sites) sodium chloride flush 0.9 % injection 5-40 mL 5-40 mL, IntraVENous, PRN, Starting on Fri01/09/24 at 0618, Until Discontinued, Line Care, After every IV [...] = 20 mL/lumen, Pre-op (day of surgery) Care Teams (unrecognized sec tion and content) Job Press Feeder Relationship Specialty Start Date End Date Chencho Sylvester APRN - CNP PCP - General Family Medicine 11/02/19 Job Press Feeder Relationship Specialty Start Date End Date Chencho Sylvester APRN - CNP PCP - General Family Medicine 11/02/19 Job Press Feeder Relationship Specialty Start Date End Date Chencho Sylvester 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 [facility] PCP - General Family Medicine 11/02/19 Job Press Feeder Relationship Specialty Start Date End Date Chencho Sylvester 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 [facility] PCP - General Family Medicine 11/02/19 Job Press Feeder Relationship Specialty Start Date End Date Chencho Sylvester, JUKEBOX 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 [facility] PCP - General Family Medicine 11/02/19 Job Press Feeder Relationship Specialty Start Date End Date Chencho Sylvester [facility] PCP - General Family Medicine 11/02/19 Job Press Feeder Relationship Specialty Start Date End Date Chencho Sylvester [facility] PCP - General Family Medicine 11/02/19 Job Press Feeder Relationship Specialty Start Date End Date Chencho Sylvester [facility] PCP - General Family Medicine 11/02/19 Job Press Feeder Relationship Specialty Start Date End Date Chencho Sylvester [facility] PCP - General Family Medicine 11/02/19 Job Press Feeder Relationship Specialty Start Date End Date Chencho Sylvester [employer]UKEBOX 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 [facility] PCP - General Family Medicine 11/02/19 Job Press Feeder Relationship Specialty Start Date End Date Chencho Sylvester 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 [facility]. provides no warranty or guarantee of the accuracy or completeness of information in this document.
== END 2024-02-17 09:37 | disposition home or self-care (01) ==
PROVIDERS: Visit Provider Podiatrist Foot & Ankle Surgery
DX: M25.572 Pain in left ankle and joints of left foot (principal); Z98.890 Other specified postprocedural states
CPT/HCPCS: 73610

== ENCOUNTER 2024-02-23 13:39 | Outpatient (OUT) | payer OTHER, MEDICAID, SELFPAY ==
--- NOTE | 2024-02-23 13:44 | CT_ITS ---
[address] [address] Patient Name: DIEUDONNE ISBELL MRN: [id number] date: 1990 Sex: F Assigned Patient Location: CT Current Patient Location: Accession/Order Number: [id number] Exam Date: 02/23/2024 13:49 Report Date: 02/24/2024 09:13 At the request of: DUC WHITLOCK Procedure: CT ankle LT wo con EXAMINATION: CT ankle LT wo con HISTORY: Ankle Fracture COMPARISON: XR ankle left 02/17/2024, CT ankle left 11/03/2023 TECHNIQUE: Multi-planar CT images were created without and/or with IV contrast according to examination type. Dose reduction techniques were achieved by using automated exposure control and/or adjustment of mA and/or kV according to patient size and/or use of iterative reconstruction technique. FINDINGS: BONES: Surgical repair of medial malleolus fracture via 2 lag screws. Repair of distal fibular fracture via a lateral plate and screws. Mild callus formation along margins and slight increased density are fracture lines compatible with early bone healing. Band fusion of the tibiofibular syndesmosis. SOFT TISSUES: Negative. No visible soft tissue swelling. EFFUSION: None visible. OTHER: Negative. CT/CT ankle LT wo con IMPRESSION: 1. Stable surgical changes without evidence of hardware failure or change in alignment. 2. Evidence of ongoing early bone healing. Electronically authenticated by: JAMIL ALMAZAN Date: 02/24/2024 09:13
== END 2024-02-23 13:40 | disposition home or self-care (01) ==
LOC: CT 13:39
PROVIDERS: Visit Provider Podiatrist Foot & Ankle Surgery
DX: S82.52XD Displaced fracture of medial malleolus of left tibia, subsequent encounter for closed fracture with routine healing (principal)
CPT/HCPCS: 73700

== ENCOUNTER 2024-03-03 09:49 | Outpatient (OUT) | payer OTHER, MEDICAID, SELFPAY ==
--- NOTE | 2024-03-03 10:42 | PM.PRESUREVA ---
History of Present Illness History of Present Illness Chief complaint: Displaced Trimaleolor Fracture Left Lower Leg Narrative: Patient presents for preadmission testing. Please see HPI from Dr. Valenzuela dated February 25, 2024. Review of Systems ROS Narrative Please see ROS from Dr. Valenzuela dated February 25, 2024. [facility] Medical History (Updated 03/03/24 @ 10:38 by Elisa Godfrey NP) Painful orthopaedic hardware ?T84.84XA - Pain due to internal orthopedic prosthetic devices, implants and grafts, initial encounter (ICD-10) Anemia ?D64.9 - Anemia, unspecified (ICD-10) Migraine ?G43.909 - Migraine, unspecified, not intractable, without status migrainosus (ICD-10) Unsuccessful attempt to remove intrauterine device (IUD) ?Z53.8 - Procedure and treatment not carried out for other reasons (ICD-10) ?Z97.5 - Presence of (intrauterine) contraceptive device (ICD-10) Encounter for removal and reinsertion of IUD ?Z30.433 - Encounter for removal and reinsertion of intrauterine contraceptive device (ICD-10) Depression ?F32.A - Depression, unspecified (ICD-10) Anxiety ?F41.9 - Anxiety disorder, unspecified (ICD-10) Seasonal allergies ?J30.2 - Other seasonal allergic rhinitis (ICD-10) Surgical History (Updated 03/03/24 @ 10:28 by Elisa Godfrey NP) History of myringotomy ?Z98.890 - Other specified postprocedural states (ICD-10) History of wisdom tooth extraction ?K08.409 - Partial loss of teeth, unspecified cause, unspecified class (ICD-10) H/O LEEP ?Z98.890 - Other specified postprocedural states (ICD-10) History of ankle surgery (11/04/23) ?Z98.890 - Other specified postprocedural states (ICD-10) History of appendectomy ?Z90.49 - Acquired absence of other specified parts of digestive tract (ICD-10) History of partial hysterectomy ?Z90.711 - Acquired absence of uterus with remaining cervical stump (ICD-10) Family History Mother Family history of COPD (chronic obstructive pulmonary disease) Family history of cancer Grandmother Family history of cancer Father Family history of hypertension Social History Within the past year, how often did you have a drink containing alcohol: never Score interpretation: A score less than 3 is consistent with normal alcohol consumption. Smoking status: Never smoker Non-prescribed substance use: denies use Previous occupational history: [employer] Highest level of school completed/degree received: high school graduate Are you now , , , , never or living with a partner: living with partner Little interest or pleasure in doing things: not at all Feel stressed/tense/nervous/anxious/difficulty sleeping: only a little Do you think of yourself as: straight/heterosexual Meds Home Medications and Allergies Home Medications ?Medication ?Instructions ?Recorded ?Confirmed ?Type cetirizine 10 mg tablet (All Day 10 mg PO DAILY PRN allergy symptoms 03/03/24 03/03/24 History Allergy (cetirizine)) lactobacillus combination no.4 3 3,000 mmu cells PO DAILY 03/03/24 03/03/24 History billion cell capsule (Probiotic) Allergies Allergy/AdvReac Type Severity Reaction Status Date / Time No Known Drug Allergies Allergy Verified 03/03/24 10:23 Exam Narrative Exam Narrative: Constitutional: Awake, alert, comfortable, well-appearing, nontoxic, interactive, vital signs as charted Head: Normocephalic, atraumatic Neck: Supple, normal appearance, normal range of motion, no meningeal signs, no lymphadenopathy Respiratory: No respiratory distress, breath sounds clear Cardiovascular: Regular rate and rhythm, strong and regular heart tones Skin: No rashes or induration, no lesions, only visible skin inspected Neuro: No neurological deficits, normal sensation Psychiatric: Oriented ?3, normal affect Assessment and Plan Assessment and Plan (1) Closed left trimalleolar fracture: Qualifiers: Encounter type: initial encounter Qualified Code(s): S82.852A - Displaced trimalleolar fracture of left lower leg, initial encounter for closed fracture (2) Closed fracture dislocation of left ankle: Qualifiers: Encounter type: initial encounter Qualified Code(s): S82.892A - Other fracture of left lower leg, initial encounter for closed fracture (3) Painful orthopaedic hardware: Plan Hardware removal left lower leg scheduled with Dr. Valenzuela March 08, 2024.
[2024-03-03 10:50] LABS: Basophils Percent Auto 0.5 % (0.2-2.0); Eosinophils Absolute Auto 0.3 10^3/uL (0.0-0.7); Hematocrit 37.9 % (36.0-48.0); Hemoglobin 12.8 g/dL (12.0-16.0); Immature Granulocytes Abs Auto 0.02 10^3/uL (0.00-0.03); Immature Granulocytes Pct Auto 0.3 % (0.0-0.5); Lymphocytes Absolute Auto 1.4 10^3/uL (1.2-3.8); Lymphocytes Percent Auto 23.3 % (20.5-60.0); Mean Corpuscular HGB Conc 33.8 g/dL (29.9-35.2); Mean Corpuscular Volume 88.8 fL (81.0-99.0); Mean Platelet Volume 10.7 fL (9.5-13.5); Monocytes Absolute Auto 0.4 10^3/uL (0.3-0.8); Monocytes Percent Auto 6.8 % (1.7-12.0); Neutrophils Absolute Auto 3.9 10^3/uL (1.4-6.5); Neutrophils Percent Auto 64.1 % (43.0-75.0); Platelet Count 197 10^3/uL (150-450); Red Blood Count 4.27 10^6/uL (4.20-5.40); Red Cell Distribution Width 13.2 % (11.0-15.0); White Blood Count 6.1 10^3/uL (4.0-11.0)
== END 2024-03-03 09:50 | disposition home or self-care (01) ==
LOC: PST 09:49
PROVIDERS: Visit Provider Podiatrist Foot & Ankle Surgery
DX: Z01.812 Encounter for preprocedural laboratory examination (principal); Z01.818 Encounter for other preprocedural examination; S82.852A Displaced trimalleolar fracture of left lower leg, initial encounter for closed fracture
CPT/HCPCS: 85025; G0463

== ENCOUNTER 2024-03-08 07:54 | Day surgery (SDC) | payer OTHER, MEDICAID, SELFPAY ==
[2024-03-03 10:35] VITALS: BP 114/70; PULSE 87; TEMP 36.3; O2SAT 99; BMI 25.3
[2024-03-08] VITALS (14 sets, daily range): BP systolic 105–142; BP diastolic 71–117; PULSE 53–94; TEMP 36.1–36.2; O2SAT 96–100
--- NOTE | 2024-03-08 | FL_ITS ---
[address] [address] Patient Name: DIEUDONNE ISBELL MRN: [id number] date: 1990 Sex: F Assigned Patient Location: SURGOUT Current Patient Location: Accession/Order Number: [id number] Exam Date: 03/08/2024 10:07 Report Date: 03/08/2024 13:56 At the request of: DUC WHITLOCK Procedure: FL fluoroscopy <1hr NON-READ EXAM: FL fluoroscopy <1hr NON-READ HISTORY: TECHNIQUE: FINDINGS: Please see Operative Report. Electronically authenticated by: RADIOLOGIST NO Date: 03/08/2024 13:56
[2024-03-08 08:11] LABS: Glucometer 98 mg/dL (74-106)
[2024-03-08] MEDS: LACTATED RINGER'S SOLUTION 1,000 ML 50 ML IV (08:25)
[2024-03-08] MEDS: CEFAZOLIN SODIUM/DEXTROSE,ISO 2 GM/50 ML PIGGYBACK IV (09:06)
--- NOTE | 2024-03-08 09:22 | PM.ORONB ---
Brief Operative Note Date of procedure: 03/08/24 Pre-op diagnosis general: Displaced trimalleolar ankle fracture, left Post-op diagnosis: same as pre-op Procedure: Procedure performed: Removal deep implanted hardware, left ankle Indications for procedure: Patient is a healthy 34-year-old female who suffered a left trimalleolar ankle fracture while at work which required ORIF on 11/04/23. Her recovery has been complicated by residual pain over her medial malleolus. Recently a CT scan was obtained which showed that the medial malleolus fracture was healed therefore given her inability to fully recover I offered removal of the medial malleolus screws which the patient has elected to undergo. I reviewed the potential risks and benefits and postoperative plan. All questions were answered to her satisfaction. Intraoperative findings: Well-seated medial malleolus screws x 2 without sign of infection. Bone quality within normal limits and medial malleolus fracture was healed. Procedure in detail: Patient was identified in preoperative holding by myself which time correct side and site were marked and consent was obtained. Preoperative antibiotics were started and patient was brought back into the operating theater placed on table in supine position. Calf tourniquet was applied and the left lower extremity was prepped and draped in usual sterile fashion. Formal timeout was performed. Left foot and ankle were exsanguinated and the tourniquet was inflated. 10 cc of 0.5% marcaine plain were injected as a field block over the medial malleolus. Fluoroscopy was used to identify the heads of the 2 medial malleolus screws and incision was made just distal to the medial malleolus. Combination of sharp and blunt dissection gained access to the heads of the medial malleolus screws and guidewires were placed inside the screws. Once both screw heads were identified a dental pick was used to remove any bone within the screw and surrounding the head of the screw. Then the screws were removed with appropriate screwdriver. The holes in the medial malleolus were then curetted till healthy bleeding bone was noted. Surgical site was irrigated with copious saline and the incision was closed in layers. The tourniquet was then deflated with a prompt hyperemic response. A dry sterile dressing was applied and a cam boot will be applied in the recovery room. Postoperative plan: Weightbearing as tolerated in cam boot. May change surgical dressing daily after washing the incision with soap and water. Sutures will be discontinued at approximately 3 weeks and patient will follow-up next week for incision check. Prescriptions for pain medicine and antibiotics were sent to her pharmacy. Anesthesia: General-LMA Surgeon: Michael Valenzuela Finishing Lab Technician: Tolu Espinoza Estimated blood loss (mL): 10 Pathology: none sent Condition: stable Disposition: PACU
[2024-03-08] MEDS: BUPIVACAINE HCL 0.5% PF 50 MG/10 ML VIAL INJ (10:08)
--- NOTE | 2024-03-08 10:24 | XR_ITS ---
The [address] [address] Patient Name: DIEUDONNE ISBELL MRN: [facility]:[id number] date: 1990 Sex: F Assigned Patient Location: [facility] Current Patient Location: [facility] Accession/Order Number: [id number] Exam Date: 03/08/2024 10:32 Report Date: 03/09/2024 10:10 At the request of: CHERISE FLORES Procedure: XR ankle LT min 3V PROCEDURE: XR ankle LT min 3V HISTORY: postop xr pacu COMPARISON: XR ankle left 02/17/2024 FINDINGS: BONES:Interval removal of the 2 lag screws entering through the medial malleolus. Stable prior plate and screw repair of distal fibula fracture and fusion of tibia-fibula syndesmosis. SOFT TISSUES:Soft tissue swelling overlying medial ankle. EFFUSION:None visible. OTHER: Negative. XR/XR ankle LT min 3V IMPRESSION: 1. Intraoperative removal of 2 lag screws from medial malleolus. Electronically authenticated by: JAMIL ALMAZAN Date: 03/09/2024 10:10
[2024-03-08] MEDS: HYDROMORPHONE HCL 1 MG/ML CARTRIDGE INJ (10:31)
[2024-03-08 10:38] LABS: Glucometer 89 mg/dL (74-106)
--- NOTE | 2024-03-08 11:54 | PC.NURSE ---
Unable to fit foot in CAM boot and surgical shoe does not work either; no orthopedic staff available to adjust dressing. Instructed to stop at Dr. Conrad office before going home and verbalized understanding.
== END 2024-03-08 11:45 | disposition home or self-care (01) ==
PROVIDERS: Visit Provider Podiatrist Foot & Ankle Surgery
PROC: (CPT 20680; principal; 2024-03-08 09:00)
DX: S82.852D Displaced trimalleolar fracture of left lower leg, subsequent encounter for closed fracture with routine healing (principal); T84.84XA Pain due to internal orthopedic prosthetic devices, implants and grafts, initial encounter
CPT/HCPCS: 20680; 36415; 73610; 76000; 82948; J1094; J1170; J2704

== ENCOUNTER 2024-04-07 11:08 | Outpatient (OUT) | payer OTHER, SELFPAY ==
--- NOTE | 2024-04-07 | XR_ITS ---
The [address] [address] Patient Name: DIEUDONNE ISBELL MRN: [id number] date: 1990 Sex: F Assigned Patient Location: Current Patient Location: Accession/Order Number: [id number] Exam Date: 04/07/2024 11:10 Report Date: 04/09/2024 09:36 At the request of: DUC WHITLOCK Procedure: XR ankle LT min 3V PROCEDURE: XR ankle LT min 3V HISTORY: LEFT ANKLE PAIN COMPARISON: XR ankle left 03/08/2024 FINDINGS: BONES:Prior surgical repair of lateral malleolus via plate and screws. Increased density of the still visible fracture line. Band effusion of the distal tibia-fibula syndesmosis. SOFT TISSUES:Mild/moderate soft tissue swelling; medial greater than lateral. EFFUSION:None visible. OTHER: Negative. XR/XR ankle LT min 3V IMPRESSION: 1. Stable surgical changes without evidence of hardware failure or change in alignment. 2. Ongoing bone healing of distal fibular fracture. Electronically authenticated by: JAMIL ALMAZAN Date: 04/09/2024 09:36
--- OUTSIDE RECORDS SUMMARY | 2024-04-07 11:16 | XMS_ITS | CCD ---
Author Organization [facility] Care Team Providers Care Room Service Attendant Name Role Phone PHAN RUBI Attending Unavailable NONE PER PATIENT, . Primary Care Unavailable PHAN RUBI Attending Unavailable NONE PER PATIENT, . Primary Care Unavailable Kandi Walters Primary Care Provider Unavailable Primary Care Provider Unavailmolly Syvlester Chencho Primary Care Provider [phone] Higinio Chencho Primary Care Provider Higinio [facility] Primary Care Provider Higinio [facility] Primary Care Provider Higinio [facility] Primary Care Provider Higinio [facility], [facility] Primary Care Provider Betty Lamar Unavailable [...] Care Unavailable TANIKA HARRY Consulting Unavailable Higinio J[facility] SPOTTER [facility], [facility] Primary Care Provider Higinio MILLAN LANEYChencho Primary Care Provider Higiniodemetrius MILLAN - LANEYChencho Primary Care Provider JERRELL WESTBROOK Referring CHENCHO Saenz Primary Care Unavailable KAILA BUCKLEY Referring Unavail CHENCHO Rush Primary Care Unavailable KAILA BUCKLEY Admitting Unavail able KAILA BUCKLEY Attending Unavail CHENCHO Rush Primary [...] Starting on Pilar 03/07/22 at 1718, levonorgestrel 0.404015 mg/hr intrauterine system (9 sources) Progestin, Progestin-containing Intrauterine Device Start: 04-12-2021 levonorgestrel (MIRENA) IUD 52 mg 1 each Start: 10-31-2018 End: 10-31-2018 MIRENA 20 mcg/24 hr (5 YEARS ) [facility] 10/31/2018 - 10/31/2018 Provider: [...] Start: 12-23-2017 End: 12-23-2017 NARATRIPTAN 2.5 MG [facility] 12/05 - 12/23/2017 Provider: Start: 12-23-2017 End: 12-23-2017 NARATRIPTAN 2.5MG [facility] 12/23 - 12/23/2017 Provider: omeprazole 40 mg [...] Start: 12-05-2017 End: 12-05-2017 TRAZODONE 100 mg [facility] 2017 - 12/05/2017 Provider: Start: 10-10-2016 End: 10-10-2016 TRAZODONE 100 mg [facility] 2016 - 10/10/2016 Provider: Start: 06-24-2016 End: 06-24-2016 TRAZODONE 100 mg [facility] 2015 - 06/24/2016 Provider: [...] Start: 10-31-2018 End: 10-31-2018 NUVARING 0.12-0.015MG/24 HR [facility] 10/31/2018 - 10/31/2018 Provider: [...] Start: 05-08-2016 End: 05-08-2016 GABAPENTIN 300 mg [facility] 05/08 - 05/08/2016 Provider: 1 ml glycopyrrolate 0.2 mg/m l injection (2 sources) Start: 10-01-2022 End: 10-01-2022 glycopyrrolate (ROBINUL) injection 0.1 mg Start: 10-01-2022 End: 10-01-2022 glycopyrrolate (ROBINUL) inj ection 0.1 mg hydrOXYzine (9 sources) Antihistamine Start: 01-30-2018 End: 01-30-2018 HYDROXYZINE PAMOATE 25 MG SC SC 01/30/2018 - 01/30/2018 Provider: Start: 01-30-2018 End: 01-30-2018 HYDROXYZINE PAMOATE 25MG [facility] 01/30/2018 - 01/30/2018 Provider: Start: 12-05-2017 End: 12-05-2017 HYDROXYZINE PAMOATE 25 MG SC SC 12/05/2017 - 12/05/2017 Provider: Start: 12-05-2017 End: 12-05-2017 HYDROXYZINE PAMOATE 25MG [facility] 12/05/2017 - 12/05/2017 Provider: Start: 05-08-2016 End: 05-08-2016 HYDROXYZINE PAMOATE 25 MG SC SC 05/08/2016 - 05/08/2016 Provider: Start: 05-08-2016 [...] (3 times per day), First dose on e 07/20/19 at 2200 Do not crush or [...] End: 10-31-2018 MIRENA 20 mcg/24 hr(5 YEARS) [facility] 10/31/2018 - 10/31/2018 Provider: miSOPROStol 0.1 mg [...] Start: 12-05-2017 End: 12-05-2017 PROPRANOLOL 80 MG [facility] 12/05/2017 - 12/05/2017 Provider: Start: 12-05-2017 End: 12-05-2017 PROPRANOLOL 80MG [facility] 2017 - 12/05/2017 Provider: Start: 05-08-2016 End: 05-08-2016 PROPRANOLOL 80 MG [facility] 05/08 - 05/08/2016 Provider: Start: 05-08-2016 End: 05-08-2016 PROPRANOLOL 80MG [facility] 2015 - 05/08/2016 Provider: [...] 01-09-2024 Surgical Pathology Report (NOTE) Path Number: [id number] -- Diagnosis -- Vulva, excisional biopsy: Cauterized [...] are filtered, submitted entirely 1cs. jj kb Aeljo Niño./mj:01/09/2024 Microscopic Description 2 OSEI reviewed. Microscopic examination performed. Processing Lab: [address] [id number] Interpretation Performed at [address] [id number] SURGICAL PATHOLOGY CONSULTATION Patient Name: MARIAH CARBALLO N. [facility] Rec: [id number] [facility] [employer] [facility] ANATOMIC PATHOLOGY [address] [place] [address]. [place], [place] [address] Normal [facility] Estradiolon 03-27-2023 Estradiol 60.0 pg/mL Normal 27-314 [facility] Comment on above: Result Comment: FEMALES: Normally menstruating Luteal phase 33-298 Follicular phase 27-156 Midcycle phase 48-314 Postmenopausal (untreated) 5-50 Fulvestrant treatment will show an increased estradiol concentration with this methodology. Alternate methodologies are available upon request. Performed By: #### F SH, E2 #### [address] [address] [place] Operator: Jesse Joseph MD Follicle Stim. Hormon 2022 Follicle Stim. Horm 3.1 mIU/mL Normal 1.7-21.5 [facility] Comment on above: Result Comment: Refe rence Range: Male: 1.5-12.4 Ovulating Female: Follicular Phase 3.5-12.5 Ovulation Phase 4.7-21.5 Luteal Phase 1.7-7.7 Postmenopausal Female: 25.8-134.8 Performed By: #### F SH, E2 #### [address] [id number] [place] Operator: Jesse Joseph MD Thyroid Stim. Horm.on 2022 Thyroid Stim. Horm. 1.12 uIU/mL Normal 0.30-5.00 [facility] Comment on above: Performed By: #### T SH #### [facility] [address] [place] [address] [place] Operator: Jefe Guerra MD Chlamydia/GC,DNA Ampon 03-21 Chlamydia Probe Negative Normal NEG [facility] Comment on above: Result Comment: CHLA [...] nucleic acid target. Performed By: #### S [facility] #### [address] [id number] [place] Operator: Jesse Joseph MD Gonorrhea Probe Negative Normal NEG [facility] Comment on above: Result Comment: NEIS [...] target. Performed By: #### S WCGP #### [address] [address] [place] Operator: Jesse Joseph MD Vaginitis DNA Probeon 2022 Munira Positive Abnormal [facility] Comment on above: Result Comment: for Munira sp. Method of testing is a DNA probe intended for detection and identification of Munira species, Gardnerella vaginalis, and Trichomonas vaginalis nucleic acid in vaginal fluid specimens from patients with symptoms of vaginitis/vaginosis. Performed By: #### V AGP #### [address] [address] [place] Operator: Jesse Joseph MD [facility] [address] [place] [address] [place] [address] [employer] Operator: Jefe Guerra MD Gardnerella Negative [facility] Comment on above: Result Comment: for Gardnerella vaginalis Performed By: #### V AGP #### [address] [address] [place] Operator: Jesse Joseph MD [address] [place] [address] [place] Operator: Jefe Guerra MD Trichomonas Negative [facility] Comment on above: Result Comment: for Trichomonas Vaginalis Performed By: #### V AGP #### [address] [address] [place] Operator: Jesse Joseph MD [facility] [address] [place] [address] [place] [address] [employer] Operator: Jefe Guerra MD Vaginitis DNA Probeon 2022 Munira Species, DNA Probe Positive Abnormal NEGATIVE [facility] Comment on above: for Munira sp. Method of testing is a DNA probe intended for detection and identification of Munira species, Gardnerella vaginalis, and Trichomonas vaginalis nucleic acid in vaginal fluid specimens from patients with symptoms of vaginitis/vaginosis. Gardnerella Vaginalis, DNA Probe Negative NEGATIVE [facility] Comment on above: for Gardnerella vagi nalis Interpretation and review of laboratory results Abnormal [facility] Source .VAGINAL SWAB [facility] Trichomonas Vaginalis DNA Negative NEGATIVE [facility] Comment on above: for Trichomonas Vagi nalis [facility] Source .VAGINAL SWAB Normal [facility] Comment on above: Performed By: #### V AGP #### [facility] [employer] [address] [place], [place] [id number] [place] Operator: Jesse Joseph MD [address] [place] [address] [place] Operator: Jefe Guerra MD Cult,Urineon 02-04-2023 Cult,Urine Specimen Description .CLEAN CATCH URINE Culture NO SIGNIFICANT GROWTH Report Status FINAL 02/04/2023 [facility] Comment on above: Performed By: #### U RC #### [facility] [address] [place], [place] [id number] [place] Operator: Jesse Joseph MD [address] [place] [address] [place] Operator: Jefe Guerra MD Microscopic Urinalysison Bacteria, UA 2+ Abnormal None [facility] Epithelial Cells UA 2 TO 5 [facility] Interpretation and review of laboratory results Abnormal [facility] Mucus, UA 4+ Abnormal None [facility] RBC clumps Auto (Urine sed) [#/Area] 2 TO 5 [facility] WBC, UA 2 TO 5 [facility] Urinalysison 02-03-2023 Bilirubin Urine Negative NEGATIVE [facility] Color, UA Yellow Yellow [facility] Glucose Auto test strip (U) [Mass/Vol] Negative NEGATIVE [facility] Interpretation and review of laboratory results Abnormal [facility] Ketones (U) [Mass/Vol] TRACE Abnormal NEGATIVE [facility] Leukocyte esterase Auto test strip Ql (U) TRACE Abnormal NEGATIVE [facility] Nitrite Auto test strip Ql (U) Negative NEGATIVE [facility] Protein (U) [Mass/Vol] 6.0 mg/dL 5.0 - 9.0 [facility] Protein (U) [Mass/Vol] 1+ Abnormal NEGATIVE [facility] Specific [place], UA High 1.010 - 1.020 [facility] Turbidity UA SLIGHTLY CLOUDY Abnormal Clear [facility] Urine Hgb Negative NEGATIVE [facility] Urobilinogen, Urine Normal Normal [facility] Urinalysis, Routineon 2022 Bilirubin, SemiQt,Ur Negative Normal NEG [facility] Comment on above: Performed By: #### U A, UMICAO #### [facility] [address] [place] [address] [place] Operator: Jefe Guerra MD Blood, Urine Negative Normal NEG [facility] Comment on above: Performed By: #### U A, UMICAO #### [facility] [address] [place] [address] [place] Operator: Jefe Guerra MD Clarity (U) SLIGHTLY CLOUDY Abnormal CLEAR [facility] Comment on above: Performed By: #### U A, UMICAO #### [facility] [address] [place] [address] [place] Operator: Jefe Guerra MD Color (U) Yellow Normal YEL [facility] Comment on above: Performed By: #### U A, UMICAO #### [facility] [address] [place] [address] [place] Operator: Jefe Guerra MD Glucose Ql (U) Negative Normal NEG [facility] Comment on above: Performed By: #### U A, UMICAO #### [facility] [address] [place] [address] [place], [place] [phone] [place] Operator: Jefe Guerra MD Ketones Ql (U) TRACE Abnormal NEG [facility] Comment on above: Performed By: #### U A, UMICAO #### [facility] [address] [place] [address] [place] [address] [place] Operator: Jefe Guerra MD Leukocyte esterase Test strip Ql (U) TRACE Abnormal NEG [facility] Comment on above: Performed By: #### U A, UMICAO #### [address] [place], [place] [phone] [place] Operator: Jefe Guerra MD Nitrite,Ur Negative Normal NEG [facility] Comment on above: Performed By: #### U A, UMICAO #### [facility] [address] [place] [address] [place] [address] [place] Operator: Jefe Guerra MD PH,Ur 6.0 Normal 5.0-9.0 [facility] Comment on above: Performed By: #### U A, UMICAO #### [facility] [address] [place] [address] [place], [place] [phone] [place] Operator: Jefe Guerra MD Protein Ql (U) 1+ Abnormal NEG [facility] Comment on above: Performed By: #### U A, UMICAO #### [facility] [address] [place] [address] Dr[place], [place] [phone] [place] Operator: Jefe Guerra MD Spec. [place],Ur >1.030 High 1.010-1.020 [facility] Comment on above: Performed By: #### U A, UMICAO #### [facility] [address] [place] [address] [place] [address] [place] Operator: Jefe Guerra MD Urobilinogen,Ur Normal Normal NORM [facility] Comment on above: Performed By: #### U A, UMICAO #### [facility] [address] [place] [address] [place] Operator: Jefe Guerra MD Urinalysis,Microon 3 Bacteria 2+ Abnormal NONE [facility] Comment on above: Performed By: #### U A, UMICAO #### [facility] [address] [place] [address] [place] [address] [place] Operator: Jefe Guerra MD Epithelial cells LM Ql (Urine sed) 2 TO 5 Normal 0-25 [facility] Comment on above: Performed By: #### U A, UMICAO #### [facility] [address] [place] [address] [place], [place] [phone] [place] Operator: Jefe Guerra MD Mucus Strands 4+ Abnormal NONE [facility] Comment on above: Performed By: #### U A, UMICAO #### [facility] [address] [place] [address] [place] [address] [place] Operator: Jefe Guerra MD Urine RBC's 2 TO 5 Normal 0-2 [facility] Comment on above: Performed By: #### U A, UMICAO #### [facility] [address] [place] [address] [place], [place] [phone] [place] Operator: Jefe Guerra MD Urine WBC's 2 TO 5 Normal 0-5 [facility] Comment on above: Performed By: #### U A, UMICAO #### [facility] [address] [place] [address] [place] Operator: Jefe Guerra MD , Urineon 2 Beta HCG ( test) Ql (U) Negative NEGATIVE [facility] Comment on above: Specimens with hCG l evels near the threshold of the test (25 mIU/mL) may give a negative or indeterminate result. In such cases, another test should be performed with a new specimen in 48-72 hours. If early is suspected clinically in this setting, correlation with quantitative serum b-hCG level is suggested. [employer] has confirmed the use of plasma for this test. This has not been cleared or approved by the U.S. Food and Drug Administration. The FDA has determined that such clearance is not necessary. [facility] CBC auto differentialon 060 Absolute Eos # 0.10 [facility] Absolute Immature Granulocyte 0.05 [facility] Absolute Lymph # 1.78 [facility] Absolute [place] # 0.59 [facility] RS [facility] Basophils (Bld) [#/Vol] 10*3/uL B ON [facility] Basophils/100 WBC (Bld) 0 % 0 - 2 % B ON [facility] Eosinophils/100 WBC (Bld) 1 % 1 - 4 % [facility] Hematocrit (Bld) [Volume fraction] 31.9 % Low 36.3 - 47.1 % [facility] Hemoglobin (Bld) [Mass/Vol] 10.4 g/dL Low 11.9 - 15.1 g/dL [facility] Immature granulocytes/100 WBC (Bld) 1 % High 0 [facility] Interpretation and review of laboratory results Abnormal [facility] Lymphocytes/100 WBC (Bld) 22 % Low 24 - 43 % [facility] MCH (RBC) [Entitic mass] 28.6 pg 25.2 - 33.5 pg [facility] MCHC (RBC) [Mass/Vol] 32.6 g/dL 28.4 - 34.8 g/dL [facility] MCV (RBC) [Entitic vol] 87.6 fL 82.6 - 102.9 fL [facility] Monocytes/100 WBC (Bld) 7 % 3 - 12 % B ON [facility] NRBC Automated 0.0 0.0 per 100 WBC [facility] Platelet distribution width (Bld) [Ratio] 13.2 % 11.8 - 14.4 % [facility] Platelet mean volume (Bld) [Entitic vol] 10.5 fL 8.1 - 13.5 fL [facility] Platelets (Bld) [#/Vol] 195 10*3/uL [facility] RBC (Bld) [#/Vol] 3.64 10*6/uL Low 3.95 - 5.1 1 m/uL [facility] Segmented neutrophils/100 WBC (Bld) 69 % High 36 - 65 % [facility] Segs Absolute 5.42 [facility] WBC (Bld) [#/Vol] 8.0 10*3/uL [facility] [place] DRUG SCREEN MULTI URINEon Amphetamine Screen, Ur Negative NEGATIVE [facility] Barbiturate Screen, Ur Negative NEGATIVE N [facility] Benzodiazepine Screen, Urine Negative NEGATIVE [facility] Buprenorphine Urine Negative NEGATIVE [facility] Cannabinoid Scrn, Ur Negative NEGATIVE [facility] Cocaine Metabolite, Urine Negative NEGATIVE [facility] Methadone Screen, Urine Negative NEGATIVE B [facility] Methamphetamine, Urine Negative NEGATIVE [facility] Opiates, Urine Negative NEGATIVE [facility] Oxycodone Screen, Ur Negative NEGATIVE [facility] Phencyclidine, Urine Negative NEGATIVE [facility] Propoxyphene, Urine Negative NEGATIVE [facility] Tricyclic Antidepressants, Urine Negative NEGATIVE [facility] Comment on above: Drug screen results are to be used for medical purposes only. All positive results are unconfirmed. Testing for employment or legal uses should be sent to a reference laboratory for confirmation. [facility] Microscopic Urinalysison - [facility] Bacteria, UA 3+ Abnormal None [facility] Epithelial Cells UA 2 TO 5 [facility] Interpretation and review of laboratory results Abnormal [facility] Mucus, UA 4+ Abnormal None [facility] RBC, UA 0 TO 2 [facility] WBC, UA 2 TO 5 [facility] Urinalysison 12-19-2021 Bilirubin Urine MODERATE Abnormal NEGATIVE [facility] Color, UA Trail Abnormal Yellow [facility] Glucose, Ur Negative NEGATIVE [facility] Interpretation and review of laboratory results Abnormal [facility] Ketones Ql (U) TRACE Abnormal NEGATIVE [facility] Leukocyte esterase Test strip Ql (U) TRACE Abnormal NEGATIVE [facility] Nitrite, Urine Positive Abnormal NEGATIVE [facility] pH, UA 6.5 [facility] Protein, UA 1+ Abnormal NEGATIVE [facility] Specific [place], UA >1.030 High [facility] Turbidity UA Clear Clear [facility] Urine Hgb Negative NEGATIVE [facility] Urobilinogen, Urine Normal Normal [facility] COVID-19, Rapidon 12-15-2021 SARS-CoV-2 (COVID-19) RNA LYDIA+probe Ql (Unsp spec) Not detected Not Detected [facility] Comment on above: Rapid NAAT: [...] management decisions. Fact sheet for Healthcare Providers: https://www.fda.gov/media/341939/download Fact sheet for Patients: https://www.fda.gov/media/944233/download Methodology: Isothermal Nucleic Acid Amplification Specimen Description .NASOPHARYNGEAL SWAB [facility] Rapid influenza A/B antigens on 12-15-2021 Direct Exam POSITIVE for Influenza A Antigen NEGATIVE for Influenza B Antigen Abnormal [facility] Interpretation and review of laboratory results Abnormal [facility] Specimen Description .NASOPHARYNGEAL SWAB [facility] Microscopic Urinalysison - [facility] Bacteria, UA 3+ Abnormal None [facility] Epithelial Cells UA 20 TO 50 [facility] Interpretation and review of laboratory results Abnormal [facility] Mucus, UA 2+ Abnormal None [facility] RBC, UA 0 TO 2 [facility] WBC, UA 20 TO 50 [facility] Urinalysison 12-05-2021 Bilirubin Urine SMALL [facility], [facility]A Yellow Yellow [facility] Glucose, Ur Negative NEGATIVE [facility] Interpretation and review of laboratory results Abnormal [facility] Ketones Ql (U) 2+ Abnormal NEGATIVE [facility] Leukocyte esterase Test strip Ql (U) MODERATE Abnormal NEGATIVE [facility] Nitrite, Urine Negative NEGATIVE [facility] pH, UA 7.0 [facility] Protein, UA TRACE Abnormal NEGATIVE [facility] Specific [place], UA 1.025 [facility] Turbidity UA Clear Clear [facility] Urine Hgb TRACE Abnormal NEGATIVE [facility] Urobilinogen, Urine Normal Normal [facility] No Panel Informationon 11-06 Single live intrauterine in breech presentation at 21 weeks 1 day gestation by today's study. The biparietal diameter measurement and head circumference measurement are less than the 10th percentile for age. The remaining biometric parameters are within normal limits. The nose and lips were not well seen. The structural survey otherwise appears normal. [facility] EXAMINATION: SECOND/THIRD TRIMESTER OBSTETRIC ULTRASOUND 11/06/2021 [...] current ultrasound is 21 weeks 1 day. [facility] Kalen Mejias MD - 11/07/2021 EXAMINATION: [...] seen. The structural survey otherwise appears normal. [employer] Phone: Radiology Study observation (narrative) [employer] Phone: No Panel InformationOrdered By: Kalen Mejias on 11-06-2021 [employer] Phone: Basic Metabolic Panel w/ Ref ct to MGOrdered By: Danny Mendiola on 08-06-2021 Anion gap [Moles/Vol] 12 mmol/L 9 - 17 mmol/L [employer] Phone: Calcium [Mass/Vol] 9.0 mg/dL 8.6 - 10. 4 mg/dL [employer] Phone: Chloride [Moles/Vol] 100 mmol/L 98 - 10 7 mmol/L [facility] Phone: CO2 [Moles/Vol] 24 mmol/L 20 - 31 mmol/L [facility] [employer] Phone: Creatinine [Mass/Vol] 0.57 mg/dL 0.50 - 0.90 mg/dL [facility] Phone: GFR >60 >60 mL/min [employer] Work Phone: GFR Non- >60 >60 mL/min [facility] Phone: Glucose [Mass/Vol] 100 mg/dL High 70 - 99 mg/dL [facility] Phone: Interpretation and review of laboratory results Abnormal [facility] Phone: Potassium [Moles/Vol] 3.7 mmol/L 3.7 - 5.3 mmol/L [facility] Phone: Sodium [Moles/Vol] 136 mmol/L 135 - 144 mmol/L [facility] Phone: Urea nitrogen (BldV) [Mass/Vol] 10 mg/dL 6 - 20 mg/dL [facility] Phone: Urea nitrogen/Creatinine (Bld) [Mass ratio] 18 [facility] Work Phone: [facility] Work Phone: CBC Auto DifferentialOrdered By: Danny Mendiola on 08-06-2021 Absolute Eos # 0.07 [facility] Work Phone: Absolute Immature Granulocyte 0.05 [facility] [employer] Work Phone: Absolute Lymph # 1.56 [facility] [facility] Work Phone: [employer] [place] # 0.41 [facility] Work Phone: Basophils (Bld) [#/Vol] 10*3/uL [employer] Phone: Basophils/100 WBC (Bld) 0 % 0 - 2 % M [employer] Phone: Differential Type NOT REPORTED [employer] Phone: Eosinophils/100 WBC (Bld) 1 % 1 - 4 % [employer] Phone: Hematocrit (Bld) [Volume fraction] 45.4 % 36.3 - 47.1 % [employer] Phone: Hemoglobin.gastrointest inal spec 1 Ql (Stl) 15.2 g/dL High 11.9 - 15.1 g/dL [employer] Phone: Immature granulocytes/100 WBC (Bld) 1 % High 0 [employer] Phone: Interpretation and review of laboratory results Abnormal [employer] Phone: Lymphocytes/100 WBC (Bld) 20 % Low 24 - 43 % [employer] Phone: MCH (RBC) [Entitic mass] 30.2 pg 25.2 - 33.5 pg [employer] Phone: MCHC (RBC) [Mass/Vol] 33.5 g/dL 28.4 - 34.8 g/dL [employer] Phone: MCV (RBC) [Entitic vol] 90.1 fL 82.6 - 102.9 fL [employer] Phone: Monocytes/100 WBC (Bld) 5 % 3 - 12 % [employer] Phone: NRBC Automated 0.0 0.0 per 100 WBC [employer] Phone: Platelet distribution width (Bld) [Ratio] 12.8 % 11.8 - 14.4 % [employer] Phone: Platelet Estimate NOT REPORTED [employer] Phone: Platelet mean volume (Bld) [Entitic vol] 10.5 fL 8.1 - 13.5 fL [employer] Phone: Platelets (Bld) [#/Vol] 203 10*3/uL [employer] Phone: RBC (Bld) [#/Vol] 5.04 10*6/uL 3.95 - 5.1 1 m/uL [employer] Phone: RBC (Bld) [#/Vol] NOT REPORTED [employer] Phone: Segmented neutrophils/100 WBC (Bld) 73 % High 36 - 65 % [employer] Phone: Segs Absolute 5[employer]56 [employer] Work Phone: WBC (Bld) [#/Vol] 7.7 10*3/uL [employer] Phone: WBC (Bld) [#/Vol] NOT REPORTED [employer] Phone: [employer] Phone: Laboratory - Chemistry and C hemistry - challengeOrdered By: Danny Mendiola on 08-06-2021 GFR/1.73 sq M.predicted MDRD (S/P/Bld) [Vol rate/Area] [employer] Phone: Comment on above: Average GFR for 20-2 9 years old: 116 mL/min/1.73sq m Chronic Kidney Disease: <60 mL/min/1.73sq m Kidney failure: <15 mL/min/1.73sq m eGFR calculated using average adult body mass. Additional eGFR calculator available at: http://www.[employer]/multiple_crcl_2012.htm Stage 1: Some kidney damage normal GFR Stage 2: Mild kidney damage GFR 60-89 Stage 3: Moderate kidney damage GFR 30-59 Stage 4: Severe kidney damage GFR 15-29 Stage 5: Severe kidney damage GFR <15 ESRD - chronic treatment by dialysis or transplant Microscopic UrinalysisOrdere d By: Danny Mendiola on 08-06-2021 - [facility] Work Phone: Amorphous, UA NOT REPORTED None [facility] Work Phone: Bacteria, UA TRACE Abnormal None [facility] Work Phone: Casts UA NOT REPORTED /LPF [facility] Work Phone: Crystals, UA NOT REPORTED None /HPF [facility] Work Phone: Epithelial Cells UA 2 TO 5 [facility] Work Phone: Interpretation and review of laboratory results Abnormal [facility] Work Phone: Mucus, UA 1+ Abnormal None [facility] Work Phone: Other Observations UA NOT REPORTED NOT REQ. M [facility] Work Phone: RBC, UA None [facility] Work Phone: Renal Epithelial, UA NOT REPORTED 0 /HPF Me [facility] Work Phone: Trichomonas, UA NOT REPORTED None [facility] Work Phone: WBC, UA 0 TO 2 [facility] Work Phone: Yeast, UA NOT REPORTED None [facility] Work Phone: [facility] Work Phone: Urinalysis, reflex to micros copicOrdered By: Danny Mendiola on 08-06-2021 Bilirubin Urine SMALL Abnormal NEGATIVE [facility] Work Phone: Color, UA Yellow Yellow [facility] Work Phone: Glucose, Ur Negative NEGATIVE [facility] Work Phone: Interpretation and review of laboratory results Abnormal [facility] Work Phone: Ketones Ql (U) 1+ Abnormal NEGATIVE [facility] Work Phone: Leukocyte esterase Test strip Ql (U) TRACE Abnormal NEGATIVE [facility] Work Phone: Nitrite, Urine Negative NEGATIVE [employer] [facility] Work Phone: pH, UA 7.5 [facility] Work Phone: Protein, UA TRACE Abnormal NEGATIVE [facility] Work Phone: Specific [place], UA 1.020 [facility] Work Phone: Turbidity UA Clear Clear [facility] Work Phone: Urinalysis Comments NOT REPORTED [facility] Work Phone: Urine Hgb Negative NEGATIVE [facility] Work Phone: Urobilinogen, Urine Normal Normal [facility] Work Phone: [facility] Work Phone: COVID Quick Testingon 2020 Result Negative [employer] Other HCG, Quantitative, Ordered By: [employer] on 07-18-2021 hCG Quant 02639 High <5 IU/L [facility] Phone: Comment on above: Non-preg premeno <=5 Postmeno <=8 Male <=3 If HCG results do not concur with clinical observations, additional testing to confirm results is recommended. Elevated results not associated with may be found in patients with other diseases such as tumors of the germ cells (testis, ovaries, etc.), bladder, pancreas, stomach, lungs, and liver. Interpretation and review of laboratory results Abnormal [facility] Work Phone: [facility] Work Phone: HCG, Quantitative, Ordered By: [employer] on 07-16-2021 hCG Quant 22159 High <5 IU/L [facility] Phone: Comment on above: Non-preg premeno <=5 Postmeno <=8 Male <=3 If HCG results do not concur with clinical observations, additional testing to confirm results is recommended. Elevated results not associated with may be found in patients with other diseases such as tumors of the germ cells (testis, ovaries, etc.), bladder, pancreas, stomach, lungs, and liver. Interpretation and review of laboratory results Abnormal [employer] Phone: [employer] Phone: CBC AUTO DIFFon 05-24-2021 BASO # 0.0 103/ul Normal 0.0-0.1 [facility] Comment on above: Performed By: #### C BC #### [facility] [address] [place], [place] [id number] Niko Karina Basophils/100 WBC (Bld) 0.1 % Critically low 0.2-2.0 [facility] Comment on above: Performed By: #### C BC #### [facility] [address] [place] [address] Niko Karina EO # 0.3 103/ul Normal 0.0-0.7 [facility] Comment on above: Performed By: #### C BC #### [facility] [address] [place] [address] Niko Karina Eosinophils/100 WBC (Bld) 4.6 % Normal 0.9-7.0 [facility] Comment on above: Performed By: #### C BC #### [facility] [address] [place], [place] [id number] Niko Karina Erythrocyte distribution width (RBC) [Ratio] 12.4 % Normal 11.0-15.0 [facility] Comment on above: Performed By: #### C BC #### [facility] [address] [place], [place] [id number] Niko Karina Hematocrit (Bld) [Volume fraction] 42.5 % Normal 36.0-48.0 [facility] Comment on above: Performed By: #### C BC #### [facility] [address] [place], [place] [id number] Niko Karina Hemoglobin (Bld) [Mass/Vol] 14.2 g/dL Normal 12.0-16.0 [facility] Comment on above: Performed By: #### C BC #### [facility] [address] [place] [address] Niko Karina IG # 0.01 10e3/ul Normal 0.00-0.03 [facility] Comment on above: Performed By: #### C BC #### [facility] [address] [place], [place] [id number] Nikogneesis Collins IG % 0.1 % Normal 0.0-0.5 [facility] Comment on above: Performed By: #### C BC #### [facility] [address] [place], [place] [id number] Nikogenesis Collins LYMPH # 1.9 103/ul Normal 1.2-3.8 [facility] Comment on above: Performed By: #### C BC #### [facility] [address] [place] [address] Niko Collins Lymphocytes/100 WBC (Bld) 28.0 % Normal 20.5-60.0 [facility] Comment on above: Performed By: #### C BC #### [facility] [address] [place] [address] Niko Collins MANUAL DIFF REQ NO Normal [facility] Comment on above: Performed By: #### C BC #### [facility] [address] [place], [place] [id number] Niko Collins MCH (RBC) [Entitic mass] 29.8 pg Normal 26.7-34.0 [facility] Comment on above: Performed By: #### C BC #### [facility] [address] [place], [place] [id number] Niko Collins MCHC (RBC) [Mass/Vol] 33.4 g/dL Normal 29.9-35.2 [facility] Comment on above: Performed By: #### C BC #### [facility] [address] [place] [address] Nikogenesis Collins MCV (RBC) [Entitic vol] 89.1 fL Normal 81.0-99.0 [facility] Comment on above: Performed By: #### C BC #### [facility] [address] [place] [address] Nikogenesis Collins MONO # 0.5 103/ul Normal 0.3-0.8 [facility] Comment on above: Performed By: #### C BC #### [facility] [address] [place], [place] [address] Niko Karina Monocytes/100 WBC (Bld) 6.9 % Normal 1.7-12.0 [facility] Comment on above: Performed By: #### C BC #### [facility] [address] [place] [id number] Niko Karina NEUT # 4.0 103/ul Normal 1.4-6.5 [facility] Comment on above: Performed By: #### C BC #### [facility] [address] [place], [place] [id number] Niko Karina Neutrophils/100 WBC (Bld) 60.3 % Normal 43.0-75.0 [facility] Comment on above: Performed By: #### C BC #### [facility] [address] [place], [place] [id number] Nikogenesis Wooden Platelet mean volume (Bld) [Entitic vol] 10.5 fL Normal 9.5-13.5 [facility] Comment on above: Performed By: #### C BC #### [facility] [address] [place], [place] [phone] Niko Karina PLT 192 103/ul Normal 150-450 [facility] Comment on above: Performed By: #### C BC #### [facility] [address] [place], [place] [phone] Niko Karina RBC 4.77 106/ul Normal 4.20-5.40 [facility] Comment on above: Performed By: #### C BC #### [facility] [address] [place], [place] [id number] Niko Karina WBC 6.7 103/ul Normal 4.0-11.0 [facility] Comment on above: Performed By: #### C BC #### [facility] [address] [place], [place] [phone] Niko Karina PREG HCG QUALon 05-24-2021 , QUAL Negative Normal NEGATIVE [facility] Comment on above: Performed By: #### P REG #### [facility] [address] [place], [place] [id number] Niko Collins PROF 14(COMP METB)on 021 Albumin [Mass/Vol] 3.8 g/dL Normal 3.5-5.0 [facility] Comment on above: Performed By: #### C MP ####[facility] [address] [place], [place] [address]Ixhibq Karina Albumin/Globulin [Mass ratio] 1.2 {ratio} Normal [facility] Comment on above: Performed By: #### C MP ####[facility] [address] [place] [id number] Karina ALP [Catalytic activity/Vol] 47 U/L Normal 38-126 [facility] Comment on above: Performed By: #### C MP ####[facility] [address] [place], [place] [address]Gerken Karina ALT [Catalytic activity/Vol] 13 U/L Normal 9-52 [facility] Comment on above: Performed By: #### C MP ####[facility] [address] [place], [place] [address]Gerken Karina Anion gap [Moles/Vol] 15.4 mmol/L Normal [facility] Comment on above: Performed By: #### C MP ####[facility] [address] [place], [place] [address]Gerken Karina AST [Catalytic activity/Vol] 15 U/L Normal 14-36 [facility] Comment on above: Performed By: #### C MP ####[facility] [address] [place], [place] [address]Gerken Karina Bilirubin [Mass/Vol] 0.6 mg/dL Normal 0.2-1.3 [facility] Comment on above: Performed By: #### C MP ####[facility] [address] [place], [place] [address]Gerken Karina Calcium [Mass/Vol] 8.7 mg/dL Normal 8.4-10.2 [facility] Comment on above: Performed By: #### C MP ####[facility] [address] [place], [place] [address]Gerken Karina Chloride [Moles/Vol] 105 mmol/L Normal 98-107 [facility] Comment on above: Performed By: #### C MP ####[facility] [address] [place] [id number] Karina CO2 [Moles/Vol] 25.3 mmol/L Normal 22.0-30.0 [facility] Comment on above: Performed By: #### C MP ####[facility] [address] [place] [id number] Karina Creatinine [Mass/Vol] 0.76 mg/dL Normal 0.52-1.04 [facility] Comment on above: Performed By: #### C MP ####[facility] [address] [place] [address]Efvcbh Karina EGFR-AF [place]IZ[place] >60 Normal >=60 [facility] Comment on above: Performed By: #### C MP ####[facility] [address] [place], [place] [address]Gerken Karina EGFR-NON AF [place]IZ[place] >60 Normal >=60 [facility] Comment on above: Performed By: #### C MP ####[facility] [address] [place], [place] [address]Gerken Karina Globulin (S) [Mass/Vol] 3.3 g/dL Normal [facility] Comment on above: Performed By: #### C MP ####[facility] [address] [place], [place] [address]Gerken Karina Glucose [Mass/Vol] 92 mg/dL Normal 74-106 [facility] Comment on above: Performed By: #### C MP ####[facility] [address] [place], [place] [address]Gerken Karina Potassium [Moles/Vol] 3.7 mmol/L Normal 3.4-5.0 [facility] Comment on above: Performed By: #### C MP ####[facility] [address] [place] [phone] Karina Protein [Mass/Vol] 7.1 g/dL Normal 6.1-8.2 [facility] Comment on above: Performed By: #### C MP ####[facility] [address] [place], [place] [address]EfykdbNiko Collins Sodium [Moles/Vol] 142 mmol/L Normal 137-145 [facility] Comment on above: Performed By: #### C MP ####[facility] [address] [place], [place] [address]LuuomkNiko Collins Urea nitrogen [Mass/Vol] 7.0 mg/dL Normal 7.0-17.0 [facility] Comment on above: Performed By: #### C MP ####[facility] [address] [place] [id number] Collins Urea nitrogen/Creatinine [Mass ratio] 9.2 mg/mg Normal [facility] Comment on above: Performed By: #### C MP ####[facility] [address] [place] [id number] Collins PROTIMEon 05-24-2021 INR Coag (PPP) [Relative time] 1.03 {INR} Normal [facility] Comment on above: Performed By: #### P TT, PT #### [facility] [address] [place] [phone] Niko Collins INR GUIDELINES SEE BELOW Normal [facility] Comment on above: Result Comment: JENNIFER RED INR: 2.0 - 3.0 CONDITIONS NOT LISTED BELOW 2.5 - 3.5 FOR PROSTHETIC HEART VALVE REPLACEMENT 2.5 - 3.5 RECURRENT THROMBOSIS Performed By: #### P TT, PT #### [facility] [address] [place] [address] Niko Collins PT Coag (PPP) [Time] 11.1 s Normal 9.0-11.6 [facility] Comment on above: Performed By: #### P TT, PT #### [facility] [address] [place] [address] Niko Collins PTTon 05-24-2021 aPTT Coag (Bld) [Time] 27.7 s Normal 22.3-36.2 [facility] Comment on above: Performed By: #### P TT, PT #### [facility] [address] [place] [phone] Niko Collins US PELVIS TRANSVAGon 021 US [...] by: MARYAM LUU Date: 2021-05-24 21:20 Normal [facility] CT ABD/PELV W CONon 05-22-[address] [...] by: TANIKA HARRY Date: 2021-05-21 22:11 Normal [facility] CBC AUTO DIFFon 05-21-2021 BASO # 0.0 103/ul Normal 0.0-0.1 [facility] Comment on above: Performed By: #### C BC #### [facility] [address] [place] [address] Niko Karina Basophils/100 WBC (Bld) 0.4 % Normal 0.2-2.0 [facility] Comment on above: Performed By: #### C BC #### [facility] [address] [place], [place] [phone] Niko Karina EO # 0.3 103/ul Normal 0.0-0.7 [facility] Comment on above: Performed By: #### C BC #### [facility] [address] [place] [address] Niko Karina Eosinophils/100 WBC (Bld) 3.1 % Normal 0.9-7.0 [facility] Comment on above: Performed By: #### C BC #### [facility] [address] [place] [address] Niko Karina Erythrocyte distribution width (RBC) [Ratio] 12.8 % Normal 11.0-15.0 [facility] Comment on above: Performed By: #### C BC #### [facility] [address] [place] [address] Niko Karina Hematocrit (Bld) [Volume fraction] 45.8 % Normal 36.0-48.0 [facility] Comment on above: Performed By: #### C BC #### [facility] [address] [place] [address] Niko Karina Hemoglobin (Bld) [Mass/Vol] 15.0 g/dL Normal 12.0-16.0 [facility] Comment on above: Performed By: #### C BC #### [facility] [address] [place] [address] Niko Karina IG # 0.02 10e3/ul Normal 0.00-0.03 [facility] Comment on above: Performed By: #### C BC #### [facility] [address] [place] [address] Niko Karina IG % 0.2 % Normal 0.0-0.5 [facility] Comment on above: Performed By: #### C BC #### [facility] [address] [place] [address] Niko Karina LYMPH # 1.5 103/ul Normal 1.2-3.8 [facility] Comment on above: Performed By: #### C BC #### [facility] [address] [place] [address] Niko Karina Lymphocytes/100 WBC (Bld) 18.1 % Critically low 20.5-60.0 [facility] Comment on above: Performed By: #### C BC #### [facility] [address] [place] [address] Niko Karina MANUAL DIFF REQ NO Normal [facility] Comment on above: Performed By: #### C BC #### [facility] [address] [place], [place] [phone] Niko Collins MCH (RBC) [Entitic mass] 29.8 pg Normal 26.7-34.0 [facility] Comment on above: Performed By: #### C BC #### [facility] [address] [place], [place] [phone] Niko Collins MCHC (RBC) [Mass/Vol] 32.8 g/dL Normal 29.9-35.2 [facility] Comment on above: Performed By: #### C BC #### [facility] [address] [place], [place] [phone] Niko Collins MCV (RBC) [Entitic vol] 90.9 fL Normal 81.0-99.0 [facility] Comment on above: Performed By: #### C BC #### [facility] [address] [place] [address] Niko Collins MONO # 0.6 103/ul Normal 0.3-0.8 [facility] Comment on above: Performed By: #### C BC #### [facility] [address] [place] [address] Niko Collins Monocytes/100 WBC (Bld) 7.1 % Normal 1.7-12.0 [facility] Comment on above: Performed By: #### C BC #### [facility] [address] [place], [place] [address] Niko Collins NEUT # 5.8 103/ul Normal 1.4-6.5 [facility] Comment on above: Performed By: #### C BC #### [facility] [address] [place], [place] [phone] Niko Collins Neutrophils/100 WBC (Bld) 71.1 % Normal 43.0-75.0 [facility] Comment on above: Performed By: #### C BC #### [facility] [address] [place], [place] [phone] Niko Collins Platelet mean volume (Bld) [Entitic vol] 10.7 fL Normal 9.5-13.5 [facility] Comment on above: Performed By: #### C BC #### [facility] [address] [place], [place] [address] Niko Karina PLT 193 103/ul Normal 150-450 [facility] Comment on above: Performed By: #### C BC #### [facility] [address] [place], [place] [address] Niko Karina RBC 5.04 106/ul Normal 4.20-5.40 [facility] Comment on above: Performed By: #### C BC #### [facility] [address] [place], [place] [address] Niko Karina WBC 8.2 103/ul Normal 4.0-11.0 [facility] Comment on above: Performed By: #### C BC #### [facility] [address] [place] [address] Niko Karina URon 05-21-2021 , QUAL Negative Normal NEGATIVE [facility] Comment on above: Performed By: #### P REGU #### [facility] [address] [place] [address] Niko Karina PROF CHEM 8 (BAS METB)on Anion gap [Moles/Vol] 12.3 mmol/L Normal [facility] Comment on above: Performed By: #### B MP #### [facility] [address] [place] [address] Niko Karina Calcium [Mass/Vol] 8.5 mg/dL Normal 8.4-10.2 [facility] Comment on above: Performed By: #### B MP #### [facility] [address] [place] [address] Niko Karina Chloride [Moles/Vol] 107 mmol/L Normal 98-107 [facility] Comment on above: Performed By: #### B MP #### [facility] [address] [place] [address] Niko Karina CO2 [Moles/Vol] 26.3 mmol/L Normal 22.0-30.0 [facility] Comment on above: Performed By: #### B MP #### [facility] [address] [place] [phone] Niko Karina Creatinine [Mass/Vol] 0.74 mg/dL Normal 0.52-1.04 [facility] Comment on above: Performed By: #### B MP #### [facility] [address] [place] [phone] Niko Karina EGFR-AF [place] >60 Normal >=60 [facility] Comment on above: Performed By: #### B MP #### [facility] [address] [place] [phone] Niko Karina EGFR-NON AF [place]IZ[place] >60 Normal >=60 [facility] Comment on above: Performed By: #### B MP #### [facility] [address] [place] [address] Niko Karina Glucose [Mass/Vol] 88 mg/dL Normal 74-106 [facility] Comment on above: Performed By: #### B MP #### [facility] [address] [place] [address] Niko Karina Potassium [Moles/Vol] 3.6 mmol/L Normal 3.4-5.0 [facility] Comment on above: Performed By: #### B MP #### [facility] [address] [place] [address] Niko Karina Sodium [Moles/Vol] 142 mmol/L Normal 137-145 [facility] Comment on above: Performed By: #### B MP #### [facility] [address] [place] [address] Niko Karina Urea nitrogen [Mass/Vol] 7.0 mg/dL Normal 7.0-17.0 [facility] Comment on above: Performed By: #### B MP #### [facility] [address] [place], [place] [id number] Niko Karina Urea nitrogen/Creatinine [Mass ratio] 9.5 mg/mg Normal [facility] Comment on above: Performed By: #### B MP #### [facility] [address] [place], [place] [id number] Niko Karina XR CHEST 2 Von 04-23-2021 [...] by: ANGELLA AU Date: 2021-04-23 10:10 Normal [facility] US BREAST COMPLETE RIGHTon 1 Negative targeted ultrasound in the region of palpable concern. Clinical follow-up is recommended. BI-RADS 1 BIRADS: BIRADS - CATEGORY 1 Negative Mammogram. Normal interval follow-up is recommended in 12 months. OVERALL ASSESSMENT - NEGATIVE A letter of notification will be sent to the patient regarding the results. [employer] recommends annual mammograms for women 40 years and older. [place] EXAMINATION: TARGETED ULTRASOUND OF THE RIGHT BREAST 07/27/2020 COMPARISON: None. HISTORY: ORDERING SYSTEM PROVIDED HISTORY: Cyst of right breast TECHNOLOGIST PROVIDED HISTORY: FINDINGS: Targeted ultrasound was performed in the area of palpable concern. Imaging in the 10-12 o'clock of the right breast reveals no sonographic abnormality. [place] Dany, [facility] Incoming Radiant Results From [employer]/What's Hot - 07/27/2020 2:57 PM EDT EXAMINATION: TARGETED [...] to the patient regarding the results. [employer] recommends annual mammograms for women 40 years and older. [facility] [place] CBCon 12-21-2019 Erythrocyte distribution width (RBC) [Ratio] 12.9 % 11.8 - 14.4 % [place] Hematocrit (Bld) [Volume fraction] 43.9 % 36.3 - 47.1 % [place] Hemoglobin (Bld) [Mass/Vol] 14.3 g/dL 11.9 - 15.1 g/dL [place] MCH (RBC) [Entitic mass] 29.5 pg 25.2 - 33.5 pg [place] MCHC (RBC) [Mass/Vol] 32.6 g/dL 28.4 - 34.8 g/dL [place] MCV (RBC) [Entitic vol] 90.7 fL 82.6 - 102.9 fL [place] Platelet mean volume (Bld) [Entitic vol] 10.4 fL 8.1 - 13.5 fL [place] Platelets (Bld) [#/Vol] 222 10*3/uL [place] RBC (Bld) [#/Vol] 4.84 10*6/uL 3.95 - 5.1 1 m/uL [place] WBC (Bld) [#/Vol] 7.9 10*3/uL [place] WBC (Bld) [#/Vol] 0.0 10*3/uL 0.0 per 10 0 WBC [place] HCG Qualitative, Serumon hCG Qual Negative NEGATIVE [place] Comment on above: Specimens with hCG l evels near the threshold of the test (25 mIU/mL) may give a negative or indeterminate result. In such cases, another test should be performed with a new specimen in 48-72 hours. If early is suspected clinically in this setting, correlation with quantitative serum b-hCG level is suggested. [employer] has confirmed the use of plasma for this test. This has not been cleared or approved by the U.S. Food and Drug Administration. The FDA has determined that such clearance is not necessary. HCG, Quantitative, Ordered By: Phan Rubi on 11-02-2019 hCG Quant <1 <5 IU/L [facility] Work Phone: Comment on above: Non-preg premeno [...] differentialon 07-06 Basophils (Bld) [#/Vol] 0.00 10*3/uL [place] Basophils/100 WBC (Bld) 0 % 0 - 2 % [place] Differential Type NOT REPORTED [place] Eosinophils (Bld) [#/Vol] 0.35 10*3/uL [place] Eosinophils/100 WBC (Bld) 5 % High 1 - 4 % [place] Erythrocyte distribution width (RBC) [Ratio] 13.8 % 11.8 - 14.4 % [place] Hematocrit (Bld) [Volume fraction] 39.1 % 36.3 - 47.1 % [place] Hemoglobin (Bld) [Mass/Vol] 13.1 g/dL 11.9 - 15.1 g/dL [place] Immature granulocytes (Bld) [#/Vol] 0.00 10*3/uL [place] Immature granulocytes (Bld) [#/Vol] 0 % 0 [place] Interpretation and review of laboratory results Abnormal [place] Lymphocytes (Bld) [#/Vol] 2.14 10*3/uL [place] Lymphocytes/100 WBC (Bld) 31 % 24 - 43 % [place] MCH (RBC) [Entitic mass] 31.8 pg 25.2 - 33.5 pg [place] MCHC (RBC) [Mass/Vol] 33.5 g/dL 28.4 - 34.8 g/dL [place] MCV (RBC) [Entitic vol] 94.9 fL 82.6 - 102.9 fL [place] Monocytes (Bld) [#/Vol] 0.48 10*3/uL [place] Monocytes/100 WBC (Bld) 7 % 3 - 12 % [place] Morphology Mahamed (Bld) [Interp] Normal [place] Platelet mean volume (Bld) [Entitic vol] NOT REPORTED 8.1 - 13.5 fL [place] Platelets (Bld) [#/Vol] See Reflexed IPF Result [place] Platelets (Bld) [#/Vol] NOT REPORTED [place] RBC (Bld) [#/Vol] 4.12 10*6/uL 3.95 - 5.1 1 m/uL [place] RBC morphology finding Nom (Bld) NOT REPORTED [place] Segmented neutrophils/100 WBC (Bld) 57 % 36 - 65 % [place] Segs Absolute 3.93 [place] WBC (Bld) [#/Vol] 6.9 10*3/uL [place] WBC (Bld) [#/Vol] 0.0 10*3/uL 0.0 per 10 0 WBC [place] WBC Morphology NOT REPORTED [place] DRUG SCREEN MULTI URINEon Amphetamine Screen, Ur Negative NEGATIVE [place] Barbiturate Screen, Ur Negative NEGATIVE [place] Benzodiazepine Screen, Urine Negative NEGATIVE [place] Buprenorphine Urine Negative NEGATIVE [place] Cannabinoid Scrn, Ur Negative NEGATIVE [place] Cocaine Metabolite, Urine Negative NEGATIVE [place] MDMA, Urine NOT REPORTED NEGATIVE [place] Methadone Screen, Urine Negative NEGATIVE [place] Methamphetamine, Urine Negative NEGATIVE [place] Opiates, Urine Negative NEGATIVE [place], [place] Oxycodone Screen, Ur Negative NEGATIVE [place] Phencyclidine, Urine Negative NEGATIVE [place] Propoxyphene, Urine Negative NEGATIVE [place] Test Information NOT REPORTED [place] Tricyclic Antidepressants, Urine Negative NEGATIVE [place], [place] Comment on above: Drug screen results are to be used for medical purposes only. All positive results are unconfirmed. Testing for employment or legal uses should be sent to a reference laboratory for confirmation. Immature Platelet Fractionon 07-20-2019 Interpretation and review of laboratory results Abnormal [place] Platelet, Fluorescence [address] [place] Platelet, Immature Fraction 3.9 % 1.1 - 10.3 % [place] GROUP B STREP DNA PROBE, REF CT TO CULTUREon 07-04-2019 Streptococcus Grp. B, CSF Negative [place] US OB 14 PLUS WEEKS SINGLE O R FIRST GESTATIONon 06-21-2019 A single live intrauterine with estimated gestational age of 36 weeks 3 days by ultrasound. The estimated weight is 2659 g. Cervical length is shortened measuring 2.4 cm [place] EXAMINATION: TRANSABDOMINAL SECOND/THIRD TRIMESTER OBSTETRIC PELVIC [...] 6.8 cm, 41%tile CERVICAL LENGTH: 2.4 cm [place] Dany, [facility] Incoming Radiant Results From [employer]/What's Hot - 06/21/2019 5:58 PM EDT EXAMINATION: TRANSABDOMINAL [...] Cervical length is shortened measuring 2.4 cm [place] Urinalysis with microscopico n 06-21-2019 Amorphous, UA TRACE Abnormal None [place] Bacteria, UA 1+ Abnormal None [place] Bilirubin Urine Negative NEGATIVE [place], [place] Casts UA NOT REPORTED /LPF [place] Color, UA YELLOW YELLOW [place] Crystals UA NOT REPORTED None /HPF [place] Epithelial Cells UA 5 TO 10 [place] Glucose, Ur Negative NEGATIVE [place] Interpretation and review of laboratory results Abnormal [place] Ketones Ql (U) Negative NEGATIVE [place] Leukocyte esterase Test strip Ql (U) SMALL Abnormal NEGATIVE [place] Mucus, UA TRACE Abnormal None [place] Nitrite, Urine Negative NEGATIVE [place] Other Observations UA NOT REPORTED NOT REQ. [place] pH, UA 6.5 [place] Protein (U) [Mass/Vol] Negative NEGATIVE [place] RBC (U) [#/Vol] None [place], [place] Renal Epithelial, Urine NOT REPORTED 0 /HPF [place] Specific [place], UA 1.025 [place], [place] Trichomonas, UA NOT REPORTED None [facility] [place] Turbidity UA CLEAR CLEAR [place] Urinalysis Comments NOT REPORTED [place], [place] Urine Hgb Negative NEGATIVE [facility], [place] Urobilinogen, Urine Normal Normal [facility] WBC, UA 2 TO 5 [place] Yeast, UA NOT REPORTED None [facility] [facility] SURGICAL PATH REPORTon 10-15 SURGICAL PATH REPORT Normal [facility] Comment on above: Result Comment: DIAG NOSIS IUD, REMOVAL: GROSS EXAMINATION ONLY CPT 79632 anthony/10/14/2018 Electronically Signed Out by Tian Gonzales [...] is for gross only. [facility] [address] [place] [address] CLIA No. [id number] CAP Accreditation No. [id number] Air Table Operator: Tony Solomon M.D. [facility] Accession Number: [id number] Performed By: #### P L BIOPSY #### [address] [id number] CBC W Auto Differentialon Age at specimen collection = Normal [facility] Comment on above: Performed By: #### C BC Auto Diff #### [address] [address] Performed By: #### H CG,QUAL SERUM #### [address] [address] Performed By: #### P L BIOPSY #### [address] [address] Abs Neut # 3.1 10 X 3/mm Normal 1.8 - 7.7 [facility] Comment on above: Performed By: #### C BC Auto Diff #### [facility] [address] [place] [address] Basophils/100 WBC (Bld) 1 % Normal 0 - 1 [facility] Comment on above: Performed By: #### C BC Auto Diff #### [facility] [address] [place] [address] Eosinophils #/vol (Bld) 0.2 10 X 3/mm Normal 0.0 - 0.5 [facility] Comment on above: Performed By: #### C BC Auto Diff #### [place] [address] [place] [address] Eosinophils/100 WBC (Bld) 3 % Normal 0 - 5 [facility] Comment on above: Performed By: #### C BC Auto Diff #### [place] [address] [place] [address] Erythrocyte distribution width Ratio (RBC) 13.0 % Normal 11.5 - 14.5 [facility] Comment on above: Performed By: #### C BC Auto Diff #### [place] [address] [place] [address] Hematocrit Volume Fraction (Bld) 42.3 % Normal 36.0 - 47.0 [facility] Comment on above: Performed By: #### C BC Auto Diff #### [place] [address] [place] [address] Hemoglobin mass conc (Bld) 14.6 g/dL Normal 12.0 - 16.0 [facility] Comment on above: Performed By: #### C BC Auto Diff #### [place] [address] [place] [address] Lymphocytes #/vol (Bld) 1.7 10 X 3/mm Normal 1.0 - 4.0 [facility] Comment on above: Performed By: #### C BC Auto Diff #### [facility] [address] [place] [address] Lymphocytes/100 WBC (Bld) 32 % Normal 20 - 40 [facility] Comment on above: Performed By: #### C BC Auto Diff #### [place] [address] [place] [address] MCH Entitic mass (RBC) 31.1 pg Normal 27.0 - 35.0 [facility] Comment on above: Performed By: #### C BC Auto Diff #### [place] [address] [place] [address] MCHC mass conc (RBC) 34.4 g/dL Normal 32.0 - 36.0 [facility] Comment on above: Performed By: #### C BC Auto Diff #### [place] [address] [place] [address] MCV Entitic volume (RBC) 90.5 fL Normal 80.0 - 100.0 [facility] Comment on above: Performed By: #### C BC Auto Diff #### [place] [address] [facility] [place] [address] Monocytes/100 WBC (Bld) 7 % Normal 1 - 15 [facility] Comment on above: Performed By: #### C BC Auto Diff #### [place] [address] [place] [address] Neutrophils/100 WBC (Bld) 57 % Normal 50 - 70 [facility] Comment on above: Performed By: #### C BC Auto Diff #### [place] [address] [place] [address] Platelet mean volume Entitic volume (Bld) 8.9 fL Normal 7.5 - 11.5 [facility] Comment on above: Performed By: #### C BC Auto Diff #### [facility] [address] [place] [address] Platelets #/vol (Bld) 164 uLx10 Normal 150 - 450 [facility] Comment on above: Performed By: #### C BC Auto Diff #### [facility] [address] [place] [address] RBC #/vol (Bld) 4.68 10 X 6/mm Normal 4.20 - 5.40 [facility] Comment on above: Performed By: #### C BC Auto Diff #### [place] [address] [place] [address] WBC #/vol (Bld) 5.5 10 X 3/mm Normal 3.7 - 11.0 [facility] Comment on above: Performed By: #### C BC Auto Diff #### [place] [address] [place] [address] hCG, Qualitative-Serumon Internal Control ACCEPTABLE Normal [facility] Comment on above: Performed By: #### H CG,QUAL SERUM #### [place] [address] [place] [address] hCG, Qualitative-Serum Negative Normal NEGATIVE [facility] Comment on above: Performed By: #### H CG,QUAL SERUM #### [place] [address] [place] [address] SURGICAL PATH REPORTon 08-11 SURGICAL PATH REPORT Normal [facility] Comment on above: Result Comment: DIAG NOSIS A CERVIX, 5:00, LEEP BIOPSY: 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 [...] and submitted in one cassette. ns mg [facility]/08/11/2018 MICROSCOPIC DESCRIPTION A Multiple sections of a [...] dysplasia or other abnormality. [facility] [address] [place] [address] Air Table Operator: Tony Solomon M.D. CLIA No. [id number] CAP Accreditation No. [id number] [facility] Accession Number: [id number] Performed By: #### P L BIOPSY #### [address] [address] CBC W Auto Differentialon Age at specimen collection = Normal [facility] Comment on above: Performed By: #### C BC Auto Diff #### [address] [address] Performed By: #### H CG,QUAL SERUM #### [facility] [address] [place] [address] Performed By: #### P L BIOPSY #### [facility] [address] [place] [address] Abs Neut # 3.9 10 X 3/mm Normal 1.8 - 7.7 [facility] Comment on above: Performed By: #### C BC Auto Diff #### [place] [address] [place] [address] Basophils/100 WBC (Bld) 1 % High 0 - 1 W [facility] Comment on above: Performed By: #### C BC Auto Diff #### [place] [address] [place] [address] Eosinophils #/vol (Bld) 0.2 10 X 3/mm Normal 0.0 - 0.5 [facility] Comment on above: Performed By: #### C BC Auto Diff #### [place] [address] [place] [address] Eosinophils/100 WBC (Bld) 4 % Normal 0 - 5 [facility] Comment on above: Performed By: #### C BC Auto Diff #### [place] [address] [place] [address] Erythrocyte distribution width Ratio (RBC) 12.9 % Normal 11.5 - 14.5 [facility] Comment on above: Performed By: #### C BC Auto Diff #### [facility] [address] [place] [address] Hematocrit Volume Fraction (Bld) 47.4 % High 36.0 - 47.0 [facility] Comment on above: Performed By: #### C BC Auto Diff #### [place] [address] [place] [address] Hemoglobin mass conc (Bld) 16.2 g/dL High 12.0 - 16.0 [facility] Comment on above: Performed By: #### C BC Auto Diff #### [facility] [address] [place] [address] Lymphocytes #/vol (Bld) 2.1 10 X 3/mm Normal 1.0 - 4.0 [facility] Comment on above: Performed By: #### C BC Auto Diff #### [place] [address] [place] [address] Lymphocytes/100 WBC (Bld) 31 % Normal 20 - 40 [facility] Comment on above: Performed By: #### C BC Auto Diff #### [address] [place] [address] MCH Entitic mass (RBC) 30.9 pg Normal 27.0 - 35.0 [facility] Comment on above: Performed By: #### C BC Auto Diff #### [place] [address] [place] [address] MCHC mass conc (RBC) 34.1 g/dL Normal 32.0 - 36.0 [facility] Comment on above: Performed By: #### C BC Auto Diff #### [place] [address] [place] [address] MCV Entitic volume (RBC) 90.5 fL Normal 80.0 - 100.0 [facility] Comment on above: Performed By: #### C BC Auto Diff #### [place] [address] [place] [address] Monocytes/100 WBC (Bld) 8 % Normal 1 - 15 [facility] Comment on above: Performed By: #### C BC Auto Diff #### [place] [place] [address] Neutrophils/100 WBC (Bld) 56 % Normal 50 - 70 [facility] Comment on above: Performed By: #### C BC Auto Diff #### [facility] [address] [place] [address] Platelet mean volume Entitic volume (Bld) 8.6 fL Normal 7.5 - 11.5 [facility] Comment on above: Performed By: #### C BC Auto Diff #### [place] [address] [place] [address] Platelets #/vol (Bld) 213 uLx10 Normal 150 - 450 [facility] Comment on above: Performed By: #### C BC Auto Diff #### [address] [address] RBC #/vol (Bld) 5.24 10 X 6/mm Normal 4.20 - 5.40 [facility] Comment on above: Performed By: #### C BC Auto Diff #### [address] [address] WBC #/vol (Bld) 6.9 10 X 3/mm Normal 3.7 - 11.0 [facility] Comment on above: Performed By: #### C BC Auto Diff #### [address] [address] hCG, Qualitative-Serumon Internal Control ACCEPTABLE Normal [facility] Comment on above: Performed By: #### H CG,QUAL SERUM #### [address] [address] hCG, Qualitative-Serum Negative Normal NEGATIVE [facility] Comment on above: Performed By: #### H CG,QUAL SERUM #### [address] [address] Vital Signs Date Time Vital Sign Value Performing Clinician Facility 01-09-2024 09:15-0400 Diastolic blood pressure 76 mm[Hg] Kaila Torresg DO [facility] 01-09-2024 09:15-0400 Heart rate 68 /min Kaila Torresg DO Work Phone[facility] 01-09-2024 09:15-0400 Respiratory rate 16 /min Kaila Torresg DO Work Phone[facility] 01-09-2024 09:15-0400 SaO2% (BldA) [Mass fraction] 100 % Kaila Torresg DO Work Phone[facility] [employer] 01-09-2024 09:15-0400 Systolic blood pressure 106 mm[Hg] Kaila Torresg DO Work Phone: [facility] 01-09-2024 08:53-0400 Body temperature 97.7 [degF] Kaila Torresg DO Work Phone[facility] 01-09-2024 06:40-0400 Body height 160 cm Kaila Torresg DO Work Phone: [facility] 01-09-2024 06:40-0400 Body mass index (BMI) [Ratio] 24.3 kg/m2 Kaila Torresg DO Work Phone: [facility] 01-09-2024 06:40-0400 Body weight 62.23 kg Kaila Torresg DO Work Phone: [facility] 10-01-2022 18:15-0500 Diastolic blood pressure 84 mm[Hg] Kaila Torresg DO Work Phone: [facility] 10-01-2022 18:15-0500 Heart rate 66 /min Kaila Torresg DO Work Phone: [facility] 10-01-2022 18:15-0500 Respiratory rate 16 /min Kaila Chi DO Work Phone: [employer] 10-01-2022 18:15-0500 SaO2% (BldA) [Mass fraction] 99 % Kaila Chi DO Work Phone: [facility] [employer] 10-01-2022 18:15-0500 Systolic blood pressure 124 mm[Hg] Kaila Chi DO Work Phone: [employer] 10-01-2022 16:30-0500 Body temperature 97.3 [degF] Kaila Chi DO Work Phone: [employer] 10-01-2022 12:38-0500 Body mass index (BMI) [Ratio] 25.3 kg/m2 Kaila Chi DO Work Phone: [employer] 10-01-2022 12:38-0500 Body weight 64.77 kg Kaila Chi DO Work Phone: [employer] 09-23-2022 15:08-0500 Body height 160 cm Kaila Chi DO Work Phone: [employer] 03-08-2022 16:08-0400 Body temperature 98.2 [degF] Jerrell Westbrook APRN - [employer] Work Phone: [employer] 03-08-2022 16:08-0400 Diastolic blood pressure 67 mm[Hg] Jerrell Westbrook APRN - [employer] Work Phone: [employer] 03-08-2022 16:08-0400 Heart rate 79 /min Jerrell Westbrook APRN - [employer] Work Phone: [facility] [employer] 03-08-2022 16:08-0400 Respiratory rate 16 /min Jerrell Westbrook APRN - CN Work Phone: [facility] [employer] 06-03-2022 16:08-0400 Systolic blood pressure 109 mm[Hg] Jerrell Westbrook APRN - CNM Work Phone: [facility] [employer] 12-19-2021 12:16-0400 Body height 160 cm Jerrell Westbrook APRN - CNM Work Phone: [facility] [employer] 12-19-2021 12:16-0400 Body mass index (BMI) [Ratio] 28.34 kg/m2 Jerrell Westbrook APRN - CNM Work Phone: [facility] 12-19-2021 12:16-0400 Body temperature 98.01 [degF] Jerrell Westbrook APRN - CNM Work Phone: [employer] 12-19-2021 12:16-0400 Body weight 72.58 kg Jerrell Westbrook APRN - CNM Work Phone: [facility] 12-19-2021 12:16-0400 Diastolic blood pressure 69 mm[Hg] Jerrell Westbrook APRN - CNM Work Phone: [employer] 12-19-2021 12:16-0400 Heart rate 85 /min Jerrell Westbrook APRN - CNM Work Phone: [employer] 12-19-2021 12:16-0400 Respiratory rate 18 /min Jerrell Westbrook APRN - CNM Work Phone: [employer] 12-19-2021 12:16-0400 Systolic blood pressure 112 mm[Hg] Jerrell Westbrook APRN - CNM Work Phone: [employer] 12-15-2021 10:01-0500 Body height 160 cm Fito Hutchinson MD Work Phone: [employer] 12-15-2021 10:01-0500 Body mass index (BMI) [Ratio] 28.34 kg/m2 Fito Hutchinson MD Work Phone: [employer] 12-15-2021 10:01-0500 Body temperature 99.1 [degF] Fito Hutchinson MD Work Phone: [employer] 12-15-2021 10:01-0500 Body weight 72.58 kg Fito Hutchinson MD Work Phone: [employer] 12-15-2021 10:01-0500 Diastolic blood pressure 65 mm[Hg] Fito Hutchinson MD Work Phone: [employer] 12-15-2021 10:01-0500 Heart rate 134 /min Fito Hutchinson MD Work Phone: [employer] 12-15-2021 10:01-0500 Respiratory rate 20 /min Fito Hutchinson MD Work Phone: [employer] 12-15-2021 10:01-0500 SaO2% (BldA) [Mass fraction] 97 % Fito Hutchinson MD Work Phone: [employer] 12-15-2021 10:01-0500 Systolic blood pressure 108 mm[Hg] Fito Hutchinson MD Work Phone: [employer] 12-05-2021 17:33-0500 Body height 160 cm Jerrell Westbrook APRN - CNM Work Phone: [employer] 12-05-2021 17:33-0500 Body mass index (BMI) [Ratio] 28.17 kg/m2 Jerrell Westbrook APRN - CNM Work Phone: [employer] 12-05-2021 17:33-0500 Body temperature 98.1 [degF] Jerrell Westbrook APRN - CNM Work Phone: [employer] 12-05-2021 17:33-0500 Body weight 72.12 kg Jerrell Westbrook APRN - CNM Work Phone: [employer] 12-05-2021 17:33-0500 Diastolic blood pressure 67 mm[Hg] Jerrell Westbrook APRN - CNM Work Phone: [employer] 12-05-2021 17:33-0500 Heart rate 82 /min Jerrell Westbrook APRN - CNM Work Phone: [employer] 12-05-2021 17:33-0500 Respiratory rate 16 /min Jerrell Westbrook APRN - CNM Work Phone: [employer] 12-05-2021 17:33-0500 Systolic blood pressure 102 mm[Hg] Jerrell Westbrook APRN - CNM Work Phone: [employer] 08-06-2021 11:28-0400 Body mass index (BMI) [Ratio] 26.85 kg/m2 Danny Mendiola Jr., MD Work Phone: [employer] Work Phone: 08-06-2021 11:28-0400 Body temperature 97 [degF] Danny Mendiola Jr., MD Work Phone: [employer] Work Phone: 08-06-2021 11:28-0400 Body weight 69.85 kg Danny Mendiola Jr., MD Work Phone: [employer] Work Phone: 08-06-2021 11:28-0400 Diastolic blood pressure 81 mm[Hg] Danny Mendiola Jr., MD Work Phone: [employer] Work Phone: 08-06-2021 11:28-0400 Heart rate 89 /min Danny Mendiola Jr., MD Work Phone: [facility] Work Phone: 08-06-2021 11:28-0400 Respiratory rate 20 /min Danny Mendiola Jr., MD Work Phone: [facility] Work Phone: 08-06-2021 11:28-0400 SaO2% (BldA) [Mass fraction] 97 % Danny Mendiola Jr., MD Work Phone: [facility] Work Phone: 08-06-2021 11:28-0400 Systolic blood pressure 108 mm[Hg] Danny Mendiola Jr., MD Work Phone: [facility] Work Phone: 07-20-2021 15:45-0400 Body height 161.29 cm Betty Lamar Other [employer] Other 07-20-2021 15:45-0400 Body temperature 99.4 [degF] Betty Lamar Other [employer] Other 07-20-2021 15:45-0400 SaO2% (BldA) [Mass fraction] 99 % Betty Lamar Other [employer] Other 05-10-2020 14:59-0400 BMI (Body Mass Index) 28 kg/m2 [facility] Work Phone: 05-10-2020 14:59-0400 Body Temperature 95.4 [degF] [facility] Work Phone: 05-10-2020 14:59-0400 Body weight 71.76 kg [facility] Work Phone: 05-10-2020 14:59-0400 BP Diastolic 76 mm[Hg] [facility] Work Phone: 05-10-2020 14:59-0400 BP Systolic 100 mm[Hg] [facility] Work Phone: 05-10-2020 14:59-0400 BSA (Body Surface Area) 1.75 m2 [facility] Work Phone: 05-10-2020 14:59-0400 Height 160.02 cm [facility] Work Phone: 05-10-2020 14:59-0400 Pulse (Heart Rate) 72 /min [facility] Work Phone: 05-10-2020 14:59-0400 Pulse Oximetry 97 % [facility] Work Phone: 05-10-2020 14:59-0400 Respiratory Rate 18 /min [facility] Work Phone: 07-22-2019 08:12-0400 Body Temperature 97.5 [degF] [facility] [place] 07-22-2019 08:12-0400 BP Diastolic 55 mm[Hg] [facility] [place] 07-22-2019 08:12-0400 BP Systolic 109 mm[Hg] [facility] [place] 07-22-2019 08:12-0400 Pulse (Heart Rate) 81 /min [facility] 07-22-2019 08:12-0400 Respiratory Rate 16 /min [facility] 07-20-2019 16:14-0400 Pulse Oximetry 97 % [facility] [place] 07-20-2019 06:20-0400 BMI (Body Mass Index) 32.95 kg/m2 [facility] 07-20-2019 06:20-0400 Body weight 84.37 kg [facility] [place] 07-20-2019 06:20-0400 Height 160 cm [facility] [place] 06-21-2019 16:35-0400 BP Diastolic 71 mm[Hg] [facility] [place] 06-21-2019 16:35-0400 BP Systolic 109 mm[Hg] [facility] [place] 06-21-2019 16:35-0400 Pulse (Heart Rate) 92 /min [facility] 06-21-2019 15:41-0400 Body Temperature 97.59 [degF] [facility] 06-21-2019 15:41-0400 Respiratory Rate 18 /min [facility] 06-01-2019 10:20-0400 BP Diastolic 60 mm[Hg] [facility] Work Phone: 06-01-2019 10:20-0400 BP Systolic 100 mm[Hg] [facility] Work Phone: 06-01-2019 10:20-0400 Height 160.02 cm [facility] Work Phone: 05-17-2019 15:17-0400 BMI (Body Mass Index) 31.2 kg/m2 [facility] Work Phone: 05-17-2019 15:17-0400 Body Temperature 98.1 [degF] [facility] Work Phone: 05-17-2019 15:17-0400 Body weight 79.92 kg [facility] Work Phone: 05-17-2019 15:17-0400 BP Diastolic 82 mm[Hg] [facility] Work Phone: 05-17-2019 15:17-0400 BP Systolic 110 mm[Hg] [facility] Work Phone: 05-17-2019 15:17-0400 BSA (Body Surface Area) 1.83 m2 [facility] Work Phone: 05-17-2019 15:17-0400 Height 160.02 cm [facility] Work Phone: 05-17-2019 15:17-0400 Pulse (Heart Rate) 86 /min [facility] Work Phone: 05-17-2019 15:17-0400 Pulse Oximetry 98 % [facility] Work Phone: 05-17-2019 15:17-0400 Respiratory Rate 14 /min [facility] Work Phone: Encounters Encounter Date Encounter Type Care Provider Facility Start: 01-09-2024 End: 01-09-2024 [facility] Start: 01-09-2024 End: 01-09-2024 Subsequent hospital visit by physician Kaila Chi DO Work Phone: [facility] [place] Comment on above: Condyloma acuminatum of vulva Start: 03-26-2023 End: 03-27-2023 ambulatory [facility] Start: 03-20-2023 End: 03-21-2023 ambulatory JERRELL [facility]BROOK [facility] Start: 03-20-2023 End: 03-20-2023 Subsequent hospital visit by physician Chencho Sylvester APRN - ADJUNCT WRITING IN[employer] Work Phone: [facility] Comment on above: Screen for STD (sexu ally transmitted disease) Start: 02-03-2023 End: 02-04-2023 [facility] Start: 02-03-2023 End: 02-03-2023 Subsequent hospital visit by physician Chencho Sylvester APRN - ADJUNCT WRITING INSTRUCTOR Work Phone: [facility] Comment on above: Dysuria Start: 10-01-2022 End: 10-01-2022 Subsequent hospital visit by physician Kaila Chi DO Work Phone: [facility] [place] Comment on above: Post-op pain (Primar y Dx); Adenomyosis Start: 04-22-2022 End: 04-22-2022 Subsequent hospital visit by physician Chencho Sylvester APRN - ADJUNCT WRITING INSTRUCTOR Work Phone: [facility] Comment on above: Screening for malign ant neoplasm of cervix Start: 03-19-2022 End: 03-19-2022 Subsequent hospital visit by physician Chencho Sylvester APRN - ADJUNCT WRITING INSTRUCTOR Work Phone: [facility] Comment on above: Dysuria Start: 2022 End: 03-08-2022 Evaluation and management of inpatient Jerrell Westbrook JOB SPOTTER - CNM Work Phone: [facility] Labor and Delivery Start: 02-13-2022 End: 02-13-2022 Subsequent hospital visit by physician Chencho Sylvester APRN - ADJUNCT WRITING INSTRUCTOR Work Phone: [facility] Laboratory Comment on above: Abdominal cramping a ffecting Start: 02-13-2022 End: 02-13-2022 Subsequent hospital visit by physician Chencho Sylvester JOB SPOTTER - ADJUNCT WRITING INSTRUCTOR Work Phone: [facility] Laboratory Comment on above: 36 weeks gestation o f Start: 12-19-2021 End: 12-19-2021 Subsequent hospital visit by physician Jerrell Westbrook JOB SPOTTER - CN Work Phone: [facility] Labor and Delivery Start: 12-15-2021 End: 12-15-2021 Emergency department patient visit Fito Hutchinson MD Work Phone: [facility] ED Comment on above: Influenza with respi ratory manifestation other than pneumonia (Primary Dx) Start: 12-05-2021 End: 12-05-2021 Subsequent hospital visit by physician Jerrell Westbrook JOB SPOTTER - CN Work Phone: [facility] Labor and Delivery Start: 11-06-2021 End: 11-08-2021 Subsequent hospital visit by physician [facility] Ultrasound Room [facility] Ultrasound Comment on above: IUP (intrauterine pr egnancy), incidental; Marginal placenta previa Start: 10-07-2021 End: 10-07-[address] BRITNEY EWING Facility: Start: 08-06-2021 End: 08-06-2021 Emergency department patient visit Danny Mendiola MD Work Phone: [facility] ED Comment on above: Mild hyperemesis gra vidarum, antepartum (Primary Dx) Start: 07-20-2021 Office outpatient vi sit 15 minutes Betty Lamar [facility] Start: 07-18-2021 End: 07-18-2021 Subsequent hospital visit by physician Chencho Sylvester APRN - ADJUNCT WRITING INSTRUCTOR Work Phone: [facility] Start: 07-16-2021 End: 07-16-2021 Subsequent hospital visit by physician Chencho Sylvester JOB SPOTTER - ADJUNCT WRITING INSTRUCTOR Work Phone: [facility] Start: 05-24-2021 End: 05-24-[address] KARLO WESTBROOK Facility:[facility]1 Start: 05-21-2021 End: 05-22-2021 ambulatory CORWIN ABREU Facility:[facility]1 Start: 04-23-2021 End: 04-23-2021 ambulatory CHENCHO SYLVESTER Facility:[facility]1 Start: 07-27-2020 End: 07-29-2020 Subsequent hospital visit by physician [facility] Ultrasound Room 2 [facility] Ultrasound Comment on above: Cyst of right breast Start: 05-10-2020 End: 05-10-2020 Established patient Nina Quintana Work Phone: [facility] Work Phone: Start: 12-21-2019 End: 12-21-2019 Subsequent hospital visit by physician Chencho Sylvester [facility] Laboratory Start: 11-04-2019 End: 11-04-2019 Patient encounter procedure Yoel Wright Work Phone: [facility] Work Phone: Start: 11-02-2019 End: 11-02-2019 Subsequent hospital visit by physician Chencho Sylvester JOB SPOTTER - ADJUNCT WRITING INSTRUCTOR Work Phone: [facility] Laboratory Start: 07-20-2019 End: 07-22-2019 Evaluation and management of inpatient Phan Rubi Work Phone: [facility] Labor and Delivery Start: 07-13-2019 End: 07-13-2019 Patient encounter procedure Yoel Wright Work Phone: [facility] Work Phone: Start: 07-06-2019 End: 07-06-2019 Patient encounter procedure Yoel Wrgiht Work Phone: [facility] Work Phone: Start: 06-21-2019 End: 06-21-2019 Subsequent hospital visit by physician Phan Rubi Work Phone: [facility] Labor and Delivery Start: 06-03-2019 End: 06-03-2019 Patient encounter procedure Miya Mcmillan Work Phone: [facility] Work Phone: Start: 06-01-2019 Comprehensve oral evaluation Yoel Wright Work Phone: [facility] Work Phone: Start: 06-01-2019 End: 06-01-2019 Patient encounter procedure Yoel Wright Work Phone: [facility] Work Phone: Start: 05-17-2019 End: 05-17-2019 Established patient Kandi Walters Work Phone: [facility] Work Phone: Start: 10-13-2018 End: 10-13-2018 Patient encounter procedure [facility] Facility:[facility] Start: 08-07-2018 End: 08-07-2018 Patient encounter procedure [facility] Facility:[facility] Procedures Date Procedure Procedure Detail Performing Clinician Start: 03-20-2023 Iadna munira species direct probe tq Jerrell Westbrook JOB SPOTTER - CNM Work Phone: Start: 02-03-2023 Urinalysis microscopic only Jerrell Westbrook JOB SPOTTER - CNM Work Phone: Start: 02-03-2023 Urnls dip stick/tablet rgnt auto w/o microscopy Jerrell Westbrook JOB SPOTTER - CNM Work Phone: Start: 10-01-2022 Urine test visual color cmprsn meths Love Westbrook JOB SPOTTER - DIRECTOR OF RESPIRATORY THERAPY Work Phone: Start: 04-22-2022 Microscopic observation [Identifier] in Cervix by Cyto stain Kaila Chi DO Work Phone: Start: 2022 Blood count complete auto&auto difrntl wbc Jerrell Westbrook JOB SPOTTER - CNM Work Phone: Start: 2022 Drug tst prsmv instrmnt chem analyzers pr date Jerrell Westbrook JOB SPOTTER - CNM Work Phone: Start: 12-19-2021 Urinalysis microscopic only Jerrell Khan JOB SPOTTER - CNM Work Phone: Start: 12-19-2021 Urnls dip stick/tablet rgnt auto w/o microscopy Jerrell Solisjayda JOB SPOTTER - CNM Work Phone: Start: 12-15-2021 COVID-19, RAPID Fito Hutchinson MD Work Phone: Start: 12-15-2021 Iaadiadoo influenza Fito Hutchinson MD Work Phone: Start: 12-05-2021 Urinalysis microscopic only Jerrell Ramirezkarly Westbrook JOB SPOTTER - CNM Work Phone: Start: 12-05-2021 Urnls dip stick/tablet rgnt auto w/o microscopy Jerrell Ramirezkarly Westbrook JOB SPOTTER - CNM Work Phone: Start: 11-06-2021 Us preg uterus w/detail anabel 1st gestation Phan uRbi MD Work Phone: Start: 08-06-2021 Urinalysis microscopic [...] Phone: Start: 12-21-2019 Gonadotropin chorionic qualitative Phan Martinero Work Phone: Start: 11-02-2019 Gonadotropin chorionic quantitative Phan Martinvera SILVERMAN Work Phone: Start: 07-20-2019 Blood count complete [...] 06-03-2019 Caries risk assess high risk Miya Luzg Work Phone: Start: 06-03-2019 Dental prophylaxis adult Miya Hipolito Work Phone: Start: 06-01-2019 Bitewings four images Yoel Wright Work Phone: Start: 06-01-2019 Caries risk assess high risk Yoel Wright Work Phone: Start: 06-01-2019 Intraoral periapical first Yoel Wright Work Phone: Start: 05-17-2019 ANXIETY DISORDER NOS Kandi Romeo Start: 05-17-2019 Appendectomy Kandi Romeo Start: 05-17-2019 currently Kandi [place] Start: 05-17-2019 DEPRESSION Kandi Walters Start: 05-17-2019 [...] of 2) Shingles Vaccine (1 of 2) [place] Start: 01-08-2032 DTaP/Tdap/Td vaccine (3 - Td or Tdap) DTaP/Tdap/Td vaccine (3 - Td or Tdap) [facility] Start: 04-23-2029 DTaP/Tdap/Td vaccine (2 - Td or Tdap) DTaP/Tdap/Td vaccine (2 - Td or Tdap) [facility] Start: 04-22-2027 Screening for malign ant neoplasm of cervix [facility] Start: 04-22-2025 Screening for malign ant neoplasm of cervix Pap smear [facility] Start: 12-14-2024 [facility] Start: 05-06-2024 Influenza vaccination Flu vacc ine (Season Ended) [facility] Start: 03-23-2024 End: 03-23-2024 Patient encounter procedure [facility] Comment on above: yearly Start: 01-21-2024 HPV vaccine (3 - 3-d ose SCDM series) HPV vaccine (3 - 3-dose SCDM series) [facility] Start: 01-21-2024 End: 01-21-2024 Patient encounter procedure 01/21/2024 9:45 AM EDT Office Visit [facility] [address] [facility] [address] [place] [address] Dennise Macias PA-C [address] [place] [address] f/u from condyloma removal BA 12/16 [facility] GYNEC[facility] Comment on above: f/u from condyloma r emoval BA 12/16 Start: 01-09-2024 End: 01-09-2024 Destruction lesions vulva extensive VULVA LESION BIOPSY EXCISION Condyloma acuminatum of vulva 01/09/2024 8:15 AM EDT [facility] Start: 05-06-2023 Influenza vaccination Flu vacc ine (Season Ended) [facility] Start: 03-20-2023 End: 03-20-2023 Patient encounter procedure 03/20/2023 Office Visit Obstetrics and Gynecology Jerrell Westbrook APRN - JOSÉ MIGUEL [address] [place] [address] [id number] [facility]YNECOLOG[facility] Start: 11-05-2022 End: 11-05-2022 Patient encounter procedure 11/05/2022 Office Visit Obstetrics and Gynecology Kaila Buckley DO [address] [place] [address] [facility]YNEC[facility] Start: 10-09-2022 End: 10-09-2022 Patient encounter procedure 10/09/2022 Office Visit Obstetrics and Gynecology Dennise Macias, MANJU [address] [place] [address] [facility] OB[facility] GYNECOLOG[facility] Start: 10-01-2022 End: 10-01-2022 Laps total hysterect 250 gm/< w/rmvl tube/ovary HYSTERECTOMY VAGINAL LAPAROSCOPIC ROBOTIC ASSISTED Adenomyosis 10/01/2022 1:56 PM EST [facility] Start: 06-06-2022 Influenza vaccination [facility] Start: 05-21-2022 End: 05-21-2022 Patient encounter procedure 05/21/2022 Office Visit Obstetrics and Gynecology Kaila Buckley DO [address] [facility] [place] [address] [facility]YNEC[facility] Start: 05-06-2022 Influenza vaccination Flu vaccine (# 1) [facility] Start: 04-22-2022 End: 04-22-2022 ambulatory 04/22/2022 Visit Obstetrics and Gynecology Jerrell Westbrook APRN - CNM [address] [place], [place] [id number] [facility]YNEC[facility] Start: 2022 Screening for malign ant neoplasm of cervix [facility] Start: 02-20-2022 End: 02-20-2022 Patient encounter procedure 02/20/2022 Routine Obstetrics and Gynecology Jerrell Westbrook APRN - CNM [address] [place], [place] [id number] [facility] GYNECOLOG[facility] Start: 02-20-2022 End: 02-20-2022 Professional / ancillary services management 02/20/2022 Ancillary Procedure Obstetrics and Gynecology [facility] OB[facility]YNECOLOG[facility] Start: 01-07-2022 End: 01-07-2022 Patient encounter procedure 01/07/2022 Routine Obstetrics and Gynecology Jerrell Westbrook APRN - CNM [address] [place], [place] [id number] [facility] GYNECOLOG[facility] Start: 01-07-2022 End: 01-07-2022 Professional / ancillary services management 01/07/2022 Ancillary Procedure Obstetrics and Gynecology [facility] GYNECOLOG[facility] Start: 12-11-2021 End: 12-11-2021 Patient encounter procedure 12/11/2021 Routine Obstetrics and Gynecology Jerrell Westbrook APRN - CNM [address] [place] [address] [facility] OB[facility] GYNECOLOG[facility] Start: 06-06-2021 Influenza vaccination Flu vaccine (# 1) [facility] Start: 06-06-2020 Influenza vaccination Flu vaccine (# 1) [place] Start: 05-23-2020 [facility] Work Phone: Start: 06-06-2019 Influenza vaccination Flu vaccine (# 1) [place] Start: 06-01-2019 Dental Comp Exam [facility] Work Phone: Start: 2013 Cervical cancer screen Cervical canc er screen [place], [place] Start: 2013 Screening for malign ant neoplasm of cervix [facility] Start: 2011 DTaP/Tdap/Td vaccine (1 - Tdap) DTaP/Tdap/Td vaccine (1 - Tdap) [place] Start: 10-11-2009 Varicella vaccine (1 of 2 - 2-dose childhood series) Varicella vaccine (1 of 2 - 2-dose childhood series) [facility] Start: 2007 HIV screen HIV screen [place], [place] Start: 2007 HIV screening HIV screen [facility] Start: 2005 Varicella Vaccine (1 of 2 - 13+ 2-dose series) Varicella Vaccine (1 of 2 - 13+ 2-dose series) [place], [place] Start: 2004 COVID-19 Vaccine (1) COVID-19 Vaccin e (1) [facility] Work Phone: Start: 2004 Depression Monitoring Depression [facility] Start: 2003 DTaP/Tdap/Td vaccine (1 - Tdap) DTaP/Tdap/Td vaccine (1 - Tdap) [facility] Work Phone: Start: 1997 COVID-19 Vaccine (1) COVID-19 Vaccin e (1) [facility] Start: 1993 Varicella vaccine (1 of 2 - 2-dose childhood series) Varicella vaccine (1 of 2 - 2-dose childhood series) [employer] Phone: Start: 1992 COVID-19 Vaccine (#1) COVID-19 Vacci ne (#1) [facility] [employer] Start: 1992 Hepatitis B vaccine (1 of 3 - 3-dose series) Hepatitis B vaccine (1 of 3 - 3-dose series) [facility] Start: 1992 Hepatitis C screening Hepatitis C sc reen [facility] End: 06-21-2019 Bacteria identified Cx Nom (U) Urine Culture Microbiology Routine One Time for 1 Occurrences starting 06/21/2019 until 06/21/2019 [facility] [place], [place] Comment on above: One Time for 1 Occur rences starting 06/21/2019 until 06/21/2019 End: 12-19-2021 Bacteria identified in Urine by Culture Urine culture Microbiology Routine One Time for 1 Occurrences starting 12/19/2021 until 12/19/2021 [employer] Phone: Comment on above: One Time for 1 Occur rences starting 12/19/2021 until 12/19/2021 End: 03-20-2023 C.trachomatis N.gonorrhoeae DNA [employer] [facility] Comment on above: 1 Occurrences starti ng 03/20/2023 until 03/20/2023 End: 02-13-2022 Culture, Strep B Screen, Vaginal/Rectal [employer] Phone: Comment on above: 1 Occurrences starti ng 02/13/2022 until 02/13/2022 End: 12-05-2021 Culture, Urine Culture, Urine Microbiology Routine One Time for 1 Occurrences starting 12/05/2021 until 12/05/2021 [employer] Phone: Comment on above: One Time for 1 Occur rences starting 12/05/2021 until 12/05/2021 End: 02-13-2022 Culture, Urine [employer] Phone: Comment on above: 1 Occurrences starti ng 02/13/2022 until 02/13/2022 End: 03-19-2022 Culture, Urine [facility] [employer] Work Phone: Comment on above: 1 Occurrences starti ng 03/19/2022 until 03/19/2022 End: 02-03-2023 Culture, Urine [employer] Phone: Comment on above: 1 Occurrences starti ng 02/03/2023 until 02/03/2023 End: 04-22-2022 Cytopathology procedure, preparation of smear, genital source [facility] Lab Routine Screening for malignant neoplasm of cervix 1 Occurrences starting 04/22/2022 until 04/22/2022 [employer] Phone: Comment on above: 1 Occurrences starti ng 04/22/2022 until 04/22/2022 End: 07-20-2019 DRUG SCREEN MULTI URINE DRUG SCREEN MULTI URINE Lab Routine One Time for 1 Occurrences starting 07/20/2019 until 07/20/2019 [employer] [place] Comment on above: One Time for 1 Occur rences starting 07/20/2019 until 07/20/2019 End: 06-21-2019 nonstress test nonstress test OB Routine One Time for 1 Occurrences starting 06/21/2019 until 06/21/2019 [employer] Comment on above: One Time for 1 Occur rences starting 06/21/2019 until 06/21/2019 End: 10-01-2022 INITIATE PACU OXYGEN THERAPY PROTOCOL Initiate PACU Oxygen Therapy Protocol Respiratory Care Routine Continuous until discontinued starting 10/01/2022 [employer] Comment on above: Continuous until dis continued starting 10/01/2022 Nonrebreather mask oxygen Nonrebreather mask oxygen Respiratory Care Routine As directed - RT (PRN) until discontinued starting 07/20/2019 [facility] [employer] [place] Comment on above: As directed - RT (SD N) until discontinued starting 07/20/2019 Nonrebreather mask oxygen Nonrebreather mask oxygen Respiratory Care Routine As directed - RT (PRN) until discontinued starting 12/05/2021 [employer] Phone: Comment on above: As directed - RT (SD N) until discontinued starting 12/05/2021 Nonrebreather mask oxygen Nonrebreather mask oxygen Respiratory Care Routine As directed - RT (PRN) until discontinued starting 12/19/2021 [employer] Phone: Comment on above: As directed - RT (SD N) until discontinued starting 12/19/2021 Oxygen therapy [Mini mum Data Set] Initiate Oxygen Therapy Protocol Respiratory Care Routine As Needed until discontinued starting 10/01/2022 [employer] Phone: Comment on above: As Needed until disc ontinued starting 10/01/2022 Oxygen therapy [Mini mum Data Set] Initiate Oxygen Therapy Protocol Respiratory Care Routine As Needed until discontinued starting 01/09/2024 [facility] Comment on above: As Needed until disc ontinued starting 01/09/2024 End: 10-01-2022 , urine POCT , urine POCT Point of Care Testing Routine One Time for 1 Occurrences starting 10/01/2022 until 10/01/2022 [employer] Phone: Comment on above: One Time for 1 Occur rences starting 10/01/2022 until 10/01/2022 End: 01-09-2024 , urine POCT , urine POCT Point of Care Testing Routine One Time for 1 Occurrences starting 01/09/2024 until 01/09/2024 [employer] Comment on above: One Time for 1 Occur rences starting 01/09/2024 until 01/09/2024 End: 07-21-2019 Surgical Pathology Surgical Pathology Lab Routine Once for 1 Occurrences starting 07/21/2019 until 07/21/2019 [facility] [place] Comment on above: Once for 1 Occurrenc es starting 07/21/2019 until 07/21/2019 Surgical Pathology Surgical Path ology Lab Routine Adenomyosis Release Upon Ordering for 1 Occurrences starting 10/01/2022 [employer] Phone: Comment on above: Release Upon Orderin g for 1 Occurrences starting 10/01/2022 Surgical Pathology Surgical Path ology Lab Routine Condyloma acuminatum of vulva Release Upon Ordering for 1 Occurrences starting 01/09/2024 [facility] Comment on above: Release Upon Orderin g for 1 Occurrences starting 01/09/2024 End: 10-01-2022 SURGICAL PATHOLOGY REPORT SURGICAL PATHOLOGY REPORT Lab Routine Once for 1 Occurrences starting 10/01/2022 until 10/01/2022 [facility] [employer] Phone: Comment on above: Once for 1 Occurrenc es starting 10/01/2022 until 10/01/2022 End: 12-05-2021 SVE SVE Point of Care Testing Routine One Time for 1 Occurrences starting 12/05/2021 until 12/05/2021 [employer] Phone: Comment on above: One Time for 1 Occur rences starting 12/05/2021 until 12/05/2021 End: 12-19-2021 SVE SVE Point of Care Testing Routine One Time for 1 Occurrences starting 12/19/2021 until 12/19/2021 [employer] Phone: Comment on above: One Time for 1 Occur rences starting 12/19/2021 until 12/19/2021 Immunizations Immunization Date Immunization Notes Care Provider Loni [facility] 2022 diphtheria, tetanus toxoids and acellular pertussis vaccine, unspecified formulation Jerrell De JOB SPOTTER - [facility] Work Phone: [facility] Work Phone: 2022 measles, mumps and rubella virus vaccine Jerrell De JOB SPOTTER - CN Work Phone: [facility] Work Phone: 01-07-2022 tetanus toxoid, redu suresh diphtheria toxoid, and acellular pertussis vaccine, adsorbed Chencho Sylvester JOB SPOTTER - [facility] Work Phone: [facility] Cuedd 10-09-2020 influenza virus vacc ine, unspecified formulation [facility] Work Phone: 04-23-2019 tetanus toxoid, redu suresh diphtheria toxoid, and acellular pertussis vaccine, adsorbed [facility] Work Phone: 09-13-2009 novel Influenza-H1N1 -09, live virus for nasal administration [facility] Work Phone: Payers Date Payer Category Payer Unknown [id number] 2021 Unknown UMR UMR [id number] 2021-Present [phone] [address] [address] [place] [address] [id number] 2016 Medicaid [id number] 2016 Unknown [employer] xxxxxxxxxxx 2016-Present [phone] [address] [place] [address] xxxxxxxxxxx [id number] 2013 Unknown [id number] 9.5.10.6.3 1992 Unknown [id number] [id number] 1992 Unknown [id number] [id number] 1992 Unknown [id number] [id number] 1992 Unknown [id number] [id number] 1992 Unknown [id number] [id number] 1992 Unknown [id number] [id number] 1992 Unknown [id number] [id number] 1992 Unknown [id number] [id number] 1992 Unknown [id number] [id number] 1992 Unknown [id number] [id number] 1959 Medicaid [id number] 1959 Unknown [id number]. [id number] 1959 Unknown [id number] Social History Date Type Detail Facility Assertion [facility] Work Phone: Assertion Gender identity finding (finding) [facility] Work Phone: Assertion Finding of sexua l orientation (finding) [facility] Work Phone: Assertion Sexually active (finding) [facility] Work Phone: Tobacco smoking status Unknown if ever sm oked [facility] Work Phone: Start: 05-12-2019 End: 09-24-2022 Tobacco smoking status NHIS Never smoker [place] Start: 05-12-2019 End: 12-15-2023 Alcohol intake Yes [place] Start: 11-04-2015 Alcohol Comment occ [place], [place] Start: 11-01-2018 [place], [place] Start: 1990 Sex Assigned At Not on file [place] Start: 07-20-2019 Alcohol intake Current drinke r of alcohol (finding) [facility] Work Phone: Assertion Problem situatio n relating to social and personal history (finding) [facility] Work Phone: Assertion Emotional stress (finding) [facility] Work Phone: Start: 07-20-2019 End: 09-24-2022 Tobacco use and exposure Never used [place] Start: 02-03-2022 End: 10-01-2022 Exposure to SARS-CoV-2 (event) Not sure [facility] Start: 05-16-2021 End: 01-09-2024 Alcohol intake Ex-drinker (finding) [facility] Work Phone: Exposure to SARS-CoV -2 (event) Yes [facility] Work Phone: Start: 1990 Sex Assigned At Female Teofilo [facility]ouch Start: 12-15-2023 End: 01-09-2024 History of Social function [facility] Start: 02-07-2022 Gender identity Identifies as female gender (finding) [facility] Start: 02-07-2022 Sexual orientation Heterosexual (fin ding) [facility] NEGATED: Highlighted row Assertion [facility] Work Phone: NEGATED: Highlighted row Assertion Illicit drug use (finding) [facility] Work Phone: NEGATED: Highlighted row Assertion Misuse of prescription only drugs (finding) [facility] Work Phone: NEGATED: Highlighted row Assertion Exposure to pollution (event) Health [facility] Work Phone: NEGATED: Highlighted row Assertion Tobacco user (finding) [facility] Work Phone: NEGATED: Highlighted row Assertion Current drinker of alcohol (finding) [facility] Work Phone: NEGATED: Highlighted row Assertion Finding relating to drug misuse behavior (finding) [facility] Work Phone: Goals Date Patient Goal Desired Activity /State Personal health goal Mental Status Date Assessment Result Facility Cognitive function Oriented to t brandon, place, and person Oriented to person, time and place (finding) [facility] Work Phone: Clinical Notes 07-20-2021 to [...] prior to surgery. documented in this encounter [facility] 01-09-2024 Hospital Discharg e Dennise Schaefer PA-C - [...] call if excessive. Call the office at [phone] ([place]) [phone] ([place]) for an appointment in 2 weeks. documented in this encounter [facility] 10-01-2022 History of Presen t illness [...] PAT phone call. documented in this encounter [facility] Phone: 10-01-2022 Hospital Discharg e instructions Dennise [...] [place] in [address] Peraza -- [place] office [phone] [place] office [phone] documented in this encounter [facility] Work Phone: 03-08-2022 Hospital Discharg Katie Estrada RN - 03/08/2022 Follow-up with your OB doctor as specified. [facility] OB Department phone: Dr. Clarissa Shrestha [facility] Dr. Stu Westbrook [address] [facility] [address] [place] or [place] DIET Eat a well balanced diet focusing on foods high in fiber and protein. Drink plenty of fluids especially water. To avoid constipation you may take a mild stool softener as recommended by your doctor or machinist first class. ACTIVITY Gradually increase your activity. Resume exercise regimen only after advice by your doctor or machinist first class. Avoid lifting anything heavier than a gallon of milk for SIX weeks. Avoid driving until your doctor or machinist first class has given their approval. Rise slowly from [...] medications as recommended by your doctor or machinist first class for pain If you develop a warm, [...] vitamins as directed by your doctor or machinist first class. Refer to the booklet in the folder/binder for more information. If you feel you need more assistance or have questions, please call Sarah Stevens IBCARLA, databases computer consultant, at or the OB department to [...] calf. documented in this encounter [facility] [employer] Work Phone: 03-08-2022 Hospital course Narrative Obstetrical [...] NONREACTIVE Final HIV: No results found for: [id number] Results for orders placed or performed during [...] # 1.78 1.10 - 3.70 k/uL Absolute [place] # 0.59 0.10 - 1.20 k/uL Absolute [...] 2 weeks documented in this encounter [facility] Phone: 2022 History of Presen t illness Narrative Jerrell Westbrook CNM at bedside for delivery Call placed to jerrell westbrook CNM letting her know patient is complete. She is on her way to room for delivery DIRECTOR OF RESPIRATORY THERAPY Errol at bedside at [address] epidural, timeout performed at 1521, patient sat up and placed into position to receive epidural, RN remained at bedside with continuous pulse ox monitoring applied. Patient tolerated procedure well, laid back into bed with call light in reach, denies any further needs at this time, will continue to monitor DIRECTOR OF RESPIRATORY THERAPY notified patient requesting epidural Ok per Jerrell Westbrook CNM for patient to have epidural Patient requesting epidural, fluid bolus started Dr. Crespo present at nurses station and is updated that patient is here for elective induction, gbs negative. Routine nursery order set received. documented in this encounter [facility] Phone: 12-19-2021 Hospital Discharg Brianna Aiken RN [...] to find a good position during intercourse. [place] and explore. You may get cramps in [...] strong contractions without a pattern are called Magoffin-Daniel contractions. They are practice contractions but not the start of labor. They often stop if you change what you are doing. ? Call your doctor if you have regular contractions. Where can you learn more? Go to [email or web address] and sign in to your [employer] account. Enter S999 in the Search Health Information box to learn more about Weeks 26 to 30 of Your : Care Instructions. If you do not have an account, please click on the Sign Up Now link. Current as of: March 21, 2021 Content Version: 13. [employer]. Care instructions adapted under license by [facility]. If you have questions about a medical condition or this instruction, always ask your healthcare professional. [employer] disclaims any warranty or liability for your use of this information. The following attachments cannot be sent through [employer] Everywhere.: Hyperemesis Gravidarum (Kosovan)documented in this encounter [facility] Work Phone: 12-05-2021 History of Presen t illness Narrative Pt amb off unit in stable condition. DC instructions reviewed with pt. No questions noted. Phenergan script called into [facility] in [place]. MILDRED kinsey'greyson. Pt dressed. Pt updated that CNM would [...] up to BR. documented in this encounter [employer] Phone: 12-05-2021 Hospital Discharg e Sheila Low RN - 12/05/2021 Home Undelivered Discharge Instructions After Discharge Orders: Future Appointments Date Time Provider Department Center 12/11/2021 10:30 AM MONTY Galicia CNM [facility] CUE WORKER [facility] 01/07/2022 11:00 AM [facility] TIFF CUE WORKER ULTRASOUND [facility] WORK[facility] 01/07/2022 11:30 AM MONT[facility] Galicia [facility] Diet: clear liquids Rest: normal activity as tolerated Other instructions: Do kick counts once a day on your baby. Choose the time of day your baby is most active. Get in a comfortable lying or sitting position and time how long it takes to feel 10 kicks, twists, turns, swishes, or rolls. Call your physician or machinist first class if there have not been 10 kicks in 2 hours Call physician or machinist first class, return to Labor and Delivery, call 911, [...] called in to [facility] here in [place]. documented in this encounter [employer] Phone: 08-06-2021 Hospital Discharg Danny Blackwell Jr., MD - 08/06/2021 Clear liquid diet until tomorrow morning. Please try the Reglan and/or Phenergan to help with your vomiting. The following attachments cannot be sent through Care Everywhere.: Hyperemesis Gravidarum (Kosovan)documented in this encounter [employer] Phone: 07-20-2021 Evaluation note Encounter Date Diagnosis [...] Patient care instructions given in writting by [facility] Care At Home document. [employer] Other Evaluation note* Diagnosis Mild hyperemesis gravidarum, antepartum- Primary documented in this encounter [employer] Phone: evaluation note* Diagnosis IUP (intrauterine ), incidental state, incidental Marginal placenta previa Hemorrhage from placenta previa, unspecified as to episode of care documented in this encounter [employer] Phone: evaluation note* Diagnosis Emesis, persistent- Primary Persistent vomiting documented in this encounter [employer] Phone: evalicbhfm note* Diagnosis Influenza with respiratory manifestation other than pneumonia- Primary Influenza with other respiratory manifestations documented in this encounter [employer] Phone: evaluation note* Diagnosis 27 weeks gestation of - Primary state, incidental documented in this encounter [employer] Phone: evaluation note* Diagnosis 36 weeks gestation of state, incidental documented in this encounter [employer] Phone: evaluation note* Diagnosis Abdominal cramping affecting documented in this encounter [employer] Phone: evaluation note* Diagnosis Encounter for supervision of normal in third trimester- Primary Supervision of other normal Normal delivery documented in this encounter [employer] Phone: evaluation note* Diagnosis Dysuria documented in this encounter [employer] Phone: evaluation note* Diagnosis Screening for malignant neoplasm of cervix Screening for malignant neoplasm of the cervix documented in this encounter [employer] Phone: evalnmccez note* Diagnosis Post-op pain- Primary Other acute postoperative pain Adenomyosis Endometriosis of uterus documented in this encounter [employer] Phone: evaluation note* Diagnosis Dysuria documented in this encounter [employer] Phone: evaluation note* Diagnosis Screen for STD (sexually transmitted disease) Screening examination for venereal disease documented in this encounter [facility]* Diagnosis Condyloma acuminatum of vulva Condyloma acuminatum documented in this encounter [facility] general Narrative - Reported* Type Description Date Surgical History appendectomy Surgical History LEAP Hospitalization History see above [employer] Other Hospital Discharge instructions* Attachments The following attachments cannot be sent through Care Everywhere. * Influenza (Kosovan) [facility]: reason for visit Narrative* Auth/Cert Specialty Diagnoses / Procedures Referred By Les t Referred To Contact Diagnoses Encounter for supervision of normal in third trimester Jerrell Westbrook, MONTY - JOSÉ MIGUEL [address] [place] [address] [address] DULCE MARIA [employer] [address] [place] [address] Referral ID Status Reason Start Date Expiration Date Visits Re quested Visits Authorized [id number] 1 1 [facility] Work Phone: Summary Purpose Family History No Family History Records Found Description Last Updated Maternal history of oncologic disorder 0 05/17/2019 Maternal history of respiratory disorder 05/17/2019 Advance Directives No Advanced Directives Records FoundDocuments on File Type Date Recorded Patient Plastic Worker Expl anation Advance Directives and Living Will Power of Vacuum Kettle Cook Latest Code Status on File Code Status [...] Documents on File Type Date Recorded Patient Plastic Worker Expl anation ACP-Advance Directive ACP-Power of Vacuum Kettle Cook Latest Code Status on File Code Status Date Activated Date Inactivated Comments Full Code 07/20/2019 4:48 PM 07/22/2019 12:24 PM Full Code 07/20/2019 5:55 AM 07/20/2019 4:48 PM Full Code 04/19/2019 5:15 PM 04/19/2019 8:18 PM Documents on File Type Date Recorded Patient Plastic Worker Expl anation ACP-Advance Directive ACP-Power of Vacuum Kettle Cook Latest Code Status on File Code Status [...] Medical Establi shed Patient with Kandi Walters ADJUNCT WRITING INSTRUCTOR 05/17/2019 Routine pre-employment scree bryant examination Medical Established Patient with Kandi Walters ADJUNCT WRITING INSTRUCTOR 05/17/2019 Z68.31 - Body mass index (BM I) 31.0-31.9, adult Medical Established Patient with Kandi Walters ADJUNCT WRITING INSTRUCTOR 05/17/2019 Diagnosis Vaginal delivery Normal delivery Findings Encounter Date Anxiety disorder NOS BH Established [place] ent with Nina Short LISWS 05/10/2020 Mild recurrent major depression BH Estab lished Patient with Nina Short LISWS 05/10/2020 Body mass index Medical Established Patient with Chencho Caien ADJUNCT WRITING INSTRUCTOR 05/10/2020 Overweight Medical Established Patient with Chencho Higinio ADJUNCT WRITING INSTRUCTOR 05/10/2020 PHQ-9: total score was 0 Medical Establi shed Patient with Kandi Walters ADJUNCT WRITING INSTRUCTOR 05/17/2019 Routine pre-employment scree bryant examination Medical Established Patient with Kandi Walters ADJUNCT WRITING INSTRUCTOR 05/17/2019 Z68.31 - Body mass index (BM I) 31.0-31.9, adult Medical Established Patient with Kandi Walters ADJUNCT WRITING INSTRUCTOR 05/17/2019 Diagnosis Cyst of right breast Instructions [...] Lou RN - 06/21/2019 4:39 PM EDT sonogram technician at bedside. * Soco Lou RN [...] pain or burning when urinating. * Soco oLu RN - 06/21/2019 3:55 PM EDT Amnio [...] in this encounter* Zulema Shrestha APRN - YOLAM - 07/22/2019 8:23 AM EDT Department of [...] RN - 06/21/2019 OUTPATIENT DISCHARGE Bettina Dominguez [facility] Lisa or Ge Dr. Rubi Jerrell Oseguera [facility] Julisa [employer] ACTIVITY LIMITATIONS: ( x )Up and about [...] Follow-up with your OB doctor as specified. [facility] OB Department phone: Dr. Rubi [address] [place] [address] DIET Eat a well balanced diet focusing on foods high in fiber and protein. Drink plenty of fluids especially water. To avoid constipation you may take a mild stool softener as recommended by your doctor or machinist first class. ACTIVITY Gradually increase your activity. Resume exercise regimen only after advice by your doctor or machinist first class. Avoid lifting anything heavier than a gallon of milk for SIX weeks. Avoid driving until your doctor or machinist first class has given their approval. Rise slowly from [...] of harming yourself or your . If infant will not stop crying, contact [...] medications as recommended by your doctor or machinist first class for pain If you develop a warm, [...] vitamins as directed by your doctor or machinist first class. Refer to the booklet in the folder/binder for more information. If you feel you need more assistance or have questions, please call Sarah Stevens IBCLC, databases computer consultant, at or the OB department to [...] this encounter Hospital Course * Zulema Shrestha, JOB SPOTTER - CNM - 07/22/2019 8:26 AM EDT [...] negative Final HIV: No results found for: [id number] @MOM(LABLAST,GBSEXTERN,GONEXTERN,CTRACHEXT,RUBEXTERN,HEPBEXTERN,RPREXTERN,HIVEXT ELIZABETH,RHEXTERN,ABOEXTERN)@ complications: none Discharge Medication: Mariah Carballo Home Medication Instructions VANIA:[id number] Printed on:07/22/19 0826 Medication Information doxyLAMINE succinate [...] COMPLETE RIGHT Phan Rubi MD [address] [place] [address] Specialty Diagnoses / Procedures Referred By Contac t Referred To Contact Radiology Diagnoses Marginal placenta previa Procedures US OB TRANSVAGINAL Phan Rubi MD [address] [place] [address] Referral ID Status Reason Start Date Expiration Date Visits Re quested Visits Authorized [id number] Open 11/06/2021 11/06/2022 1 1 Specialty Diagnoses / Procedures Referred By Les crisostomo Referred To Contact Radiology Diagnoses IUP (intrauterine ), incidental Procedures US OB DETAIL ANATOMY SINGLE OR FIRST GESTATION Phan Rubi MD [address] [place] [address] Referral ID Status Reason Start Date Expiration Date V isits Requested Visits Authorized [id number] Pending Review 11/05/2021 10/31/2022 1 1 Additional Source Comments INFORMATION SOURCE (unrecogn ized section and content) DATE CREATED AUTHOR 10/23/2018 [facility] DATE CREATED AUTHOR AUTHOR'S ORGANIZ ATION 04/11/2022 [facility] DATE CREATED AUTHOR AUTHOR'S ORGANIZ ATION 01/14/2024 [facility] Evaluations & Outcomes (unre cognized section and [...] and Delivery Phan Rubi MD [address] [place] [address] [facility] Status Reason Specialty Diagnoses / Procedures Referred By Contact Referred To Contact Pending Review Radiology Diagnoses Breast cyst Procedures HC US BREAST COMP Phan Rubi MD [address] [place] [address] [facility] Ultrasound [address] [place] [address] Reason Comments Emesis vomiting ongoing for 3 days, ob wanted her to come here to be checked for dehydration Specialty Diagnoses / Procedures Referred By Les crisostomo Referred To Contact Radiology Diagnoses IUP (intrauterine ), incidental Procedures US OB DETAIL ANATOMY SINGLE OR FIRST GESTATION Phan Rubi MD [address] [place] [address] Referral ID Status Reason Start Date Expiration Date V isits Requested Visits Authorized [id number] Pending Review 11/05/2021 10/31/2022 1 1 Reason [...] Adenomyosis HX OF CERVICAL DYSPLASIA, ADENOMYOSIS Procedures SD LAPAROSCOPY W TOT HYSTERECTUTERUS <=250 GRAM W TUBE/OVARY HYSTERECTOMY VAGINAL LAPAROSCOPIC ROBOTIC ASSISTED - POSSIBLE BSO, POSSIBLE LAPAROSCOPIC COLPOPEXY Kaila Buckley, DO [address] [place] [address] DUL[facility] MAR[facility] [address] [place] [address] Referral ID Status Reason Start Date Expiration Date Visits Re quested Visits Authorized [id number] 1 1 Specialty Diagnoses / Procedures Referred By Les t Referred To Contact Diagnoses 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 [A63.0] Procedures SD DESTRUCTION LESIONS VULVA EXTENSIVE VULVA LESION BIOPSY EXCISION - EXCISION OF CONDYLOMA, EXCISION OF SKIN TAGS Kaila Buckley DO [address] [place] [address] [facility] [address] [place] [address] Referral ID Status Reason Start Date Expiration Date Visits Re quested Visits Authorized [id number] 1 1 Ordered Prescriptions (unrec ognized section [...] (New Bag - Prov ider: Sosa Hussein, LAURA)1333 (Stopped - Provider: Aarti Harris, LAURA) metoclopramide (REGLAN) injection 10 mg [...] Sheila Beltrán, LAURA) PRN Medication Order 12/03/2021 12/04/2021 12/05/2021 promethazine (PHENERGAN) tablet 25 mg 25 mg, Oral, EVERY 6 HOURS PRN, Nausea, Starting on Fri12/05/21 at 1809 1844 (Given - Provid er: Constance Mckeon, LAURA) Scheduled Medication Order 12/13/2021 12/14/2021 12/15/2021 oseltamivir [...] 1755 (New Bag - Prov ider: Brianna Rodarte RN)2019 (Stopped - Provider: Shy Massey, LAURA) promethazine (PHENERGAN) injection 25 mg 25 mg, [...] Brianna Rodarte RN)2017 (Given - Provider: Dhara Ferguson, LAURA) Scheduled Medication Order 03/06/2022 2022 03/08/2022 benzocaine-menthol [...] - Reason: Loss of IV access)2100 (Due) hslfoex-xylpol-oazes pertussis (BOOSTRIX) injection 0.5 mL 0.5 mL, [...] every 2-3 minutes with cervical changes or [place] units (MVU) greater than 200 in a [...] mcg 250 mcg, IntraMUSCular, PRN, Starting on Pliar 03/07/22 at 1112, Until Discontinued, PP Bleeding, [...] 100 mL IVPB (COMPLETED) 2,000 mg, IntraVENous, DOG BEAUTICIAN TO O.R., 1 dose, On Fri10/01/22 at [...] (NoRateChange - Provider: Sheila Brown APRN - DIRECTOR OF RESPIRATORY THERAPY)1519 (New Bag - Provider: MONTY Rizzo CRNA)1815 (Stopped - Provider: Arlene Burden RN) PRN [...] 100 mL IVPB (COMPLETED) 2,000 mg, IntraVENous, DOG BEAUTICIAN TO O.R., 1 dose, On Fri01/09/24 at 0645, Antimicrobial Indications: Surgical Prophylaxis, Administer within 1 hour prior to incision., Pre-op (day of surgery) 08 (New Bag - Prov ider: Tanika Enamorado [...] order., Pre-op (day of surgery) lidocaine-EPINEPHrine 1 %-1:[id number] injection (CANCELED) PRN, Starting on Fri01/09/24 at 0847, Until Fri01/09/24 at 0852, Intra-op 0847 (Given - Provid er: Kaila Chi DO) qhjalipq-nzfbgrqebv-vaufpdjee (NEOSPORIN) ointment (CANCELED) PRN, Starting on Fri01/09/24 [...] Care Teams (unrecognized sec tion and content) Room Service Attendant Relationship Specialty Start Date End Date Chencho Sylvester APRN - CNP PCP - General Family Medicine 11/02/19 Room Service Attendant Relationship Specialty Start Date End Date Chencho Sylvester APRN - CNP PCP - General Family Medicine 11/02/19 Room Service Attendant Relationship Specialty Start Date End Date Chencho Sylvester, JOB SPOTTER [facility] PCP - General Family Medicine 11/02/19 Room Service Attendant Relationship Specialty Start Date End Date Chencho Sylvester JOB SPOTTER [facility] - General Family Medicine 11/02/19 Room Service Attendant Relationship Specialty Start Date End Date Chencho Sylvester, [employer] [facility] - General Family Medicine 11/02/19 Room Service Attendant Relationship Specialty Start Date End Date Chencho Sylvester [facility] PCP - General Family Medicine 11/02/19 Room Service Attendant Relationship Specialty Start Date End Date Chencho Sylvester [facility] PCP - General Family Medicine 11/02/19 Room Service Attendant Relationship Specialty Start Date End Date Chencho Sylvester [facility] PCP - General Family Medicine 11/02/19 Room Service Attendant Relationship Specialty Start Date End Date Chencho Sylvester [employer] [facility] - General Family Medicine 11/02/19 Room Service Attendant Relationship Specialty Start Date End Date Chencho Sylvester [facility] PCP - General Family Medicine 11/02/19 Room Service Attendant Relationship Specialty Start Date End Date Chencho Sylvester [employer] [facility] - General Family Medicine 11/02/19 FOR [...] BE BASED ON THE PRIMARY CLINICAL RECORDS. [employer] provides no warranty or guarantee of the accuracy or completeness of information in this document.
== END 2024-04-07 11:09 | disposition home or self-care (01) ==
LOC: EC 11:08
PROVIDERS: Visit Provider Podiatrist Foot & Ankle Surgery
DX: S82.62XD Displaced fracture of lateral malleolus of left fibula, subsequent encounter for closed fracture with routine healing (principal); Z98.890 Other specified postprocedural states
CPT/HCPCS: 73610

== ENCOUNTER 2024-06-03 09:25 | Outpatient (OUT) | payer OTHER, SELFPAY ==
--- NOTE | 2024-06-03 | XR_ITS ---
The [address] [address] Patient Name: DIEUDONNE ISBELL MRN: [id number] date: 1990 Sex: F Assigned Patient Location: Current Patient Location: Accession/Order Number: [id number] Exam Date: 06/03/2024 09:28 Report Date: 06/04/2024 13:06 At the request of: VERN ORTIZ Procedure: XR ankle LT min 3V EXAM: Left ankle HISTORY: Surgical follow-up. COMPARISON STUDY: 04/07/2024. TECHNIQUE: 3 views of the left ankle were obtained. FINDINGS: There has been fairly subtle but continued healing of the fracture of the distal fibula. Surgical changes are stable. There are no suspicious bone lesions. Soft tissues are stable in appearance. XR/XR ankle LT min 3V IMPRESSION: Fairly subtle but continued healing of the previously seen fracture. Stable changes of ORIF. Electronically authenticated by: JOJO COKER Date: 06/04/2024 13:06
== END 2024-06-03 09:26 | disposition home or self-care (01) ==
LOC: EC 09:26
PROVIDERS: Visit Provider Physician Assistant
DX: M25.572 Pain in left ankle and joints of left foot (principal); S89.392D Other physeal fracture of lower end of left fibula, subsequent encounter for fracture with routine healing
CPT/HCPCS: 73610

== ENCOUNTER 2024-07-01 15:38 | Outpatient (OUT) | payer OTHER, SELFPAY ==
--- NOTE | 2024-07-01 | XR_ITS ---
The [address] [address] Patient Name: DIEUDONNE ISBELL MRN: [id number] date: 1990 Sex: F Assigned Patient Location: Current Patient Location: Accession/Order Number: [id number] Exam Date: 07/01/2024 15:40 Report Date: 07/03/2024 05:00 At the request of: VERN ORTIZ Procedure: XR ankle LT min 3V PROCEDURE: XR ankle LT min 3V HISTORY: LEFT ANKLE PAIN COMPARISON: XR ankle left 06/03/2024 FINDINGS: BONES:Prior repair of distal fibula via a lateral plate and screws with minimal residual evidence of prior fracture line. Band effusion of the distal syndesmosis. Uniform appearance of the ankle joint space. SOFT TISSUES:Mild soft tissue swelling. EFFUSION:None visible. OTHER: Negative. XR/XR ankle LT min 3V IMPRESSION: 1. Stable surgical changes without evidence of hardware failure or change in alignment. 2. Minimal evidence of prior fibular fracture. Electronically authenticated by: JAMIL ALMAZAN Date: 07/03/2024 05:00
--- OUTSIDE RECORDS SUMMARY | 2024-07-01 15:49 | XMS_ITS | CCD ---
Author Organization [facility] Care Team Providers Care Workers Compensation Attorney Name Role Phone PHAN RUBI Attending Unavailable NONE PER PATIENT, . Primary Care Unavailable PHAN RUBI Attending Unavailable NONE PER PATIENT, . Primary Care Unavailable Kandi Walters Primary Care Provider [phone] Unavailable Primary Care Provider Unavailmolly Sylvester Chencho Primary Care Provider Higinio Chencho Primary Care Provider Higinio [facility] Primary Care Provider [phone] Higinio TRANSPLANT NURSE PRACTITIONER [facility], [facility] Primary Care Provider Higinio TRANSPLANT NURSE PRACTITIONER [facility], [facility] Primary Care Provider Higinio TRANSPLANT NURSE PRACTITIONER [facility], [facility] Primary Care Provider Betty Lamar Unavailable HIGINIO [...] Care Unavailable TANIKA HARRY Consulting Unavailable Higinio TRANSPLANT NURSE PRACTITIONER [facility], [facility] Primary Care Provider Higinio MILLAN LANEYChencho Primary [...] Environmental Allergies] Allergy to substance [facility] Work Phone: Medications Current Medications Medication Drug [...] Starting on Pilar 03/07/22 at 1718, levonorgestrel 0.954320 mg/hr intrauterine system (9 sources) Progestin, Progestin-containing Intrauterine Device Start: 04-12-2021 levonorgestrel (MIRENA) IUD 52 mg 1 each Start: 10-31-2018 End: 10-31-2018 MIRENA 20 mcg/24 hr (5 YEARS ) [facility] 10/31/2018 - 10/31/2018 Provider: methylPREDNISolone 4 mg [...] Start: 12-23-2017 End: 12-23-2017 NARATRIPTAN 2.5 MG [facility] 12/05 - 12/23/2017 Provider: Start: 12-23-2017 End: 12-23-2017 NARATRIPTAN 2.5MG [facility] 12/23 - 12/23/2017 Provider: omeprazole 40 mg [...] release tablet 5 mg Pre-Nasreen (1 source) Pre-Nasreen Active MV-Min-Fe Fum-FA-DHA ( 1) 30-0.975-200 MG [...] Start: 12-05-2017 End: 12-05-2017 TRAZODONE 100 mg [facility] 2017 - 12/05/2017 Provider: Start: 10-10-2016 End: 10-10-2016 TRAZODONE 100 mg [facility] 2016 - 10/10/2016 Provider: Start: 06-24-2016 End: 06-24-2016 TRAZODONE 100 mg [facility] 2015 - 06/24/2016 Provider: vitamin b6 50 [...] Start: 10-31-2018 End: 10-31-2018 NUVARING 0.12-0.015MG/24 HR [facility] 10/31/2018 - 10/31/2018 Provider: ethinyl estradiol 0.02 [...] Start: 05-08-2016 End: 05-08-2016 GABAPENTIN 300 mg [facility] 05/08 - 05/08/2016 Provider: 1 ml glycopyrrolate 0.2 mg/m l injection (2 sources) Start: 10-01-2022 End: 10-01-2022 glycopyrrolate (ROBINUL) injection 0.1 mg Start: 10-01-2022 End: 10-01-2022 glycopyrrolate (ROBINUL) inj ection 0.1 mg hydrOXYzine (9 sources) Antihistamine Start: 01-30-2018 End: 01-30-2018 HYDROXYZINE PAMOATE 25 MG [facility] 01/30/2018 - 01/30/2018 Provider: Start: 01-30-2018 End: 01-30-2018 HYDROXYZINE PAMOATE 25MG [facility] 01/30/2018 - 01/30/2018 Provider: Start: 12-05-2017 End: 12-05-2017 HYDROXYZINE PAMOATE 25 MG [facility] 12/05/2017 - 12/05/2017 Provider: Start: 12-05-2017 End: 12-05-2017 HYDROXYZINE PAMOATE 25MG [facility] 12/05/2017 - 12/05/2017 Provider: Start: 05-08-2016 End: 05-08-2016 HYDROXYZINE PAMOATE 25 MG [facility] 05/08/2016 - 05/08/2016 Provider: Start: 05-08-2016 [...] End: 10-31-2018 MIRENA 20 mcg/24 hr(5 YEARS) [facility] 10/31/2018 - 10/31/2018 Provider: miSOPROStol 0.1 mg [...] Start: 12-05-2017 End: 12-05-2017 PROPRANOLOL 80 MG [facility] 12/05/2017 - 12/05/2017 Provider: Start: 12-05-2017 End: 12-05-2017 PROPRANOLOL 80MG [facility] 2017 - 12/05/2017 Provider: Start: 05-08-2016 End: 05-08-2016 PROPRANOLOL 80 MG [facility] 05/08 - 05/08/2016 Provider: Start: 05-08-2016 End: 05-08-2016 PROPRANOLOL 80MG [facility] 2015 - 05/08/2016 Provider: SUMAtriptan 50 mg [...] 01-09-2024 Surgical Pathology Report (NOTE) Path Number: [id number] -- Diagnosis -- Vulva, excisional biopsy: Cauterized [...] OSEI reviewed. Microscopic examination performed. Processing Lab: [address] [id number] Interpretation Performed at [address] [id number] SURGICAL PATHOLOGY CONSULTATION Patient Name: MARIAH CARBALLO [facility] Rec: [id number] [facility] [employer] [facility] ANATOMIC PATHOLOGY [address] [place] [address]. [place], [place] [address] Normal [facility] Estradiolon 03-27-2023 Estradiol 60.0 pg/mL Normal 27-314 [facility] Comment on above: Result Comment: FEMALES: Normally menstruating Luteal phase 33-298 Follicular phase 27-156 Midcycle phase 48-314 Postmenopausal (untreated) 5-50 Fulvestrant treatment will show an increased estradiol concentration with this methodology. Alternate methodologies are available upon request. Performed By: #### F SH, E2 #### [address] [address] [employer] Architect: Jesse Joseph MD Follicle Stim. Hormon 2022 Follicle Stim. Horm 3.1 mIU/mL Normal 1.7-21.5 [facility] Comment on above: Result Comment: Refe rence Range: Male: 1.5-12.4 Ovulating Female: Follicular Phase 3.5-12.5 Ovulation Phase 4.7-21.5 Luteal Phase 1.7-7.7 Postmenopausal Female: 25.8-134.8 Performed By: #### F SH, E2 #### [address] [id number] [employer] Architect: Jesse Joseph MD Thyroid Stim. Horm.on 2022 Thyroid Stim. Horm. 1.12 uIU/mL Normal 0.30-5.00 [facility] Comment on above: Performed By: #### T SH #### [facility] [address] [place] [address] [employer] Architect: Jefe Guerra MD Chlamydia/GC,DNA Ampon 03-21 Chlamydia Probe Negative Normal NEG [facility] Comment on above: Result Comment: CHLA [...] nucleic acid target. Performed By: #### S [facility] #### [address] [id number] [employer] Architect: Jesse Joseph MD Gonorrhea Probe Negative Normal NEG [facility] Comment on above: Result Comment: NEIS [...] target. Performed By: #### S W[facility]P #### [address] [address] [employer] Architect: Jesse Joseph MD Vaginitis DNA Probeon 2022 Munira Positive Abnormal [facility] Comment on above: Result Comment: for Munira sp. Method of testing is a DNA probe intended for detection and identification of Munira species, Gardnerella vaginalis, and Trichomonas vaginalis nucleic acid in vaginal fluid specimens from patients with symptoms of vaginitis/vaginosis. Performed By: #### V AGP #### [address] [address] [employer] Architect: Jesse Joseph MD [facility] [address] [place] [address] [place] [address] [employer] Architect: Jefe Guerra MD Gardnerella Negative [facility] [place] Comment on above: Result Comment: for Gardnerella vaginalis Performed By: #### V AGP #### [address] [address] [employer] Architect: Jesse Joseph MD [address] [place] [address] [employer] Architect: Jefe Guerra MD Trichomonas Negative [facility] [place] Comment on above: Result Comment: for Trichomonas Vaginalis Performed By: #### V AGP #### [address] [address] [employer] Architect: Jesse Joseph MD [facility] [address] [place] [address] [place] [address] [employer] Architect: Jefe Guerra MD Vaginitis DNA Probeon 2022 Munira Species, DNA Probe Positive Abnormal NEGATIVE [facility] Comment on above: for Munira sp. Method of testing is a DNA probe intended for detection and identification of Munira species, Gardnerella vaginalis, and Trichomonas vaginalis nucleic acid in vaginal fluid specimens from patients with symptoms of vaginitis/vaginosis. Gardnerella Vaginalis, DNA Probe Negative NEGATIVE [facility] Comment on above: for Gardnerella vagi nalis Interpretation and review of laboratory results Abnormal [facility] Source .VAGINAL SWAB [facility] Trichomonas Vaginalis DNA Negative NEGATIVE [facility] Comment on above: for Trichomonas Vagi nalis [facility] Source .VAGINAL SWAB Normal [facility] Comment on above: Performed By: #### V AGP #### [facility] [employer] [address] [place], [place] [phone] [employer] Architect: Jesse Joseph MD [address] [place] [address] [employer] Architect: Jefe Guerra MD Cult,Urineon 02-04-2023 Cult,Urine Specimen Description .CLEAN CATCH URINE Culture NO SIGNIFICANT GROWTH Report Status FINAL 02/04/2023 [facility] Comment on above: Performed By: #### U RC #### [facility] [address] [place], [place] [id number] [employer] Architect: Jesse Joseph MD [address] [place] [address] [employer] Architect: Jefe Guerra MD Microscopic Urinalysison Bacteria, UA 2+ Abnormal None [facility] Epithelial Cells UA 2 TO 5 [facility] Interpretation and review of laboratory results Abnormal [facility] Mucus, UA 4+ Abnormal None [facility] RBC clumps Auto (Urine sed) [#/Area] 2 TO 5 [facility] WBC, UA 2 TO 5 [facility] Urinalysison 02-03-2023 Bilirubin Urine Negative NEGATIVE [facility] Color, UA Yellow Yellow [facility] Glucose Auto test strip (U) [Mass/Vol] Negative NEGATIVE [facility] Interpretation and review of laboratory results Abnormal [facility] Ketones (U) [Mass/Vol] TRACE Abnormal NEGATIVE [facility] Leukocyte esterase Auto test strip Ql (U) TRACE Abnormal NEGATIVE [facility] Nitrite Auto test strip Ql (U) Negative NEGATIVE [facility] Protein (U) [Mass/Vol] 6.0 mg/dL 5.0 - 9.0 [facility] Protein (U) [Mass/Vol] 1+ Abnormal NEGATIVE [facility] Specific [place], UA High 1.010 - 1.020 [facility] Turbidity UA SLIGHTLY CLOUDY Abnormal Clear [facility] Urine Hgb Negative NEGATIVE [facility] Urobilinogen, Urine Normal Normal [facility] Urinalysis, Routineon 2022 Bilirubin, SemiQt,Ur Negative Normal NEG [facility] Comment on above: Performed By: #### U A, UMICAO #### [facility] [address] [place] [address] [employer] Architect: Jefe Guerra MD Blood, Urine Negative Normal NEG [facility] Comment on above: Performed By: #### U A, UMICAO #### [facility] [address] [place] [address] [employer] Architect: Jefe Guerra MD Clarity (U) SLIGHTLY CLOUDY Abnormal CLEAR [facility] Comment on above: Performed By: #### U A, UMICAO #### [facility] [address] [place] [address] [employer] Architect: Jefe Guerra MD Color (U) Yellow Normal YEL [facility] Comment on above: Performed By: #### U A, UMICAO #### [facility] [address] [place] [address] [employer] Architect: Jefe Guerra MD Glucose Ql (U) Negative Normal NEG [facility] Comment on above: Performed By: #### U A, UMICAO #### [facility] [address] [place] [address] [place], [place] [id number] [employer] Architect: Jefe Guerra MD Ketones Ql (U) TRACE Abnormal NEG [facility] Comment on above: Performed By: #### U A, UMICAO #### [facility] [address] [place] [address] [place] [address] [employer] Architect: Jefe Guerra MD Leukocyte esterase Test strip Ql (U) TRACE Abnormal NEG [facility] Comment on above: Performed By: #### U A, UMICAO #### [address] [place], [place] [phone] [employer] Architect: Jefe Guerra MD Nitrite,Ur Negative Normal NEG [facility] Comment on above: Performed By: #### U A, UMICAO #### [facility] [address] [place] [address] [place] [address] [employer] Architect: Jefe Guerra MD PH,Ur 6.0 Normal 5.0-9.0 [facility] Comment on above: Performed By: #### U A, UMICAO #### [facility] [address] [place] [address] [place], [place] [phone] [employer] Architect: Jefe Guerra MD Protein Ql (U) 1+ Abnormal NEG [facility] Comment on above: Performed By: #### U A, UMICAO #### [facility] [address] [place] [address] Dr[place], [place] [phone] [employer] Architect: Jefe Guerra MD Spec. [place],Ur >1.030 High 1.010-1.020 [facility] Comment on above: Performed By: #### U A, UMICAO #### [facility] [address] [place] [address] [place] [address] [employer] Architect: Jefe Guerra MD Urobilinogen,Ur Normal Normal NORM [facility] Comment on above: Performed By: #### U A, UMICAO #### [facility] [address] [place] [address] [employer] Architect: Jefe Guerra MD Urinalysis,Microon 3 Bacteria 2+ Abnormal NONE [facility] Comment on above: Performed By: #### U A, UMICAO #### [facility] [address] [place] [address] [place] [address] [employer] Architect: Jefe Guerra MD Epithelial cells LM Ql (Urine sed) 2 TO 5 Normal 0-25 [facility] Comment on above: Performed By: #### U A, UMICAO #### [facility] [address] [place] [address] [place], [place] [phone] [employer] Architect: Jefe Guerra MD Mucus Strands 4+ Abnormal NONE [facility] Comment on above: Performed By: #### U A, UMICAO #### [facility] [address] [place] [address] [place] [address] [employer] Architect: Jefe Guerra MD Urine RBC's 2 TO 5 Normal 0-2 [facility] Comment on above: Performed By: #### U A, UMICAO #### [facility] [address] [place] [address] [place], [place] [phone] [employer] Architect: Jefe Guerra MD Urine WBC's 2 TO 5 Normal 0-5 [facility] Comment on above: Performed By: #### U A, UMICAO #### [facility] [address] [place] [address] [employer] Architect: Jefe Guerra MD , Urineon 2 Beta HCG ( test) Ql (U) Negative NEGATIVE [facility] Comment on above: Specimens with hCG l evels near the threshold of the test (25 mIU/mL) may give a negative or indeterminate result. In such cases, another test should be performed with a new specimen in 48-72 hours. If early is suspected clinically in this setting, correlation with quantitative serum b-hCG level is suggested. [employer] has confirmed the use of plasma for this test. This has not been cleared or approved by the U.S. Food and Drug Administration. The FDA has determined that such clearance is not necessary. [facility] CBC auto differentialon 060 Absolute Eos # 0.10 [facility] Immature Granulocyte 0.05 [facility] Absolute Lymph # 1.78 [facility] Absolute Mathews # 0.59 [facility] Basophils (Bld) [#/Vol] 10*3/uL [facility] Basophils/100 WBC (Bld) 0 % 0 - 2 % [facility] Eosinophils/100 WBC (Bld) 1 % 1 - 4 % [facility] Hematocrit (Bld) [Volume fraction] 31.9 % Low 36.3 - 47.1 % [facility] Hemoglobin (Bld) [Mass/Vol] 10.4 g/dL Low 11.9 - 15.1 g/dL [facility] Immature granulocytes/100 WBC (Bld) 1 % High 0 [facility] Interpretation and review of laboratory results Abnormal [facility] Lymphocytes/100 WBC (Bld) 22 % Low 24 - 43 % [facility] MCH (RBC) [Entitic mass] 28.6 pg 25.2 - 33.5 pg [facility] MCHC (RBC) [Mass/Vol] 32.6 g/dL 28.4 - 34.8 g/dL [facility] MCV (RBC) [Entitic vol] 87.6 fL 82.6 - 102.9 fL [facility] Monocytes/100 WBC (Bld) 7 % 3 - 12 % [facility] NRBC Automated 0.0 0.0 per 100 WBC [facility] Platelet distribution width (Bld) [Ratio] 13.2 % 11.8 - 14.4 % [facility] Platelet mean volume (Bld) [Entitic vol] 10.5 fL 8.1 - 13.5 fL [facility] Platelets (Bld) [#/Vol] 195 10*3/uL [facility] RBC (Bld) [#/Vol] 3.64 10*6/uL Low 3.95 - 5.1 1 m/uL [facility] Segmented neutrophils/100 WBC (Bld) 69 % High 36 - 65 % [facility] Segs Absolute 5.42 [facility] WBC (Bld) [#/Vol] 8.0 10*3/uL [facility] DRUG SCREEN MULTI URINEon Amphetamine Screen, Ur Negative NEGATIVE [facility] Barbiturate Screen, Ur Negative NEGATIVE N [facility] Benzodiazepine Screen, Urine Negative NEGATIVE [facility] Buprenorphine Urine Negative NEGATIVE [facility] Cannabinoid Scrn, Ur Negative NEGATIVE [facility] Cocaine Metabolite, Urine Negative NEGATIVE [facility] Methadone Screen, Urine Negative NEGATIVE B [facility] Methamphetamine, Urine Negative NEGATIVE [facility] Opiates, Urine Negative NEGATIVE [facility] Oxycodone Screen, Ur Negative NEGATIVE [facility] Phencyclidine, Urine Negative NEGATIVE [facility] Propoxyphene, Urine Negative NEGATIVE [facility] Tricyclic Antidepressants, Urine Negative NEGATIVE [facility] Comment on above: Drug screen results are to be used for medical purposes only. All positive results are unconfirmed. Testing for employment or legal uses should be sent to a reference laboratory for confirmation. [facility] Microscopic Urinalysison - [facility] Bacteria, UA 3+ Abnormal None [facility] Epithelial Cells UA 2 TO 5 [facility] Interpretation and review of laboratory results Abnormal [facility] Mucus, UA 4+ Abnormal None [facility] RBC, UA 0 TO 2 [facility] WBC, UA 2 TO 5 [facility] Urinalysison 12-19-2021 Bilirubin Urine MODERATE Abnormal NEGATIVE [facility] Color, UA Glades Abnormal Yellow [facility] Glucose, Ur Negative NEGATIVE [facility] Interpretation and review of laboratory results Abnormal [facility] Ketones Ql (U) TRACE Abnormal NEGATIVE [facility] Leukocyte esterase Test strip Ql (U) TRACE Abnormal NEGATIVE [facility] Nitrite, Urine Positive Abnormal NEGATIVE [facility] pH, UA 6.5 [facility] Protein, UA 1+ Abnormal NEGATIVE [facility] Specific [place], UA >1.030 High [facility] Turbidity UA Clear Clear [facility] Urine Hgb Negative NEGATIVE [facility] Urobilinogen, Urine Normal Normal [facility] COVID-19, Rapidon 12-15-2021 SARS-CoV-2 (COVID-19) RNA LYDIA+probe Ql (Unsp spec) Not detected Not Detected [facility] Comment on above: Rapid NAAT: The [...] management decisions. Fact sheet for Healthcare Providers: https://www.fda.gov/media/796681/download Fact sheet for Patients: https://www.fda.gov/media/302315/download Methodology: Isothermal Nucleic Acid Amplification Specimen Description .NASOPHARYNGEAL SWAB [facility] Rapid influenza A/B antigens on 12-15-2021 Direct Exam POSITIVE for Influenza A Antigen NEGATIVE for Influenza B Antigen Abnormal [facility] Interpretation and review of laboratory results Abnormal [facility] Specimen Description .NASOPHARYNGEAL SWAB [facility] Microscopic Urinalysison - [facility] Bacteria, UA 3+ Abnormal None [facility] Epithelial Cells UA 20 TO 50 [facility] Interpretation and review of laboratory results Abnormal [facility] Mucus, UA 2+ Abnormal None [facility] RBC, UA 0 TO 2 [facility] WBC, UA 20 TO 50 [facility] Urinalysison 12-05-2021 Bilirubin Urine SMALL Ab[facility], UA Yellow Yellow [facility] Glucose, Ur Negative NEGATIVE [facility] Interpretation and review of laboratory results Abnormal [facility] Ketones Ql (U) 2+ Abnormal NEGATIVE [facility] Leukocyte esterase Test strip Ql (U) MODERATE Abnormal NEGATIVE [facility] Nitrite, Urine Negative NEGATIVE [facility] pH, UA 7.0 [facility] Protein, UA TRACE Abnormal NEGATIVE [facility] Specific [place], UA 1.025 [facility] Turbidity UA Clear Clear [facility] Urine Hgb TRACE Abnormal NEGATIVE [facility] Urobilinogen, Urine Normal Normal [facility] No Panel Informationon 11-06 Single [...] seen. The structural survey otherwise appears normal. [email or web address] Phone: Radiology Study observation (narrative) [employer] Phone: No Panel InformationOrdered By: Kalen Mejias on 11-06-2021 [email or web address] Phone: Basic Metabolic Panel w/ Ref ct to MGOrdered By: Danny Mendiola on 08-06-2021 Anion gap [Moles/Vol] 12 mmol/L 9 - 17 mmol/L [email or web address] Phone: Calcium [Mass/Vol] 9.0 mg/dL 8.6 - 10. 4 mg/dL [email or web address] Phone: Chloride [Moles/Vol] 100 mmol/L 98 - 10 7 mmol/L [facility] Phone: CO2 [Moles/Vol] 24 mmol/L 20 - 31 mmol/L [facility] [employer] Phone: Creatinine [Mass/Vol] 0.57 mg/dL 0.50 - 0.90 mg/dL [facility] Phone: GFR >60 >60 mL/min [employer] Work Phone: GFR Non- >60 >60 mL/min [facility] Phone: Glucose [Mass/Vol] 100 mg/dL High 70 - 99 mg/dL [facility] Phone: Interpretation and review of laboratory results Abnormal [facility] Phone: Potassium [Moles/Vol] 3.7 mmol/L 3.7 - 5.3 mmol/L [facility] Phone: Sodium [Moles/Vol] 136 mmol/L 135 - 144 mmol/L [facility] Phone: Urea nitrogen (BldV) [Mass/Vol] 10 mg/dL 6 - 20 mg/dL [facility] Phone: Urea nitrogen/Creatinine (Bld) [Mass ratio] 18 [facility] Work Phone: [facility] Work Phone: CBC Auto DifferentialOrdered By: Danny Mendiola on 08-06-2021 Absolute Eos # 0.07 [facility] Work Phone: Absolute Immature Granulocyte 0.05 [facility] [employer] Work Phone: Absolute Lymph # 1.56 [facility] Work Phone: Absolute Mathews # 0.41 [facility] Work Phone: Basophils (Bld) [#/Vol] 10*3/uL [employer] Phone: Basophils/100 WBC (Bld) 0 % 0 - 2 % [employer] Phone: Differential Type NOT REPORTED [email or web address] Phone: Eosinophils/100 WBC (Bld) 1 % 1 - 4 % [email or web address] Phone: Hematocrit (Bld) [Volume fraction] 45.4 % 36.3 - 47.1 % [email or web address] Phone: Hemoglobin.gastrointest inal spec 1 Ql (Stl) 15.2 g/dL High 11.9 - 15.1 g/dL [email or web address] Phone: Immature granulocytes/100 WBC (Bld) 1 % High 0 [email or web address] Phone: Interpretation and review of laboratory results Abnormal [email or web address] Phone: Lymphocytes/100 WBC (Bld) 20 % Low 24 - 43 % [email or web address] Phone: MCH (RBC) [Entitic mass] 30.2 pg 25.2 - 33.5 pg [email or web address] Phone: MCHC (RBC) [Mass/Vol] 33.5 g/dL 28.4 - 34.8 g/dL [email or web address] Phone: MCV (RBC) [Entitic vol] 90.1 fL 82.6 - 102.9 fL [email or web address] Phone: Monocytes/100 WBC (Bld) 5 % 3 - 12 % M [facility] [place] Phone: NRBC Automated 0.0 0.0 per 100 WBC [email or web address] Phone: Platelet distribution width (Bld) [Ratio] 12.8 % 11.8 - 14.4 % [email or web address] Phone: Platelet Estimate NOT REPORTED [email or web address] Phone: Platelet mean volume (Bld) [Entitic vol] 10.5 fL 8.1 - 13.5 fL [email or web address] Phone: Platelets (Bld) [#/Vol] 203 10*3/uL [email or web address] Phone: RBC (Bld) [#/Vol] 5.04 10*6/uL 3.95 - 5.1 1 m/uL [email or web address] Phone: RBC (Bld) [#/Vol] NOT REPORTED [email or web address] Phone: Segmented neutrophils/100 WBC (Bld) 73 % High 36 - 65 % [email or web address] Phone: Segs Absolute 5.56 [facility] Work Phone: WBC (Bld) [#/Vol] 7.7 10*3/uL [email or web address] Phone: WBC (Bld) [#/Vol] NOT REPORTED [email or web address] Phone: [email or web address] Phone: Laboratory - Chemistry and C hemistry - challengeOrdered By: Danny Mendiola on 08-06-2021 GFR/1.73 sq M.predicted MDRD (S/P/Bld) [Vol rate/Area] [email or web address] Phone: Comment on above: Average GFR for 20-2 9 years old: 116 mL/min/1.73sq m Chronic Kidney Disease: <60 mL/min/1.73sq m Kidney failure: <15 mL/min/1.73sq m eGFR calculated using average adult body mass. Additional eGFR calculator available at: http://[email or web address]/multiple_crcl_2012.htm Stage 1: Some kidney damage normal GFR Stage 2: Mild kidney damage GFR 60-89 Stage 3: Moderate kidney damage GFR 30-59 Stage 4: Severe kidney damage GFR 15-29 Stage 5: Severe kidney damage GFR <15 ESRD - chronic treatment by dialysis or transplant Microscopic UrinalysisOrdere d By: Danny Mendiola on 08-06-2021 - [facility] Work Phone: Amorphous, UA NOT REPORTED None [facility] Work Phone: Bacteria, UA TRACE Abnormal None [facility] Work Phone: Casts UA NOT REPORTED /LPF [facility] Work Phone: Crystals, UA NOT REPORTED None /HPF [facility] Work Phone: Epithelial Cells UA 2 TO 5 [facility] Work Phone: Interpretation and review of laboratory results Abnormal [facility] Work Phone: Mucus, UA 1+ Abnormal None [facility] Work Phone: Other Observations UA NOT REPORTED NOT REQ. M [facility] Work Phone: RBC, UA None [facility] Work Phone: Renal Epithelial, UA NOT REPORTED 0 /HPF [facility] Work Phone: Trichomonas, UA NOT REPORTED None [facility] Work Phone: WBC, UA 0 TO 2 [facility] Work Phone: Yeast, UA NOT REPORTED None [facility] Work Phone: [facility] Work Phone: Urinalysis, reflex to micros copicOrdered By: Danny Mendiola on 08-06-2021 Bilirubin Urine SMALL Abnormal NEGATIVE [facility] Work Phone: Color, UA Yellow Yellow [facility] Work Phone: Glucose, Ur Negative NEGATIVE [facility] Work Phone: Interpretation and review of laboratory results Abnormal [facility] Work Phone: Ketones Ql (U) 1+ Abnormal NEGATIVE [facility] Work Phone: Leukocyte esterase Test strip Ql (U) TRACE Abnormal NEGATIVE [facility] Work Phone: Nitrite, Urine Negative NEGATIVE [facility] Work Phone: pH, UA 7.5 [facility] [employer] Work Phone: Protein, UA TRACE Abnormal NEGATIVE [facility] [employer] Work Phone: Specific [place], UA 1.020 [facility] [employer] Work Phone: Turbidity UA Clear Clear [facility] [employer] Work Phone: Urinalysis Comments NOT REPORTED [facility] [employer] Work Phone: Urine Hgb Negative NEGATIVE [facility] [employer] Work Phone: Urobilinogen, Urine Normal Normal [facility] [employer] Work Phone: [facility] [employer] Work Phone: COVID Quick Testingon 2020 Result Negative [place] [employer] Other HCG, Quantitative, Ordered By: [employer]it[employer] on 07-18-2021 hCG Quant 63370 High <5 IU/L [facility] Phone: Comment on above: Non-preg premeno <=5 Postmeno <=8 Male <=3 If HCG results do not concur with clinical observations, additional testing to confirm results is recommended. Elevated results not associated with may be found in patients with other diseases such as tumors of the germ cells (testis, ovaries, etc.), bladder, pancreas, stomach, lungs, and liver. Interpretation and review of laboratory results Abnormal [facility] [employer] Work Phone: [facility] [employer] Work Phone: HCG, Quantitative, Ordered By: [employer]it[employer] on 07-16-2021 hCG Quant [id number] High <5 IU/L [facility] Phone: Comment on above: Non-preg premeno <=5 Postmeno <=8 Male <=3 If HCG results do not concur with clinical observations, additional testing to confirm results is recommended. Elevated results not associated with may be found in patients with other diseases such as tumors of the germ cells (testis, ovaries, etc.), bladder, pancreas, stomach, lungs, and liver. Interpretation and review of laboratory results Abnormal [email or web address] Phone: [email or web address] Phone: CBC AUTO DIFFon 05-24-2021 BASO # 0.0 103/ul Normal 0.0-0.1 [facility] Comment on above: Performed By: #### C BC #### Laboratory [address] [place], [place] [id number] Niko Karina Basophils/100 WBC (Bld) 0.1 % Critically low 0.2-2.0 [facility] Comment on above: Performed By: #### C BC #### Laboratory [address] [place] [address] Niko Karina EO # 0.3 103/ul Normal 0.0-0.7 [facility] Comment on above: Performed By: #### C BC #### Laboratory [address] [place] [address] Niko Karina Eosinophils/100 WBC (Bld) 4.6 % Normal 0.9-7.0 [facility] Comment on above: Performed By: #### C BC #### Laboratory [address] [place], [place] [id number] Niko Karina Erythrocyte distribution width (RBC) [Ratio] 12.4 % Normal 11.0-15.0 [facility] Comment on above: Performed By: #### C BC #### Laboratory [address] [place], [place] [id number] Niko Karina Hematocrit (Bld) [Volume fraction] 42.5 % Normal 36.0-48.0 [facility] Comment on above: Performed By: #### C BC #### Laboratory [address] [place], [place] [id number] Niko Karina Hemoglobin (Bld) [Mass/Vol] 14.2 g/dL Normal 12.0-16.0 [facility] Comment on above: Performed By: #### C BC #### Laboratory [address] [place] [address] Niko Karina IG # 0.01 10e3/ul Normal 0.00-0.03 [facility] Comment on above: Performed By: #### C BC #### Laboratory [address] [place], [place] [id number] Nikogenesis Collins IG % 0.1 % Normal 0.0-0.5 [facility] Comment on above: Performed By: #### C BC #### Laboratory [address] [place], [place] [id number] Nikogenesis Collins LYMPH # 1.9 103/ul Normal 1.2-3.8 [facility] Comment on above: Performed By: #### C BC #### Laboratory [address] [place] [address] Niko Collins Lymphocytes/100 WBC (Bld) 28.0 % Normal 20.5-60.0 [facility] Comment on above: Performed By: #### C BC #### Laboratory [address] [place] [address] Niko Collins MANUAL DIFF REQ NO Normal [facility] Comment on above: Performed By: #### C BC #### Laboratory [address] [place], [place] [id number] Niko Collins MCH (RBC) [Entitic mass] 29.8 pg Normal 26.7-34.0 [facility] Comment on above: Performed By: #### C BC #### Laboratory [address] [place], [place] [id number] Niko Collins MCHC (RBC) [Mass/Vol] 33.4 g/dL Normal 29.9-35.2 [facility] Comment on above: Performed By: #### C BC #### Laboratory [address] [place] [address] Nikogenesis Collins MCV (RBC) [Entitic vol] 89.1 fL Normal 81.0-99.0 [facility] Comment on above: Performed By: #### C BC #### Laboratory [address] [place] [address] Nikogenesis Collins MONO # 0.5 103/ul Normal 0.3-0.8 [facility] Comment on above: Performed By: #### C BC #### Laboratory [address] [place], [place] [address] Niko Karina Monocytes/100 WBC (Bld) 6.9 % Normal 1.7-12.0 [facility] Comment on above: Performed By: #### C BC #### Laboratory [address] [place] [id number] Niko Karina NEUT # 4.0 103/ul Normal 1.4-6.5 [facility] Comment on above: Performed By: #### C BC #### Laboratory [address] [place], [place] [id number] Niko Karina Neutrophils/100 WBC (Bld) 60.3 % Normal 43.0-75.0 [facility] Comment on above: Performed By: #### C BC #### Laboratory [address] [place], [place] [id number] Nikogenesis Wooden Platelet mean volume (Bld) [Entitic vol] 10.5 fL Normal 9.5-13.5 [facility] Comment on above: Performed By: #### C BC #### Laboratory [address] [place], [place] [id number] Niko Karina PLT 192 103/ul Normal 150-450 [facility] Comment on above: Performed By: #### C BC #### Laboratory [address] [place], [place] [id number] Niko Karina RBC 4.77 106/ul Normal 4.20-5.40 The Comment on above: Performed By: #### C BC #### Laboratory [address] [place], [place] [id number] Niko Karina WBC 6.7 103/ul Normal 4.0-11.0 The Comment on above: Performed By: #### C BC #### Laboratory [address] [place], [place] [id number] Niko Karina PREG HCG QUALon 05-24-2021 , QUAL Negative Normal NEGATIVE [facility] Comment on above: Performed By: #### P REG #### Laboratory [address] [place], [place] [id number] Niko Collins PROF 14(COMP METB)on 021 Albumin [Mass/Vol] 3.8 g/dL Normal 3.5-5.0 [facility] Comment on above: Performed By: #### C MP #### [address] [place], [place] [address]Cronmi Karina Albumin/Globulin [Mass ratio] 1.2 {ratio} Normal [facility] Comment on above: Performed By: #### C MP #### [id number] [place] [id number] Karina ALP [Catalytic activity/Vol] 47 U/L Normal 38-126 The Comment on above: Performed By: #### C MP #### [id number] [place], [place] [id number] Karina ALT [Catalytic activity/Vol] 13 U/L Normal 9-52 [facility] Comment on above: Performed By: #### C MP #### [id number] [place], [place] [id number] Karina Anion gap [Moles/Vol] 15.4 mmol/L Normal [facility] Comment on above: Performed By: #### C MP #### [address] [place], [place] [id number] Karina AST [Catalytic activity/Vol] 15 U/L Normal 14-36 The Comment on above: Performed By: #### C MP #### [id number] [place], [place] [id number] Karina Bilirubin [Mass/Vol] 0.6 mg/dL Normal 0.2-1.3 The Comment on above: Performed By: #### C MP #### [id number] [place], [place] [address]Gerken Karina Calcium [Mass/Vol] 8.7 mg/dL Normal 8.4-10.2 [facility] Comment on above: Performed By: #### C MP #### [id number] [place], [place] [id number] Karina Chloride [Moles/Vol] 105 mmol/L Normal 98-107 [facility] Comment on above: Performed By: #### C MP #### [address] [place] [id number] Karina CO2 [Moles/Vol] 25.3 mmol/L Normal 22.0-30.0 The [facility] Comment on above: Performed By: #### C MP #### [address] [place] [id number] Karina Creatinine [Mass/Vol] 0.76 mg/dL Normal 0.52-1.04 The Comment on above: Performed By: #### C MP #### [address] [place] [address]Uengol Karina EGFR-AF GABONESE >60 Normal >=60 The [facility] Comment on above: Performed By: #### C MP #### [id number] [place], [place] [id number] Karina EGFR-NON AF GABONESE >60 Normal >=60 The Comment on above: Performed By: #### C MP #### [id number] [place], [place] [id number] Karina Globulin (S) [Mass/Vol] 3.3 g/dL Normal [facility] Comment on above: Performed By: #### C MP #### [address] [place], [place] [address]Gerken Karina Glucose [Mass/Vol] 92 mg/dL Normal 74-106 [facility] Comment on above: Performed By: #### C MP #### [address] [place], [place] [id number] Karina Potassium [Moles/Vol] 3.7 mmol/L Normal 3.4-5.0 The Comment on above: Performed By: #### C MP #### [address] [place] [id number] Karina Protein [Mass/Vol] 7.1 g/dL Normal 6.1-8.2 [facility] Comment on above: Performed By: #### C MP #### [address] [place], [place] [address]EtjfgwNiko Collins Sodium [Moles/Vol] 142 mmol/L Normal 137-145 [facility] Comment on above: Performed By: #### C MP #### [address] [place], [place] [address]VyazvaNiko Collins Urea nitrogen [Mass/Vol] 7.0 mg/dL Normal 7.0-17.0 [facility] Comment on above: Performed By: #### C MP #### [address] [place] [id number] Collins Urea nitrogen/Creatinine [Mass ratio] 9.2 mg/mg Normal [facility] Comment on above: Performed By: #### C MP #### [address] [place] [id number] Collins PROTIMEon 05-24-2021 INR Coag (PPP) [Relative time] 1.03 {INR} Normal [facility] Comment on above: Performed By: #### P TT, PT #### Laboratory [address] [id number] Niko Collins INR GUIDELINES SEE BELOW Normal [facility] Comment on above: Result Comment: JENNIFER RED INR: 2.0 - 3.0 CONDITIONS NOT LISTED BELOW 2.5 - 3.5 FOR PROSTHETIC HEART VALVE REPLACEMENT 2.5 - 3.5 RECURRENT THROMBOSIS Performed By: #### P TT, PT #### Laboratory [address] [place] [address] Niko Collins PT Coag (PPP) [Time] 11.1 s Normal 9.0-11.6 [facility] Comment on above: Performed By: #### P TT, PT #### Laboratory [address] [place] [address] Niko Collins PTTon 05-24-2021 aPTT Coag (Bld) [Time] 27.7 s Normal 22.3-36.[address] [facility] Comment on above: Performed By: #### P TT, PT #### Laboratory [address] [place] [id number] Niko Collins US PELVIS TRANSVAGon 021 US [...] by: MARYAM LUU Date: 2021-05-24 21:20 [address] [facility] [address] ABD/PELV W CONon 05-22-[address] [...] by: TANIKA HARRY Date: 2021-05-21 22:11 Normal [facility] CBC AUTO DIFFon 05-21-2021 BASO # 0.0 103/ul Normal 0.0-0.1 [facility] Comment on above: Performed By: #### C BC #### Laboratory [address] [place] [address] Niko Karina Basophils/100 WBC (Bld) 0.4 % Normal 0.2-2.0 [facility] Comment on above: Performed By: #### C BC #### Laboratory [address] [place], [place] [id number] Niko Karina EO # 0.3 103/ul Normal 0.0-0.7 [facility] Comment on above: Performed By: #### C BC #### Laboratory [address] [place] [address] Niko Karina Eosinophils/100 WBC (Bld) 3.1 % Normal 0.9-7.0 [facility] Comment on above: Performed By: #### C BC #### Laboratory [address] [place] [address] Niko Karina Erythrocyte distribution width (RBC) [Ratio] 12.8 % Normal 11.0-15.0 [facility] Comment on above: Performed By: #### C BC #### Laboratory [address] [place] [address] Niko Karina Hematocrit (Bld) [Volume fraction] 45.8 % Normal 36.0-48.0 [facility] Comment on above: Performed By: #### C BC #### Laboratory [address] [place] [address] Niko Karina Hemoglobin (Bld) [Mass/Vol] 15.0 g/dL Normal 12.0-16.0 The Comment on above: Performed By: #### C BC #### Laboratory [address] [place] [address] Niko Karina IG # 0.02 10e3/ul Normal 0.00-0.03 The Comment on above: Performed By: #### C BC #### Laboratory [address] [place] [address] Niko Karina IG % 0.2 % Normal 0.0-0.5 The Comment on above: Performed By: #### C BC #### Laboratory [address] [place] [address] Niko Karina LYMPH # 1.5 103/ul Normal 1.2-3.8 The Comment on above: Performed By: #### C BC #### Laboratory [address] [place] [address] Niko Karina Lymphocytes/100 WBC (Bld) 18.1 % Critically low 20.5-60.0 The Comment on above: Performed By: #### C BC #### Laboratory [address] [place] [address] Niko Karina MANUAL DIFF REQ NO Normal [facility] Comment on above: Performed By: #### C BC #### Laboratory [address] [place], [place] [id number] Niko Collins MCH (RBC) [Entitic mass] 29.8 pg Normal 26.7-34.0 [facility] Comment on above: Performed By: #### C BC #### Laboratory [address] [place], [place] [id number] Niko Collins MCHC (RBC) [Mass/Vol] 32.8 g/dL Normal 29.9-35.2 [facility] Comment on above: Performed By: #### C BC #### Laboratory [address] [place], [place] [address] Niko Collins MCV (RBC) [Entitic vol] 90.9 fL Normal 81.0-99.0 [facility] Comment on above: Performed By: #### C BC #### Laboratory [address] [place] [address] Niko Collins MONO # 0.6 103/ul Normal 0.3-0.8 [facility] Comment on above: Performed By: #### C BC #### Laboratory [address] [place] [address] Niko Collins Monocytes/100 WBC (Bld) 7.1 % Normal 1.7-12.0 [facility] Comment on above: Performed By: #### C BC #### Laboratory [address] [place], [place] [address] Niko Collins NEUT # 5.8 103/ul Normal 1.4-6.5 [facility] Comment on above: Performed By: #### C BC #### Laboratory [address] [place], [place] [id number] Niko Collins Neutrophils/100 WBC (Bld) 71.1 % Normal 43.0-75.0 [facility] Comment on above: Performed By: #### C BC #### Laboratory [address] [place], [place] [id number] Niko Collins Platelet mean volume (Bld) [Entitic vol] 10.7 fL Normal 9.5-13.5 [facility] Comment on above: Performed By: #### C BC #### Laboratory [address] [place], [place] [address] Niko Karina PLT 193 103/ul Normal 150-450 [facility] Comment on above: Performed By: #### C BC #### Laboratory [address] [place], [place] [address] Niko Karina RBC 5.04 106/ul Normal 4.20-5.40 [facility] Comment on above: Performed By: #### C BC #### Laboratory [address] [place], [place] [address] Niko Karina WBC 8.2 103/ul Normal 4.0-11.0 [facility] Comment on above: Performed By: #### C BC #### Laboratory [address] [place] [address] Niko Karina URon 05-21-2021 , QUAL Negative Normal NEGATIVE [facility] Comment on above: Performed By: #### P REGU #### Laboratory [address] [place] [address] Niko Karina PROF CHEM 8 (BAS METB)on Anion gap [Moles/Vol] 12.3 mmol/L Normal [facility] Comment on above: Performed By: #### B MP #### Laboratory [address] [place] [address] Niko Karina Calcium [Mass/Vol] 8.5 mg/dL Normal 8.4-10.2 [facility] Comment on above: Performed By: #### B MP #### Laboratory [address] [place] [address] Niko Karina Chloride [Moles/Vol] 107 mmol/L Normal 98-107 [facility] Comment on above: Performed By: #### B MP #### Laboratory [address] [place] [address] Niko Karina CO2 [Moles/Vol] 26.3 mmol/L Normal 22.0-30.0 [facility] Comment on above: Performed By: #### B MP #### Laboratory [address] [id number] Niko Karina Creatinine [Mass/Vol] 0.74 mg/dL Normal 0.52-1.04 The Comment on above: Performed By: #### B MP #### Laboratory [address] [id number] Niko Karina EGFR-AF GABONESE >60 Normal >=60 The [facility] Comment on above: Performed By: #### B MP #### Laboratory [address] [id number] Niko Karina EGFR-NON AF GABONESE >60 Normal >=60 The Comment on above: Performed By: #### B MP #### Laboratory [address] [place] [address] Niko Karina Glucose [Mass/Vol] 88 mg/dL Normal 74-106 [facility] Comment on above: Performed By: #### B MP #### Laboratory [address] [place] [address] Niko Karina Potassium [Moles/Vol] 3.6 mmol/L Normal 3.4-5.0 The Comment on above: Performed By: #### B MP #### Laboratory [address] [place] [address] Niko Karina Sodium [Moles/Vol] 142 mmol/L Normal 137-145 [facility] Comment on above: Performed By: #### B MP #### Laboratory [address] [place] [address] Niko Karina Urea nitrogen [Mass/Vol] 7.0 mg/dL Normal 7.0-17.0 The Comment on above: Performed By: #### B MP #### Laboratory [address] [place], [place] [address] Niko Karina Urea nitrogen/Creatinine [Mass ratio] 9.5 mg/mg Normal [facility] Comment on above: Performed By: #### B MP #### Laboratory [address] [place], [place] [address] Niko Karina XR CHEST 2 Von 04-23-2021 [...] by: ANGELLA AU Date: 2021-04-23 10:10 Normal [facility] US BREAST COMPLETE RIGHTon 1 Negative targeted ultrasound in the region of palpable concern. Clinical follow-up is recommended. BI-RADS 1 BIRADS: BIRADS - CATEGORY 1 Negative Mammogram. Normal interval follow-up is recommended in 12 months. OVERALL ASSESSMENT - NEGATIVE A letter of notification will be sent to the patient regarding the results. [employer] recommends annual mammograms for women 40 years and older. [place], [place] EXAMINATION: TARGETED ULTRASOUND OF THE RIGHT BREAST 07/27/2020 COMPARISON: None. HISTORY: ORDERING SYSTEM PROVIDED HISTORY: Cyst of right breast TECHNOLOGIST PROVIDED HISTORY: FINDINGS: Targeted ultrasound was performed in the area of palpable concern. Imaging in the 10-12 o'clock of the right breast reveals no sonographic abnormality. [place], [place] Dany, [facility] Incoming Radiant Results From [employer] - 07/27/2020 2:57 PM EDT EXAMINATION: TARGETED [...] to the patient regarding the results. [employer] recommends annual mammograms for women 40 years and older. [facility] [employer], [place] [facility] 12-21-2019 Erythrocyte distribution width (RBC) [Ratio] 12.9 % 11.8 - 14.4 % [place] Hematocrit (Bld) [Volume fraction] 43.9 % 36.3 - 47.1 % [place] Hemoglobin (Bld) [Mass/Vol] 14.3 g/dL 11.9 - 15.1 g/dL [place] MCH (RBC) [Entitic mass] 29.5 pg 25.2 - 33.5 pg [place] MCHC (RBC) [Mass/Vol] 32.6 g/dL 28.4 - 34.8 g/dL [place] MCV (RBC) [Entitic vol] 90.7 fL 82.6 - 102.9 fL [place] Platelet mean volume (Bld) [Entitic vol] 10.4 fL 8.1 - 13.5 fL [place] Platelets (Bld) [#/Vol] 222 10*3/uL [place] RBC (Bld) [#/Vol] 4.84 10*6/uL 3.95 - 5.1 1 m/uL [place] WBC (Bld) [#/Vol] 7.9 10*3/uL [place] WBC (Bld) [#/Vol] 0.0 10*3/uL 0.0 per 10 0 WBC [place] HCG Qualitative, Serumon hCG Qual Negative NEGATIVE [place], [place] Comment on above: Specimens with hCG l evels near the threshold of the test (25 mIU/mL) may give a negative or indeterminate result. In such cases, another test should be performed with a new specimen in 48-72 hours. If early is suspected clinically in this setting, correlation with quantitative serum b-hCG level is suggested. [employer] has confirmed the use of plasma for this test. This has not been cleared or approved by the U.S. Food and Drug Administration. The FDA has determined that such clearance is not necessary. HCG, Quantitative, Ordered By: Phan Rubi on 11-02-2019 hCG Quant <1 <5 IU/L [facility] [employer] Work Phone: Comment on above: Non-preg premeno [...] differentialon 07-06 Basophils (Bld) [#/Vol] 0.00 10*3/uL [place] Basophils/100 WBC (Bld) 0 % 0 - 2 % M [place] Differential Type NOT REPORTED [place] Eosinophils (Bld) [#/Vol] 0.35 10*3/uL [place] Eosinophils/100 WBC (Bld) 5 % High 1 - 4 % [place] Erythrocyte distribution width (RBC) [Ratio] 13.8 % 11.8 - 14.4 % [place] Hematocrit (Bld) [Volume fraction] 39.1 % 36.3 - 47.1 % [place] Hemoglobin (Bld) [Mass/Vol] 13.1 g/dL 11.9 - 15.1 g/dL [place] Immature granulocytes (Bld) [#/Vol] 0.00 10*3/uL [place] Immature granulocytes (Bld) [#/Vol] 0 % 0 [place] Interpretation and review of laboratory results Abnormal [place] Lymphocytes (Bld) [#/Vol] 2.14 10*3/uL [place] Lymphocytes/100 WBC (Bld) 31 % 24 - 43 % [place] MCH (RBC) [Entitic mass] 31.8 pg 25.2 - 33.5 pg [place] MCHC (RBC) [Mass/Vol] 33.5 g/dL 28.4 - 34.8 g/dL [place] MCV (RBC) [Entitic vol] 94.9 fL 82.6 - 102.9 fL [place] Monocytes (Bld) [#/Vol] 0.48 10*3/uL [place] Monocytes/100 WBC (Bld) 7 % 3 - 12 % [place] Morphology Mahamed (Bld) [Interp] Normal [place] Platelet mean volume (Bld) [Entitic vol] NOT REPORTED 8.1 - 13.5 fL [place] Platelets (Bld) [#/Vol] See Reflexed IPF Result [place] Platelets (Bld) [#/Vol] NOT REPORTED [place] RBC (Bld) [#/Vol] 4.12 10*6/uL 3.95 - 5.1 1 m/uL [place] RBC morphology finding Nom (Bld) NOT REPORTED [place] Segmented neutrophils/100 WBC (Bld) 57 % 36 - 65 % [place] Segs Absolute 3.93 [place] WBC (Bld) [#/Vol] 6.9 10*3/uL [place] WBC (Bld) [#/Vol] 0.0 10*3/uL 0.0 per 10 0 WBC [place] WBC Morphology NOT REPORTED [place] DRUG SCREEN MULTI URINEon Amphetamine Screen, Ur Negative NEGATIVE [place] Barbiturate Screen, Ur Negative NEGATIVE [place] Benzodiazepine Screen, Urine Negative NEGATIVE [place] Buprenorphine Urine Negative NEGATIVE [place] Cannabinoid Scrn, Ur Negative NEGATIVE [place] Cocaine Metabolite, Urine Negative NEGATIVE [place] MDMA, Urine NOT REPORTED NEGATIVE [place] Methadone Screen, Urine Negative NEGATIVE [place] Methamphetamine, Urine Negative NEGATIVE [place] Opiates, Urine Negative NEGATIVE [place] Oxycodone Screen, Ur Negative NEGATIVE [place] Phencyclidine, Urine Negative NEGATIVE [place] Propoxyphene, Urine Negative NEGATIVE [place] Test Information NOT REPORTED [place] Tricyclic Antidepressants, Urine Negative NEGATIVE [place] Comment on above: Drug screen results are to be used for medical purposes only. All positive results are unconfirmed. Testing for employment or legal uses should be sent to a reference laboratory for confirmation. Immature Platelet Fractionon 07-20-2019 Interpretation and review of laboratory results Abnormal [place] Platelet, Fluorescence 125 Low [place] Platelet, Immature Fraction 3.9 % 1.1 - 10.3 % [place] GROUP B STREP DNA PROBE, REF CT TO CULTUREon 07-04-2019 Streptococcus Grp. B, CSF Negative [place] US OB 14 PLUS WEEKS SINGLE O R FIRST GESTATIONon 06-21-2019 A single live intrauterine with estimated gestational age of 36 weeks 3 days by ultrasound. The estimated weight is 2659 g. Cervical length is shortened measuring 2.4 cm [place] EXAMINATION: TRANSABDOMINAL SECOND/THIRD TRIMESTER OBSTETRIC PELVIC [...] 6.8 cm, 41%tile CERVICAL LENGTH: 2.4 cm [place] Dany, Mhpn Incoming Radiant Results From [facility] - 06/21/2019 5:58 PM EDT EXAMINATION: TRANSABDOMINAL [...] Cervical length is shortened measuring 2.4 cm [place] Urinalysis with microscopico n 06-21-2019 Amorphous, UA TRACE Abnormal None [place] Bacteria, UA 1+ Abnormal None [place] Bilirubin Urine Negative NEGATIVE [place] Casts UA NOT REPORTED /LPF [place] Color, UA YELLOW YELLOW [place] Crystals UA NOT REPORTED None /HPF [place] Epithelial Cells UA 5 TO 10 [place] Glucose, Ur Negative NEGATIVE [place] Interpretation and review of laboratory results Abnormal [place] Ketones Ql (U) Negative NEGATIVE [place] Leukocyte esterase Test strip Ql (U) SMALL Abnormal NEGATIVE [place] Mucus, UA TRACE Abnormal None [place] Nitrite, Urine Negative NEGATIVE [place] Other Observations UA NOT REPORTED NOT REQ. [place] pH, UA 6.5 [place] Protein (U) [Mass/Vol] Negative NEGATIVE [place], [place] RBC (U) [#/Vol] None [place], [place] Renal Epithelial, Urine NOT REPORTED 0 /HPF [place] Specific [place], UA 1.025 [place], [place] Trichomonas, UA NOT REPORTED None [facility] [place] Turbidity UA CLEAR CLEAR [place] Urinalysis Comments NOT REPORTED [place] Urine Hgb Negative NEGATIVE [facility], [place] Urobilinogen, Urine Normal Normal [facility], [place] WBC, UA 2 TO 5 [place] Yeast, UA NOT REPORTED None [facility], [place] - [facility], [place] SURGICAL PATH REPORTon 10-15 SURGICAL PATH REPORT Normal [facility] Comment on above: Result Comment: DIAG NOSIS IUD, REMOVAL: GROSS EXAMINATION ONLY CPT 48648 anthony/10/14/2018 Electronically Signed Out by Tian Gonzales [...] is for gross only. [facility] [address] [place] [address] CLIA No. [id number] CAP Accreditation No. [id number] [place] Member: Tony Solomon M.D. [facility] Accession Number: [id number] Performed By: #### P L BIOPSY #### [address] [id number] CBC W Auto Differentialon Age at specimen collection = Normal [facility] Comment on above: Performed By: #### C BC Auto Diff #### [address] [address] Performed By: #### H CG,QUAL SERUM #### [address] [address] Performed By: #### P L BIOPSY #### [address] [address] Abs Neut # 3.1 10 X 3/mm Normal 1.8 - 7.7 [facility] Comment on above: Performed By: #### C BC Auto Diff #### [facility] [address] [place] [address] Basophils/100 WBC (Bld) 1 % Normal 0 - 1 [facility] Comment on above: Performed By: #### C BC Auto Diff #### [facility] [address] [place] [address] Eosinophils #/vol (Bld) 0.2 10 X 3/mm Normal 0.0 - 0.5 [facility] Comment on above: Performed By: #### C BC Auto Diff #### [address] [place] [address] Eosinophils/100 WBC (Bld) 3 % Normal 0 - 5 [facility] Comment on above: Performed By: #### C BC Auto Diff #### [place] [address] [place] [address] Erythrocyte distribution width Ratio (RBC) 13.0 % Normal 11.5 - 14.5 [facility] Comment on above: Performed By: #### C BC Auto Diff #### [address] [place] [address] Hematocrit Volume Fraction (Bld) 42.3 % Normal 36.0 - 47.0 [facility] Comment on above: Performed By: #### C BC Auto Diff #### [address] [place] [address] Hemoglobin mass conc (Bld) 14.6 g/dL Normal 12.0 - 16.0 [facility] Comment on above: Performed By: #### C BC Auto Diff #### [address] [place] [address] Lymphocytes #/vol (Bld) 1.7 10 X 3/mm Normal 1.0 - 4.0 [facility] Comment on above: Performed By: #### C BC Auto Diff #### [facility] [address] [place] [address] Lymphocytes/100 WBC (Bld) 32 % Normal 20 - 40 [facility] Comment on above: Performed By: #### C BC Auto Diff #### [address] [place] [address] MCH Entitic mass (RBC) 31.1 pg Normal 27.0 - 35.0 [facility] Comment on above: Performed By: #### C BC Auto Diff #### [address] [place] [address] MCHC mass conc (RBC) 34.4 g/dL Normal 32.0 - 36.0 [facility] Comment on above: Performed By: #### C BC Auto Diff #### [address] [place] [address] MCV Entitic volume (RBC) 90.5 fL Normal 80.0 - 100.0 [facility] Comment on above: Performed By: #### C BC Auto Diff #### [address] [place] [facility] [place] [address] Monocytes/100 WBC (Bld) 7 % Normal 1 - 15 [facility] Comment on above: Performed By: #### C BC Auto Diff #### [place] [address] [place] [address] Neutrophils/100 WBC (Bld) 57 % Normal 50 - 70 [facility] Comment on above: Performed By: #### C BC Auto Diff #### [address] [place] [address] Platelet mean volume Entitic volume (Bld) 8.9 fL Normal 7.5 - 11.5 [facility] Comment on above: Performed By: #### C BC Auto Diff #### [facility] [address] [place] [address] Platelets #/vol (Bld) 164 uLx10 Normal 150 - 450 [facility] Comment on above: Performed By: #### C BC Auto Diff #### [facility] [address] [place] [address] RBC #/vol (Bld) 4.68 10 X 6/mm Normal 4.20 - 5.40 [facility] Comment on above: Performed By: #### C BC Auto Diff #### [address] [place] [address] WBC #/vol (Bld) 5.5 10 X 3/mm Normal 3.7 - 11.0 [facility] Comment on above: Performed By: #### C BC Auto Diff #### [address] [place] [address] hCG, Qualitative-Serumon Internal Control ACCEPTABLE Normal [facility] Comment on above: Performed By: #### H CG,QUAL SERUM #### [address] [place] [address] hCG, Qualitative-Serum Negative Normal NEGATIVE [facility] Comment on above: Performed By: #### H CG,QUAL SERUM #### [address] [place] [address] SURGICAL PATH REPORTon 08-11 SURGICAL PATH REPORT Normal [facility] Comment on above: Result Comment: DIAG NOSIS A CERVIX, 5:00, LEEP BIOPSY: 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 ns mg [facility]/08/11/2018 MICROSCOPIC DESCRIPTION A Multiple sections of [...] dysplasia or other abnormality. [facility] [address] [place] [address] [employer] Member: Tony Solomon M.D. CLIA No. [id number] CAP Accreditation No. [id number] [facility] Accession Number: [id number] Performed By: #### P L BIOPSY #### [address] [address] CBC W Auto Differentialon Age at specimen collection = Normal [facility] Comment on above: Performed By: #### C BC Auto Diff #### [address] [address] Performed By: #### H CG,QUAL SERUM #### [facility] [address] [place] [address] Performed By: #### P L BIOPSY #### [facility] [address] [place] [address] Abs Neut # 3.9 10 X 3/mm Normal 1.8 - 7.7 [facility] Comment on above: Performed By: #### C BC Auto Diff #### [address] [place] [address] Basophils/100 WBC (Bld) 1 % High 0 - 1 [facility] Comment on above: Performed By: #### C BC Auto Diff #### [address] [place] [address] Eosinophils #/vol (Bld) 0.2 10 X 3/mm Normal 0.0 - 0.5 [facility] Comment on above: Performed By: #### C BC Auto Diff #### [address] [place] [address] Eosinophils/100 WBC (Bld) 4 % Normal 0 - 5 [facility] Comment on above: Performed By: #### C BC Auto Diff #### [address] [place] [address] Erythrocyte distribution width Ratio (RBC) 12.9 % Normal 11.5 - 14.5 [facility] Comment on above: Performed By: #### C BC Auto Diff #### [facility] [address] [place] [address] Hematocrit Volume Fraction (Bld) 47.4 % High 36.0 - 47.0 [facility] Comment on above: Performed By: #### C BC Auto Diff #### [address] [place] [address] Hemoglobin mass conc (Bld) 16.2 g/dL High 12.0 - 16.0 [facility] Comment on above: Performed By: #### C BC Auto Diff #### [facility] [address] [place] [address] Lymphocytes #/vol (Bld) 2.1 10 X 3/mm Normal 1.0 - 4.0 [facility] Comment on above: Performed By: #### C BC Auto Diff #### [address] [place] [address] Lymphocytes/100 WBC (Bld) 31 % Normal 20 - 40 [facility] Comment on above: Performed By: #### C BC Auto Diff #### [address] [place] [address] MCH Entitic mass (RBC) 30.9 pg Normal 27.0 - 35.0 [facility] Comment on above: Performed By: #### C BC Auto Diff #### [address] [place] [address] MCHC mass conc (RBC) 34.1 g/dL Normal 32.0 - 36.0 [facility] Comment on above: Performed By: #### C BC Auto Diff #### [address] [place] [address] MCV Entitic volume (RBC) 90.5 fL Normal 80.0 - 100.0 [facility] Comment on above: Performed By: #### C BC Auto Diff #### [address] [place] [address] Monocytes/100 WBC (Bld) 8 % Normal 1 - 15 [facility] Comment on above: Performed By: #### C BC Auto Diff #### [address] [place] [address] Neutrophils/100 WBC (Bld) 56 % Normal 50 - 70 [facility] Comment on above: Performed By: #### C BC Auto Diff #### [facility] [address] [place] [address] Platelet mean volume Entitic volume (Bld) 8.6 fL Normal 7.5 - 11.5 [facility] Comment on above: Performed By: #### C BC Auto Diff #### [address] [place] [address] Platelets #/vol (Bld) 213 uLx10 Normal 150 - 450 [facility] Comment on above: Performed By: #### C BC Auto Diff #### [address] [address] RBC #/vol (Bld) 5.24 10 X 6/mm Normal 4.20 - 5.40 [facility] Comment on above: Performed By: #### C BC Auto Diff #### [address] [address] WBC #/vol (Bld) 6.9 10 X 3/mm Normal 3.7 - 11.0 [facility] Comment on above: Performed By: #### C BC Auto Diff #### [address] [address] hCG, Qualitative-Serumon Internal Control ACCEPTABLE Normal [facility] Comment on above: Performed By: #### H CG,QUAL SERUM #### [address] [address] hCG, Qualitative-Serum Negative Normal NEGATIVE [facility] Comment on above: Performed By: #### H CG,QUAL SERUM #### [address] [address] Vital Signs Date Time Vital Sign Value Performing Clinician Facility 01-09-2024 09:15-0400 Diastolic blood pressure 76 mm[Hg] Kaila Torresg DO [facility] 01-09-2024 09:15-0400 Heart rate 68 /min Kaila Torresg DO Work Phone[facility] 01-09-2024 09:15-0400 Respiratory rate 16 /min Kaila Torresg DO Work Phone[facility] 01-09-2024 09:15-0400 SaO2% (BldA) [Mass fraction] 100 % Kaila Torresg DO Work Phone: [facility] [employer] 01-09-2024 09:15-0400 Systolic blood pressure 106 mm[Hg] Kaila Torresg DO Work Phone: [facility] 01-09-2024 08:53-0400 Body temperature 97.7 [degF] Kaila Torresg DO Work Phone: [facility] 01-09-2024 06:40-0400 Body height 160 cm Kaila Torresg DO Work Phone: [facility] 01-09-2024 06:40-0400 Body mass index (BMI) [Ratio] 24.3 kg/m2 Kaila Torresg DO Work Phone: [facility] 01-09-2024 06:40-0400 Body weight 62.23 kg Kaila Torresg DO Work Phone: [facility] 10-01-2022 18:15-0500 Diastolic blood pressure 84 mm[Hg] Kaila Torresg DO Work Phone: [facility] 10-01-2022 18:15-0500 Heart rate 66 /min Kaila Torresg DO Work Phone: [facility] 10-01-2022 18:15-0500 Respiratory rate 16 /min Kaila Chi DO Work Phone: [employer] 10-01-2022 18:15-0500 SaO2% (BldA) [Mass fraction] 99 % Kaila Chi DO Work Phone: [facility] [employer] 10-01-2022 18:15-0500 Systolic blood pressure 124 mm[Hg] Kaila Chi DO Work Phone: [employer] 10-01-2022 16:30-0500 Body temperature 97.3 [degF] Kaila Chi DO Work Phone: [employer] 10-01-2022 12:38-0500 Body mass index (BMI) [Ratio] 25.3 kg/m2 Kaila Chi DO Work Phone: [employer] 10-01-2022 12:38-0500 Body weight 64.77 kg Kaila Chi DO Work Phone: [employer] 09-23-2022 15:08-0500 Body height 160 cm Kaila Chi DO Work Phone: [employer] 03-08-2022 16:08-0400 Body temperature 98.2 [degF] Jerrell Westbrook APRN - [employer] Work Phone: [employer] 03-08-2022 16:08-0400 Diastolic blood pressure 67 mm[Hg] Jerrell Westbrook APRN - [employer] Work Phone: [employer] 03-08-2022 16:08-0400 Heart rate 79 /min Jerrell Westbrook APRN - [employer] Work Phone: [facility] [employer] 03-08-2022 16:08-0400 Respiratory rate 16 /min Jerrell Westbrook APRN - CN Work Phone: [facility] [employer] 06-03-2022 16:08-0400 Systolic blood pressure 109 mm[Hg] Jerrell Westbrook APRN - CNM Work Phone: [facility] [employer] 12-19-2021 12:16-0400 Body height 160 cm Jerrell Westbrook APRN - CNM Work Phone: [facility] [employer] 12-19-2021 12:16-0400 Body mass index (BMI) [Ratio] 28.34 kg/m2 Jerrell Westbrook APRN - CNM Work Phone: [facility] 12-19-2021 12:16-0400 Body temperature 98.01 [degF] Jerrell Westbrook APRN - CNM Work Phone: [employer] 12-19-2021 12:16-0400 Body weight 72.58 kg Jerrell Westbrook APRN - CNM Work Phone: [facility] 12-19-2021 12:16-0400 Diastolic blood pressure 69 mm[Hg] Jerrell Westbrook APRN - CNM Work Phone: [employer] 12-19-2021 12:16-0400 Heart rate 85 /min Jerrell Westbrook APRN - CNM Work Phone: [employer] 12-19-2021 12:16-0400 Respiratory rate 18 /min Jerrell Westbrook APRN - CNM Work Phone: [employer] 12-19-2021 12:16-0400 Systolic blood pressure 112 mm[Hg] Jerrell Westbrook APRN - CNM Work Phone: [employer] 12-15-2021 10:01-0500 Body height 160 cm Fito Hutchinson MD Work Phone: [employer] 12-15-2021 10:01-0500 Body mass index (BMI) [Ratio] 28.34 kg/m2 Fito Hutchinson MD Work Phone: [employer] 12-15-2021 10:01-0500 Body temperature 99.1 [degF] Fito Hutchinson MD Work Phone: [employer] 12-15-2021 10:01-0500 Body weight 72.58 kg Fito Hutchinson MD Work Phone: [employer] 12-15-2021 10:01-0500 Diastolic blood pressure 65 mm[Hg] Fito Hutchinson MD Work Phone: [employer] 12-15-2021 10:01-0500 Heart rate 134 /min Fito Hutchinson MD Work Phone: [employer] 12-15-2021 10:01-0500 Respiratory rate 20 /min Fito Hutchinson MD Work Phone: [employer] 12-15-2021 10:01-0500 SaO2% (BldA) [Mass fraction] 97 % Fito Hutchinson MD Work Phone: [employer] 12-15-2021 10:01-0500 Systolic blood pressure 108 mm[Hg] Fito Hutchinson MD Work Phone: [employer] 12-05-2021 17:33-0500 Body height 160 cm Jerrell Westbrook APRN - CNM Work Phone: [employer] 12-05-2021 17:33-0500 Body mass index (BMI) [Ratio] 28.17 kg/m2 Jerrell Westbrook APRN - CNM Work Phone: [employer] 12-05-2021 17:33-0500 Body temperature 98.1 [degF] Jerrell Westbrook APRN - CNM Work Phone: [employer] 12-05-2021 17:33-0500 Body weight 72.12 kg Jerrell Westbrook APRN - CNM Work Phone: [employer] 12-05-2021 17:33-0500 Diastolic blood pressure 67 mm[Hg] Jerrell Westbrook APRN - CNM Work Phone: [employer] 12-05-2021 17:33-0500 Heart rate 82 /min Jerrell Westbrook APRN - CNM Work Phone: [employer] 12-05-2021 17:33-0500 Respiratory rate 16 /min Jerrell Westbrook APRN - CNM Work Phone: [employer] 12-05-2021 17:33-0500 Systolic blood pressure 102 mm[Hg] Jerrell Westbrook APRN - CNM Work Phone: [employer] 08-06-2021 11:28-0400 Body mass index (BMI) [Ratio] 26.85 kg/m2 Danny Mendiola Jr., MD Work Phone: [employer] Work Phone: 08-06-2021 11:28-0400 Body temperature 97 [degF] Danny Mendiola Jr., MD Work Phone: [employer] Work Phone: 08-06-2021 11:28-0400 Body weight 69.85 kg Danny Mendiola Jr., MD Work Phone: [employer] Work Phone: 08-06-2021 11:28-0400 Diastolic blood pressure 81 mm[Hg] Danny Mendiola Jr., MD Work Phone: [employer] Work Phone: 08-06-2021 11:28-0400 Heart rate 89 /min Danny Mendiola Jr., MD Work Phone: [employer] Work Phone: 08-06-2021 11:28-0400 Respiratory rate 20 /min Danny Mendiola Jr., MD Work Phone: [employer] Work Phone: 08-06-2021 11:28-0400 SaO2% (BldA) [Mass fraction] 97 % Danny Mendiola Jr., MD Work Phone: [employer] Work Phone: 08-06-2021 11:28-0400 Systolic blood pressure 108 mm[Hg] Danny Mendiola Jr., MD Work Phone: [employer] Work Phone: 07-20-2021 15:45-0400 Body height 161.29 cm Betty Lamar Other [employer] Other 07-20-2021 15:45-0400 Body temperature 99.4 [degF] Betty Lamar Other [employer] Other 07-20-2021 15:45-0400 SaO2% (BldA) [Mass fraction] 99 % Betty Lamar Other [employer] Other 05-10-2020 14:59-0400 BMI (Body Mass Index) 28 kg/m2 [facility] Work Phone: 05-10-2020 14:59-0400 Body Temperature 95.4 [degF] [facility] Work Phone: 05-10-2020 14:59-0400 Body weight 71.76 kg [facility] Work Phone: 05-10-2020 14:59-0400 BP Diastolic 76 mm[Hg] [facility] Work Phone: 05-10-2020 14:59-0400 BP Systolic 100 mm[Hg] [facility] Work Phone: 05-10-2020 14:59-0400 BSA (Body Surface Area) 1.75 m2 [facility] Work Phone: 05-10-2020 14:59-0400 Height 160.02 cm [facility] Work Phone: 05-10-2020 14:59-0400 Pulse (Heart Rate) 72 /min [facility] Work Phone: 05-10-2020 14:59-0400 Pulse Oximetry 97 % [facility] Work Phone: 05-10-2020 14:59-0400 Respiratory Rate 18 /min [facility] Work Phone: 07-22-2019 08:12-0400 Body Temperature 97.5 [degF] [facility] O , MD 07-22-2019 08:12-0400 BP Diastolic 55 mm[Hg] [facility] , MD 07-22-2019 08:12-0400 BP Systolic 109 mm[Hg] [facility] , MD 07-22-2019 08:12-0400 Pulse (Heart Rate) 81 /min [facility], MD 07-22-2019 08:12-0400 Respiratory Rate 16 /min [facility], [place] 07-20-2019 16:14-0400 Pulse Oximetry 97 % [facility] , MD 07-20-2019 06:20-0400 BMI (Body Mass Index) 32.95 kg/m2 [facility], MD 07-20-2019 06:20-0400 Body weight 84.37 kg [facility] , MD 07-20-2019 06:20-0400 Height 160 cm [facility] , MD 06-21-2019 16:35-0400 BP Diastolic 71 mm[Hg] [facility] , MD 06-21-2019 16:35-0400 BP Systolic 109 mm[Hg] [facility] , MD 06-21-2019 16:35-0400 Pulse (Heart Rate) 92 /min [facility], MD 06-21-2019 15:41-0400 Body Temperature 97.59 [degF] [facility], MD 06-21-2019 15:41-0400 Respiratory Rate 18 /min [facility], [place] 06-01-2019 10:20-0400 BP Diastolic 60 mm[Hg] [facility] Work Phone: 06-01-2019 10:20-0400 BP Systolic 100 mm[Hg] [facility] Work Phone: 06-01-2019 10:20-0400 Height 160.02 cm [facility] Work Phone: 05-17-2019 15:17-0400 BMI (Body Mass Index) 31.2 kg/m2 [facility] Work Phone: 05-17-2019 15:17-0400 Body Temperature 98.1 [degF] [facility] Work Phone: 05-17-2019 15:17-0400 Body weight 79.92 kg [facility] Work Phone: 05-17-2019 15:17-0400 BP Diastolic 82 mm[Hg] [facility] Work Phone: 05-17-2019 15:17-0400 BP Systolic 110 mm[Hg] [facility] Work Phone: 05-17-2019 15:17-0400 BSA (Body Surface Area) 1.83 m2 [facility] Work Phone: 05-17-2019 15:17-0400 Height 160.02 cm [facility] Work Phone: 05-17-2019 15:17-0400 Pulse (Heart Rate) 86 /min [facility] Work Phone: 05-17-2019 15:17-0400 Pulse Oximetry 98 % [facility] Work Phone: 05-17-2019 15:17-0400 Respiratory Rate 14 /min [facility] Work Phone: Encounters Encounter Date Encounter Type Care Provider Facility Start: 01-09-2024 End: 01-09-2024 [facility] Start: 01-09-2024 End: 01-09-2024 Subsequent hospital visit by physician Kaila Chi DO Work Phone: [facility] OR Comment on above: Condyloma acuminatum of vulva Start: 03-26-2023 End: 03-27-[address] [facility] Start: 03-20-2023 End: 03-21-2023 ambulatory [facility]RELL [facility] Start: 03-20-2023 End: 03-20-2023 Subsequent hospital visit by physician Chencho Sylvester APRN - STORAGE SPECIALIST Work Phone: [facility] Laboratory Comment on above: Screen for STD (sexu ally transmitted disease) Start: 02-03-2023 End: 02-04-2023 [facility] Start: 02-03-2023 End: 02-03-2023 Subsequent hospital visit by physician Chencho Sylvester APRN - STORAGE SPECIALIST Work Phone: [facility] Comment on above: Dysuria Start: 10-01-2022 End: 10-01-2022 Subsequent hospital visit by physician Kaila Chi DO Work Phone: [facility] OR Comment on above: Post-op pain (Primar y Dx); Adenomyosis Start: 04-22-2022 End: 04-22-2022 Subsequent hospital visit by physician Chencho Sylvester APRN - STORAGE SPECIALIST Work Phone: [facility] Laboratory Comment on above: Screening for malign ant neoplasm of cervix Start: 03-19-2022 End: 03-19-2022 Subsequent hospital visit by physician Chencho Sylvester APRN - STORAGE SPECIALIST Work Phone: [facility] Laboratory Comment on above: Dysuria Start: 2022 End: 03-08-2022 Evaluation and management of inpatient Jerrell Westbrook TRANSPLANT NURSE PRACTITIONER - CNM Work Phone: [facility] Labor and Delivery Start: 02-13-2022 End: 02-13-2022 Subsequent hospital visit by physician Chencho Sylvester APRN - STORAGE SPECIALIST Work Phone: [facility] Laboratory Comment on above: Abdominal cramping a ffecting Start: 02-13-2022 End: 02-13-2022 Subsequent hospital visit by physician Chencho Sylvester TRANSPLANT NURSE PRACTITIONER - STORAGE SPECIALIST Work Phone: [facility] Laboratory Comment on above: 36 weeks gestation o f Start: 12-19-2021 End: 12-19-2021 Subsequent hospital visit by physician Jerrell Westbrook TRANSPLANT NURSE PRACTITIONER - CN Work Phone: [facility] Labor and Delivery Start: 12-15-2021 End: 12-15-2021 Emergency department patient visit Fito Hutchinson MD Work Phone: [facility] ED Comment on above: Influenza with respi ratory manifestation other than pneumonia (Primary Dx) Start: 12-05-2021 End: 12-05-2021 Subsequent hospital visit by physician Jerrell Westbrook TRANSPLANT NURSE PRACTITIONER - CN Work Phone: [facility] Labor and Delivery Start: 11-06-2021 End: 11-08-2021 Subsequent hospital visit by physician [facility] Ultrasound Room [facility] Ultrasound Comment on above: IUP (intrauterine pr egnancy), incidental; Marginal placenta previa Start: 10-07-2021 End: 10-07-[address] BRITNEY EWING Facility: Start: 08-06-2021 End: 08-06-2021 Emergency department patient visit Danny Mendiola MD Work Phone: [facility] ED Comment on above: Mild hyperemesis gra vidarum, antepartum (Primary Dx) Start: 07-20-2021 Office outpatient vi sit 15 minutes Betty Lamar [facility] Start: 07-18-2021 End: 07-18-2021 Subsequent hospital visit by physician Chencho Sylvester APRN - STORAGE SPECIALIST Work Phone: [facility] Laboratory Start: 07-16-2021 End: 07-16-2021 Subsequent hospital visit by physician Chencho Sylvester TRANSPLANT NURSE PRACTITIONER - STORAGE SPECIALIST Work Phone: [facility] Laboratory Start: 05-24-2021 End: 05-24-[address] KARLO WESTBROOK Facility:H1 Start: 05-21-2021 End: 05-22-2021 ambulatory CORWIN ABREU Facility:H1 Start: 04-23-2021 End: 04-23-2021 ambulatory CHENCHO SYLVESTER Facility:H1 Start: 07-27-2020 End: 07-29-2020 Subsequent hospital visit by physician [facility] Ultrasound Room 2 [facility] Ultrasound Comment on above: Cyst of right breast Start: 05-10-2020 End: 05-10-2020 Established patient Nina Quintana Work Phone: [facility] Work Phone: Start: 12-21-2019 End: 12-21-2019 Subsequent hospital visit by physician Chencho Sylvester [facility] Laboratory Start: 11-04-2019 End: 11-04-2019 Patient encounter procedure Yoel Wright Work Phone: [facility] Work Phone: Start: 11-02-2019 End: 11-02-2019 Subsequent hospital visit by physician Chencho Sylvester TRANSPLANT NURSE PRACTITIONER - STORAGE SPECIALIST Work Phone: [facility] Laboratory Start: 07-20-2019 End: 07-22-2019 Evaluation and management of inpatient Phan Rubi Work Phone: [facility] Labor and Delivery Start: 07-13-2019 End: 07-13-2019 Patient encounter procedure Yoel Wright Work Phone: [facility] Work Phone: Start: 07-06-2019 End: 07-06-2019 Patient encounter procedure Yoel Wright Work Phone: [facility] Work Phone: Start: 06-21-2019 End: 06-21-2019 Subsequent hospital visit by physician Phan Rubi Work Phone: [facility] Labor and Delivery Start: 06-03-2019 End: 06-03-2019 Patient encounter procedure Miya Mcmillan Work Phone: [facility] Work Phone: Start: 06-01-2019 Comprehensve oral evaluation Yoel Wright Work Phone: [facility] Work Phone: Start: 06-01-2019 End: 06-01-2019 Patient encounter procedure Yoel Wright Work Phone: [facility] Work Phone: Start: 05-17-2019 End: 05-17-2019 Established patient Kandi Walters Work Phone: [facility] Work Phone: Start: 10-13-2018 End: 10-13-2018 Patient encounter procedure [facility] Start: 08-07-2018 End: 08-07-2018 Patient encounter procedure [facility] Procedures Date Procedure Procedure Detail Performing Clinician Start: 03-20-2023 Iadna munira species direct probe tq Jerrell Westbrook TRANSPLANT NURSE PRACTITIONER - CNM Work Phone: Start: 02-03-2023 Urinalysis microscopic only Jerrell Westbrook TRANSPLANT NURSE PRACTITIONER - CNM Work Phone: Start: 02-03-2023 Urnls dip stick/tablet rgnt auto w/o microscopy Jerrell Westbrook TRANSPLANT NURSE PRACTITIONER - CNM Work Phone: Start: 10-01-2022 Urine test visual color cmprsn meths Love Westbrook TRANSPLANT NURSE PRACTITIONER - TELECOMMUNICATIONS PROJECT MANAGER Work Phone: Start: 04-22-2022 Microscopic observation [Identifier] in Cervix by Cyto stain Kaila Chi DO Work Phone: Start: 2022 Blood count complete auto&auto difrntl wbc Jerrell Westbrook TRANSPLANT NURSE PRACTITIONER - CNM Work Phone: Start: 2022 Drug tst prsmv instrmnt chem analyzers pr date Jerrell Westbrook TRANSPLANT NURSE PRACTITIONER - CNM Work Phone: Start: 12-19-2021 Urinalysis microscopic only Jerrell Khan TRANSPLANT NURSE PRACTITIONER - CNM Work Phone: Start: 12-19-2021 Urnls dip stick/tablet rgnt auto w/o microscopy Jerrell Solisjayda TRANSPLANT NURSE PRACTITIONER - CNM Work Phone: Start: 12-15-2021 COVID-19, RAPID Fito Hutchinson MD Work Phone: Start: 12-15-2021 Iaadiadoo influenza Fito Hutchinson MD Work Phone: Start: 12-05-2021 Urinalysis microscopic only Jerrell Ramirezkarly Westbrook TRANSPLANT NURSE PRACTITIONER - CNM Work Phone: Start: 12-05-2021 Urnls dip stick/tablet rgnt auto w/o microscopy Jerrell Ramirezkarly Westbrook TRANSPLANT NURSE PRACTITIONER - CNM Work Phone: Start: 11-06-2021 Us [...] Appendectomy Kandi Romeo Start: 05-17-2019 currently Kandi Collier Start: 05-17-2019 DEPRESSION Kandi Walters Start: 05-17-2019 [...] of 2) Shingles Vaccine (1 of 2) [place], [place] Start: 01-08-2032 DTaP/Tdap/Td vaccine (3 - Td or Tdap) DTaP/Tdap/Td vaccine (3 - Td or Tdap) [facility] Start: 04-23-2029 DTaP/Tdap/Td vaccine (2 - Td or Tdap) DTaP/Tdap/Td vaccine (2 - Td or Tdap) [facility] Start: 04-22-2027 Screening for malign ant neoplasm of cervix [facility] Start: 04-22-2025 Screening for malign ant neoplasm of cervix Pap smear [facility] Start: 12-14-2024 [facility] Start: 05-06-2024 Influenza vaccination Flu vacc ine (Season Ended) [facility] Start: 03-23-2024 End: 03-23-2024 Patient encounter procedure [facility] Comment on above: yearly Start: 01-21-2024 HPV vaccine (3 - 3-d ose SCDM series) HPV vaccine (3 - 3-dose SCDM series) [facility] Start: 01-21-2024 End: 01-21-2024 Patient encounter procedure 01/21/2024 9:45 AM EDT Office Visit [facility] [address] [facility] [facility] [address] [place] [address] Dennise Macias PA-C [address] [place] [address] f/u from condyloma removal BA 12/16 [facility] Comment on above: f/u from condyloma r emoval BA 12/16 Start: 01-09-2024 End: 01-09-2024 Destruction lesions vulva extensive VULVA LESION BIOPSY EXCISION Condyloma acuminatum of vulva 01/09/2024 8:15 AM EDT [facility] Start: 05-06-2023 Influenza vaccination Flu vacc ine (Season Ended) [facility] Start: 03-20-2023 End: 03-20-2023 Patient encounter procedure 03/20/2023 Office Visit Obstetrics and Gynecology Jerrell Westbrook APRN - JOSÉ MIGUEL [address] [place] [address] [id number] [facility] Start: 11-05-2022 End: 11-05-2022 Patient encounter procedure 11/05/2022 Office Visit Obstetrics and Gynecology Kaila Buckley DO [address] [place] [address] [facility] Start: 10-09-2022 End: 10-09-2022 Patient encounter procedure 10/09/2022 Office Visit Obstetrics and Gynecology Dennise Macias, MAJNU [address] [place] [address] [facility] Start: 10-01-2022 End: 10-01-2022 Laps total hysterect 250 gm/< w/rmvl tube/ovary HYSTERECTOMY VAGINAL LAPAROSCOPIC ROBOTIC ASSISTED Adenomyosis 10/01/2022 1:56 PM EST [facility] Start: 06-06-2022 Influenza vaccination [facility] Start: 05-21-2022 End: 05-21-2022 Patient encounter procedure 05/21/2022 Office Visit Obstetrics and Gynecology Kaila Buckley DO [address] [place] [address] [facility] Start: 05-06-2022 Influenza vaccination Flu vaccine (# 1) [facility] Start: 04-22-2022 End: 04-22-2022 ambulatory 04/22/2022 Visit Obstetrics and Gynecology Jerrell Westbrook APRN - CNM [address] [place], [place] [id number] [facility] Start: 2022 Screening for malign ant neoplasm of cervix [facility] Start: 02-20-2022 End: 02-20-2022 Patient encounter procedure 02/20/2022 Routine Obstetrics and Gynecology Jerrell Westbrook APRN - CNM [address] [place], [place] [id number] [facility] Start: 02-20-2022 End: 02-20-2022 Professional / ancillary services management 02/20/2022 Ancillary Procedure Obstetrics and Gynecology [facility] Start: 01-07-2022 End: 01-07-2022 Patient encounter procedure 01/07/2022 Routine Obstetrics and Gynecology Jerrell Westbrook APRN - CNM [address] [place], [place] [id number] [facility] Start: 01-07-2022 End: 01-07-2022 Professional / ancillary services management 01/07/2022 Ancillary Procedure Obstetrics and Gynecology [facility] Start: 12-11-2021 End: 12-11-2021 Patient encounter procedure 12/11/2021 Routine Obstetrics and Gynecology Jerrell Westbrook APRN - CNM [address] [place] [address] [facility] Start: 06-06-2021 Influenza vaccination Flu vaccine (# 1) [facility] Start: 06-06-2020 Influenza vaccination Flu vaccine (# 1) [place], [place] Start: 05-23-2020 [facility] Work Phone: Start: 06-06-2019 Influenza vaccination Flu vaccine (# 1) [place], [place] Start: 06-01-2019 Dental Comp Exam [facility] Work Phone: Start: 2013 Cervical cancer screen Cervical canc er screen [place], [place] Start: 2013 Screening for malign ant neoplasm of cervix [facility] Start: 2011 DTaP/Tdap/Td vaccine (1 - Tdap) DTaP/Tdap/Td vaccine (1 - Tdap) [place], [place] Start: 10-11-2009 Varicella vaccine (1 of 2 - 2-dose childhood series) Varicella vaccine (1 of 2 - 2-dose childhood series) [facility] Start: 2007 HIV screen HIV screen [place], [place] Start: 2007 HIV screening HIV screen [facility] Start: 2005 Varicella Vaccine (1 of 2 - 13+ 2-dose series) Varicella Vaccine (1 of 2 - 13+ 2-dose series) [place], [place] Start: 2004 COVID-19 Vaccine (1) COVID-19 Vaccin e (1) [facility] Work Phone: Start: 2004 Depression Monitoring Depression [facility] Start: 2003 DTaP/Tdap/Td vaccine (1 - Tdap) DTaP/Tdap/Td vaccine (1 - Tdap) [facility] Work Phone: Start: 1997 COVID-19 Vaccine (1) COVID-19 Vaccin e (1) [facility] Start: 1993 Varicella vaccine (1 of 2 - 2-dose childhood series) Varicella vaccine (1 of 2 - 2-dose childhood series) [email or web address] Phone: Start: 1992 COVID-19 Vaccine (#1) COVID-19 Vacci ne (#1) [facility] [employer] Start: 1992 Hepatitis B vaccine (1 of 3 - 3-dose series) Hepatitis B vaccine (1 of 3 - 3-dose series) [facility] [facility] [employer] Start: 1992 Hepatitis C screening Hepatitis C sc reen [employer] End: 06-21-2019 Bacteria identified Cx Nom (U) Urine Culture Microbiology Routine One Time for 1 Occurrences starting 06/21/2019 until 06/21/2019 [employer] [place], [place] Comment on above: One Time for 1 Occur rences starting 06/21/2019 until 06/21/2019 End: 12-19-2021 Bacteria identified in Urine by Culture Urine culture Microbiology Routine One Time for 1 Occurrences starting 12/19/2021 until 12/19/2021 [email or web address] Phone: Comment on above: One Time for 1 Occur rences starting 12/19/2021 until 12/19/2021 End: 03-20-2023 C.trachomatis N.gonorrhoeae DNA [employer] Comment on above: 1 Occurrences starti ng 03/20/2023 until 03/20/2023 End: 02-13-2022 Culture, Strep B Screen, Vaginal/Rectal [email or web address] Phone: Comment on above: 1 Occurrences starti ng 02/13/2022 until 02/13/2022 End: 12-05-2021 Culture, Urine Culture, Urine Microbiology Routine One Time for 1 Occurrences starting 12/05/2021 until 12/05/2021 [email or web address] Phone: Comment on above: One Time for 1 Occur rences starting 12/05/2021 until 12/05/2021 End: 02-13-2022 Culture, Urine [email or web address] Phone: Comment on above: 1 Occurrences starti ng 02/13/2022 until 02/13/2022 End: 03-19-2022 Culture, Urine [facility] [employer] Work Phone: Comment on above: 1 Occurrences starti ng 03/19/2022 until 03/19/2022 End: 02-03-2023 Culture, Urine [email or web address] Phone: Comment on above: 1 Occurrences starti ng 02/03/2023 until 02/03/2023 End: 04-22-2022 Cytopathology procedure, preparation of smear, genital source [facility] Routine Screening for malignant neoplasm of cervix 1 Occurrences starting 04/22/2022 until 04/22/2022 [email or web address] Phone: Comment on above: 1 Occurrences starti ng 04/22/2022 until 04/22/2022 End: 07-20-2019 DRUG SCREEN MULTI URINE DRUG SCREEN MULTI URINE Lab Routine One Time for 1 Occurrences starting 07/20/2019 until 07/20/2019 [employer] Comment on above: One Time for 1 Occur rences starting 07/20/2019 until 07/20/2019 End: 06-21-2019 nonstress test nonstress test OB Routine One Time for 1 Occurrences starting 06/21/2019 until 06/21/2019 [employer] Comment on above: One Time for 1 Occur rences starting 06/21/2019 until 06/21/2019 End: 10-01-2022 INITIATE PACU OXYGEN THERAPY PROTOCOL Initiate PACU Oxygen Therapy Protocol Respiratory Care Routine Continuous until discontinued starting 10/01/2022 [employer] Comment on above: Continuous until dis continued starting 10/01/2022 Nonrebreather mask oxygen Nonrebreather mask oxygen Respiratory Care Routine As directed - RT (PRN) until discontinued starting 07/20/2019 [employer] Comment on above: As directed - RT (SC N) until discontinued starting 07/20/2019 Nonrebreather mask oxygen Nonrebreather mask oxygen Respiratory Care Routine As directed - RT (PRN) until discontinued starting 12/05/2021 [email or web address] Phone: Comment on above: As directed - RT (SC N) until discontinued starting 12/05/2021 Nonrebreather mask oxygen Nonrebreather mask oxygen Respiratory Care Routine As directed - RT (PRN) until discontinued starting 12/19/2021 [email or web address] Phone: Comment on above: As directed - RT (SC N) until discontinued starting 12/19/2021 Oxygen therapy [Mini mum Data Set] Initiate Oxygen Therapy Protocol Respiratory Care Routine As Needed until discontinued starting 10/01/2022 [email or web address] Phone: Comment on above: As Needed until disc ontinued starting 10/01/2022 Oxygen therapy [Mini mum Data Set] Initiate Oxygen Therapy Protocol Respiratory Care Routine As Needed until discontinued starting 01/09/2024 [employer] Comment on above: As Needed until disc ontinued starting 01/09/2024 End: 10-01-2022 , urine POCT , urine POCT Point of Care Testing Routine One Time for 1 Occurrences starting 10/01/2022 until 10/01/2022 [email or web address] Phone: Comment on above: One Time for 1 Occur rences starting 10/01/2022 until 10/01/2022 End: 01-09-2024 , urine POCT , urine POCT Point of Care Testing Routine One Time for 1 Occurrences starting 01/09/2024 until 01/09/2024 [employer] Comment on above: One Time for 1 Occur rences starting 01/09/2024 until 01/09/2024 End: 07-21-2019 Surgical Pathology Surgical Pathology Lab Routine Once for 1 Occurrences starting 07/21/2019 until 07/21/2019 [employer], [place] Comment on above: Once for 1 Occurrenc es starting 07/21/2019 until 07/21/2019 Surgical Pathology Surgical Path ology Lab Routine Adenomyosis Release Upon Ordering for 1 Occurrences starting 10/01/2022 [email or web address] Phone: Comment on above: Release Upon Orderin g for 1 Occurrences starting 10/01/2022 Surgical Pathology Surgical Path ology Lab Routine Condyloma acuminatum of vulva Release Upon Ordering for 1 Occurrences starting 01/09/2024 [employer] Comment on above: Release Upon Orderin g for 1 Occurrences starting 01/09/2024 End: 10-01-2022 SURGICAL PATHOLOGY REPORT SURGICAL PATHOLOGY REPORT Lab Routine Once for 1 Occurrences starting 10/01/2022 until 10/01/2022 [facility] [facility] [employer] [facility] [employer] Phone: Comment on above: Once for 1 Occurrenc es starting 10/01/2022 until 10/01/2022 End: 12-05-2021 SVE SVE Point of Care Testing Routine One Time for 1 Occurrences starting 12/05/2021 until 12/05/2021 [email or web address] Phone: Comment on above: One Time for 1 Occur rences starting 12/05/2021 until 12/05/2021 End: 12-19-2021 SVE SVE Point of Care Testing Routine One Time for 1 Occurrences starting 12/19/2021 until 12/19/2021 [email or web address] Phone: Comment on above: One Time for 1 Occur rences starting 12/19/2021 until 12/19/2021 Immunizations Immunization Date Immunization Notes Care Provider L[facility] 2022 diphtheria, tetanus toxoids and acellular pertussis vaccine, unspecified formulation Jerrell De TRANSPLANT NURSE PRACTITIONER - [facility] Work Phone: [facility] [employer] [facility] Work Phone: 2022 measles, mumps and rubella virus vaccine Jerrell De TRANSPLANT NURSE PRACTITIONER - CN Work Phone: [facility] Work Phone: 01-07-2022 tetanus toxoid, redu suresh diphtheria toxoid, and acellular pertussis vaccine, adsorbed Chencho Sylvester TRANSPLANT NURSE PRACTITIONER - [facility] Work Phone: [facility] [employer] 10-09-2020 influenza virus vacc ine, unspecified formulation [facility] Work Phone: 04-23-2019 tetanus toxoid, redu suresh diphtheria toxoid, and acellular pertussis vaccine, adsorbed [facility] Work Phone: 09-13-2009 novel Influenza-H1N1 -09, live virus for nasal administration [facility] Work Phone: Payers Date Payer Category Payer Unknown [id number] 2021 Unknown UMR UMR [id number] 44 2021-Present [phone] [address] [address] [place] [address] [id number] 2016 Medicaid [id number] 2016 Unknown [employer] xxxxxxxxxxx 2016-Present [phone] [address] [place] [address] xxxxxxxxxxx [id number] 2013 Unknown [id number] 1992 Unknown [id number] 1992 Unknown [id number] 1992 Unknown [id number] 1992 Unknown [id number] 1992 Unknown [id number] 1992 Unknown [id number] 1992 Unknown [id number] 1992 Unknown [id number] 1992 Unknown [id number] 1992 Unknown [id number] 1959 Medicaid [id number] 1959 Unknown [id number] 1959 Unknown [id number] Social History Date Type Detail Facility Assertion [facility] Work Phone: Assertion Gender identity finding (finding) [facility] Work Phone: Assertion Finding of sexua l orientation (finding) [facility] Work Phone: Assertion Sexually active (finding) [facility] Work Phone: Tobacco smoking status Unknown if ever sm oked [facility] Work Phone: Start: 05-12-2019 End: 09-24-2022 Tobacco smoking status NHIS Never smoker [place], [place] Start: 05-12-2019 End: 12-15-2023 Alcohol intake Yes [place], [place] Start: 11-04-2015 Alcohol Comment occ [place], [place] Start: 11-01-2018 [place], [place] Start: 1992 Sex Assigned At Not on file M [place], [place] Start: 07-20-2019 Alcohol intake Current drinke r of alcohol (finding) [facility] Work Phone: Assertion Problem situatio n relating to social and personal history (finding) [facility] Work Phone: Assertion Emotional stress (finding) [facility] Work Phone: Start: 07-20-2019 End: 09-24-2022 Tobacco use and exposure Never used [place], [place] Start: 02-03-2022 End: 10-01-2022 Exposure to SARS-CoV-2 (event) Not sure [employer] ANALY [employer]URK Start: 05-16-2021 End: 01-09-2024 Alcohol intake Ex-drinker (finding) [employer] Work Phone: Exposure to SARS-CoV -2 (event) Yes [employer] Work Phone: Start: 1992 Sex Assigned At Female [employer] Start: 12-15-2023 End: 01-09-2024 History of Social function [employer] Start: 02-07-2022 Gender identity Identifies as female gender (finding) [employer] Start: 02-07-2022 Sexual orientation Heterosexual (fin ding) [employer] NEGATED: Highlighted row Assertion [facility] [employer] [facility] Work Phone: NEGATED: Highlighted row Assertion Illicit drug use (finding) [facility] Work Phone: NEGATED: Highlighted row Assertion Misuse of prescription only drugs (finding) [facility] Work Phone: NEGATED: Highlighted row Assertion Exposure to pollution (event) [facility] [employer] [facility] Work Phone: NEGATED: Highlighted row Assertion Tobacco user (finding) [facility] Work Phone: NEGATED: Highlighted row Assertion Current drinker of alcohol (finding) [facility] Work Phone: NEGATED: Highlighted row Assertion Finding relating to drug misuse behavior (finding) [facility] Work Phone: Goals Date Patient Goal Desired Activity /State Personal health goal Mental Status Date Assessment Result Facility Cognitive function Oriented to t brandon, place, and person Oriented to person, time and place (finding) [facility] Work Phone: Clinical Notes 07-20-2021 to 01-09-2024 [...] prior to surgery. documented in this encounter [facility] 01-09-2024 Hospital Discharg e Dennise Schaefer [...] call if excessive. Call the office at [phone] ([place]) [phone] ([place]) for an appointment in 2 weeks. documented in this encounter [facility] 10-01-2022 History of Presen t illness [...] phone call. documented in this encounter [facility] Phone: 10-01-2022 Hospital Discharg e instructions Dennise [...] [place] in [address] Peraza -- [place] office [phone] [place] office [phone] documented in this encounter [facility]: 03-08-2022 Hospital Discharg Katie Estrada RN - 03/08/2022 Follow-up with your OB doctor as specified. [facility] OB Department phone: Dr. Clarissa Shrestha [facility] Dr. Stu Westbrook [address] [facility] [address] [place] or Home DIET Eat a well balanced diet focusing on foods high in fiber and protein. Drink plenty of fluids especially water. To avoid constipation you may take a mild stool softener as recommended by your doctor or insole filler. ACTIVITY Gradually increase your activity. Resume exercise regimen only after advice by your doctor or insole filler. Avoid lifting anything heavier than a gallon of milk for SIX weeks. Avoid driving until your doctor or insole filler has given their approval. Rise slowly from [...] medications as recommended by your doctor or insole filler for pain If you develop a warm, [...] vitamins as directed by your doctor or insole filler. Refer to the booklet in the folder/binder for more information. If you feel you need more assistance or have questions, please call Sarah Stevens IBCARLA, it architecture consultant, at or the OB department to [...] calf. documented in this encounter [facility] [employer] Work Phone: 03-08-2022 Hospital course Narrative Obstetrical [...] NONREACTIVE Final HIV: No results found for: [id number] Results for orders placed or performed during [...] # 1.78 1.10 - 3.70 k/uL Absolute Mathews # 0.59 0.10 - 1.20 k/uL Absolute [...] 2 weeks documented in this encounter [facility] Phone: 2022 History of Presen t illness Narrative Jerrell Westbrook CNM at bedside for delivery Call placed to jerrell westbrook CNM letting her know patient is complete. She is on her way to room for delivery TELECOMMUNICATIONS PROJECT MANAGER Errol at bedside at [address] epidural, timeout performed at 1521, patient sat up and placed into position to receive epidural, RN remained at bedside with continuous pulse ox monitoring applied. Patient tolerated procedure well, laid back into bed with call light in reach, denies any further needs at this time, will continue to monitor TELECOMMUNICATIONS PROJECT MANAGER notified patient requesting epidural Ok per Jerrell Westbrook CNM for patient to have epidural Patient requesting epidural, fluid bolus started Dr. Crespo present at nurses station and is updated that patient is here for elective induction, gbs negative. Routine nursery order set received. documented in this encounter [facility] Phone: 12-19-2021 Hospital Discharg Brianna Aiken RN [...] to find a good position during intercourse. [place] and explore. You may get cramps in [...] Where can you learn more? Go to [email or web address] and sign in to your [facility] account. Enter S999 in the Search Health Information box to learn more about Weeks 26 to 30 of Your : Care Instructions. If you do not have an account, please click on the Sign Up Now link. Current as of: March 21, 2021 Content Version: 13. [employer]. Care instructions adapted under license by [employer] If you have questions about a medical condition or this instruction, always ask your healthcare professional. [employer] disclaims any warranty or liability for your use of this information. The following attachments cannot be sent through [employer] Everywhere.: Hyperemesis Gravidarum (Citizen [place])documented in this encounter [employer] Work Phone: 12-05-2021 History of Presen t illness Narrative Pt amb off unit in stable condition. DC instructions reviewed with pt. No questions noted. Phenergan script called into [employer] [employer] [facility] [employer]. MILDRED kinsey'greyson. Pt dressed. Pt updated that [...] up to BR. documented in this encounter [email or web address] Phone: 12-05-2021 Hospital Discharg e Sheila Low RN - 12/05/2021 Home Undelivered Discharge Instructions After Discharge Orders: Future Appointments Date Time Provider Department Center 12/11/2021 10:30 AM MONTY Galicia CNM [place] [facility] 01/07/2022 11:00 AM [facility] TI[facility] CASTING FINISHER ULTRASOUND [place] [facility] 01/07/2022 11:30 AM MONTY Galicia CNM [place] [facility] Diet: clear liquids Rest: normal activity as tolerated Other instructions: Do kick counts once a day on your baby. Choose the time of day your baby is most active. Get in a comfortable lying or sitting position and time how long it takes to feel 10 kicks, twists, turns, swishes, or rolls. Call your physician or insole filler if there have not been 10 kicks in 2 hours Call physician or insole filler, return to Labor and Delivery, call 911, [...] called in to [facility] holden here in [place]. documented in this encounter [email or web address] Phone: 08-06-2021 Hospital Discharg Danny Blackwell Jr., MD - 08/06/2021 Clear liquid diet until tomorrow morning. Please try the Reglan and/or Phenergan to help with your vomiting. The following attachments cannot be sent through Care Everywhere.: Hyperemesis Gravidarum (Citizen [place])documented in this encounter [email or web address] Phone: 07-20-2021 Evaluation note Encounter Date Diagnosis [...] Patient care instructions given in writting by [facility] Care At Home document. Skicka Tårta Other Evaluation note* Diagnosis Mild hyperemesis gravidarum, antepartum- Primary documented in this encounter [email or web address] Phone: evaluation note* Diagnosis IUP (intrauterine ), incidental state, incidental Marginal placenta previa Hemorrhage from placenta previa, unspecified as to episode of care documented in this encounter [email or web address] Phone: evaluation note* Diagnosis Emesis, persistent- Primary Persistent vomiting documented in this encounter [email or web address] Phone: [email or web address] note* Diagnosis Influenza with respiratory manifestation other than pneumonia- Primary Influenza with other respiratory manifestations documented in this encounter [email or web address] Phone: evaluation note* Diagnosis 27 weeks gestation of - Primary state, incidental documented in this encounter [email or web address] Phone: evaluation note* Diagnosis 36 weeks gestation of state, incidental documented in this encounter [email or web address] Phone: evaluation note* Diagnosis Abdominal cramping affecting documented in this encounter [email or web address] Phone: evaluation note* Diagnosis Encounter for supervision of normal in third trimester- Primary Supervision of other normal Normal delivery documented in this encounter [email or web address] Phone: evaluation note* Diagnosis Dysuria documented in this encounter [email or web address] Phone: evaluation note* Diagnosis Screening for malignant neoplasm of cervix Screening for malignant neoplasm of the cervix documented in this encounter [email or web address] Phone: evalywjmcg note* Diagnosis Post-op pain- Primary Other acute postoperative pain Adenomyosis Endometriosis of uterus documented in this encounter [email or web address] Phone: evaluation note* Diagnosis Dysuria documented in this encounter [email or web address] Phone: evaluation note* Diagnosis Screen for STD (sexually transmitted disease) Screening examination for venereal disease documented in this encounter [employer] note* Diagnosis Condyloma acuminatum of vulva Condyloma acuminatum documented in this encounter [facility] Narrative - Reported* Type Description Date Surgical History appendectomy Surgical History LEAP Hospitalization History see above [employer] Other Hospital Discharge instructions* Attachments The following attachments cannot be sent through Care Everywhere. * Influenza (Citizen [place]) [facility] Phone: reason for visit Narrative* Auth/Cert Specialty Diagnoses / Procedures Referred By Les t Referred To Contact Diagnoses Encounter for supervision of normal in third trimester Jerrell Westbrook, MONTY - JOSÉ MIGUEL [address] [place] [address] [address] DULCE MARIA Compring [address] [place] [address] Referral ID Status Reason Start Date Expiration Date Visits Re quested Visits Authorized [id number] 1 1 [employer] Work Phone: Summary Purpose Family History No Family History Records Found Description Last Updated Maternal history of oncologic disorder 0 05/17/2019 Maternal history of respiratory disorder 05/17/2019 Advance Directives No Advanced Directives Records FoundDocuments on File Type Date Recorded Patient Proof Plate Maker Expl anation Advance Directives and Living Will Power of Bicycle Service Technician Latest Code Status on File Code Status [...] Documents on File Type Date Recorded Patient Proof Plate Maker Expl anation ACP-Advance Directive ACP-Power of Bicycle Service Technician Latest Code Status on File Code Status Date Activated Date Inactivated Comments Full Code 07/20/2019 4:48 PM 07/22/2019 12:24 PM Full Code 07/20/2019 5:55 AM 07/20/2019 4:48 PM Full Code 04/19/2019 5:15 PM 04/19/2019 8:18 PM Documents on File Type Date Recorded Patient Proof Plate Maker Expl anation ACP-Advance Directive ACP-Power of Bicycle Service Technician Latest Code Status on File Code Status [...] Medical Establi shed Patient with Kandi Walters STORAGE SPECIALIST 05/17/2019 Routine pre-employment scree bryant examination Medical Established Patient with Kandi Walters STORAGE SPECIALIST 05/17/2019 Z68.31 - Body mass index (BM I) 31.0-31.9, adult Medical Established Patient with Kandi Walters STORAGE SPECIALIST 05/17/2019 Diagnosis Vaginal delivery Normal delivery Findings Encounter Date Anxiety disorder NOS BH Established [place] ent with Nina Short LISWS 05/10/2020 Mild recurrent major depression BH Estab lished Patient with Nina Short LISWS 05/10/2020 Body mass index Medical Established Patient with Chencho Caien STORAGE SPECIALIST 05/10/2020 Overweight Medical Established Patient with Chencho Higinio STORAGE SPECIALIST 05/10/2020 PHQ-9: total score was 0 Medical Establi shed Patient with Kandi Walters STORAGE SPECIALIST 05/17/2019 Routine pre-employment scree bryant examination Medical Established Patient with Kandi Walters STORAGE SPECIALIST 05/17/2019 Z68.31 - Body mass index (BM I) 31.0-31.9, adult Medical Established Patient with Kandi Walters STORAGE SPECIALIST 05/17/2019 Diagnosis Cyst of right breast Instructions [...] Lou RN - 06/21/2019 4:39 PM EDT agricultural engineering technicians at bedside. * Soco Lou RN - [...] RN - 06/21/2019 OUTPATIENT DISCHARGE Bettina Dominguez [facility] Lisa or Ge Dr. Rubi Jerrell Oseguera [facility] Julisa ACEVESM ACTIVITY LIMITATIONS: ( x )Up [...] Follow-up with your OB doctor as specified. [facility] OB Department phone: Dr. Rubi [address] [place] [address] DIET Eat a well balanced diet focusing on foods high in fiber and protein. Drink plenty of fluids especially water. To avoid constipation you may take a mild stool softener as recommended by your doctor or insole filler. ACTIVITY Gradually increase your activity. Resume exercise regimen only after advice by your doctor or insole filler. Avoid lifting anything heavier than a gallon of milk for SIX weeks. Avoid driving until your doctor or insole filler has given their approval. Rise slowly from [...] medications as recommended by your doctor or insole filler for pain If you develop a warm, [...] vitamins as directed by your doctor or insole filler. Refer to the booklet in the folder/binder for more information. If you feel you need more assistance or have questions, please call Sarah Stevens IBCLC, it architecture consultant, at or the OB department to [...] this encounter Hospital Course * Zulema Shrestha, TRANSPLANT NURSE PRACTITIONER - CNM - 07/22/2019 8:26 AM EDT [...] negative Final HIV: No results found for: [id number] @MOM(LABLAST,GBSEXTERN,GONEXTERN,CTRACHEXT,RUBEXTERN,HEPBEXTERN,RPREXTERN,HIVEXT ELIZABETH,RHEXTERN,ABOEXTERN)@ complications: none Discharge Medication: Mariah Carballo Home Medication Instructions VANIA:[id number] Printed on:07/22/19 0826 Medication Information doxyLAMINE succinate [...] COMPLETE RIGHT Phan Rubi MD [address] [place] [address] Specialty Diagnoses / Procedures Referred By Contac t Referred To Contact Radiology Diagnoses Marginal placenta previa Procedures US OB TRANSVAGINAL Phan Rubi MD [address] [place] [address] Referral ID Status Reason Start Date Expiration Date Visits Re quested Visits Authorized [id number] Open 11/06/2021 11/06/2022 1 1 Specialty Diagnoses / Procedures Referred By Les crisostomo Referred To Contact Radiology Diagnoses IUP (intrauterine ), incidental Procedures US OB DETAIL ANATOMY SINGLE OR FIRST GESTATION Phan Rubi MD [address] [place] [address] Referral ID Status Reason Start Date Expiration Date V isits Requested Visits Authorized [id number] Pending Review 11/05/2021 10/31/2022 1 1 Additional Source Comments INFORMATION SOURCE (unrecogn ized section and content) DATE CREATED AUTHOR 10/23/2018 [facility] DATE CREATED AUTHOR AUTHOR'S ORGANIZ ATION 04/11/2022 [facility] DATE CREATED AUTHOR AUTHOR'S ORGANIZ ATION 01/14/2024 [facility] Evaluations & Outcomes (unre cognized section [...] and Delivery Phan Rubi MD [address] [place] [address] [facility] Status Reason Specialty Diagnoses / Procedures Referred By Contact Referred To Contact Pending Review Radiology Diagnoses Breast cyst Procedures HC US BREAST COMP Phan Rubi MD [address] [place] [address] [facility] Ultrasound [address] [place] [address] Reason Comments Emesis vomiting ongoing for 3 days, ob wanted her to come here to be checked for dehydration Specialty Diagnoses / Procedures Referred By Les crisostomo Referred To Contact Radiology Diagnoses IUP (intrauterine ), incidental Procedures US OB DETAIL ANATOMY SINGLE OR FIRST GESTATION Phan Rubi MD [address] [place] [address] Referral ID Status Reason Start Date Expiration Date V isits Requested Visits Authorized [id number] Pending Review 11/05/2021 10/31/2022 1 1 Reason [...] Adenomyosis HX OF CERVICAL DYSPLASIA, ADENOMYOSIS Procedures SC LAPAROSCOPY W TOT HYSTERECTUTERUS <=250 GRAM W TUBE/OVARY HYSTERECTOMY VAGINAL LAPAROSCOPIC ROBOTIC ASSISTED - POSSIBLE BSO, POSSIBLE LAPAROSCOPIC COLPOPEXY Kaila Buckley, DO [address] [place] [address] [facility] [address] [place] [address] Referral ID Status Reason Start Date Expiration Date Visits Re quested Visits Authorized [id number] 1 1 Specialty Diagnoses / Procedures Referred By Les t Referred To Contact Diagnoses 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 [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] Procedures SC DESTRUCTION LESIONS VULVA EXTENSIVE VULVA LESION BIOPSY EXCISION - EXCISION OF CONDYLOMA, EXCISION OF SKIN TAGS Kaila Buckley DO [address] [place] [address] [facility] [address] [place] [address] Referral ID Status Reason Start Date Expiration Date Visits Re quested Visits Authorized [id number] 1 1 Ordered Prescriptions (unrec ognized section [...] - Reason: Loss of IV access)2100 (Due) mkjahja-dlfiga-owjnn pertussis (BOOSTRIX) injection 0.5 mL 0.5 mL, [...] every 2-3 minutes with cervical changes or Creston units (MVU) greater than 200 in a [...] 100 mL IVPB (COMPLETED) 2,000 mg, IntraVENous, CNC LATHE PROGRAMMER TO O.R., 1 dose, On Fri10/01/22 at [...] (NoRateChange - Provider: Sheila Brown APRN - TELECOMMUNICATIONS PROJECT MANAGER)1519 (New Bag - Provider: MONTY Rizzo CRNA)1815 [...] 100 mL IVPB (COMPLETED) 2,000 mg, IntraVENous, CNC LATHE PROGRAMMER TO O.R., 1 dose, On Fri01/09/24 at [...] order., Pre-op (day of surgery) lidocaine-EPINEPHrine 1 %-1:[id number] injection (CANCELED) PRN, Starting on Fri01/09/24 at 0847, Until Fri01/09/24 at 0852, Intra-op 0847 (Given - Provid er: Kaila Chi DO) dikkosdi-evbxpayhuo-ecqktogix (NEOSPORIN) ointment (CANCELED) PRN, Starting on Fri01/09/24 [...] Care Teams (unrecognized sec tion and content) Workers Compensation Attorney Relationship Specialty Start Date End Date Chencho Sylvester APRN - CNP PCP - General Family Medicine 11/02/19 Workers Compensation Attorney Relationship Specialty Start Date End Date Chencho Sylvester APRN - CNP PCP - General Family Medicine 11/02/19 Workers Compensation Attorney Relationship Specialty Start Date End Date Chencho Sylvester, TRANSPLANT NURSE PRACTITIONER [facility] PCP - General Family Medicine 11/02/19 Workers Compensation Attorney Relationship Specialty Start Date End Date Chencho Sylvester TRANSPLANT NURSE PRACTITIONER [facility] PCP - General Family Medicine 11/02/19 Workers Compensation Attorney Relationship Specialty Start Date End Date Chencho Sylvester, TRANSPLANT NURSE PRACTITIONER [facility] PCP - General Family Medicine 11/02/19 Workers Compensation Attorney Relationship Specialty Start Date End Date Chencho Sylvester [facility] PCP - General Family Medicine 11/02/19 Workers Compensation Attorney Relationship Specialty Start Date End Date Chencho Sylvester [facility] PCP - General Family Medicine 11/02/19 Workers Compensation Attorney Relationship Specialty Start Date End Date Chencho Sylvester [facility] PCP - General Family Medicine 11/02/19 Workers Compensation Attorney Relationship Specialty Start Date End Date Chencho Sylvester TRANSPLANT NURSE PRACTITIONER [facility] PCP - General Family Medicine 11/02/19 Workers Compensation Attorney Relationship Specialty Start Date End Date Chencho Sylvester [facility] PCP - General Family Medicine 11/02/19 Workers Compensation Attorney Relationship Specialty Start Date End Date Chencho Sylvester TRANSPLANT NURSE PRACTITIONER [facility] PCP - General Family Medicine 11/02/19 FOR [...] BE BASED ON THE PRIMARY CLINICAL RECORDS. [employer] provides no warranty or guarantee of the accuracy or completeness of information in this document.
== END 2024-07-01 15:39 | disposition home or self-care (01) ==
LOC: EC 15:38
PROVIDERS: Visit Provider Physician Assistant
DX: M25.572 Pain in left ankle and joints of left foot (principal); S89.302D Unspecified physeal fracture of lower end of left fibula, subsequent encounter for fracture with routine healing
CPT/HCPCS: 73610